=== PATIENT | male | born 1960 | race African-American/Black ===

== ENCOUNTER 2016-08-12 17:58 | Emergency (ER) | payer MEDICAID, OTHER ==
[~2016-08-12 17:58] MED LIST: ALBU8I INH; AMLO5 PO; ATOR40TA PO; BENZ1TAB PO; CARV12.52 PO; CHEL50TA PO; CHLO10 PO; CITA20TA4 PO; CYCL1PAK PO; DARU800T PO; FLUT50SP; FOLI1 PO; HYDR-2768 PO; HYDR50CA PO; LASI20TA PO; LISI-363 PO; LYRI50CA2 PO; MOBI15TA PO; NORV100C PO; NORV100T PO; POTA-243 PO; PRAZ1 PO; RISP1TAB51 OR; TAB-TAB PO; THIA100T18 PO; TRUVTAB2 PO; ZIPR1CAP27 PO; ZOVI200C24 PO
[2016-08-12 18:12] VITALS: BP 136/100; PULSE 92; RESP 20; TEMP 98.7; O2SAT 96
[2016-09-26] MEDS ORDERED: VITA250T3 PO (03:51)
== END 2016-08-12 21:05 | disposition left against medical advice (07) ==
LOC: NEDAMB 17:58
DX: R68.89 Other general symptoms and signs (principal)
CPT/HCPCS: 99281

== ENCOUNTER 2016-08-26 00:08 | Emergency (ER) | payer MEDICAID ==
[2016-08-26 00:13] VITALS: BP 128/75; PULSE 90; RESP 18; TEMP 98.3; O2SAT 96
[2016-08-26] MEDS ORDERED: EMTR1TAB4 PO (00:27)
[2016-08-26] MEDS ORDERED: POTA10TA2 PO (00:27)
[2016-08-26] MEDS ORDERED: LISI-515 PO (00:27)
[2016-08-26] MEDS ORDERED: HYDR25TA5 PO (00:27)
[2016-08-26] MEDS ORDERED: DARU1TAB2 PO (00:27)
[2016-08-26] MEDS ORDERED: PRAV40TA2 PO (00:27)
[2016-08-26] MEDS ORDERED: ALBUAER3 INH (00:27)
[2016-08-26] MEDS ORDERED: CARV12.52 PO (00:27)
[2016-08-26] MEDS ORDERED: ATOR20TA15 PO (00:27)
[2016-08-26] MEDS ORDERED: MELO7.5T4 PO (00:27)
[2016-08-26] MEDS ORDERED: SODIUM CHLOR 0.9% 1000 ML INJ 1,000 ML IV ONE (00:30)
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
[2016-08-26 01:04] LABS: AUTOMATED NEUTROPHIL # 4.3 TH/MM3 (1.8-7.7); BASOPHIL # 0.2 TH/MM3 (0-0.2); EOSINOPHIL # 0.2 TH/MM3 (0-0.4); HEMATOCRIT 39.9 % (39.0-51.0); HEMO FLAGS DIFF FINAL; LYMPH % 33.6 % (9.0-44.0); LYMPHOCYTE # 2.8 TH/MM3 (1.0-4.8); MEAN CELL VOLUME 100.9 FL (80.0-100.0); MEAN CORPUSCULAR HEMOGLOBIN 35.6 PG (27.0-34.0); MEAN CORPUSCULAR HGB CONC 35.3 % (32.0-36.0); MONO % 11.1 % (0.0-8.0); NEUT % 51.3 % (16.0-70.0); PLATELET COUNT 229 TH/MM3 (150-450); RED BLOOD COUNT 3.95 MIL/MM3 (4.50-5.90); RED CELL DISTRIBUTION WIDTH 14.4 % (11.6-17.2); WHITE BLOOD COUNT 8.4 TH/MM3 (4.0-11.0)
[2016-08-26 01:06] LABS: ANION GAP 12 MEQ/L (5-15); AST (GOT) 230 U/L (15-37); BICARBONATE 24.2 MEQ/L (21.0-32.0); BLOOD UREA NITROGEN 7 MG/DL (7-18); CHLORIDE 99 MEQ/L (98-107); GLOMERULAR FILTRATION RATE 111 ML/MIN (>89); POTASSIUM 3.3 MEQ/L (3.5-5.1); SODIUM (NA) 135 MEQ/L (136-145)
[2016-08-26 01:17] LABS: ALKALINE PHOSPHATASE 134 U/L (45-117); ALT (GPT) 119 U/L (12-78); TOTAL BILIRUBIN ADULT 0.7 MG/DL (0.2-1.0)
[2016-09-26] MEDS ORDERED: VITA250T3 PO (03:51)
== END 2016-08-26 01:50 | disposition left against medical advice (07) ==
LOC: NEPC 00:08
DX: F32.9 Major depressive disorder, single episode, unspecified (principal); Z53.21 Procedure and treatment not carried out due to patient leaving prior to being seen by health care provider; J45.909 Unspecified asthma, uncomplicated; I10 Essential (primary) hypertension
CPT/HCPCS: 80053; 80307; 84443; 85025; 96360; 99284; J7030

== ENCOUNTER 2016-09-24 00:59 | Observation (INO) | payer MEDICAID ==
[2016-09-24] VITALS (10 sets, daily range): BP systolic 98–161; BP diastolic 55–99; PULSE 71–101; RESP 12–22; TEMP 97.6–98.6; O2SAT 93–98
[~2016-09-24] VITALS: Ht 185.4 cm; Wt 90.0 kg
[~2016-09-24 00:59] MED LIST changes: +ALBUAER3 INH; +ATOR20TA15 PO; +DARU1TAB2 PO; +EMTR1TAB4 PO; +HYDR25TA5 PO; +LISI-515 PO; +MELO7.5T4 PO; +POTA10TA2 PO; +PRAV40TA2 PO
--- NOTE | 2016-09-24 02:42 | PD ---
HPI Chief Complaint: General Weakness Time Seen by Provider: 01:48 Travel History International Travel<30 days: No Contact w/Intl Traveler<30days: No Traveled to known affect area: No History of Present Illness HPI The patient is a 55 year old male who presents to the [facility] emergency department with a history of generalized weakness that began at 2 pm. It began when he was working outdoors in the heat. He has associated left sided chest pain with the weakness that comes and goes. The chest pain is sharp in character. He reports having associated dyspnea on exertion. He denies any prior history of DVT, PE, congestive heart failure, or heart attack. The patient has a known history of HIV, however he reports that he has been taking his retroviral medications. He cannot recall what his last CD4 count or viral load was. He reports that he last had blood work done a few months ago. The patient denies any recent fever, cough, congestion, neck pain, abdominal pain, diarrhea, urinary symptoms, or neurologic symptoms. He incidentally also reports having low back pain. In addition on review of systems he also reports having nausea and vomiting every morning for a year. He smokes 1/2 ppd. He reports drinking 2 beers per day. He denies ever having a stress test done previously [facility] Past Medical History Narrative Medical The patient's past medical history is significant for HIV since 1985- on retroviral medications, hypertension, asthma, bipolar disorder. PCP: Dr. Sulaiman Dai. Arthritis: Yes Asthma: Yes Blood Disorders: Yes (HIV) Bipolar Disorder: Yes Anxiety: Yes Depression: Yes Heart Rhythm Problems: No Cardiac Catheterization: No Cardiovascular Problems: Yes (HTN) High Cholesterol: Yes Congestive Heart Failure: No Diabetes: No Diminished Hearing: No Hypertension: Yes Immune Disorder: Yes (HIV+) Psychiatric: Yes Immunizations Current: Yes Schizophrenia: Yes Tetanus Vaccination: Unknown Past Surgical History Narrative Surgical Patient's past surgical history is significant for appendectomy Abdominal Surgery: Yes (APPENDECTOMY) Appendectomy: Yes Coronary Artery Bypass Graft: No Family History Family Myocardial Infarction: Yes (FATHER) Social History Alcohol Use: Yes (2 beers per day) Tobacco Use: Yes (one half pack per day) Substance Use: No (UTO) Allergies-Medications (Allergen,Severity, Reaction): Coded Allergies: Penicillin (Verified Allergy, Severe, HIVES, 09/24/16) Sulfa (Verified Allergy, Severe, HIVES, 09/24/16) Reported Meds & Prescriptions Reported Meds & Active Scripts Active Reported Fluticasone Nasal [place] 50 Mcg/Act Naspr 50 Mcg EACH NARE BID 50 mcg/spray Hydrochlorothiazide 25 Mg Tab 25 Mg PO DAILY Prezcobix (Darunavir-Cobicistat) 800-150 Mg Tab 1 Tab PO DAILY Lisinopril 20 Mg Tab 20 Mg PO DAILY Pravastatin 40 Mg Tab 40 Mg PO DAILY Descovy (Emtricitabine-Tenofovir Alafenamide) 200-25 mg Tab 1 Tab PO DAILY Proair Hfa 8.5 GM Inh (Albuterol Sulfate) 90 Mcg/Act Aer 2 Puff INH Q4-6H PRN 108 mcg/actuation Meloxicam 7.5 Mg Tab 7.5 Mg PO DAILY Carvedilol 12.5 Mg Tab 12.5 Mg PO BID Review of Systems Except as stated in HPI: all other systems reviewed are Neg General / Constitutional: No: Fever Eyes: No: Visual changes HENT: No: Headaches Cardiovascular: Positive: Chest Pain or Discomfort, Dyspnea on exertion, No: Palpitations Respiratory: Positive: Shortness of Breath Gastrointestinal: Positive: Nausea, Vomiting, No: Diarrhea, Abdominal Pain, Changes in Bowel Habits, Indigestion, Loss of Appetite Genitourinary: No: Dysuria Musculoskeletal: No: Pain Skin: No Rash Neurologic: No: Weakness Psychiatric: No: Depression Endocrine: No: Polydipsia Hematologic/Lymphatic: No: Easy Bruising Physical Exam Narrative General: The patient is a well-developed well-nourished male in no acute distress. Drowsy on my arrival to the room. Head and Neck exam: Head is normocephalic atraumatic. Eyes: EOMI, pupils are equal round and reactive to light. Nose: Midline septum with pink mucous membranes Mouth: Dentition unremarkable. Moist mucus membranes. Posterior oropharynx is not erythematous. No tonsillar hypertrophy. Uvula midline. Airway patent. Neck: No palpable lymphadenopathy. No nuchal rigidity. No thyromegaly. Cardiovascular: Sinus tachycardia in the low 100 without murmurs, gallops, or rubs. No pulse deficit to the extremities and simultaneous auscultation and palpation of his radial artery. Lungs: Clear to auscultation bilaterally. No wheezes, rhonchi, or rales. Abdomen: Soft, without tenderness to palpation in all 4 quadrants of the abdomen. No guarding, rebound, or rigidity. Normal bowel sounds are audible. No tenderness on palpation of McBurney's point. Negative Sumner's sign. Extremities: No clubbing, cyanosis, or edema. 2+ pulses in all 4 extremities. No calf tenderness on palpation. Back: No spinous process tenderness to palpation. No costovertebral angle tenderness to palpation. Neurologic Exam: Grossly nonfocal. Skin Exam: No rash noted. Intact skin that is warm and dry. Data Data Last Documented VS Vital Signs Date Time Temp Pulse Resp B/P Pulse Ox O2 Delivery O2 Flow Rate FiO2 09/24/16 04:23 82 16 123/77 98 Nasal Cannula 2 09/24/16 01:01 98.1 Orders Complete Blood Count With Diff (09/24/16 02:35) Comprehensive Metabolic Panel (09/24/16 02:35) Creatine Kinase (Cpk) (09/24/16 02:35) Ckmb (Isoenzyme) Profile (09/24/16 02:35) Troponin I (09/24/16 02:35) B-Type Natriuretic Peptide (09/24/16 02:35) Prothrombin Time / Inr (Pt) (09/24/16 02:35) Act Partial Throm Time (Ptt) (09/24/16 02:35) Lipase (09/24/16 02:35) Urinalysis - C+S If Indicated (09/24/16 02:35) Magnesium (Mg) (09/24/16 02:35) Thyroid Stimulating Hormone (09/24/16 02:35) Chest, Single Ap (09/24/16 02:35) Ct Brain W/O Iv Contrast(Rout) (09/24/16 02:35) Iv Access Insert/Monitor (09/24/16 02:35) Ecg Monitoring (09/24/16 02:35) Oximetry (09/24/16 02:35) Drug Screen, Random Urine (09/24/16 02:35) Alcohol (Ethanol) (09/24/16 02:35) Sodium Chlor 0.9% 1000 Ml Inj (Ns 1000 M (09/24/16 03:30) Sodium Chlor 0.9% 1000 Ml Inj (Ns 1000 M (09/24/16 03:30) CKMB (09/24/16 02:30) CKMB% (09/24/16 02:30) Admit Order (Ed Use Only) (09/24/16 04:20) Aspirin Chew (Aspirin Chew) (09/24/16 04:30) Nitroglycerin 2% Oint (Nitroglycerin 2% (09/24/16 04:30) Labs Laboratory Tests Test 09/24/16 09/24/16 02:30 04:10 White Blood Count 8.1 TH/MM3 Red Blood Count 3.99 MIL/MM3 Hemoglobin 14.5 GM/DL Hematocrit 41.4 % Mean Corpuscular Volume 103.9 FL Mean Corpuscular Hemoglobin 36.4 PG Mean Corpuscular Hemoglobin 35.0 % Concent Red Cell Distribution Width 14.7 % Platelet Count 240 TH/MM3 Mean Platelet Volume 7.8 FL Neutrophils (%) (Auto) 59.0 % Lymphocytes (%) (Auto) 28.3 % Monocytes (%) (Auto) 9.1 % Eosinophils (%) (Auto) 2.6 % Basophils (%) (Auto) 1.0 % Neutrophils # (Auto) 4.8 TH/MM3 Lymphocytes # (Auto) 2.3 TH/MM3 Monocytes # (Auto) 0.7 TH/MM3 Eosinophils # (Auto) 0.2 TH/MM3 Basophils # (Auto) 0.1 TH/MM3 CBC Comment DIFF FINAL Differential Comment Prothrombin Time 9.8 SEC Prothromb Time International 0.9 RATIO Ratio Activated Partial 31.0 SEC Thromboplast Time Sodium Level 141 MEQ/L Potassium Level 3.1 MEQ/L Chloride Level 103 MEQ/L Carbon Dioxide Level 24.8 MEQ/L Anion Gap 13 MEQ/L Blood Urea Nitrogen 6 MG/DL Creatinine 0.75 MG/DL Estimat Glomerular Filtration 132 ML/MIN Rate Random Glucose 116 MG/DL Calcium Level 8.5 MG/DL Magnesium Level 1.9 MG/DL Total Bilirubin 0.5 MG/DL Aspartate Amino Transf 123 U/L (AST/SGOT) Alanine Aminotransferase 86 U/L (ALT/SGPT) Alkaline Phosphatase 109 U/L Total Creatine Kinase 140 U/L Creatine Kinase MB 1.5 NG/ML Troponin I 0.06 NG/ML B-Type Natriuretic Peptide 37 PG/ML Total Protein 8.6 GM/DL Albumin 2.9 GM/DL Lipase 317 U/L Thyroid Stimulating Hormone 1.800 uIU/ML 3rd Gen Ethyl Alcohol Level 182 MG/DL Urine Color YELLOW Urine Turbidity CLEAR Urine pH 6.0 Urine Specific [place] 1.011 Urine Protein 30 mg/dL Urine Glucose (UA) NEG mg/dL Urine Ketones NEG mg/dL Urine Occult Blood NEG Urine Nitrite NEG Urine Bilirubin NEG Urine Urobilinogen 2.0 MG/DL Urine Leukocyte Esterase NEG Urine RBC 1 /hpf Urine WBC 1 /hpf Urine Squamous Epithelial <1 /hpf Cells Urine Bacteria RARE /hpf Urine Hyaline Casts 61 /lpf Urine Mucus FEW /lpf Microscopic Urinalysis Comment CULT NOT INDICATED Urine Opiates Screen NEG Urine Barbiturates Screen NEG Urine Amphetamines Screen NEG Urine Benzodiazepines Screen POS Urine Cocaine Screen NEG Urine Cannabinoids Screen NEG MDM Medical Decision Making Medical Screen Exam Complete: Yes Emergency Medical Condition: Yes Medical Record Reviewed: Yes Interpretation(s) Last Impressions Head CT 09/24/16234 Signed Impressions: Service Date/Time: Saturday, September 24, 2016 02:44 - CONCLUSION: Negative noncontrast CT brain. rAsh Savage MD Chest X-Ray 09/24/16234 Signed Impressions: Service Date/Time: Saturday, September 24, 2016 02:55 - CONCLUSION: The lungs are clear. Arsh Savage MD Differential Diagnosis Intracranial abnormality, versus acute coronary syndrome, versus rhabdomyolysis , versus polymyositis, versus viral syndrome, versus other infectious process due to his immunocompromise state, versus metabolic encephalopathy, versus electrolyte abnormality. Narrative Course During the course of the patients emergency department visit, the patients history, examination, and differential diagnosis were reviewed with the patient. The patient had IV access obtained and blood work sent for analysis. 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 An EKG was done on arrival. The patient has an EKG that shows a sinus tachycardia rate of 102, no acute ST segment elevation or depression is noted, QRS duration is 83 ms, QTC 418 ms, tremulous baseline which could effect interpretation. The patient was initially provided normal saline 1 L IV fluid bolus which was repeated 1. The patient was given aspirin 162 mg by mouth 1, nitroglycerin 1/ 2 inch the chest wall. The patients laboratory studies were reviewed and remarkable for a white count of 8.1, hemoglobin 14.5, platelets 240 with 9.1 monocytes. CMP is remarkable for potassium of 3.1 which was supplemented orally, BUN 6, glucose 116, AST 123 , ALT 86, CPK 140, troponin I 0.06, BNP is 37, albumin 2.9, lipase 317, TSH 1.8 , PT 9.8, PTT 31, urinalysis shows 30 protein, rare bacteria, urine drug screen is positive for benzodiazepines, alcohol 182. Radiology studies were reviewed and remarkable for a chest x-ray that shows no acute infiltrate, CT scan of the brain shows no acute abnormality. The patients results were discussed with the patient, including the plan of care. I explained that further testing and/ or monitoring is indicated based on the patients history, examination, and/ or laboratory findings. Therefore, I recommended admission for additional evaluation. The patient expressed understanding and was agreeable with this plan. The patient was admitted to the hospital in stable condition and sent to a bed under the care of the [facility] Hospitalist service. Physician Communication Physician Communication The patient's case was discussed with Dr. Sharma. She did agree to admit the patient for further evaluation and treatment at this time. Diagnosis Primary Impression: Generalized weakness Additional Impressions: Elevated troponin Chest pain Qualified Code: R07.9 - Chest pain, unspecified type Admitting Information Admitting Physician Requests: Admit Hermila Zhao MD Sep 24, 2016 02:42
--- NOTE | 2016-09-24 03:11 | RADRPT ---
EXAM DATE/TIME: 09/24/2016 02:55 [facility] COMPARISON: CHEST SINGLE AP, July 13, 2015, 21:51. INDICATIONS : Short of breath. MEDICAL HISTORY : HIV. Hypertension. SURGICAL HISTORY : Appendectomy. ENCOUNTER: Initial ACUITY: 1 day PAIN SCORE: 0/10 LOCATION: Bilateral chest FINDINGS: A single view of the chest demonstrates the lungs to be symmetrically aerated without evidence of mas s, infiltrate or effusion. The cardiomediastinal contours are unremarkable. Osseous structures are intact. CONCLUSION: The lungs are clear. Arsh Savage MD on September 24, 2016 at 3:08 Board Certified Radiologist. This report was verified electronically.
--- NOTE | 2016-09-24 03:20 | RADRPT ---
EXAM DATE/TIME: 09/24/2016 02:44 [facility] COMPARISON: MRI BRAIN W/O CONTRAST, July 14, 2015, 12:09. CT BRAIN W/O CONTRAST, July 13, 2015, 22:09. INDICATIONS : General weakness. RADIATION DOSE: 41.15 CTDIvol (mGy) MEDICAL HISTORY : HIV. Hypertension. SURGICAL HISTORY : Appendectomy. ENCOUNTER: Initial ACUITY: 1 day PAIN SCALE: 0/10 LOCATION: cranial TECHNIQUE: Multiple contiguous axial images were obtained of the head. Using automated exposure control and adj ustment of the mA and/or kV according to patient size, radiation dose was kept as low as reasonably a chievable to obtain optimal diagnostic quality images. DICOM format image data is available electro nically for review and comparison. FINDINGS: CEREBRUM: The ventricles are normal for age. No evidence of midline shift, mass lesion, hemorrhage or acute in farction. No extra-axial fluid collections are seen. POSTERIOR FOSSA: The cerebellum and brainstem are intact. The 4th ventricle is midline. The cerebellopontine angle i s unremarkable. EXTRACRANIAL: The visualized portion of the orbits is intact. SKULL: The calvaria is intact. No evidence of skull fracture. CONCLUSION: Negative noncontrast CT brain. Arsh Savage MD on September 24, 2016 at 3:17 Board Certified Radiologist. This report was verified electronically.
[2016-09-24 03:21] LABS: AUTOMATED NEUTROPHIL # 4.8 TH/MM3 (1.8-7.7); BASOPHIL # 0.1 TH/MM3 (0-0.2); EOSINOPHIL # 0.2 TH/MM3 (0-0.4); EOSINOPHIL % 2.6 % (0.0-4.0); HEMATOCRIT 41.4 % (39.0-51.0); HEMO FLAGS DIFF FINAL; LYMPH % 28.3 % (9.0-44.0); LYMPHOCYTE # 2.3 TH/MM3 (1.0-4.8); MEAN CELL VOLUME 103.9 FL (80.0-100.0); MEAN CORPUSCULAR HEMOGLOBIN 36.4 PG (27.0-34.0); MONO % 9.1 % (0.0-8.0); PLATELET COUNT 240 TH/MM3 (150-450); RED BLOOD COUNT 3.99 MIL/MM3 (4.50-5.90); RED CELL DISTRIBUTION WIDTH 14.7 % (11.6-17.2); WHITE BLOOD COUNT 8.1 TH/MM3 (4.0-11.0)
[2016-09-24] MEDS ORDERED: HYDR25TA5 PO (03:29)
[2016-09-24] MEDS ORDERED: FLUT50SP EACH NARE (03:29)
[2016-09-24] MEDS ORDERED: SODIUM CHLOR 0.9% 1000 ML INJ 1,000 ML IV ONE ×2 (03:30)
[2016-09-24 03:34] LABS: INTERNATIONAL NORMALIZED RATIO 0.9 RATIO; PROTHROMBIN TIME - PATIENT 9.8 SEC (9.8-11.6)
[2016-09-24 03:49] LABS: ALKALINE PHOSPHATASE 109 U/L (45-117); CREATINE KINASE 140 U/L (39-308); TOTAL BILIRUBIN ADULT 0.5 MG/DL (0.2-1.0)
[2016-09-24 03:53] LABS: ALT (GPT) 86 U/L (12-78); AST (GOT) 123 U/L (15-37); BLOOD UREA NITROGEN 6 MG/DL (7-18); CHLORIDE 103 MEQ/L (98-107); GLOMERULAR FILTRATION RATE 132 ML/MIN (>89)
[2016-09-24 03:59] LABS: ANION GAP 13 MEQ/L (5-15); BICARBONATE 24.8 MEQ/L (21.0-32.0); MAGNESIUM 1.9 MG/DL (1.5-2.5); POTASSIUM 3.1 MEQ/L (3.5-5.1); SODIUM (NA) 141 MEQ/L (136-145)
[2016-09-24 04:02] LABS: CKMB 1.5 NG/ML (0.5-3.6)
[2016-09-24] MEDS ORDERED: ASPIRIN 81 MG CHEW TAB CHEW ONE (04:30)
[2016-09-24] MEDS ORDERED: NITROGLYCERIN 2% OINT 1 GM PACKET TOPICAL ONE (04:30)
[2016-09-24 04:52] LABS: BACTERIA, URINE RARE /hpf; BLOOD, URINE NEG (NEG); COMMENT (UR) CULT NOT INDICATED; CULTURE IF INDICATED CULT NOT INDICATED; GLUCOSE,URINE NEG (NEG); HYALINE CAST, URINE 61 /lpf (RARE); KETONE, URINE NEG (NEG); MUCUS URINE FEW /lpf (OCC); NITRITE,URINE NEG (NEG); SQUAMOUS EPITHELIAL CELL URINE <1 /hpf (0-5); URINE COLOR YELLOW (YELLW/STRAW)
[2016-09-24 04:53] LABS: AMPHETAMINE, URINE NEG (NEG); BARBITURATES, URINE NEG (NEG); COCAINE, URINE NEG (NEG)
[2016-09-24] MEDS ORDERED: SODIUM CHLORIDE 0.9% FLUSH 10 ML FLUSH IV FLUSH PRN (05:00)
[2016-09-24] MEDS ORDERED: NALOXONE HCL 0.4 MG/ML AMP IV PRN (05:00)
[2016-09-24] MEDS ORDERED: POTASSIUM CHLORIDE 20 MEQ CONTROLLED RELEASE TAB PO ONE (06:00)
[2016-09-24] MEDS ORDERED: POTASSIUM CHLORIDE 25 MEQ EFFERVESCENT TAB PO ONE (06:00)
[2016-09-24] MEDS ORDERED: SODIUM CHLOR 0.9% 1000 ML INJ 1,000 ML IV SCH (08:15)
[2016-09-24] MEDS ORDERED: ALBUTEROL SULFATE 90 MCG/ACT HFA 18 GM INHALER INH PRN (08:15)
[2016-09-24] MEDS ORDERED: PRAVASTATIN SOD 40 MG TAB PO SCH (09:00)
[2016-09-24] MEDS ORDERED: NON-FORMULARY DRUG (Darunavir-Cobicistat (Prezcobix) 1 TAB) PO SCH (09:00)
[2016-09-24] MEDS ORDERED: NON-FORMULARY DRUG (Emtricitabine-Tenofovir Alafenamide (Descovy) 1 TAB) PO SCH (09:00)
[2016-09-24] MEDS ORDERED: CARVEDILOL 12.5 MG TAB PO SCH (09:00)
[2016-09-24] MEDS ORDERED: SODIUM CHLORIDE 0.9% FLUSH 10 ML FLUSH IV FLUSH SCH (09:00)
[2016-09-24] MEDS ORDERED: FLUTICASONE PROPIONATE 50 MCG/ACT 16 GM NASAL SPRAY EACH NARE SCH (09:00)
--- NOTE | 2016-09-24 09:46 | HHI.HP ---
[facility] Jeff Hilario, Admission Diagnosis Generalized Weakness, Chest pain, intermediate troponin Diagnoses: Travel History International Travel<30 Days: No Contact w/Intl Traveler <30 Da: No Traveled to Known Affected Are: No History of Present Illness Mr. Pierce is a 55-year-old male. He came to the hospital yesterday due to profound weakness and chest pain. 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 She was out in the sun and felt hot and dehydrated and weak. After returning to a cooler environment his symptoms did not improve and he started to have chest pain. He has no prior history of myocardial infarction but his father did have a myocardial infarction. His baseline medical conditions are asthma, HIV, schizophrenia, bipolar disorder, anxiety, depression, hypertension, and hyperlipidemia. Chest pain was central in his chest that was worsened with movements and without any tenderness. Overnight with IV hydration he has been feeling better. His chest pain is nearly resolved. He still feels a bit weak but no weakness compared to yesterday. No other complaints. She does smoke and drink alcohol at baseline. Review of Systems Constitutional: COMPLAINS OF: Fatigue, DENIES: Fever, Weight gain, Weight loss , Chills Eyes: DENIES: Blurred vision, Diplopia Ears, nose, mouth, throat: DENIES: Tinnitus, Hearing loss, Vertigo Respiratory: DENIES: Cough, Wheezing, Shortness of breath Cardiovascular: COMPLAINS OF: Chest pain, DENIES: Palpitations, Syncope Gastrointestinal: DENIES: Abdominal pain, Black stools, Bloody stools Musculoskeletal: DENIES: Joint pain, Muscle aches, Stiffness Integumentary: DENIES: Abnormal pigmentation Hematologic/lymphatic: DENIES: Bruising Immunologic/allergic: DENIES: Eczema Neurologic: DENIES: Abnormal gait, Headache Psychiatric: DENIES: Anxiety, Confusion Past Family Social History Past Medical History Asthma, HIV, schizophrenia, bipolar disorder, anxiety, depression, hypertension , hyperlipidemia Past Surgical History Appendectomy Reported Medications Reported Meds & Active Scripts Active Reported Fluticasone Nasal [place] 50 Mcg/Act Naspr 50 Mcg EACH NARE BID 50 mcg/spray Hydrochlorothiazide 25 Mg Tab 25 Mg PO DAILY Prezcobix (Darunavir-Cobicistat) 800-150 Mg Tab 1 Tab PO DAILY Lisinopril 20 Mg Tab 20 Mg PO DAILY Pravastatin 40 Mg Tab 40 Mg PO DAILY Descovy (Emtricitabine-Tenofovir Alafenamide) 200-25 mg Tab 1 Tab PO DAILY Proair Hfa 8.5 GM Inh (Albuterol Sulfate) 90 Mcg/Act Aer 2 Puff INH Q4-6H PRN 108 mcg/actuation Meloxicam 7.5 Mg Tab 7.5 Mg PO DAILY Carvedilol 12.5 Mg Tab 12.5 Mg PO BID Allergies: Coded Allergies: Penicillin (Verified Allergy, Severe, HIVES, 09/24/16) Sulfa (Verified Allergy, Severe, HIVES, 09/24/16) Family History Myocardial infarction in father Social History Nicotine use Alcohol use Known drug abuse Physical Exam Vital Signs Vital Signs Date Time Temp Pulse Resp B/P Pulse Ox O2 Delivery O2 Flow Rate FiO2 09/24/16 08:22 140/91 09/24/16 08:00 71 09/24/16 07:43 97.6 82 12 161/87 97 09/24/16 06:48 98.2 77 18 132/97 97 09/24/16 04:23 82 16 123/77 98 Nasal Cannula 2 09/24/16 03:50 92 22 102/57 96 Nasal Cannula 2 09/24/16 03:39 98 Nasal Cannula 2 09/24/16 03:00 95 18 98/55 97 Nasal Cannula 2 09/24/16 01:05 101 18 100 Room Air 09/24/16 01:01 98.1 101 18 125/76 93 Physical Exam GENERAL: NAD, A&Ox3 HEAD: Normocephalic. NECK: Supple, trachea midline. No lymphadenopathy. EYES: No scleral icterus. No injection or drainage. CARDIOVASCULAR: Regular rate and rhythm without murmurs, gallops, or rubs. RESPIRATORY: Breath sounds equal bilaterally. No accessory muscle use. GASTROINTESTINAL: Abdomen soft, non-tender, nondistended. MUSCULOSKELETAL: No cyanosis, or edema. SKIN: Warm and dry. NEURO: No focal neurological deficitis. Laboratory Laboratory Tests Test 09/24/16 09/24/16 02:30 04:10 White Blood Count 8.1 Red Blood Count 3.99 Hemoglobin 14.5 Hematocrit 41.4 Mean Corpuscular Volume 103.9 Mean Corpuscular Hemoglobin 36.4 Mean Corpuscular Hemoglobin 35.0 Concent Red Cell Distribution Width 14.7 Platelet Count 240 Mean Platelet Volume 7.8 Neutrophils (%) (Auto) 59.0 Lymphocytes (%) (Auto) 28.3 Monocytes (%) (Auto) 9.1 Eosinophils (%) (Auto) 2.6 Basophils (%) (Auto) 1.0 Neutrophils # (Auto) 4.8 Lymphocytes # (Auto) 2.3 Monocytes # (Auto) 0.7 Eosinophils # (Auto) 0.2 Basophils # (Auto) 0.1 CBC Comment DIFF FINAL Differential Comment Prothrombin Time 9.8 Prothromb Time International 0.9 Ratio Activated Partial 31.0 Thromboplast Time Sodium Level 141 Potassium Level 3.1 Chloride Level 103 Carbon Dioxide Level 24.8 Anion Gap 13 Blood Urea Nitrogen 6 Creatinine 0.75 Estimat Glomerular Filtration 132 Rate Random Glucose 116 Calcium Level 8.5 Magnesium Level 1.9 Total Bilirubin 0.5 Aspartate Amino Transf 123 (AST/SGOT) Alanine Aminotransferase 86 (ALT/SGPT) Alkaline Phosphatase 109 Total Creatine Kinase 140 Creatine Kinase MB 1.5 Troponin I 0.06 B-Type Natriuretic Peptide 37 Total Protein 8.6 Albumin 2.9 Lipase 317 Thyroid Stimulating Hormone 1.800 3rd Gen Ethyl Alcohol Level 182 Urine Color YELLOW Urine Turbidity CLEAR Urine pH 6.0 Urine Specific [place] 1.011 Urine Protein 30 Urine Glucose (UA) NEG Urine Ketones NEG Urine Occult Blood NEG Urine Nitrite NEG Urine Bilirubin NEG Urine Urobilinogen 2.0 Urine Leukocyte Esterase NEG Urine RBC 1 Urine WBC 1 Urine Squamous Epithelial <1 Cells Urine Bacteria RARE Urine Hyaline Casts 61 Urine Mucus FEW Microscopic Urinalysis Comment CULT NOT INDICATED Urine Opiates Screen NEG Urine Barbiturates Screen NEG Urine Amphetamines Screen NEG Urine Benzodiazepines Screen POS Urine Cocaine Screen NEG Urine Cannabinoids Screen NEG Result Diagram: 09/24/1622909/24/16229 Assessment and Plan Problem List: (1) Chest pain ICD Code: R07.9 Status: Acute (2) Elevated troponin ICD Code: R74.8 Status: Acute (3) Generalized weakness ICD Code: R53.1 Status: Acute (4) Heat exhaustion ICD Code: T67.5XXA Status: Acute Assessment and Plan Assessment and plan 55-year-old male admitted with heat exhaustion, weakness and chest pain. Weakness Heat exhaustion Improving. Continue IV hydration Follow for further improvement Avoid excessive heat exposure Chest pain Troponin elevation Chest pain has resolved Follow troponin levels Elevated troponin may be secondary to dehydration No signs of myocardial infarction thus far Etiology suspected to be related to heat exhaustion and dehydration Musculoskeletal aggravation could also contribute Asthma No exacerbation Continue baseline treatments HIV Continue antivirals Follow as an outpatient schizophrenia bipolar disorder Depression Anxiety No exacerbations No change to baseline treatment hypertension Follow blood pressures Adjust if needed hyperlipidemia Continue statin Follow as an outpatient DVT prophylaxis SCDs Problem Qualifiers (1) Chest pain: Qualified Code: R07.9 - Chest pain, unspecified type Thanh Corey MD Sep 24, 2016 9:45 am
[2016-09-24] MEDS ORDERED: MELOXICAM 7.5 MG TAB PO SCH (11:00)
--- NOTE | 2016-09-24 17:11 | EKG ---
Date Performed: 09/24/2016 Time Performed: 01:06:41 PTAGE: 55 years EKG: SINUS TACHYCARDIA POSSIBLE LEFT ATRIAL ENLARGEMENT BORDERLINE LEFT AXIS DEVIATION ABNORMAL RHYTHM ECG PREVIOUS TRACING : 07/13/2015 23.17 Compared to prior tracing no significant change DOCTOR: Yash Moody Interpretating Date/Time 09/24/2016 17:09:57
--- NOTE | 2016-09-24 17:11 | EKG ---
Date Performed: 09/24/2016 Time Performed: 08:13:10 PTAGE: 55 years EKG: Sinus rhythm WITH SHORT UT INTERVAL WITH OCCASIONAL VENTRICULAR PREMATURE COMPLEXES BORDERLINE LEFT AXIS DEVIATIO N BORDERLINE ECG PREVIOUS TRACING : 09/24/2016 01.06 Compared to prior tracing no significant change DOCTOR: Yash Moody Interpretating Date/Time 09/24/2016 17:10:10
[2016-09-26] MEDS ORDERED: VITA250T3 PO (03:51)
== END 2016-09-24 12:32 | disposition home or self-care (01) ==
LOC: NEPE 00:59 → INTOOBSV 04:23 → NEDA 04:23 → NEPGCP 06:03
PROVIDERS: ADMIT Hospitalist; ATTEND Hospitalist
DX: R07.9 Chest pain, unspecified (principal); R74.8 Abnormal levels of other serum enzymes; T67.5XXA Heat exhaustion, unspecified, initial encounter; R53.1 Weakness; R53.83 Other fatigue; R06.02 Shortness of breath; R06.00 Dyspnea, unspecified; M54.5 Low back pain; R11.2 Nausea with vomiting, unspecified; R00.0 Tachycardia, unspecified; R94.31 Abnormal electrocardiogram [ECG] [EKG]; I10 Essential (primary) hypertension; E78.5 Hyperlipidemia, unspecified; E78.00 Pure hypercholesterolemia, unspecified; J45.909 Unspecified asthma, uncomplicated; B20 Human immunodeficiency virus [HIV] disease; F20.9 Schizophrenia, unspecified; F31.9 Bipolar disorder, unspecified; F41.9 Anxiety disorder, unspecified; M19.90 Unspecified osteoarthritis, unspecified site; F17.200 Nicotine dependence, unspecified, uncomplicated; Z79.899 Other long term (current) drug therapy
CPT/HCPCS: 70450; 71010; 80053; 80307; 81001; 82550; 82552; 83690; 83735; 83880; 84443; 84484; 85025; 85610; 85730; 93005; 96360; 99285; G0378; J7030

== ENCOUNTER 2016-09-26 03:45 | Emergency (ER) | payer MEDICAID ==
[~2016-09-26] VITALS: Ht 185.4 cm; Wt 90.0 kg
[~2016-09-26 03:45] MED LIST changes: -ALBU8I INH; -AMLO5 PO; -ATOR20TA15 PO; -ATOR40TA PO; -BENZ1TAB PO; -CHEL50TA PO; -CHLO10 PO; -CITA20TA4 PO; -CYCL1PAK PO; -DARU800T PO; -FLUT50SP; +FLUT50SP EACH NARE; -FOLI1 PO; -HYDR-2768 PO; -HYDR50CA PO; -LASI20TA PO; -LISI-363 PO; -LYRI50CA2 PO; -MOBI15TA PO; -NORV100C PO; -NORV100T PO; -POTA-243 PO; -POTA10TA2 PO; -PRAZ1 PO; -RISP1TAB51 OR; -TAB-TAB PO; -THIA100T18 PO; -TRUVTAB2 PO; -ZIPR1CAP27 PO; -ZOVI200C24 PO
[2016-09-26] MEDS ORDERED: VITA250T3 PO ×2 (03:51)
[2016-09-26 03:52] VITALS: BP 120/83; PULSE 101; RESP 20; TEMP 98.5; O2SAT 92
[2016-09-26 03:59] VITALS: BP_SYST 113; BP_SYST 116; BP_DIAS 74; BP_DIAS 76; BP_DIAS 78
[2016-09-26] MEDS ORDERED: POTASSIUM CHLORIDE 20 MEQ CONTROLLED RELEASE TAB PO ONE (04:00)
--- NOTE | 2016-09-26 04:00 | PD ---
HPI Chief Complaint: TIRED Time Seen by Provider: 03:49 Travel History International Travel<30 days: No Contact w/Intl Traveler<30days: No History of Present Illness HPI PT CALLED [facility] NUMEROUS TIMES BECAUSE HE WAS TIRED AND NEEDED A RIDE TO THE HOSPITAL. ARRIVES AT 0400. PATIENT DENIES MORENO/CP/ABDPAIN/N/V/D BUT JUST FEELS TIRED AND WANTS TO REST. PATIENT WAS SEEN LAST NIGHT AND ADMITTED TO [facility], SEEN BY DR CARVAJAL ([employer]) AND CLEARED TO GO HOME AFTER CARDIAC EVALUATION FOR ESSENTIALLY THE SAME COMPLAINT. PFSH Past Medical History Arthritis: Yes Asthma: Yes Blood Disorders: Yes (HIV) Bipolar Disorder: Yes Anxiety: Yes Depression: Yes Heart Rhythm Problems: No Cardiac Catheterization: No Cardiovascular Problems: Yes (HTN) High Cholesterol: Yes Congestive Heart Failure: No Diabetes: No Diminished Hearing: No Hypertension: Yes Immune Disorder: Yes (HIV+) Psychiatric: Yes Immunizations Current: Yes Schizophrenia: Yes Past Surgical History Abdominal Surgery: Yes (APPENDECTOMY) Appendectomy: Yes Coronary Artery Bypass Graft: No Social History Alcohol Use: Yes (2 beers per day) Tobacco Use: Yes (one half pack per day) Substance Use: Yes (crack cocaine, last used 1 1/2 years ago ) Allergies-Medications (Allergen,Severity, Reaction): Coded Allergies: Penicillin (Verified Allergy, Severe, HIVES, 09/29/16) Sulfa (Verified Allergy, Severe, HIVES, 09/29/16) Reported Meds & Prescriptions Reported Meds & Active Scripts Active Levaquin (Levofloxacin) 500 Mg Tablet 500 Mg PO DAILY 7 Days Reported Vitamin C (Ascorbic Acid) 250 Mg Tab 500 Mg PO Fluticasone Nasal [place] 50 Mcg/Act Naspr 50 Mcg EACH NARE BID 50 mcg/spray Hydrochlorothiazide 25 Mg Tab 25 Mg PO DAILY Prezcobix (Darunavir-Cobicistat) 800-150 Mg Tab 1 Tab PO DAILY Lisinopril 20 Mg Tab 20 Mg PO DAILY Pravastatin 40 Mg Tab 40 Mg PO DAILY Descovy (Emtricitabine-Tenofovir Alafenamide) 200-25 mg Tab 1 Tab PO DAILY Proair Hfa 8.5 GM Inh (Albuterol Sulfate) 90 Mcg/Act Aer 2 Puff INH Q4-6H PRN 108 mcg/actuation Meloxicam 7.5 Mg Tab 7.5 Mg PO DAILY Carvedilol 12.5 Mg Tab 12.5 Mg PO BID Review of Systems Except as stated in HPI: all other systems reviewed are Neg (EXCEPT FOR FEELING TIRED) Physical Exam Narrative GENERAL: SKIN: Warm and dry. HEAD: Atraumatic. Normocephalic. EYES: Pupils equal and round. No scleral icterus. No injection or drainage. ENT: No nasal bleeding or discharge. Mucous membranes pink and moist. NECK: Trachea midline. No JVD. CARDIOVASCULAR: Regular rate and rhythm. RESPIRATORY: No accessory muscle use. Clear to auscultation. Breath sounds equal bilaterally. GASTROINTESTINAL: Abdomen soft, non-tender, nondistended. Hepatic and splenic margins not palpable. MUSCULOSKELETAL: Extremities without clubbing, cyanosis, or edema. No obvious deformities. NEUROLOGICAL: Awake and alert. No obvious cranial nerve deficits. Motor grossly within normal limits. Five out of 5 muscle strength in the arms and legs. Normal speech. PSYCHIATRIC: Appropriate mood and affect; insight and judgment normal. Data Data Last Documented VS Orders Orthostatic Vital Signs (09/26/16 03:52) Blood Glucose (09/26/16 03:52) Potassium Chloride (Kcl) (09/26/16 04:00) MDM Medical Decision Making Medical Screen Exam Complete: Yes Emergency Medical Condition: No Medical Record Reviewed: Yes Differential Diagnosis HYPOGLYCEMIA V ORTHOSTASIS Narrative Course SEE H&P FOR THOUGHT PROCESS AFTER THOROUGH REVIEW OF PATIENTS CHART ON RECENT ADMISSION. PATIENT ALSO DID NOT HAVE ANY SERIOUS HYPOKALEMIA ON LABS ONLY HAD MINOR LOW LEVELS OF 3.1 SO WILL GIVE ORAL REPLACEMENT HERE TIMES 1 Diagnosis Primary Impression: MEDICAL CLEARANCE Additional Impression: MILD HYPOKALEMIA Disposition: DISCHARGE HOME Condition: Stable Curly Cameron MD Sep 26, 2016 04:00 Diagnosis Primary Impression: MEDICAL CLEARANCE Additional Impression: MILD HYPOKALEMIA Disposition: 01 DISCHARGE HOME Condition: Stable Curly Cameron MD Sep 26, 2016 04:00
== END 2016-09-26 05:53 | disposition home or self-care (01) ==
LOC: NEPE 03:45
DX: E87.6 Hypokalemia (principal); J45.909 Unspecified asthma, uncomplicated; Z21 Asymptomatic human immunodeficiency virus [HIV] infection status; F31.9 Bipolar disorder, unspecified; F41.9 Anxiety disorder, unspecified; I10 Essential (primary) hypertension; E78.00 Pure hypercholesterolemia, unspecified; F20.9 Schizophrenia, unspecified; F17.200 Nicotine dependence, unspecified, uncomplicated
CPT/HCPCS: 99283

== ENCOUNTER 2016-09-29 00:47 | Emergency (ER) | payer MEDICAID ==
[~2016-09-29 00:47] MED LIST changes: +VITA250T3 PO
[2016-09-29 00:49] VITALS: BP 139/94; PULSE 111; RESP 18; TEMP 98.8; O2SAT 96
[2016-09-29] MEDS ORDERED: LEVA500T20 PO (08:29)
== END 2016-09-29 01:00 | disposition left against medical advice (07) ==
LOC: NED 00:47
DX: F10.10 Alcohol abuse, uncomplicated (principal)
CPT/HCPCS: 99281

== ENCOUNTER 2016-09-29 06:00 | Emergency (ER) | payer MEDICAID ==
[~2016-09-29] VITALS: Ht 185.4 cm; Wt 88.0 kg
[2016-09-29 06:01] VITALS: BP 164/110; PULSE 91; RESP 18; TEMP 98.4; O2SAT 96
--- NOTE | 2016-09-29 06:58 | PD ---
HPI Chief Complaint: Chest Pain Time Seen by Provider: 06:45 Travel History International Travel<30 days: No Contact w/Intl Traveler<30days: No Traveled to known affect area: No History of Present Illness HPI 85-year-old male with a history of HIV disease, coronary artery disease, cardiomyopathy, who presents today with points of chest pain. Patient states that he's had a cough with productive yellow-green phlegm. He states when he coughs he gets a sharp pain in his left chest. When asked if he had the pain before the cough, the patient does state that he has had pain previously. Patient denies any fevers, chills. He states he thinks he needs an antibiotic. The patient denies any other complaints time my examination. PFSH Past Medical History Arthritis: Yes Asthma: Yes Blood Disorders: Yes (HIV) Bipolar Disorder: Yes Anxiety: Yes Depression: Yes Heart Rhythm Problems: No Cardiac Catheterization: No Cardiovascular Problems: Yes (htn) High Cholesterol: Yes Congestive Heart Failure: No Diabetes: No Diminished Hearing: No Hypertension: Yes Immune Disorder: Yes (HIV+) Psychiatric: Yes Immunizations Current: Yes Schizophrenia: Yes Past Surgical History Abdominal Surgery: Yes (APPENDECTOMY) Appendectomy: Yes Coronary Artery Bypass Graft: No Family History Family Myocardial Infarction: Yes (FATHER) Social History Alcohol Use: Yes (2-3 beers per day) Tobacco Use: Yes (one half pack per day) Substance Use: Yes (crack cocaine, last used 1 1/2 years ago ) Allergies-Medications (Allergen,Severity, Reaction): Coded Allergies: Penicillin (Verified Allergy, Severe, HIVES, 09/29/16) Sulfa (Verified Allergy, Severe, HIVES, 09/29/16) Reported Meds & Prescriptions Reported Meds & Active Scripts Active Reported Vitamin C (Ascorbic Acid) 250 Mg Tab 500 Mg PO Fluticasone Nasal [place] 50 Mcg/Act Naspr 50 Mcg EACH NARE BID 50 mcg/spray Hydrochlorothiazide 25 Mg Tab 25 Mg PO DAILY Prezcobix (Darunavir-Cobicistat) 800-150 Mg Tab 1 Tab PO DAILY Lisinopril 20 Mg Tab 20 Mg PO DAILY Pravastatin 40 Mg Tab 40 Mg PO DAILY Descovy (Emtricitabine-Tenofovir Alafenamide) 200-25 mg Tab 1 Tab PO DAILY Proair Hfa 8.5 GM Inh (Albuterol Sulfate) 90 Mcg/Act Aer 2 Puff INH Q4-6H PRN 108 mcg/actuation Meloxicam 7.5 Mg Tab 7.5 Mg PO DAILY Carvedilol 12.5 Mg Tab 12.5 Mg PO BID Review of Systems Except as stated in HPI: all other systems reviewed are Neg General / Constitutional: No: Fever, Chills HENT: No: Headaches, Lightheadedness Cardiovascular: Positive: Chest Pain or Discomfort, No: Palpitations, Irregular Rhythm Respiratory: Positive: Cough, No: Shortness of Breath (productive yellow- green phlegm) Gastrointestinal: No: Nausea, Vomiting, Abdominal Pain Genitourinary: No: Frequency, Dysuria Musculoskeletal: No: Weakness, Pain Neurologic: No: Weakness, Dizziness Physical Exam Narrative GENERAL: Well-nourished, well-developed patient. SKIN: Focused skin assessment warm/dry. HEAD: Normocephalic/atraumatic. EYES: No scleral icterus. No injection or drainage. NECK: Supple, trachea midline. No JVD or lymphadenopathy. CARDIOVASCULAR: Regular rate and rhythm without murmurs, gallops, or rubs. RESPIRATORY: Coarse rhonchi heard at the bilateral bases. No Rales appreciated. No decreased breath sounds. GASTROINTESTINAL: Abdomen soft, non-tender, nondistended. MUSCULOSKELETAL: No cyanosis, or edema. NEUROLOGICAL: Awake and alert. Cranial nerves II through XII intact. Motor grossly within normal limits. Five out of 5 muscle strength in all muscle groups. Normal speech. Data Data Last Documented VS Vital Signs Date Time Temp Pulse Resp B/P Pulse Ox O2 Delivery O2 Flow Rate FiO2 09/29/16 07:12 95 09/29/16 07:12 Room Air 09/29/16 06:01 98.4 91 18 164/110 Orders Electrocardiogram (09/29/16 06:46) Basic Metabolic Panel (Bmp) (09/29/16 06:46) Ckmb (Isoenzyme) Profile (09/29/16 06:46) Complete Blood Count With Diff (09/29/16 06:46) Troponin I (09/29/16 06:46) Ecg Monitoring (09/29/16 06:46) Bilateral Bp Monitoring (09/29/16 06:46) Iv Access Insert/Monitor (09/29/16 06:46) Oximetry (09/29/16 06:46) Oxygen Administration (09/29/16 06:46) Sodium Chloride 0.9% Flush (Ns Flush) (09/29/16 07:00) Chest, Pa & Lat (09/29/16 06:46) Labs Laboratory Tests Test 09/29/16 07:10 White Blood Count 8.1 TH/MM3 Red Blood Count 3.78 MIL/MM3 Hemoglobin 13.8 GM/DL Hematocrit 39.1 % Mean Corpuscular Volume 103.5 FL Mean Corpuscular Hemoglobin 36.4 PG Mean Corpuscular Hemoglobin 35.2 % Concent Red Cell Distribution Width 14.4 % Platelet Count 213 TH/MM3 Mean Platelet Volume 7.6 FL Neutrophils (%) (Auto) 59.7 % Lymphocytes (%) (Auto) 28.4 % Monocytes (%) (Auto) 10.8 % Eosinophils (%) (Auto) 0.4 % Basophils (%) (Auto) 0.7 % Neutrophils # (Auto) 4.8 TH/MM3 Lymphocytes # (Auto) 2.3 TH/MM3 Monocytes # (Auto) 0.9 TH/MM3 Eosinophils # (Auto) 0.0 TH/MM3 Basophils # (Auto) 0.1 TH/MM3 CBC Comment DIFF FINAL Differential Comment MDM Medical Decision Making Medical Screen Exam Complete: Yes Emergency Medical Condition: Yes Differential Diagnosis ACS versus pneumonia versus bronchitis Narrative Course 85-year-old male with history of HIV disease, cardiomyopathy, hypertension, who presents here with complaints of cough with productive yellow-green phlegm. Patient also reported left sided chest pain. Labs and x-ray are pending at this time. He'll be signed out to Dr. Malone, physician replacing this physician. Disposition will be per her. At this time I believe the chest pain is very atypical. He likely has bronchitis or possible early pneumonia. Diagnosis Primary Impression: Productive cough Additional Impressions: Atypical chest pain HIV disease Rafa Leung MD Sep 29, 2016 06:58
[2016-09-29] MEDS ORDERED: SODIUM CHLORIDE 0.9% FLUSH 10 ML FLUSH IVF PRN (07:00)
[2016-09-29 07:12] VITALS: O2SAT 95
[2016-09-29 07:29] LABS: AUTOMATED NEUTROPHIL # 4.8 TH/MM3 (1.8-7.7); BASOPHIL # 0.1 TH/MM3 (0-0.2); BASOPHIL % 0.7 % (0.0-2.0); EOSINOPHIL % 0.4 % (0.0-4.0); HEMATOCRIT 39.1 % (39.0-51.0); HEMO FLAGS DIFF FINAL; LYMPH % 28.4 % (9.0-44.0); LYMPHOCYTE # 2.3 TH/MM3 (1.0-4.8); MEAN CELL VOLUME 103.5 FL (80.0-100.0); MEAN CORPUSCULAR HEMOGLOBIN 36.4 PG (27.0-34.0); MEAN CORPUSCULAR HGB CONC 35.2 % (32.0-36.0); MONO % 10.8 % (0.0-8.0); NEUT % 59.7 % (16.0-70.0); PLATELET COUNT 213 TH/MM3 (150-450); RED BLOOD COUNT 3.78 MIL/MM3 (4.50-5.90); RED CELL DISTRIBUTION WIDTH 14.4 % (11.6-17.2); WHITE BLOOD COUNT 8.1 TH/MM3 (4.0-11.0)
[2016-09-29 07:44] LABS: CREATINE KINASE 173 U/L (39-308)
[2016-09-29 07:46] LABS: ANION GAP 9 MEQ/L (5-15); BICARBONATE 25.8 MEQ/L (21.0-32.0); BLOOD UREA NITROGEN 9 MG/DL (7-18); CHLORIDE 108 MEQ/L (98-107); GLOMERULAR FILTRATION RATE 130 ML/MIN (>89); POTASSIUM 3.3 MEQ/L (3.5-5.1); SODIUM (NA) 143 MEQ/L (136-145)
[2016-09-29 07:56] LABS: CKMB 1.5 NG/ML (0.5-3.6)
--- NOTE | 2016-09-29 08:16 | RADRPT ---
EXAM DATE/TIME: 09/29/2016 07:38 [facility] COMPARISON: CHEST SINGLE AP, September 24, 2016, 2:55. INDICATIONS : Cough MEDICAL HISTORY : HIV. Hypertension SURGICAL HISTORY : Appendectomy. ENCOUNTER: Initial ACUITY: 1 day PAIN SCORE: 0/10 LOCATION: Bilateral chest FINDINGS: PA and lateral views of the chest demonstrate the lungs to be symmetrically aerated without evidence of mass, infiltrate or effusion. The cardiomediastinal contours are unremarkable. Osseous structure s are intact. CONCLUSION: No acute disease. Ross Bahena MD on September 29, 2016 at 8:13 Board Certified Radiologist. This report was verified electronically.
[2016-09-29] MEDS ORDERED: LEVA500T20 PO (08:29)
--- NOTE | 2016-09-29 08:30 | PD ---
Data Data Last Documented VS Vital Signs Date Time Temp Pulse Resp B/P Pulse Ox O2 Delivery O2 Flow Rate FiO2 09/29/16 07:12 95 09/29/16 07:12 Room Air 09/29/16 06:01 98.4 91 18 164/110 Orders Electrocardiogram (09/29/16 06:46) Basic Metabolic Panel (Bmp) (09/29/16 06:46) Ckmb (Isoenzyme) Profile (09/29/16 06:46) Complete Blood Count With Diff (09/29/16 06:46) Troponin I (09/29/16 06:46) Ecg Monitoring (09/29/16 06:46) Bilateral Bp Monitoring (09/29/16 06:46) Iv Access Insert/Monitor (09/29/16 06:46) Oximetry (09/29/16 06:46) Oxygen Administration (09/29/16 06:46) Sodium Chloride 0.9% Flush (Ns Flush) (09/29/16 07:00) Chest, Pa & Lat (09/29/16 06:46) CKMB (09/29/16 07:10) CKMB% (09/29/16 07:10) Labs Laboratory Tests Test 09/29/16 07:10 White Blood Count 8.1 TH/MM3 Red Blood Count 3.78 MIL/MM3 Hemoglobin 13.8 GM/DL Hematocrit 39.1 % Mean Corpuscular Volume 103.5 FL Mean Corpuscular Hemoglobin 36.4 PG Mean Corpuscular Hemoglobin 35.2 % Concent Red Cell Distribution Width 14.4 % Platelet Count 213 TH/MM3 Mean Platelet Volume 7.6 FL Neutrophils (%) (Auto) 59.7 % Lymphocytes (%) (Auto) 28.4 % Monocytes (%) (Auto) 10.8 % Eosinophils (%) (Auto) 0.4 % Basophils (%) (Auto) 0.7 % Neutrophils # (Auto) 4.8 TH/MM3 Lymphocytes # (Auto) 2.3 TH/MM3 Monocytes # (Auto) 0.9 TH/MM3 Eosinophils # (Auto) 0.0 TH/MM3 Basophils # (Auto) 0.1 TH/MM3 CBC Comment DIFF FINAL Differential Comment Sodium Level 143 MEQ/L Potassium Level 3.3 MEQ/L Chloride Level 108 MEQ/L Carbon Dioxide Level 25.8 MEQ/L Anion Gap 9 MEQ/L Blood Urea Nitrogen 9 MG/DL Creatinine 0.76 MG/DL Estimat Glomerular Filtration 130 ML/MIN Rate Random Glucose 84 MG/DL Calcium Level 8.5 MG/DL Total Creatine Kinase 173 U/L Creatine Kinase MB 1.5 NG/ML Troponin I LESS THAN 0.02 NG/ML MDM Supervised Visit with JC: No Narrative Course This is a 55-year-old male who has a history of HIV presenting with a productive cough with yellow and green sputum. I suspect he has bronchitis. Labs are obtained as he was reporting some chest pain associated with his cough which were reassuring. The description of his symptoms don't sound cardiac. I Think it's reasonable to send the patient home on antibiotics. Diagnosis Primary Impression: Productive cough Additional Impressions: Atypical chest pain HIV disease Patient Instructions: General Instructions Additional Instruction: If you develop severe chest pain, shortness of breath, sweating, lightheadedness , dizziness or difficulty breathing return to the emergency department immediately. Followup with your primary care physician in 2-3 days if your symptoms are not resolved. Med/Other Pt SpecificInfo: Prescription(s) given Scripts Levofloxacin (Levaquin)500 Mg [id number] Mg PO DAILY 7 Days Prov:Emily Malone MD 09/29/16 Disposition: 01 DISCHARGE HOME Condition: Stable Emily Malone MD Sep 29, 2016 08:29
[2016-09-29] MEDS ORDERED: ONDANSETRON HCL 4 MG/2 ML VIAL IV ONE (09:00)
[2016-09-29 09:36] VITALS: BP 145/78
--- NOTE | 2016-09-29 13:25 | EKG ---
Date Performed: 09/29/2016 Time Performed: 06:27:55 PTAGE: 55 years EKG: Sinus rhythm WITH MARKED SINUS ARRHYTHMIA POSSIBLE LEFT ATRIAL ENLARGEMENT BORDERLINE ECG PREVIOUS TRACING : 09/24/2016 08.13 Compared to prior tracing no significant change DOCTOR: Lucrecia Ferrell Interpretating Date/Time 09/29/2016 13:19:41
== END 2016-09-29 09:37 | disposition home or self-care (01) ==
LOC: NEPE 06:00
DX: B20 Human immunodeficiency virus [HIV] disease (principal); R05 Cough; R07.89 Other chest pain; I10 Essential (primary) hypertension; F17.200 Nicotine dependence, unspecified, uncomplicated; Z79.899 Other long term (current) drug therapy
CPT/HCPCS: 71020; 80048; 82550; 82552; 84484; 85025; 93005; 96374; 99285; J2405

== ENCOUNTER 2016-09-30 21:05 | Emergency (ER) | payer MEDICAID ==
[~2016-09-30] VITALS: Ht 180.3 cm; Wt 88.0 kg
[~2016-09-30 21:05] MED LIST changes: +LEVA500T20 PO
[2016-09-30 21:09] VITALS: BP 96/59; PULSE 91; RESP 18; TEMP 99; O2SAT 96
[2016-09-30 21:26] VITALS: BP 96/64; PULSE 89; RESP 16; O2SAT 95
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
--- NOTE | 2016-09-30 22:10 | RADRPT ---
EXAM DATE/TIME: 09/30/2016 21:30 [facility] COMPARISON: No previous studies available for comparison. INDICATIONS : Right elbow pain after fall. MEDICAL HISTORY : None. SURGICAL HISTORY : None. ENCOUNTER: Initial ACUITY: 2 days PAIN SCORE: 10/10 LOCATION: Right elbow. FINDINGS: Multiple view examination of the right elbow demonstrates no joint effusion, or fracture. The osseou s structures are in normal alignment. Bony mineralization is normal. No radiopaque foreign bodies. There is induration of the subcutaneous fat about the medial aspect of the distal arm and elbow. CONCLUSION: No fracture seen. Medial soft tissue swelling. Arsh Savage MD on September 30, 2016 at 22:06 Board Certified Radiologist. This report was verified electronically.
[2016-09-30 22:41] VITALS: BP 132/81; PULSE 90; RESP 16; O2SAT 97
== END 2016-09-30 22:47 | disposition home or self-care (01) ==
LOC: NEPD 21:05
DX: S50.01XA Contusion of right elbow, initial encounter (principal); I10 Essential (primary) hypertension; E78.00 Pure hypercholesterolemia, unspecified; F20.9 Schizophrenia, unspecified; F31.9 Bipolar disorder, unspecified; B20 Human immunodeficiency virus [HIV] disease; Y04.0XXA Assault by unarmed brawl or fight, initial encounter; Y93.9 Activity, unspecified; Y92.9 Unspecified place or not applicable; Y99.9 Unspecified external cause status
CPT/HCPCS: 73080; 99283

== ENCOUNTER 2016-10-07 18:38 | Inpatient (IN) | payer MEDICAID ==
[~2016-10-07] VITALS: Ht 185.4 cm; Wt 91.4 kg
[2016-10-07 18:53] VITALS: BP 107/64; PULSE 112; RESP 16; TEMP 98.5; O2SAT 95
--- NOTE | 2016-10-07 19:06 | PD ---
HPI Chief Complaint: Pain: Acute or Chronic Time Seen by Provider: 19:06 Travel History International Travel<30 days: No Contact w/Intl Traveler<30days: No Traveled to known affect area: No History of Present Illness HPI 55-year-old male came to the emergency room with history of right upper extremity swelling and pain after a fall. Patient says he fell 2 weeks ago. But he is also a chronic alcoholic and in fact currently he is intoxicated. His right upper extremity is massively swollen and he is having hard time lifting it. There is significant ecchymosis. It is difficult to understand what patient is saying because of his intoxicated state. Patient says that he had come to the emergency room after the initial fall and an x-ray was done and he was told nothing was broken. He is tachycardic with heart rate in 1 teens. REPLACED BY [facility] Past Medical History Narrative Medical List of his past medical, surgical, social and family history is reviewed from the nursing note. Arthritis: Yes Asthma: Yes Blood Disorders: Yes (HIV) Bipolar Disorder: Yes Anxiety: Yes Depression: Yes Heart Rhythm Problems: No Cardiac Catheterization: No Cardiovascular Problems: Yes (htn) High Cholesterol: Yes Congestive Heart Failure: No Diabetes: No Diminished Hearing: No Hypertension: Yes Immune Disorder: Yes (HIV+) Psychiatric: Yes Immunizations Current: Yes Schizophrenia: Yes Past Surgical History Abdominal Surgery: Yes (APPENDECTOMY) Appendectomy: Yes Coronary Artery Bypass Graft: No Social History Alcohol Use: Yes (2-3 beers per day) Tobacco Use: Yes (one half pack per day) Substance Use: Yes (crack cocaine, last used 1 1/2 years ago ) Allergies-Medications (Allergen,Severity, Reaction): Coded Allergies: Penicillin (Verified Allergy, Severe, HIVES, 09/30/16) Sulfa (Verified Allergy, Severe, HIVES, 09/30/16) Comments List of his allergies reviewed from the nursing note. Reported Meds & Prescriptions Reported Meds & Active Scripts Active Reported Vitamin C (Ascorbic Acid) 250 Mg Tab 500 Mg PO Fluticasone Nasal [place] 50 Mcg/Act Naspr 50 Mcg EACH NARE BID 50 mcg/spray Hydrochlorothiazide 25 Mg Tab 25 Mg PO DAILY Prezcobix (Darunavir-Cobicistat) 800-150 Mg Tab 1 Tab PO DAILY Lisinopril 20 Mg Tab 20 Mg PO DAILY Pravastatin 40 Mg Tab 40 Mg PO DAILY Descovy (Emtricitabine-Tenofovir Alafenamide) 200-25 mg Tab 1 Tab PO DAILY Proair Hfa 8.5 GM Inh (Albuterol Sulfate) 90 Mcg/Act Aer 2 Puff INH Q4-6H PRN 108 mcg/actuation Meloxicam 7.5 Mg Tab 7.5 Mg PO DAILY Carvedilol 12.5 Mg Tab 12.5 Mg PO BID Narrative Medication List of his home medications reviewed from the nursing note. Review of Systems Except as stated in HPI: all other systems reviewed are Neg Physical Exam Narrative GENERAL: Intoxicated, moderate distress SKIN: Focused skin assessment warm/dry. Significant ecchymosis of the right upper extremity starting from the axilla all the way down to the elbow and fingers. Right upper extremity is significantly swollen HEAD: Atraumatic. Normocephalic. EYES: Pupils equal and round. No scleral icterus. No injection or drainage. ENT: No nasal bleeding or discharge. Mucous membranes pink and moist. NECK: Trachea midline. No JVD. CARDIOVASCULAR: Regular rate and rhythm. No murmur appreciated. RESPIRATORY: No accessory muscle use. Clear to auscultation. Breath sounds equal bilaterally. GASTROINTESTINAL: Abdomen soft, non-tender, nondistended. Hepatic and splenic margins not palpable. MUSCULOSKELETAL: Right shoulder is swollen with decreased range of motion. Possible shoulder dislocation although difficult to tell given the swelling. No clubbing. No cyanosis. No edema. Sensations and pulses intact distally on his right hand and fingers. NEUROLOGICAL: Intoxicated. No obvious cranial nerve deficits. Motor grossly within normal limits. Slurred speech. PSYCHIATRIC: Appropriate mood and affect; insight and judgment normal. Data Data Last Documented VS Vital Signs Date Time Temp Pulse Resp B/P Pulse Ox O2 Delivery O2 Flow Rate FiO2 10/07/16 21:00 100 4.00 10/07/16 21:00 Nasal Cannula 10/07/16 18:53 98.5 112 16 107/64 Orders Elbow, Complete (4 Vws) (10/07/16 ) Complete Blood Count With Diff (10/07/16 19:13) Basic Metabolic Panel (Bmp) (10/07/16 19:13) Prothrombin Time / Inr (Pt) (10/07/16 19:13) Creatine Kinase (Cpk) (10/07/16 19:13) ^ Saline Lock (10/07/16 19:13) Alcohol (Ethanol) (10/07/16 19:13) Shoulder, Limited(2vws) (10/07/16 ) Propofol 500 Mg/50 Ml Inj (Diprivan 500 (10/07/16 20:20) Propofol 200 Mg/20 Ml Inj (Diprivan 200 (10/07/16 22:00) Ct Shoulder W/O Contrast (10/07/16 ) Us Arm Venous Doppler (10/07/16 ) Consult Orthopedic (10/07/16 ) Admit Order (Ed Use Only) (10/07/16 22:10) Labs Laboratory Tests Test 10/07/16 19:35 White Blood Count 10.2 TH/MM3 Red Blood Count 3.50 MIL/MM3 Hemoglobin 12.5 GM/DL Hematocrit 35.7 % Mean Corpuscular Volume 102.0 FL Mean Corpuscular Hemoglobin 35.6 PG Mean Corpuscular Hemoglobin 34.9 % Concent Red Cell Distribution Width 13.9 % Platelet Count 329 TH/MM3 Mean Platelet Volume 6.8 FL Neutrophils (%) (Auto) 62.8 % Lymphocytes (%) (Auto) 25.5 % Monocytes (%) (Auto) 11.1 % Eosinophils (%) (Auto) 0.2 % Basophils (%) (Auto) 0.4 % Neutrophils # (Auto) 6.4 TH/MM3 Lymphocytes # (Auto) 2.6 TH/MM3 Monocytes # (Auto) 1.1 TH/MM3 Eosinophils # (Auto) 0.0 TH/MM3 Basophils # (Auto) 0.0 TH/MM3 CBC Comment DIFF FINAL Differential Comment Prothrombin Time 9.7 SEC Prothromb Time International 0.9 RATIO Ratio Sodium Level 134 MEQ/L Potassium Level 3.2 MEQ/L Chloride Level 98 MEQ/L Carbon Dioxide Level 25.4 MEQ/L Anion Gap 11 MEQ/L Blood Urea Nitrogen 13 MG/DL Creatinine 0.88 MG/DL Estimat Glomerular Filtration 110 ML/MIN Rate Random Glucose 96 MG/DL Calcium Level 8.2 MG/DL Total Creatine Kinase 117 U/L Ethyl Alcohol Level 208 MG/DL [facility] Medical Decision Making Medical Screen Exam Complete: Yes Emergency Medical Condition: Yes Medical Record Reviewed: Yes Differential Diagnosis Shoulder dislocation, shoulder fracture, hematoma, rhabdomyolysis Narrative Course 8:12 PM awaiting for his x-rays to be done and resulted. Awaiting for the blood test results. 8:20 PM x-ray shows right shoulder dislocation with fracture. I will attempt to reduce it. There is a high chance of failure given the fact that the arm is massively swollen along with the fracture and the fact that he says it has been like this for 2 weeks. I looked at his past visit on September 30. He was seen for a fall and right elbow pain. At that time the diagnosis and exam only said about the elbow injury and pain and an x-ray of elbow only was done. It was negative for fracture at that time. Patient is intoxicated at the present time and he is a chronic alcoholic. The time frame that he is giving is unreliable at this point. 9:29 PM I was unsuccessful in reducing the shoulder. I put a call out for orthopedics at this point. Blood test results of back and within acceptable range. Alcohol level was high. 10:12 PM I discussed the case with the orthopedic surgeon Dr. Cazares who recommended CT scan of the shoulder and also an ultrasound of the upper extremity to rule out DVT. He wants the patient nothing by mouth after midnight and be admitted to the medical service. Dr. Nelson will take the patient to the OR tomorrow morning. I spoke with the hospitalist was accepted the patient at this point. Patient remains hemodynamically stable. He is awake at this point. Procedures Procedure Narrative After the risks and benefits were discussed the following procedure was performed: MODERATE SEDATION: The patient was placed on a desulfurizer machine and pulse oximetry. An ambu bag and suction was immediately available at bedside. The patient was monitored by the nurse. Oxygen saturation , heart rate and blood pressure were monitored. Procedural sedation was acheived using 160 mg of propofol IV. The patient was observed until awake and alert. Procedural Sedation time in attendance was 30 minutes. Shoulder dislocation reduction: The shoulder was attempted to be reduced by traction countertraction method. After multiple attempts I was unsuccessful. This was done under procedural sedation. Overall patient tolerated the procedure well. EKG Prior to Arrival: No Diagnosis Primary Impression: Shoulder dislocation Qualified Code: S43.004A - Shoulder dislocation, right, initial encounter Additional Impressions: Humeral head fracture Qualified Code: S42.291A - Humeral head fracture, right, closed, initial encounter Acute alcohol intoxication Qualified Code: F10.929 - Acute alcohol intoxication, with unspecified complication Chronic alcoholism Arm swelling Admitting Information Admitting Physician Requests: Admit Scripts Calcium Carbonate-Vitamin D (Calcium 600+D 200)600-200 Mg-Unit Tab1 Tab PO BID #90 TAB Ref 0 Prov:Zachary Gonzalez Jr. 10/08/16 Ergocalciferol 50,000 Unit Cap50,000 Units PO Q7D #7 CAP Prov:Zachary Gonzalez Jr. 10/08/16 Hydrocodone-Acetaminophen 10-325 mg Tab1 Tab PO Q4H PRN (PAIN) #60 TAB Ref 0 Prov:Zachary Gonzalez Jr. 10/08/16 Darci Pardo MD Oct 07, 2016 19:06
[2016-10-07 20:15] LABS: AUTOMATED NEUTROPHIL # 6.4 TH/MM3 (1.8-7.7); BASOPHIL % 0.4 % (0.0-2.0); EOSINOPHIL % 0.2 % (0.0-4.0); HEMATOCRIT 35.7 % (39.0-51.0); HEMO FLAGS DIFF FINAL; LYMPH % 25.5 % (9.0-44.0); LYMPHOCYTE # 2.6 TH/MM3 (1.0-4.8); MEAN CORPUSCULAR HEMOGLOBIN 35.6 PG (27.0-34.0); MEAN CORPUSCULAR HGB CONC 34.9 % (32.0-36.0); MONO % 11.1 % (0.0-8.0); NEUT % 62.8 % (16.0-70.0); PLATELET COUNT 329 TH/MM3 (150-450); RED CELL DISTRIBUTION WIDTH 13.9 % (11.6-17.2); WHITE BLOOD COUNT 10.2 TH/MM3 (4.0-11.0)
--- NOTE | 2016-10-07 20:17 | RADRPT ---
EXAM DATE/TIME: 10/07/2016 19:50 [facility] COMPARISON: ELBOW RIGHT COMPLETE (4 VWS), September 30, 2016, 21:30. INDICATIONS : Patient states right elbow pain and swelling after fall one week ago. MEDICAL HISTORY : None. SURGICAL HISTORY : None. ENCOUNTER: [facility] ACUITY: 1 week PAIN SCORE: 10/10 LOCATION: Right elbow FINDINGS: Limited exam of the elbow reveals marked soft tissue swelling without definite fracture or joint effu henry. CONCLUSION: Marked soft tissue swelling without definite fracture. The lateral cannot be obtained. Feng Jasso MD FACR on October 07, 2016 at 20:14 Board Certified Radiologist. This report was verified electronically.
--- NOTE | 2016-10-07 20:18 | RADRPT ---
EXAM DATE/TIME: 10/07/2016 19:47 [facility] COMPARISON: No previous studies available for comparison. INDICATIONS : Patient states right shoulder pain and swelling after fall one week ago. MEDICAL HISTORY : None. SURGICAL HISTORY : None. ENCOUNTER: Initial ACUITY: 1 week PAIN SCORE: 10/10 LOCATION: Right shoulder FINDINGS: There is an anterior-inferior dislocation of the humeral head with the largest fracture fragment of t he humeral head. The humeral head is trapped beneath the glenoid. CONCLUSION: Fracture dislocation as described above. Feng Jasso MD FACR on October 07, 2016 at 20:15 Board Certified Radiologist. This report was verified electronically.
[2016-10-07] MEDS ORDERED: PROPOFOL 500 MG/50 ML INJ 50 ML ONE (20:20)
[2016-10-07 20:24] LABS: INTERNATIONAL NORMALIZED RATIO 0.9 RATIO; PROTHROMBIN TIME - PATIENT 9.7 SEC (9.8-11.6)
[2016-10-07 20:34] LABS: BICARBONATE 25.4 MEQ/L (21.0-32.0)
[2016-10-07 20:37] LABS: POTASSIUM 3.2 MEQ/L (3.5-5.1)
[2016-10-07 21:00] VITALS: O2SAT 100
[2016-10-07] MEDS ORDERED: PROPOFOL 200 MG/20 ML AMP IV ONE (22:00)
[2016-10-07] MEDS ORDERED: NALOXONE HCL 0.4 MG/ML AMP IV PRN (22:15)
[2016-10-07] MEDS ORDERED: SODIUM CHLORIDE 0.9% FLUSH 10 ML FLUSH IV FLUSH PRN (22:15)
[2016-10-07] MEDS ORDERED: THIAMINE HCL 100 MG TAB PO ONE (22:15)
[2016-10-07] MEDS ORDERED: LORazepam 2 MG/ML VIAL IV PUSH PRN (22:15)
--- NOTE | 2016-10-07 22:47 | RADRPT ---
EXAM DATE/TIME: 10/07/2016 22:31 [facility] COMPARISON: No previous studies available for comparison. INDICATIONS : Right upper extremity swelling and ecchymosis. Evaluate fracture. RADIATION DOSE: 11.91 CTDIvol (mGy) MEDICAL HISTORY : HIV. Hypertension. ETOh abuse, smoker, cva SURGICAL HISTORY : None. ENCOUNTER: Initial ACUITY: 4 - 6 days PAIN SCALE: 5/10 LOCATION: Right shoulder TECHNIQUE: Volumetric scanning of the shoulder was performed. Using automated exposure control and adjustment o f the mA and/or kV according to patient size, radiation dose was kept as low as reasonably achievable to obtain optimal diagnostic quality images. DICOM format image data is available electronically f or review and comparison. FINDINGS: There is the severely comminuted fracture of the humeral head with multiple fragments evident. The l argest portion of the humeral head is trapped beneath the glenoid. Greater tuberosity is a free fra gment. There is an fracture of the inferior glenoid labrum as well. The acromion is intact. CONCLUSION: Fracture dislocation as described above. Feng Jasso MD FACR on October 07, 2016 at 22:44 Board Certified Radiologist. This report was verified electronically.
[2016-10-08] VITALS (9 sets, daily range): BP systolic 105–156; BP diastolic 74–94; PULSE 84–115; RESP 17–24; TEMP 96.5–99; O2SAT 92–98
--- NOTE | 2016-10-08 00:04 | RADRPT ---
EXAM DATE/TIME: 10/07/2016 23:14 [facility] COMPARISON: CT SHOULDER RIGHT W/O CONTRAST, October 07, 2016, 22:31. INDICATIONS : Right arm swelling. MEDICAL HISTORY : Hypercholesterolemia. Hypertension. Cerebrovascular accident. HIV. Asthma. Arthritis. Schizophre john. Depression. Alcohol abuse. SURGICAL HISTORY : Appendectomy. ENCOUNTER: Initial ACUITY: 1 day PAIN SCORE: 8/10 LOCATION: Right arm. FINDINGS: There is thrombus in the right axillary vein. Other venous tributaries of the right upper extremity a re patent. Subcutaneous edema is present, especially proximally. No organized or drainable fluid. CONCLUSION: Thrombosed right axillary vein. Murray Torre MD on October 07, 2016 at 23:59 Board Certified Radiologist. This report was verified electronically.
[2016-10-08] MEDS ORDERED: CHLORHEXIDINE GLUCONATE 2 % 1 PACK (2 CLOTHS) TOPICAL PRN (01:30)
[2016-10-08] MEDS ORDERED: INSULIN HUMAN REGULAR 1,000 UNITS/10 ML VIAL SQ PRN (01:30)
[2016-10-08] MEDS ORDERED: SODIUM CHLORID 0.9% 500 ML IV PRN (01:30)
[2016-10-08] MEDS ORDERED: METOPROLOL TARTRATE 25 MG TAB PO PRN (01:30)
[2016-10-08] MEDS ORDERED: LACTATED RINGER'S 1000 ML IV PRN (01:30)
[2016-10-08] MEDS ORDERED: POVIDONE IODINE 5% (ANTISEPSIS KIT) 4 APPLICATIONS EACH NARE PRN (01:30)
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
[2016-10-08] MEDS ORDERED: THIAMINE INJ 100 MG in SODIUM CHLORIDE 0.9% INJ 100 ML IV ONE (02:15)
[2016-10-08] MEDS ORDERED: HEPARIN-D5W INJ 250 ML IV SCH (02:15)
[2016-10-08] MEDS ORDERED: LORazepam 2 MG/ML VIAL IV PUSH PRN (02:15)
[2016-10-08] MEDS: HYDROmorphone HCL PF 1 MG/ML VIAL IV PUSH PRN ×2 (02:29→10:04)
[2016-10-08 03:11] LABS: AUTOMATED NEUTROPHIL # 8.3 TH/MM3 (1.8-7.7); BASOPHIL # 0.1 TH/MM3 (0-0.2); BASOPHIL % 0.6 % (0.0-2.0); EOSINOPHIL % 0.1 % (0.0-4.0); HEMATOCRIT 36.5 % (39.0-51.0); HEMO FLAGS DIFF FINAL; LYMPH % 14.8 % (9.0-44.0); LYMPHOCYTE # 1.7 TH/MM3 (1.0-4.8); MEAN CELL VOLUME 101.8 FL (80.0-100.0); MEAN CORPUSCULAR HEMOGLOBIN 35.8 PG (27.0-34.0); MEAN CORPUSCULAR HGB CONC 35.1 % (32.0-36.0); MONO % 13.4 % (0.0-8.0); NEUT % 71.1 % (16.0-70.0); PLATELET COUNT 303 TH/MM3 (150-450); RED BLOOD COUNT 3.58 MIL/MM3 (4.50-5.90); RED CELL DISTRIBUTION WIDTH 13.8 % (11.6-17.2); WHITE BLOOD COUNT 11.7 TH/MM3 (4.0-11.0)
[2016-10-08 03:24] LABS: APTT (PATIENT) 30.3 SEC (24.3-30.1); POTASSIUM 3.2 MEQ/L (3.5-5.1)
--- NOTE | 2016-10-08 06:32 | RADRPT ---
EXAM DATE/TIME: 10/08/2016 05:52 [facility] COMPARISON: CHEST PA & LAT, September 29, 2016, 7:38. INDICATIONS : Shortness of breath. MEDICAL HISTORY : Hypercholesterolemia. Hypertension. Cerebrovascular accident. HIV. Asthma. SURGICAL HISTORY : Appendectomy. ENCOUNTER: Initial ACUITY: 1 day PAIN SCORE: 0/10 LOCATION: Bilateral chest FINDINGS: PA and lateral views of the chest demonstrate the lungs to be symmetrically aerated without evidence of mass, infiltrate or effusion. The cardiomediastinal contours are unremarkable. Osseous structure s are intact. CONCLUSION: No change. No acute cardiopulmonary disease demonstrated. Murray Torre MD on October 08, 2016 at 6:30 Board Certified Radiologist. This report was verified electronically.
--- NOTE | 2016-10-08 06:34 | RADRPT ---
EXAM DATE/TIME: 10/08/2016 05:59 [facility] COMPARISON: CT BRAIN W/O CONTRAST, September 24, 2016, 2:44. INDICATIONS : Dizziness, frequent falls. RADIATION DOSE: 54.45 CTDIvol (mGy) MEDICAL HISTORY : Hypertension. HIV. cva, substance abuse SURGICAL HISTORY : None. ENCOUNTER: Initial ACUITY: 1 week PAIN SCALE: 4/10 LOCATION: cranial TECHNIQUE: Multiple contiguous axial images were obtained of the head. Using automated exposure control and adj ustment of the mA and/or kV according to patient size, radiation dose was kept as low as reasonably a chievable to obtain optimal diagnostic quality images. DICOM format image data is available electro nically for review and comparison. FINDINGS: CEREBRUM: The ventricles are normal for age. No evidence of midline shift, mass lesion, hemorrhage or acute in farction. No extra-axial fluid collections are seen. POSTERIOR FOSSA: The cerebellum and brainstem are intact. The 4th ventricle is midline. The cerebellopontine angle i s unremarkable. EXTRACRANIAL: Mucoperiosteal thickening seen of the visualized ethmoid and maxillary air cells. SKULL: The calvaria is intact. No evidence of skull fracture. CONCLUSION: No acute intracranial abnormality demonstrated. Apparent developing sinusitis. Murray Torre MD on October 08, 2016 at 6:32 Board Certified Radiologist. This report was verified electronically.
--- NOTE | 2016-10-08 07:13 | PD.ORT.PN ---
Subjective Subjective Remarks s/p fall approximately 1 week ago. did not come to ER til yesterday reports right shoulder pain and right arm swelling. Objective Vitals Vital Signs Date Time Temp Pulse Resp B/P Pulse Ox O2 Delivery O2 Flow Rate FiO2 10/08/16 04:00 98.4 110 17 151/94 96 10/08/16 03:02 18 10/08/16 02:45 115 10/08/16 00:37 98.7 93 18 138/90 97 10/08/16 00:04 89 24 116/74 98 Room Air 10/07/16 21:00 100 4.00 10/07/16 18:53 98.5 112 16 107/64 95 I/O 10/07/16 10/07/16 10/07/16 10/08/16 10/08/16 10/08/16 07:00 15:00 23:00 07:00 15:00 23:00 Intake Total 240 ml Output Total 500 ml Balance -260 ml Intake Oral 240 ml Output Urine Total 500 ml # Bowel Movements 1 Result Diagram: 10/08/16 0255 10/08/16 0255 Other Results Laboratory Tests Test 10/07/16 19:35 Prothrombin Time 9.7 SEC (9.8-11.6) Prothromb Time International 0.9 RATIO Ratio Imaging Last [address] 10/08/16 0000 Signed Impressions: Service Date/Time: Saturday, October 08, 2016 05:59 - CONCLUSION: No acute intracranial abnormality demonstrated. Apparent developing sinusitis. Murray Torre MD Chest X-Ray 10/08/16 0000 Signed Impressions: Service Date/Time: Saturday, October 08, 2016 05:52 - CONCLUSION: No change. No acute cardiopulmonary disease demonstrated. Murray Torre MD Objective Remarks RUE: 3+ swelling of arm. noticeable ecchymosis of shoulder. full sensation to median/ulnar nerve distribution. full radial nerve function. Assessment & Plan Assessment and Plan 1) Right Proximal Humerus Fx/dislocation -NPO -consents -surgery today 2) Possible DVT of right arm -managed by medical team Saul Escobar Oct 08, 2016 07:13
[2016-10-08] MEDS ORDERED: POTASSIUM CHLORIDE 25 MEQ EFFERVESCENT TAB PO ONE (08:00)
[2016-10-08] MEDS ORDERED: HEPARIN SODIUM - IV 10,000 UNITS/10 ML VIAL IV PRN ×2 (08:15)
--- NOTE | 2016-10-08 08:54 | MB ---
cc: PERRY DIXON DATE OF CONSULTATION 10/07/2016 REASON FOR CONSULTATION Right shoulder fracture-dislocation. CONSULTING PHYSICIAN Dr. Diane Sahu Louis is a 55-year-old male who had a fall approximately a week ago. He presented to the emergency room where he was found to have severe swelling of his right arm. X-rays of his shoulder revealed a fracture-dislocation of the right shoulder. He is currently awake and alert on the orthopedic floor. He complains of severe pain in the right shoulder. Pain is worse with movement. He has a history of alcohol abuse. He denies any other pain in his right shoulder. PAST MEDICAL HISTORY ILLNESSES 1. Hypertension 2. Liver failure 3. HIV 4. Depression SURGERIES 1. Appendectomy 2. Left wrist surgery ALLERGIES PENICILLIN AND SULFA FAMILY HISTORY Positive for myocardial infarction and stroke in a father and CVA and diabetes in a brother and hypertension in the mother. SOCIAL HISTORY The patient drinks beer every day. He smokes a half-pack a day. REVIEW OF SYSTEMS The patient denies headache, visual changes, neck pain, chest pain, shortness of breath, abdominal pain, nausea, vomiting or recent weight loss. He complains of right arm pain. Pain is worse with movement. PHYSICAL EXAMINATION The patient is a well-developed, well-nourished 55-year male who is awake and alert. He appears well-developed, well-nourished. VITAL SIGNS: Temperature 98.4, pulse 110, respirations 17, blood pressure 151/94, O2 sat 96 on room air. HEAD: The patient is normocephalic. EYES: Pupils are equal. NECK: Soft and nontender. Trachea is midline. ABDOMEN: Soft, nontender, and nondistended. EXTREMITIES: Examination of the right arm reveals severe swelling and bruising around his arm and forearm. Radial pulses are palpable. He has good cap refill in is fingers. Sensation is intact in all fingers. He has pain with any shoulder motion. Examination of the left arm reveals no pain with shoulder or wrist motion. Skin is intact. Radial pulses palpable. Sensation is intact. Examination of lower extremities shows no pain with hip, knee or ankle motion. Skin is intact. Dorsalis pedis pulses palpable. X-RAYS X-rays of the right shoulder were reviewed. X-rays revealed a fracture-dislocation of the right shoulder. There is a displaced fracture of the greater tuberosity. IMPRESSION 1. Displaced right proximal humerus fracture-dislocation. 2. Smoking dependence 3. Alcohol abuse PLAN Treatment options were discussed with the patient. At this point, I would recommend open reduction, internal fixation of right proximal humerus fracture-dislocation. The risks of surgery include bleeding, infection, injury to arteries, nerves and blood vessels, recurrent dislocation, arthritis, loss of motion, as well as medical complications including blood clot, stroke, heart attack and . All questions were answered. I will plan on surgery today. A mid-level provider in my office (nurse practitioner or physician speech language pathology assistant) may see this patient on follow-up visits and continue to implement the objectives of this plan including: Starting or adjusting medications, injections , cast application, orthotics, brace application, physical therapy, radiological studies (including x-ray, MRI, CT, ultrasound, bone scan), vascular studies, neurologic studies, specialist consultation, and proceeding with surgical management, as appropriate. MD LISSA Chance/KISHORE /8:31 AM /8:50 AM BENIGNO
[2016-10-08] MEDS: DARUNAVIR COBICISTAT PO SCH (09:00)
[2016-10-08] MEDS: EMTRICITABINE TENOFOVIR ALAFENAMIDE PO SCH (09:00)
[2016-10-08] MEDS: SODIUM CHLORIDE 0.9% FLUSH 10 ML FLUSH IV FLUSH SCH ×2 (09:00→22:40)
[2016-10-08] MEDS: PRAVASTATIN SOD 40 MG TAB PO SCH (10:06)
[2016-10-08] MEDS: CARVEDILOL 12.5 MG TAB PO SCH ×2 (10:06→22:39)
[2016-10-08] MEDS: THIAMINE HCL 100 MG TAB PO SCH (10:07)
[2016-10-08] MEDS: HYDROCHLOROTHIAZIDE 25 MG TAB PO SCH (10:07)
[2016-10-08] MEDS: LISINOPRIL 20 MG TAB PO SCH (10:07)
--- NOTE | 2016-10-08 10:12 | HHI.PR ---
Subjective Remarks Follow-up for right humeral fracture/DVT Patient complaining about cough that started week ago. He stated that he has green sputum in the cough. Denies any shortness of breathing. Patient scheduled for the OR this afternoon. His nurse is at the bedside and has no other issues. Objective Vitals Vital Signs Date Time Temp Pulse Resp B/P Pulse Ox O2 Delivery O2 Flow Rate FiO2 10/08/16 08:00 99.0 102 18 156/87 96 10/08/16 04:00 98.4 110 17 151/94 96 10/08/16 03:02 18 10/08/16 02:45 115 10/08/16 00:37 98.7 93 18 138/90 97 10/08/16 00:04 89 24 116/74 98 Room Air 10/07/16 21:00 100 4.00 10/07/16 21:00 100 Nasal Cannula 4.00 10/07/16 18:53 98.5 112 16 107/64 95 I/O 10/07/16 10/07/16 10/07/16 10/08/16 10/08/16 10/08/16 07:00 15:00 23:00 07:00 15:00 23:00 Intake Total 240 ml Output Total 500 ml Balance -260 ml Intake Oral 240 ml Output Urine Total 500 ml # Bowel Movements 1 Result Diagram: 10/08/16 0255 10/08/16 0255 Imaging Last Impressions Head CT 10/08/16 0000 Signed Impressions: Service Date/Time: Saturday, October 08, 2016 05:59 - CONCLUSION: No acute intracranial abnormality demonstrated. Apparent developing sinusitis. Murray Torre MD Chest X-Ray 10/08/16 0000 Signed Impressions: Service Date/Time: Saturday, October 08, 2016 05:52 - CONCLUSION: No change. No acute cardiopulmonary disease demonstrated. Murray Torre MD Upper Extremity Ultrasound 10/07/16 0000 Signed Impressions: Service Date/Time: Friday, October 07, 2016 23:14 - CONCLUSION: Thrombosed right axillary vein. Murray Torre MD Upper Extremity CT 10/07/16 0000 Signed Impressions: Service Date/Time: Friday, October 07, 2016 22:31 - CONCLUSION: Fracture dislocation as described above. Feng Jasso MD FACR Shoulder X-Ray 10/07/16 0000 Signed Impressions: Service Date/Time: Friday, October 07, 2016 19:47 - CONCLUSION: Fracture dislocation as described above. Feng Jasso MD FACR Elbow X-Ray 10/07/16 0000 Signed Impressions: Service Date/Time: Friday, October 07, 2016 19:50 - CONCLUSION: Marked soft tissue swelling without definite fracture. The lateral cannot be obtained. Feng Jasso MD FACR Objective Remarks GENERAL: in NAD CARDIOVASCULAR: Regular rate and rhythm without murmurs, gallops, or rubs. RESPIRATORY: Breath sounds equal bilaterally. No accessory muscle use. GASTROINTESTINAL: Abdomen soft, non-tender, nondistended. MUSCULOSKELETAL: Right arm limited range of motion due to fracture. Positive for swelling. No erythema. BACK: Nontender without obvious deformity. No CVA tenderness. Medications and IVs Current Medications Propofol (Diprivan 500 Mg/ 50 ml Inj) 50 ml @ As Directed STK-MED ONCE .ROUTE ; Start 10/07/16 at 20:20; Stop 10/07/16 at 20:21; Status DC Propofol (Diprivan 200 Mg/20 ml Inj) 160 mg ONCE ONCE IV ; Start 10/07/16 at 22:00; Stop 10/07/16 at 22:02; Status DC Sodium Chloride (NS Flush) 2 ml UNSCH PRN IV FLUSH FLUSH AFTER USING IV ACCESS ; Start 10/07/16 at 22:15 Sodium Chloride (NS Flush) 2 ml BID IV FLUSH ; Start 10/08/16 at 09:00 Naloxone HCl (Narcan Inj) 0.4 mg UNSCH PRN IV SEE LABEL COMMENTS; Start at 22:15 Lorazepam (Ativan Inj) 1 mg Q2H PRN IV PUSH withdrawal symptoms; Start at 22:15; Stop 10/08/16 at 02:17; Status DC Thiamine HCl (Vitamin B1) 100 mg ONCE ONCE PO Last administered on 10/07/16t 22:46; Start 10/07/16 at 22:15; Stop 10/07/16 at 22:17; Status DC Thiamine HCl (Vitamin B1) 100 mg DAILY PO ; Start 10/08/16 at 09:00 Hydromorphone HCl 0.2 mg 0.2 mg Q4H PRN IV PUSH pain >5 Last administered on 02:29; Start 10/08/16 at 01:00 Lactated Ringer's 1,000 ml @ 30 mls/hr Q24H PRN IV SEE LABEL COMMENTS; Start at 01:30; Stop 10/11/16 at 01:29 Sodium Chloride (NS 500 ml Inj) 500 ml @ 30 mls/hr [id number] PRN IV SEE LABEL COMMENTS; Start 10/08/16 at 01:30; Stop 10/11/16 at 01:29 Metoprolol Tartrate (Lopressor) 25 mg OXYGEN EQUIPMENT PREPARER PRN PO SEE LABEL COMMENTS; Start 10/08/16 at 01:30; Stop 10/11/16 at 01:29 Povidone Iodine (Betadine 5% Antisepsis Kit) 1 applic OXYGEN EQUIPMENT PREPARER PRN EACH NARE SEE LABEL COMMENTS; Start 10/08/16 at 01:30; Stop 10/11/16 at 01:29 Chlorhexidine Gluconate (Chlorhexidine 2% Cloth) 3 pack OXYGEN EQUIPMENT PREPARER PRN TOPICAL SEE LABEL COMMENTS; Start 10/08/16 at 01:30; Stop 10/11/16 at 01:29 Insulin Human Regular (NovoLIN R INJ) See Protocol Table ... OXYGEN EQUIPMENT PREPARER PRN SQ SEE PROTOCOL TABLE; Start 10/08/16 at 01:30; Stop 10/11/16 at 01:29 Heparin Sodium (Porcine) (Heparin Inj) 5,000 units UNSCH PRN IV APTT LESS THAN 25; Start 10/08/16 at 08:15; Stop 10/08/16 at 08:15; Status DC Heparin Sodium (Porcine) 2500 units 2,500 units UNSCH PRN IV APTT 25 TO 39; Start 10/08/16 at 08:15; Stop 10/08/16 at 08:15; Status DC Heparin Sodium/ Dextrose (Heparin-D5W Inj) 250 ml @ 0 mls/hr TITRATE IV Last administered on 10/08/16 04:27; Start 10/08/16 at 02:15 Carvedilol (Coreg) 12.5 mg BID PO ; Start 10/08/16 at 09:00 Hydrochlorothiazide (Hydrodiuril) 25 mg DAILY PO ; Start 10/08/16 at 09:00 Lisinopril (Prinivil) 20 mg DAILY PO ; Start 10/08/16 at 09:00 Pravastatin Sodium (Pravachol) 40 mg DAILY PO ; Start 10/08/16 at 09:00 Patient Own Medication PT OWN MED: Darunavir-Cobicistat (Prezcobix) 1 TAB DAILY PO ; Start 10/08/16 at 09:00 Patient Own Medication PT OWN MED: Emtricitabine-Tenofov... DAILY PO Mgmt Viral Infection; Start 10/08/16 at 09:00 Thiamine HCl 100 mg/Sodium Chloride 101 ml @ 101 mls/hr ONCE ONCE IV Last administered on 10/08/16t 02:47; Start 10/08/16 at 02:15; Stop 10/08/16 at 03:14 ; Status DC Thiamine HCl/ Sodium Chloride (Thiamine Inj/NS Inj) 101 ml @ 101 mls/hr DAILY IV ; Start 10/09/16 at 09:00 Lorazepam (Ativan Inj) 1 mg Q2H PRN IV PUSH withdrawal symptoms; Start at 02:15 Potassium Bicarb/ Potassium Chloride (K-Lyte Cl Eff) 50 meq ONCE ONCE PO ; Start 10/08/16 at 08:00; Stop 10/08/16 at 08:01; Status DC A/P Assessment and Plan 85-year-old male who presented with right shoulder pain 1 week ago s/p fall -Most likely secondary to alcoholism. Right humerus fx/dislocation -Patient scheduled for the OR today at 2 PM. -Continue nothing by mouth except for meds. RUE DVT -On heparin drip. -Tomorrow if he continues to well with transition to oral medication. Etoh abuse -on CIWA - -Education given. htn/liver problem /hiv- on haart meds /depression -Home medication resumed. Cough -May be secondary to acute bronchitis. -Patient feels symptoms has worsened. Clinically he does look well. -Chest x-ray negative for any pneumonia. Will treat with azithromycin. DVT prophylaxis- on heparin drip. Discharge Planning Patient scheduled for the OR today. Diane Anderson MD Oct 08, 2016 10:12
[2016-10-08] MEDS ORDERED: POTASSIUM CHLORIDE 10 MEQ CONTROLLED RELEASE TAB PO ONE (11:00)
[2016-10-08] MEDS ORDERED: AZITHROMYCIN 250 MG TAB PO ONE (11:00)
[2016-10-08 11:10] LABS: APTT (PATIENT) 51.5 SEC (24.3-30.1)
[2016-10-08] MEDS ORDERED: ONDANSETRON HCL 4 MG/2 ML VIAL IV PUSH ONE (12:00)
[2016-10-08] MEDS ORDERED: NORMOSOL R INJ 1,000 ML IV ONE (12:00)
[2016-10-08] MEDS ORDERED: NEOSTIGMINE 3 MG/3 ML SYR IV ONE (12:00)
[2016-10-08] MEDS ORDERED: NEOSTIGMINE METHYLSULFATE 10 MG/10 ML VIAL IV PUSH ONE (12:00)
[2016-10-08] MEDS ORDERED: PHENYLEPH/NS 1000 MCG/10 ML SYR IV ONE (12:00)
[2016-10-08] MEDS ORDERED: PROPOFOL 200 MG/20 ML AMP IV ONE (12:00)
[2016-10-08] MEDS ORDERED: CLINDAMYCIN PHOS 600 MG/4 ML VIAL ONE (16:05)
[2016-10-08] MEDS ORDERED: GENTAMICIN SULFATE 80 MG/2 ML VIAL ONE (16:05)
[2016-10-08] MEDS ORDERED: VANCOMYCIN HCL 1000 MG VIAL ONE (16:05)
[2016-10-08] MEDS ORDERED: HYDROmorphone HCL PF 2 MG/ML VIAL ONE (16:40)
--- NOTE | 2016-10-08 17:53 | PD.OP ---
cc: Paul Nelson MD Operative Report Date of Surgery: Oct 08, 2016 Preoperative Diagnosis: Right proximal humerus fracture dislocation Postoperative Diagnosis: Procedure: Open treatment of right shoulder dislocation, open reduction total fixation greater tuberosity fracture Anesthesia: Gen. Surgeon: Paul Nelson [employer] Laborer(s): Lonnie Gonzalez PA-C The surgical procedure was assisted by my physician hotel assistant general manager. My P.A. presence was necessary throughout this case for the manipulation and positioning of the surgical extremity. My P.A. was assisting me throughout the duration of this procedure. The skill set of a physician hotel assistant general manager was medically necessary to complete this procedure. During the surgical case the histotechnologist supervisor was working at the back table and the physician hotel assistant general manager was directly assisting me. Operation and Findings: Patient was seen and evaluated preoperatively. Patient was found to have a displaced proximal humerus fracture with dislocation. His injury was approximately 2 weeks ago. The risks and benefits of surgical and nonsurgical options were discussed in detail and informed consent was obtained for surgery. Patient was brought to the operating room and placed on or table. IV sedation and GETA were administered by anesthesiologist. Antibiotics were given prior to incision. Operative arm and shoulder were prepped with alcohol followed by Hibiclens and draped usual sterile fashion. Timeout procedure was performed. Procedure began with a 5 inch incision over the anterior shoulder. Cephalic vein was identified. A deltopectoral approach was utilized. The greater tuberosity fracture was now visualized. Soft tissue was retracted. A #5 FiberWire suture was placed into the rotator rotator cuff and greater tuberosity. Attention was now turned to reduction of the dislocation.. Gentle traction was applied. An elevator was placed between the humerus and the glenoid. The humeral head was manipulated. A fracture tenaculum was placed onto the proximal humerus to aid in manipulation. The glenohumeral joint was manually reduced. Next, the Fracture was manipulated to achieve excellent reduction. Multiplanar fluoroscopy confirmed well aligned fracture. Multiple K wires were used to hold provisional fixation. A Synthes plate was selected. Plate was provisionally held in place K wires. 3.5 cortical screws were used to compress plate to bone. Fluoroscopy confirmed appropriate plate placement and fracture reduction. Multiple locking screws were now placed in the humeral head. Screws were predrilled and premeasured for appropriate length. Care was taken not to penetrate the articular surface. Additional screws were placed in the humeral shaft. The FiberWire suture was passed through the holes of the plate and sutured to the plate for additional stability. Final fluoroscopy revealed well aligned fracture with well-placed hardware. Wound was thoroughly irrigated. Fascia was closed with #1 Vicryl, subcutaneous tissues closed with 3 -0 Vicryl, and skin was closed with linda. Sterile dressings were applied. Patient was placed into a sling. Patient was awakened and transferred to recovery in stable condition. Needle and sponge counts were correct. Paul Nelson MD Oct 08, 2016 17:53
[2016-10-08] MEDS ORDERED: MORPHINE SULFATE 4 MG/ML INJ IV PUSH PRN (18:00)
[2016-10-08] MEDS ORDERED: SODIUM CHLORIDE 0.9% FLUSH 5 ML FLUSH IVF PRN (18:00)
[2016-10-08] MEDS: CALCIUM/VITAMIN D 250 MG/125 U TAB PO SCH (18:00)
[2016-10-08] MEDS ORDERED: DO NOT ADM ANY ANTICOAGULANT DRUGS PRN (18:21)
[2016-10-08] MEDS ORDERED: CALCTAB19 PO (18:27)
[2016-10-08] MEDS ORDERED: ERGO1CAP30 PO (18:27)
[2016-10-08] MEDS ORDERED: HYDR-3583 PO (18:27)
[2016-10-08] MEDS ORDERED: fentaNYL CITRATE 250 MCG/5 ML AMP ONE (18:34)
[2016-10-08] MEDS ORDERED: MIDAZOLAM HCL 2 MG/2 ML VIAL ONE (18:35)
--- NOTE | 2016-10-08 18:57 | RADRPT ---
EXAM DATE/TIME: 10/08/2016 17:43 [facility] COMPARISON: No previous studies available for comparison. INDICATIONS : ORIF of the right proximal humerus. MEDICAL HISTORY : HIV. Hypertension. ETOh abuse, Smoker, CVA SURGICAL HISTORY : None. ENCOUNTER: Subsequent ACUITY: 1 week PAIN SCORE: Non-responsive. LOCATION: Right upper extremity FINDINGS: 3 magnified C-arm spot views are centered over the right shoulder and reveal an orthopedic plate with anchoring screws involving the humeral head and neck. Good alignment noted. The anchoring screws are contained within the cortical confines of the humeral neck and metaphysis. CONCLUSION: Limited images as detailed above. Arsh Ceja Jr., MD on October 08, 2016 at 18:55 Board Certified Radiologist. This report was verified electronically.
[2016-10-08] MEDS: SODIUM CHLORIDE 0.9% FLUSH 5 ML FLUSH IVF SCH (21:00)
[2016-10-08] MEDS ORDERED: ONDANSETRON HCL 4 MG/2 ML VIAL IV PUSH PRN (21:15)
--- NOTE | 2016-10-08 22:32 | HHI.PR ---
Addendum to Inpatient Note Addendum Reason: Additional Documentation Additional Information I received a call from patient's nurse regarding heparin drip. Patient has acute right upper extremity DVT. He had right humeral fracture repair today. The nurse had also called orthopedic service. The PA of orthopedic service has advised her not to start the heparin drip until 23 hours after his last anesthesia. This would be tomorrow October 09, 2016 at 1720. I have therefore informed the nurse to follow up orthopedics instructions since he is immediately postop. Please restart heparin drip by tomorrow stated time as above. Dennis Sharma MD Oct 08, 2016 22:32
[2016-10-08] MEDS: DOCUSATE SODIUM 50 MG/SENNA 8.6 MG TAB PO SCH (22:39)
[2016-10-08] MEDS: ACETAMINOPHEN/HYDROcodone 325 MG/10 MG TAB PO PRN (22:39)
[2016-10-08] MEDS: CLINDAMYCIN INJ 600 MG in SODIUM CHLORIDE 0.9% INJ 100 ML IV SCH (23:50)
[2016-10-09] VITALS (8 sets, daily range): BP systolic 101–131; BP diastolic 65–83; PULSE 82–104; RESP 19–21; TEMP 96.1–99.9; O2SAT 96–100
[2016-10-09] MEDS: AZITHROMYCIN 250 MG TAB PO SCH (08:36)
[2016-10-09] MEDS: CALCIUM/VITAMIN D 250 MG/125 U TAB PO SCH ×3 (08:37→18:01)
[2016-10-09] MEDS: THIAMINE HCL 100 MG TAB PO SCH (08:37)
[2016-10-09] MEDS: LISINOPRIL 20 MG TAB PO SCH (08:37)
[2016-10-09] MEDS: DOCUSATE SODIUM 50 MG/SENNA 8.6 MG TAB PO SCH ×2 (08:37→20:48)
[2016-10-09] MEDS: CARVEDILOL 12.5 MG TAB PO SCH ×2 (08:37→20:48)
[2016-10-09] MEDS: PRAVASTATIN SOD 40 MG TAB PO SCH (08:37)
[2016-10-09] MEDS: HYDROCHLOROTHIAZIDE 25 MG TAB PO SCH (08:37)
[2016-10-09] MEDS: CLINDAMYCIN INJ 600 MG in SODIUM CHLORIDE 0.9% INJ 100 ML IV SCH ×2 (08:39→16:42)
[2016-10-09] MEDS: ACETAMINOPHEN/HYDROcodone 325 MG/10 MG TAB PO PRN ×3 (08:44→18:02)
[2016-10-09 09:00] LABS: MEAN CELL VOLUME 103.5 FL (80.0-100.0); MEAN CORPUSCULAR HEMOGLOBIN 35.7 PG (27.0-34.0); MEAN CORPUSCULAR HGB CONC 34.5 % (32.0-36.0); PLATELET COUNT 289 TH/MM3 (150-450); RED BLOOD COUNT 3.67 MIL/MM3 (4.50-5.90); RED CELL DISTRIBUTION WIDTH 13.8 % (11.6-17.2); REVIEW FLAG FINAL; WHITE BLOOD COUNT 10.6 TH/MM3 (4.0-11.0)
[2016-10-09] MEDS: EMTRICITABINE TENOFOVIR ALAFENAMIDE PO SCH ×2 (09:00→16:43)
[2016-10-09] MEDS: SODIUM CHLORIDE 0.9% FLUSH 5 ML FLUSH IVF SCH ×2 (09:00→20:48)
[2016-10-09] MEDS: DARUNAVIR COBICISTAT PO SCH ×2 (09:00→16:42)
[2016-10-09 09:06] LABS: BICARBONATE 26.7 MEQ/L (21.0-32.0); POTASSIUM 3.2 MEQ/L (3.5-5.1)
[2016-10-09] MEDS: THIAMINE INJ 100 MG in SODIUM CHLORIDE 0.9% INJ 100 ML IV SCH (09:08)
--- NOTE | 2016-10-09 10:09 | PD.ORT.PN ---
Subjective Subjective Remarks Pain controlled. No new complaints Objective Vitals Vital Signs Date Time Temp Pulse Resp B/P Pulse Ox O2 Delivery O2 Flow Rate FiO2 10/09/16 09:43 99 21 10/09/16 07:58 98.8 88 19 131/83 99 10/09/16 04:00 96.4 82 21 102/69 96 10/09/16 03:00 Room Air 10/09/16 00:00 96.1 87 19 113/73 100 10/08/16 23:33 18 10/08/16 21:32 96 21 10/08/16 20:00 96.5 84 21 105/89 96 10/08/16 18:45 98.0 90 14 123/87 96 Room Air 10/08/16 18:30 93 14 116/75 95 Room Air 10/08/16 18:23 98.0 99 14 140/82 96 Room Air 10/08/16 16:00 97.9 84 18 119/82 98 10/08/16 12:43 98.3 100 18 114/85 95 I/O 10/08/16 10/08/16 10/08/16 10/09/16 10/09/16 10/09/16 07:00 15:00 23:00 07:00 15:00 23:00 Intake Total 240 ml 2780 ml 500 ml Output Total 500 ml 450 ml 450 ml Balance -260 ml 2330 ml 50 ml Intake Oral 240 ml 780 ml 500 ml Other 2000 ml Output Urine Total 500 ml 300 ml 450 ml Estimated Blood Loss 150 ml # Voids 3 1 # Bowel Movements 1 0 0 Result Diagram: 10/09/16 0814 10/09/16 0814 Imaging Last [address] 10/08/16 0000 Signed Impressions: Service Date/Time: Saturday, October 08, 2016 05:59 - CONCLUSION: No acute intracranial abnormality demonstrated. Apparent developing sinusitis. Murray Torre MD Chest X-Ray 10/08/16 0000 Signed Impressions: Service Date/Time: Saturday, October 08, 2016 05:52 - CONCLUSION: No change. No acute cardiopulmonary disease demonstrated. Murray Torre MD Objective Remarks RUE: Clean dry dressings intact. Sling is loose and not completely in position. Intact sensation distally. Continued swelling throughout the arm +3. Is able to extend fingers and make this Assessment & Plan Assessment and Plan 1) Right Proximal Humerus Fx/dislocation ORIF POD 1 -Nonweightbearing -Sling and swath at all times -No range of motion at this time Daily dressing changes beginning POD 2 2) Possible DVT of right arm -managed by medical team Discharge planning Follow-up with Dr. Nelson or PA in 2 weeks Zachary Gonzalez Jr. Oct 09, 2016 10:09
[2016-10-09 12:44] LABS: APTT (PATIENT) 29.6 SEC (24.3-30.1)
[2016-10-09] MEDS: HEPARIN-D5W INJ 250 ML IV SCH (13:23)
--- NOTE | 2016-10-09 15:52 | HHI.PR ---
Subjective Remarks Follow-up for right shoulder surgery and DVT. Patient had no complaints. He stated that pain was controlled. Heparin drip was stopped by orthopedic yesterday and recommended to restart it this afternoon. Patient's nurse is at the bedside. No acute events. Objective Vitals Vital Signs Date Time Temp Pulse Resp B/P Pulse Ox O2 Delivery O2 Flow Rate FiO2 10/09/16 12:00 98.9 86 19 101/65 96 10/09/16 09:43 99 21 10/09/16 07:58 98.8 88 19 131/83 99 10/09/16 04:00 96.4 82 21 102/69 96 10/09/16 03:00 Room Air 10/09/16 00:00 96.1 87 19 113/73 100 10/08/16 23:33 18 10/08/16 21:32 96 21 10/08/16 20:00 96.5 84 21 105/89 96 10/08/16 18:45 98.0 90 14 123/87 96 Room Air 10/08/16 18:30 93 14 116/75 95 Room Air 10/08/16 18:23 98.0 99 14 140/82 96 Room Air 10/08/16 16:00 97.9 84 18 119/82 98 I/O 10/08/16 10/08/16 10/08/16 10/09/16 10/09/16 10/09/16 07:00 15:00 23:00 07:00 15:00 23:00 Intake Total 240 ml 2780 ml 500 ml 600 ml Output Total 500 ml 450 ml 450 ml 400 ml Balance -260 ml 2330 ml 50 ml 200 ml Intake Oral 240 ml 780 ml 500 ml 600 ml Other 2000 ml Output Urine Total 500 ml 300 ml 450 ml 400 ml Estimated Blood Loss 150 ml # Voids 3 1 1 # Bowel Movements 1 0 0 Result Diagram: 10/09/1614 10/09/1614 Imaging Last Impressions Humerus X-Ray 10/08/16 0000 Signed Impressions: Service Date/Time: Saturday, October 08, 2016 17:43 - CONCLUSION: Limited images as detailed above. Arsh Ceja Jr., MD Head CT 10/08/16 0000 Signed Impressions: Service Date/Time: Saturday, October 08, 2016 05:59 - CONCLUSION: No acute intracranial abnormality demonstrated. Apparent developing sinusitis. Murray Torre MD Chest X-Ray 10/08/16 Signed Impressions: Service Date/Time: Saturday, October 08, 2016 05:52 - CONCLUSION: No change. No acute cardiopulmonary disease demonstrated. Murray Torre MD Upper Extremity Ultrasound 10/07/16 Signed Impressions: Service Date/Time: Friday, October 07, 2016 23:14 - CONCLUSION: Thrombosed right axillary vein. Murray Torre MD Upper Extremity CT 10/07/16 Signed Impressions: Service Date/Time: Friday, October 07, 2016 22:31 - CONCLUSION: Fracture dislocation as described above. Feng Jasso MD FACR Shoulder X-Ray 10/07/16 Signed Impressions: Service Date/Time: Friday, October 07, 2016 19:47 - CONCLUSION: Fracture dislocation as described above. Feng Jasso MD FACR Elbow X-Ray 10/07/16 Signed Impressions: Service Date/Time: Friday, October 07, 2016 19:50 - CONCLUSION: Marked soft tissue swelling without definite fracture. The lateral cannot be obtained. Feng Jasso MD FACR Objective Remarks GENERAL: in NAD CARDIOVASCULAR: Regular rate and rhythm without murmurs, gallops, or rubs. RESPIRATORY: Breath sounds equal bilaterally. No accessory muscle use. GASTROINTESTINAL: Abdomen soft, non-tender, nondistended. MUSCULOSKELETAL: Right arm in sling. Positive for swelling. No erythema. BACK: Nontender without obvious deformity. No CVA tenderness. Medications and IVs Current Medications Propofol (Diprivan 500 Mg/ 50 ml Inj) 50 ml @ As Directed STK-MED ONCE .ROUTE ; Start 10/07/16 at 20:20; Stop 10/07/16 at 20:21; Status DC Propofol (Diprivan 200 Mg/20 ml Inj) 160 mg ONCE ONCE IV ; Start 10/07/16 at 22:00; Stop 10/07/16 at 22:02; Status DC Sodium Chloride (NS Flush) 2 ml UNSCH PRN IV FLUSH FLUSH AFTER USING IV ACCESS ; Start 10/07/16 at 22:15; Stop 10/09/16 at 00:43; Status DC Sodium Chloride (NS Flush) 2 ml BID IV FLUSH Last administered on 10/08/16t 22: 40; Start 10/08/16 at 09:00; Stop 10/09/16 at 00:43; Status DC Naloxone HCl (Narcan Inj) 0.4 mg UNSCH PRN IV SEE LABEL COMMENTS; Start at 22:15 Lorazepam (Ativan Inj) 1 mg Q2H PRN IV PUSH withdrawal symptoms; Start at 22:15; Stop 10/08/16 at 02:17; Status DC Thiamine HCl (Vitamin B1) 100 mg ONCE ONCE PO Last administered on 10/07/16 22:46; Start 10/07/16 at 22:15; Stop 10/07/16 at 22:17; Status DC Thiamine HCl (Vitamin B1) 100 mg DAILY PO Last administered on 10/09/16 08:37 ; Start 10/08/16 at 09:00 Hydromorphone HCl 0.2 mg 0.2 mg Q4H PRN IV PUSH pain >5 Last administered on 10:04; Start 10/08/16 at 01:00; Stop 10/08/16 at 18:36; Status DC Lactated Ringer's 1,000 ml @ 30 mls/hr Q24H PRN IV SEE LABEL COMMENTS; Start at 01:30; Stop 10/11/16 at 01:29 Sodium Chloride (NS 500 ml Inj) 500 ml @ 30 mls/hr [id number] PRN IV SEE LABEL COMMENTS; Start 10/08/16 at 01:30; Stop 10/11/16 at 01:29 Metoprolol Tartrate (Lopressor) 25 mg MASTER TAX ADVISOR PRN PO SEE LABEL COMMENTS; Start 10/08/16 at 01:30; Stop 10/11/16 at 01:29 Povidone Iodine (Betadine 5% Antisepsis Kit) 1 applic MASTER TAX ADVISOR PRN EACH NARE SEE LABEL COMMENTS; Start 10/08/16 at 01:30; Stop 10/11/16 at 01:29 Chlorhexidine Gluconate (Chlorhexidine 2% Cloth) 3 pack MASTER TAX ADVISOR PRN TOPICAL SEE LABEL COMMENTS; Start 10/08/16 at 01:30; Stop 10/11/16 at 01:29 Insulin Human Regular (NovoLIN R INJ) See Protocol Table ... MASTER TAX ADVISOR PRN SQ SEE PROTOCOL TABLE; Start 10/08/16 at 01:30; Stop 10/11/16 at 01:29 Heparin Sodium (Porcine) (Heparin Inj) 5,000 units UNSCH PRN IV APTT LESS THAN 25; Start 10/08/16 at 08:15; Stop 10/08/16 at 08:15; Status DC Heparin Sodium (Porcine) 2500 units 2,500 units UNSCH PRN IV APTT 25 TO 39; Start 10/08/16 at 08:15; Stop 10/08/16 at 08:15; Status DC Heparin Sodium/ Dextrose (Heparin-D5W Inj) 250 ml @ 0 mls/hr TITRATE IV Last administered on 10/08/16 04:27; Start 10/08/16 at 02:15; Stop 10/09/16 at 00:42 ; Status DC Carvedilol (Coreg) 12.5 mg BID PO Last administered on 10/09/16 08:37; Start 10/08/16 at 09:00 Hydrochlorothiazide (Hydrodiuril) 25 mg DAILY PO Last administered on 08:37; Start 10/08/16 at 09:00 Lisinopril (Prinivil) 20 mg DAILY PO Last administered on 10/09/16 08:37; Start 10/08/16 at 09:00 Pravastatin Sodium (Pravachol) 40 mg DAILY PO Last administered on 10/09/16 08 :37; Start 10/08/16 at 09:00 Patient Own Medication PT OWN MED: Darunavir-Cobicistat (Prezcobix) 1 TAB DAILY PO ; Start 10/08/16 at 09:00; Stop 10/09/16 at 14:40; Status DC Patient Own Medication PT OWN MED: Emtricitabine-Tenofov... DAILY PO Mgmt Viral Infection; Start 10/08/16 at 09:00; Stop 10/09/16 at 14:41; Status DC Thiamine HCl 100 mg/Sodium Chloride 101 ml @ 101 mls/hr ONCE ONCE IV Last administered on 10/08/16 02:47; Start 10/08/16 at 02:15; Stop 10/08/16 at 03:14 ; Status DC Thiamine HCl/ Sodium Chloride (Thiamine Inj/NS Inj) 101 ml @ 101 mls/hr DAILY IV Last administered on 10/09/16 09:08; Start 10/09/16 at 09:00 Lorazepam (Ativan Inj) 1 mg Q2H PRN IV PUSH withdrawal symptoms; Start at 02:15 Potassium Bicarb/ Potassium Chloride (K-Lyte Cl Eff) 50 meq ONCE ONCE PO ; Start 10/08/16 at 08:00; Stop 10/08/16 at 08:01; Status DC Azithromycin (Zithromax) 500 mg ONCE ONCE PO Last administered on 10/08/16 12 :33; Start 10/08/16 at 11:00; Stop 10/08/16 at 11:01; Status DC Azithromycin (Zithromax) 250 mg DAILY PO Last administered on 10/09/16 08:36; Start 10/09/16 at 09:00 Potassium Chloride (KCl) 30 meq ONCE ONCE PO Last administered on 10/08/16 12 :33; Start 10/08/16 at 11:00; Stop 10/08/16 at 11:01; Status DC Vancomycin HCl (Vancomycin Inj) 1,000 mg STK-MED ONCE .ROUTE Last administered on 10/08/16 16:20; Start 10/08/16 at 16:05; Stop 10/08/16 at 16:08; Status DC Clindamycin Phosphate (Cleocin Inj) 600 mg STK-MED ONCE .ROUTE Last administered on 10/08/16 16:24; Start 10/08/16 at 16:05; Stop 10/08/16 at 16:08 ; Status DC Gentamicin Sulfate (Gentamicin Inj) 240 mg STK-MED ONCE .ROUTE Last administered on 10/08/16 16:57; Start 10/08/16 at 16:05; Stop 10/08/16 at 16:08 ; Status DC Hydromorphone HCl (Dilaudid Pf Inj) 2 mg STK-MED ONCE .ROUTE ; Start 10/08/16 at 16:40; Stop 10/08/16 at 16:41; Status DC IV Flush (NS Flush) 2 ml UNSCH PRN IVF FLUSH AFTER USING IV ACCESS; Start 10/08 at 18:00 IV Flush (NS Flush) 2 ml BID IVF Last administered on 10/09/16 09:00; Start at 21:00 Senna/Docusate Sodium (Peyton-Colace) 1 tab BID PO Last administered on 08:37; Start 10/08/16 at 21:00 Acetaminophen/ Hydrocodone Bitart ([place] 10-325 Mg) 1 tab Q3H PRN PO pain 2<10 Last administered on 10/09/16 13:26; Start 10/08/16 at 18:00 Calcium/Vitamin D (Oscal-D 250-125) 250 mg TID PO Last administered on 13:11; Start 10/08/16 at 18:00 Morphine Sulfate 4 mg 4 mg Q3H PRN IV PUSH break thru pain; Start 10/08/16 at 18:00 Clindamycin Phosphate/Sodium Chloride (Cleocin Inj/NS Inj) 104 ml @ 208 mls/hr Q8H IV Last administered on 10/09/16 08:39; Start 10/09/16 at 00:00; Stop 03/16 at 16:29 Fentanyl Citrate (fentaNYL INJ) 250 mcg STK-MED ONCE .ROUTE ; Start 10/08/16 at 18:34; Stop 10/08/16 at 18:35; Status DC Midazolam HCl (Versed Inj) 2 mg STK-MED ONCE .ROUTE ; Start 10/08/16 at 18:35; Stop 10/08/16 at 18:36; Status DC Miscellaneous Information ALL NURSING DEPARTME... UNSCH PRN .XX SEE LABEL COMMENTS; Start 10/08/16 at 18:21; Stop 10/09/16 at 18:20 Ondansetron HCl 4 mg 4 mg Q6HR PRN IV PUSH NAUSEA OR VOMITING Last administered on 10/08/16 22:39; Start 10/08/16 at 21:15 Heparin Sodium/ Dextrose 250 ml @ 0 mls/hr TITRATE IV ; Start 10/09/16 at 17:18 ; Stop 10/09/16 at 17:18; Status DC Heparin Sodium/ Dextrose (Heparin-D5W Inj) 250 ml @ 0 mls/hr TITRATE IV Last administered on 10/09/16 13:23; Start 10/09/16 at 10:00 Patient Own Medication PT OWN MED: Darunavir-Cobicistat 800-150... DAILY PO ; Start 10/09/16 at 16:00 Patient Own Medication PT OWN MED: Emtricitabine-Tenofov... DAILY PO Mgmt Viral Infection; Start 10/09/16 at 16:00 A/P Assessment and Plan 85-year-old male who presented with right shoulder pain 1 week ago s/p fall -Most likely secondary to alcoholism. Right humerus fx/dislocation -s/p open treatment of right shoulder dislocation, open reduction total fixation of greater tuberosity fracture on 10/08. -Being managed by orthopedic. Per orthopedic ,nonweightbearing sling and swath at all times, no range of motion at this time, daily dressing changes beginning POD 2. RUE DVT -Heparin drip scheduled to restart as 1700. -Patient can be switched to oral anticoagulation on discharge. Etoh abuse -on CIWA -No signs of withdrawals. -Education given. htn/liver problem /hiv- on haart meds /depression -Home medication resumed. Cough -resolved. -May be secondary to acute bronchitis. -Patient feels symptoms has worsened. Clinically he does look well. -Chest x-ray negative for any pneumonia. -On Z-Chad. DVT prophylaxis -Anticoagulation held per request of orthopedic. Heparin drip will restart afternoon. Discharge Planning Once cleared by orthopedic patient can be discharge. Diane Anderson MD Oct 09, 2016 15:52
[2016-10-09] MEDS ORDERED: HEPARIN-D5W INJ 250 ML IV SCH (17:18)
[2016-10-09 21:29] LABS: APTT (PATIENT) 95.2 SEC (24.3-30.1)
[2016-10-10] VITALS: BP 127/82; PULSE 95; RESP 21; TEMP 97; O2SAT 97
[2016-10-10 00:53] LABS: APTT (PATIENT) 40.2 SEC (24.3-30.1)
[2016-10-10 04:00] VITALS: BP 120/77; PULSE 96; RESP 22; TEMP 98.8; O2SAT 97
[2016-10-10] MEDS: ACETAMINOPHEN/HYDROcodone 325 MG/10 MG TAB PO PRN ×3 (05:33→13:40)
[2016-10-10] MEDS: HEPARIN-D5W INJ 250 ML IV SCH (06:20)
--- NOTE | 2016-10-10 06:42 | PD.ORT.PN ---
Subjective Subjective Remarks POD 2 s/p ORIF right proximal humerus doing well. pain controlled. no complaints. Objective Vitals Vital Signs Date Time Temp Pulse Resp B/P Pulse Ox O2 Delivery O2 Flow Rate FiO2 10/09/16 21:00 85 10/09/16 15:53 99.9 104 19 121/78 98 10/09/16 12:00 98.9 86 19 101/65 96 10/09/16 09:43 99 21 10/09/16 07:58 98.8 88 19 131/83 99 I/O 10/09/16 10/09/16 10/09/16 10/10/16 10/10/16 10/10/16 07:00 15:00 23:00 07:00 15:00 23:00 Intake Total 500 ml 600 ml Output Total 450 ml 400 ml Balance 50 ml 200 ml Intake Oral 500 ml 600 ml Output Urine Total 450 ml 400 ml # Voids 1 # Bowel Movements 0 Result Diagram: 10/09/16 0814 10/09/16 0814 Imaging Last [address] 10/08/16 0000 Signed Impressions: Service Date/Time: Saturday, October 08, 2016 05:59 - CONCLUSION: No acute intracranial abnormality demonstrated. Apparent developing sinusitis. Murray Torre MD Chest X-Ray 10/08/16 0000 Signed Impressions: Service Date/Time: Saturday, October 08, 2016 05:52 - CONCLUSION: No change. No acute cardiopulmonary disease demonstrated. Murray Torre MD Objective Remarks RUE: Clean dry dressings intact. Intact sensation distally. Continued swelling throughout the arm +3. Is able to extend fingers and make a fist Assessment & Plan Assessment and Plan 1) Right Proximal Humerus Fx/dislocation ORIF POD 2 -Nonweightbearing -Sling and swath at all times -No range of motion at this time Daily dressing changes beginning POD 2 2) Possible DVT of right arm -managed by medical team Discharge planning Follow-up with Dr. Nelson or PA in 2 weeks Saul Escobar Oct 10, 2016 06:42
[2016-10-10 07:52] VITALS: BP 125/83; PULSE 98; RESP 19; TEMP 97.2; O2SAT 98
[2016-10-10] MEDS: THIAMINE HCL 100 MG TAB PO SCH (07:57)
[2016-10-10] MEDS: CARVEDILOL 12.5 MG TAB PO SCH (07:57)
[2016-10-10] MEDS: HYDROCHLOROTHIAZIDE 25 MG TAB PO SCH (07:57)
[2016-10-10] MEDS: LISINOPRIL 20 MG TAB PO SCH (07:57)
[2016-10-10] MEDS: AZITHROMYCIN 250 MG TAB PO SCH (07:57)
[2016-10-10] MEDS: CALCIUM/VITAMIN D 250 MG/125 U TAB PO SCH ×2 (07:57→12:14)
[2016-10-10] MEDS: PRAVASTATIN SOD 40 MG TAB PO SCH (07:57)
[2016-10-10] MEDS: DOCUSATE SODIUM 50 MG/SENNA 8.6 MG TAB PO SCH (07:58)
[2016-10-10] MEDS: SODIUM CHLORIDE 0.9% FLUSH 5 ML FLUSH IVF SCH (07:58)
[2016-10-10] MEDS: DARUNAVIR COBICISTAT PO SCH (07:59)
[2016-10-10] MEDS: EMTRICITABINE TENOFOVIR ALAFENAMIDE PO SCH (08:00)
[2016-10-10] MEDS: THIAMINE INJ 100 MG in SODIUM CHLORIDE 0.9% INJ 100 ML IV SCH (08:12)
[2016-10-10 08:54] LABS: HEMATOCRIT 34.1 % (39.0-51.0); MEAN CELL VOLUME 103.1 FL (80.0-100.0); MEAN CORPUSCULAR HEMOGLOBIN 34.8 PG (27.0-34.0); MEAN CORPUSCULAR HGB CONC 33.7 % (32.0-36.0); PLATELET COUNT 290 TH/MM3 (150-450); RED BLOOD COUNT 3.31 MIL/MM3 (4.50-5.90); RED CELL DISTRIBUTION WIDTH 13.8 % (11.6-17.2); REVIEW FLAG FINAL; WHITE BLOOD COUNT 12.4 TH/MM3 (4.0-11.0)
--- NOTE | 2016-10-10 08:59 | HHI.PR ---
Subjective Remarks Follow-up for right shoulder surgery and DVT. Patient seen and examined today, lying in bed. RN at bedside. Patient states pain is controlled but still present in right arm and shoulder. Tolerating PO intake, denies any abdominal pain, n/v or diarrhea. Positive BM. VSS. On hepatin gtt, will change to oral anticoagulation for discharge. Objective Vitals Vital Signs Date Time Temp Pulse Resp B/P Pulse Ox O2 Delivery O2 Flow Rate FiO2 10/10/16 07:52 97.2 98 19 125/83 98 10/10/16 04:00 98.8 96 22 120/77 97 10/10/16 00:00 97.0 95 21 127/82 97 10/09/16 21:00 85 10/09/16 20:00 97.1 95 21 119/81 98 10/09/16 15:53 99.9 104 19 121/78 98 10/09/16 12:00 98.9 86 19 101/65 96 10/09/16 09:43 99 21 I/O 10/09/16 10/09/16 10/09/16 10/10/16 10/10/16 10/10/16 07:00 15:00 23:00 07:00 15:00 23:00 Intake Total 500 ml 600 ml 780 ml 780 ml Output Total 450 ml 400 ml Balance 50 ml 200 ml 780 ml 780 ml Intake Oral 500 ml 600 ml 780 ml 780 ml Output Urine Total 450 ml 400 ml # Voids 1 2 2 # Bowel Movements 0 0 3 Result Diagram: 10/10/16 0838 10/09/16 0814 Imaging Last Impressions Humerus X-Ray 10/08/16 0000 Signed Impressions: Service Date/Time: Saturday, October 08, 2016 17:43 - CONCLUSION: Limited images as detailed above. Arsh Ceja Jr., MD Head CT 10/08/16 0000 Signed Impressions: Service Date/Time: Saturday, October 08, 2016 05:59 - CONCLUSION: No acute intracranial abnormality demonstrated. Apparent developing sinusitis. Murray Torre MD Chest X-Ray 10/08/16 0000 Signed Impressions: Service Date/Time: Saturday, October 08, 2016 05:52 - CONCLUSION: No change. No acute cardiopulmonary disease demonstrated. Murray Torre MD Upper Extremity Ultrasound 10/07/16 0000 Signed Impressions: Service Date/Time: Friday, October 07, 2016 23:14 - CONCLUSION: Thrombosed right axillary vein. Murray Torre MD Upper Extremity CT 10/07/16 0000 Signed Impressions: Service Date/Time: Friday, October 07, 2016 22:31 - CONCLUSION: Fracture dislocation as described above. Feng Jasso MD FACR Shoulder X-Ray 10/07/16 Signed Impressions: Service Date/Time: Friday, October 07, 2016 19:47 - CONCLUSION: Fracture dislocation as described above. Feng Jasso MD FACR Elbow X-Ray 10/07/16 Signed Impressions: Service Date/Time: Friday, October 07, 2016 19:50 - CONCLUSION: Marked soft tissue swelling without definite fracture. The lateral cannot be obtained. Feng Jasso MD FACR Objective Remarks GENERAL: Well-nourished, well-developed patient in NAD. SKIN: Warm and dry. Right upper extremity sling in place, dressing c/d/i. Ecchymosis noted. Right upper extremity swelling noted. HEENT: Normocephalic. Atraumatic. Pupils equal and round. No scleral icterus. No injection or drainage. No nasal bleeding or discharge. Mucous membranes pink and moist. NECK: Supple. Trachea midline. CARDIOVASCULAR: Regular rate and rhythm. S1, S2 noted. No murmur appreciated. RESPIRATORY: No accessory muscle use. Clear to auscultation. Breath sounds equal bilaterally. GASTROINTESTINAL: Abdomen soft, non-tender, nondistended. Normoactive bowel sounds x4. MUSCULOSKELETAL: No obvious deformities. Extremities without clubbing, cyanosis , or edema. NEUROLOGICAL: Awake and alert. No obvious cranial nerve deficits. Motor grossly within normal limits. 5/5 muscle strength in bilateral upper and lower extremities. Normal speech. PSYCHIATRIC: Appropriate mood and affect; insight and judgment normal. A/P Assessment and Plan 85-year-old male with a known history of hypertension, HIV on HAART medications , depression and alcoholism who presented with right shoulder pain 1 week ago with increasing swelling and pain. Supposedly patient had fallen down about 2 weeks ago complaining of dizziness before the fall. Status post fall suspect secondary to alcoholism. Right humerus fx/dislocation -s/p open treatment of right shoulder dislocation, open reduction total fixation of greater tuberosity fracture on 10/08. -Being managed by orthopedic. Per orthopedic, nonweightbearing sling and swath at all times, no range of motion at this time, daily dressing changes beginning POD 2. RUE DVT -Was previously on Heparin gtt now dc'd and will start patient on DVT treatment with Xarelto. Etoh abuse -On CIWA as inpatient. -No signs of withdrawals. -Education given. Cessation encouraged. Other chronic medical problems include hypertension, liver problems HIV on HAART medications and depression, and home medications have been resumed as indicated. Cough -May be secondary to acute bronchitis. -Today patient states his cough has improved slightly.Patient feels symptoms has worsened. Clinically he does look well. -Chest x-ray reviewed and negative for any pneumonia. -On Z-Chad will continue upon discharge. DVT prophylaxis: Heparin gtt. Will start on Xarelto. Discharge Planning Discharge home today 10/10/16. Kori Fuentes Oct 10, 2016 08:59
[2016-10-10 09:08] LABS: APTT (PATIENT) 73.4 SEC (24.3-30.1)
[2016-10-10 09:22] LABS: BICARBONATE 27.2 MEQ/L (21.0-32.0); POTASSIUM 3.1 MEQ/L (3.5-5.1)
[2016-10-10] MEDS ORDERED: CALC250 PO (09:23)
[2016-10-10] MEDS ORDERED: AZIT250T3 PO (09:23)
[2016-10-10] MEDS ORDERED: GNP100TA3 PO (09:23)
[2016-10-10] MEDS ORDERED: SENN1TAB PO (09:23)
[2016-10-10] MEDS ORDERED: XARE15TA PO (09:27)
[2016-10-10] MEDS ORDERED: HYDR-3583 PO (09:29)
[2016-10-10] MEDS ORDERED: XARE20TA PO (09:33)
--- NOTE | 2016-10-10 09:58 | HHI.DCPOC ---
Discharge Care Plan Diagnosis: (1) Humeral head fracture (2) Productive cough (3) Alcohol intoxication Goals to Promote Your Health * To prevent worsening of your condition and complications * To maintain your health at the optimal level Directions to Meet Your Goals Take your medications as prescribed Follow your dietary instruction Follow activity as directed Keep your appointments as scheduled Take your immunizations and boosters as scheduled If your symptoms worsen call your PCP, if no PCP go to Urgent Care Center or Emergency Room Smoking is Dangerous to Your Health. Avoid second hand smoke Call the 24-hour hour crisis hotline for domestic abuse at Kori Fuentes Oct 10, 2016 09:58
[2016-10-10] MEDS ORDERED: RIVAROXABAN 15 MG TAB PO SCH (10:00)
[2016-10-10] MEDS ORDERED: POTASSIUM CHLORIDE 25 MEQ EFFERVESCENT TAB PO ONE (10:00)
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
[2016-10-10 11:47] VITALS: BP 99/67; PULSE 94; RESP 19; TEMP 95.6; O2SAT 97
[2016-11-01] MEDS ORDERED: RIVAROXABAN 20 MG TAB PO SCH (09:00)
== END 2016-10-10 13:49 | disposition home or self-care (01) | DRG 493 ==
LOC: NEPE 18:38 → NEDA 22:12 → N06A 10-08 00:37
PROVIDERS: ADMIT Hospitalist; ATTEND Hospitalist
PROC: 0RSJXZZ Reposition Right Shoulder Joint, External Approach (ICD-10-PCS; principal; 2016-10-07)
PROC: 0PSC04Z Reposition Right Humeral Head with Internal Fixation Device, Open Approach (ICD-10-PCS; 2016-10-08)
DX: S42.251A Displaced fracture of greater tuberosity of right humerus, initial encounter for closed fracture (principal); I82.621 Acute embolism and thrombosis of deep veins of right upper extremity; I10 Essential (primary) hypertension; F20.9 Schizophrenia, unspecified; F10.229 Alcohol dependence with intoxication, unspecified; S43.004A Unspecified dislocation of right shoulder joint, initial encounter; W19.XXXA Unspecified fall, initial encounter; R00.0 Tachycardia, unspecified; J45.909 Unspecified asthma, uncomplicated; F31.9 Bipolar disorder, unspecified; F41.9 Anxiety disorder, unspecified; M19.90 Unspecified osteoarthritis, unspecified site; E78.00 Pure hypercholesterolemia, unspecified; F17.210 Nicotine dependence, cigarettes, uncomplicated; Z87.820 Personal history of traumatic brain injury; Z21 Asymptomatic human immunodeficiency virus [HIV] infection status
CPT/HCPCS: 70450; 71020; 73030; 73060; 73080; 73200; 76000; 80048; 80307; 82550; 85025; 85027; 85610; 85730; 93971; C1713; J1170; J1580; J1644; J2250; J2370; J2405; J2710; J3010; J3370; J3411

== ENCOUNTER 2016-10-14 00:30 | Emergency (ER) | payer MEDICAID ==
[~2016-10-14 00:30] MED LIST changes: +AZIT250T3 PO; +CALC250 PO; +CALCTAB19 PO; +ERGO1CAP30 PO; +GNP100TA3 PO; +HYDR-3583 PO; -LEVA500T20 PO; -MELO7.5T4 PO; +SENN1TAB PO; +XARE15TA PO; +XARE20TA PO
[2016-10-14 00:34] VITALS: BP 96/70; PULSE 107; RESP 16; TEMP 98.4; O2SAT 94
[2016-10-14] MEDS ORDERED: FURO20TA PO (01:00)
[2016-10-14] MEDS ORDERED: ASPI325T PO (01:00)
[2016-10-14 01:12] LABS: AUTOMATED NEUTROPHIL # 6.1 TH/MM3 (1.8-7.7); BASOPHIL # 0.1 TH/MM3 (0-0.2); BASOPHIL % 1.3 % (0.0-2.0); EOSINOPHIL # 0.1 TH/MM3 (0-0.4); EOSINOPHIL % 0.5 % (0.0-4.0); HEMATOCRIT 31.9 % (39.0-51.0); HEMO FLAGS DIFF FINAL; LYMPH % 30.4 % (9.0-44.0); LYMPHOCYTE # 3.1 TH/MM3 (1.0-4.8); MEAN CELL VOLUME 102.7 FL (80.0-100.0); MEAN CORPUSCULAR HEMOGLOBIN 36.6 PG (27.0-34.0); MEAN CORPUSCULAR HGB CONC 35.7 % (32.0-36.0); MONO % 8.7 % (0.0-8.0); NEUT % 59.1 % (16.0-70.0); PLATELET COUNT 463 TH/MM3 (150-450); RED CELL DISTRIBUTION WIDTH 13.7 % (11.6-17.2); WHITE BLOOD COUNT 10.3 TH/MM3 (4.0-11.0)
--- NOTE | 2016-10-14 01:15 | PD ---
HPI Chief Complaint: Edema Time Seen by Provider: 00:44 Travel History International Travel<30 days: No Contact w/Intl Traveler<30days: No Traveled to known affect area: No History of Present Illness HPI This is a 55-year-old male who recently had ORIF to the proximal humerus who presents to the emergency department reporting pain in his right shoulder. He has some difficulty articulating why else he's here. 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 He appears to be intoxicated. History Social History Alcohol Use: Yes (BEER DAILY) Tobacco Use: Yes (2 CIGARETTES A DAY) Allergies-Medications (Allergen,Severity, Reaction): Coded Allergies: Penicillin (Verified Allergy, Severe, HIVES, 10/14/16) Sulfa (Verified Allergy, Severe, HIVES, 10/14/16) Reported Meds & Prescriptions Reported Meds & Active Scripts Active Xarelto (Rivaroxaban) 15 Mg Tab 15 Mg PO Q12HR Azithromycin 250 Mg Tab 250 Mg PO DAILY Ergocalciferol 50,000 Unit Cap 50,000 Units PO Q7D Reported Aspirin 325 Mg Tab 325 Mg PO DAILY Furosemide 20 Mg Tab 20 Mg PO BID Vitamin C (Ascorbic Acid) 250 Mg Tab 500 Mg PO Fluticasone Nasal [place] 50 Mcg/Act Naspr 50 Mcg EACH NARE BID 50 mcg/spray Hydrochlorothiazide 25 Mg Tab 25 Mg PO DAILY Prezcobix (Darunavir-Cobicistat) 800-150 Mg Tab 1 Tab PO DAILY Lisinopril 20 Mg Tab 20 Mg PO DAILY Pravastatin 40 Mg Tab 40 Mg PO DAILY Descovy (Emtricitabine-Tenofovir Alafenamide) 200-25 mg Tab 1 Tab PO DAILY Proair Hfa 8.5 GM Inh (Albuterol Sulfate) 90 Mcg/Act Aer 2 Puff INH Q4-6H PRN 108 mcg/actuation Carvedilol 12.5 Mg Tab 12.5 Mg PO BID Review of Systems ROS Limitations: Intoxication Physical Exam Narrative GENERAL:Well appearing, no acute distress SKIN: Dressing over the right anterior shoulder with no drainage or redness HEAD: Atraumatic. Normocephalic. EYES: Pupils equal and round. No injection or drainage. ENT: Moist mucous membranes NECK: Trachea midline. CARDIOVASCULAR: Regular rate and rhythm. No murmur appreciated. 2+ right radial pulse with normal capillary refill. RESPIRATORY: Clear to auscultation. Breath sounds equal bilaterally. GASTROINTESTINAL: Abdomen soft, non-tender, nondistended. MUSCULOSKELETAL: No obvious deformities. Significant swelling of the right upper extremity. NEUROLOGICAL: Awake and alert. No obvious cranial nerve deficits. Moving all extremities. PSYCHIATRIC: Clinically intoxicated. Data Data Last Documented VS Vital Signs Date Time Temp Pulse Resp B/P Pulse Ox O2 Delivery O2 Flow Rate FiO2 10/14/16 00:34 98.4 107 16 96/70 94 Orders Us Arm Venous Doppler (10/14/16 ) Shoulder, Limited(2vws) (10/14/16 ) Complete Blood Count With Diff (10/14/16 00:44) Basic Metabolic Panel (Bmp) (10/14/16 00:44) Alcohol (Ethanol) (10/14/16 00:44) Labs Laboratory Tests Test 10/14/16 01:02 White Blood Count 10.3 TH/MM3 Red Blood Count 3.10 MIL/MM3 Hemoglobin 11.4 GM/DL Hematocrit 31.9 % Mean Corpuscular Volume 102.7 FL Mean Corpuscular Hemoglobin 36.6 PG Mean Corpuscular Hemoglobin 35.7 % Concent Red Cell Distribution Width 13.7 % Platelet Count 463 TH/MM3 Mean Platelet Volume 6.7 FL Neutrophils (%) (Auto) 59.1 % Lymphocytes (%) (Auto) 30.4 % Monocytes (%) (Auto) 8.7 % Eosinophils (%) (Auto) 0.5 % Basophils (%) (Auto) 1.3 % Neutrophils # (Auto) 6.1 TH/MM3 Lymphocytes # (Auto) 3.1 TH/MM3 Monocytes # (Auto) 0.9 TH/MM3 Eosinophils # (Auto) 0.1 TH/MM3 Basophils # (Auto) 0.1 TH/MM3 CBC Comment DIFF FINAL Differential Comment Sodium Level 139 MEQ/L Potassium Level 3.5 MEQ/L Chloride Level 99 MEQ/L Carbon Dioxide Level 28.2 MEQ/L Anion Gap 12 MEQ/L Blood Urea Nitrogen 8 MG/DL Creatinine 0.68 MG/DL Estimat Glomerular Filtration 148 ML/MIN Rate Random Glucose 98 MG/DL Calcium Level 9.0 MG/DL Ethyl Alcohol Level 260 MG/DL MDM Medical Decision Making Medical Screen Exam Complete: Yes Emergency Medical Condition: Yes Medical Record Reviewed: Yes (patient was recently admitted and discharged on October 10 in the setting of a proximal humerus fracture which was surgically repaired) Interpretation(s) Macrocytic anemia Electrolytes are reassuring Alcohol is 260 Last 24 hours Impressions Upper Extremity Ultrasound 10/14/16 0000 Signed Impressions: Service Date/Time: Friday, October 14, 2016 01:10 - CONCLUSION: No definite DVT is demonstrated. Michael Paul MD Shoulder X-Ray 10/14/16 0000 Signed Impressions: Service Date/Time: Friday, October 14, 2016 00:55 - CONCLUSION: Good position and alignment of the fracture fragments. Michael Paul MD Differential Diagnosis DVT, compartment syndrome, postoperative swelling, wound infection Narrative Course This is a 55-year-old male who presents to the emergency department with some shoulder discomfort. He had repair of a humerus fracture about one week ago. He has significant swelling of the arm which was documented on his prior visit. All compartments are soft. At that time he had an ultrasound demonstrating an axillary vein thrombosis and he was discharged on Xarelto. Ultrasound was obtained today and the axillary vein was visualized and there was no DVT. X- rays reassuring. Labs were obtained which were unrevealing. Patient really wants to leave. He was observed until clinical sobriety. A don't think we can hold him against his will and he has decision-making capacity. Patient will be discharged home. I think his presentation today was chiefly related to alcohol intoxication. Patient Instructions: General Instructions Additional Instructions: Follow up with Justyn Roberts in regards to psychiatric or substance related issues at: [address] [place], [place] [id number] Med/Other Pt SpecificInfo: No Change to Meds Disposition: 01 DISCHARGE HOME Condition: Stable Emily Malone MD Oct 14, 2016 01:15
--- NOTE | 2016-10-14 01:39 | RADRPT ---
EXAM DATE/TIME: 10/14/2016 01:10 [facility] COMPARISON: US ARM RIGHT VENOUS DOPPLER, October 07, 2016, 23:14. INDICATIONS : Right arm swelling. History of right arm deep vein thrombosis. MEDICAL HISTORY : Hypercholesterolemia. Hypertension. Cerebrovascular accident. HIV. Asthma. Arthritis. Schizophrenia. Depression. Alcohol abuse. SURGICAL HISTORY : Appendectomy. ORIF right proximal humerus 10/08/16. ENCOUNTER: Subsequent ACUITY: 4 - 6 days PAIN SCORE: 8/10 LOCATION: Right arm. FINDINGS: The exam is somewhat limited due to bandages overlie the subclavian and proximal cephalic veins. Vásquez noemi, the vessels imaged appear to be patent. On the prior exam the right axillary vein appeared to be thrombosed. However, on today's examination flow is demonstrated in the axillary vein with and witho ut augmentation. The rest of the vessels imaged appear to be open. CONCLUSION: No definite DVT is demonstrated. Michael Paul MD on October 14, 2016 at 1:35 Board Certified Radiologist. This report was verified electronically.
--- NOTE | 2016-10-14 01:51 | RADRPT ---
EXAM DATE/TIME: 10/14/2016 00:55 [facility] COMPARISON: SHOULDER RIGHT LTD (2VWS), October 07, 2016, 19:47. INDICATIONS : Surgery 10/07/16, now has pain and swelling. MEDICAL HISTORY : HIV Hypertension Hypercholesterolemia. SURGICAL HISTORY : Appendectomy. Right shoulder ENCOUNTER: Initial ACUITY: 1 week PAIN SCORE: 8/10 LOCATION: Right Shoulder FINDINGS: Patient is status post internal fixation of the proximal humerus. There is good position and alignmen t of the fracture fragments. Hardware is grossly intact. CONCLUSION: Good position and alignment of the fracture fragments. Michael Paul MD on October 14, 2016 at 1:48 Board Certified Radiologist. This report was verified electronically.
[2016-10-14 01:56] LABS: BICARBONATE 28.2 MEQ/L (21.0-32.0); POTASSIUM 3.5 MEQ/L (3.5-5.1)
[2016-10-14] MEDS ORDERED: LORazepam 2 MG/ML VIAL IV PUSH ONE (02:30)
[2016-10-14 07:17] VITALS: BP 132/90; PULSE 98; RESP 18; O2SAT 99
== END 2016-10-14 07:20 | disposition home or self-care (01) ==
LOC: NEPC 00:30 → NEPD 07:20
DX: M25.511 Pain in right shoulder (principal); R60.0 Localized edema; F10.929 Alcohol use, unspecified with intoxication, unspecified; D64.9 Anemia, unspecified; Z72.0 Tobacco use; Z79.899 Other long term (current) drug therapy; Z98.890 Other specified postprocedural states
CPT/HCPCS: 73030; 80048; 80307; 85025; 93971; 96374; 99285; J2060

== ENCOUNTER 2016-10-28 03:55 | Emergency (ER) | payer MEDICAID ==
[~2016-10-28] VITALS: Ht 185.4 cm; Wt 90.0 kg
[~2016-10-28 03:55] MED LIST changes: +ASPI325T PO; -CALC250 PO; -CALCTAB19 PO; +FURO20TA PO; -GNP100TA3 PO; -HYDR-3583 PO; -SENN1TAB PO; -XARE20TA PO
[2016-10-28 04:00] VITALS: BP 118/83; PULSE 80; RESP 19; TEMP 98.9; O2SAT 95
[2016-10-28] MEDS ORDERED: KETOROLAC TROMETHAMINE 60 MG/2 ML (IM) VIAL IM ONE (04:15)
--- NOTE | 2016-10-28 04:23 | PD ---
HPI Chief Complaint: Injury Time Seen by Provider: 04:22 Travel History International Travel<30 days: No Contact w/Intl Traveler<30days: No Traveled to known affect area: No History of Present Illness HPI 55-year-old male presents to emergency for evaluation of right shoulder pain. Patient recently had internal fixation of a right shoulder fracture. He is not currently wearing his sling, stating that they "gave him the wrong one." Patient has been taking pain control and drinking alcohol this evening. He is here by [facility] for further evaluation of his right shoulder pain. Denies any new injury. He also states that he would like to stay here the night , away from his , who calls him names and speaks negatively towards him. PFSH Past Medical History Arthritis: Yes Asthma: Yes Blood Disorders: Yes (HIV) Bipolar Disorder: Yes Anxiety: Yes Depression: Yes Heart Rhythm Problems: No Cardiac Catheterization: No Cardiovascular Problems: Yes (htn) High Cholesterol: Yes Congestive Heart Failure: No Diabetes: No Diminished Hearing: No Hypertension: Yes Immune Disorder: Yes (HIV+) Psychiatric: Yes Immunizations Current: Yes Schizophrenia: Yes Past Surgical History Abdominal Surgery: Yes (APPENDECTOMY) Appendectomy: Yes Coronary Artery Bypass Graft: No Social History Alcohol Use: Yes (BEER DAILY) Tobacco Use: Yes (2 CIGARETTES A DAY) Substance Use: Yes (crack cocaine, last used 1 1/2 years ago ) Allergies-Medications (Allergen,Severity, Reaction): Coded Allergies: Penicillin (Verified Allergy, Severe, HIVES, 10/14/16) Sulfa (Verified Allergy, Severe, HIVES, 10/14/16) Reported Meds & Prescriptions Reported Meds & Active Scripts Active Xarelto (Rivaroxaban) 15 Mg Tab 15 Mg PO Q12HR Azithromycin 250 Mg Tab 250 Mg PO DAILY Ergocalciferol 50,000 Unit Cap 50,000 Units PO Q7D Reported Aspirin 325 Mg Tab 325 Mg PO DAILY Furosemide 20 Mg Tab 20 Mg PO BID Vitamin C (Ascorbic Acid) 250 Mg Tab 500 Mg PO Fluticasone Nasal [place] 50 Mcg/Act Naspr 50 Mcg EACH NARE BID 50 mcg/spray Hydrochlorothiazide 25 Mg Tab 25 Mg PO DAILY Prezcobix (Darunavir-Cobicistat) 800-150 Mg Tab 1 Tab PO DAILY Lisinopril 20 Mg Tab 20 Mg PO DAILY Pravastatin 40 Mg Tab 40 Mg PO DAILY Descovy (Emtricitabine-Tenofovir Alafenamide) 200-25 mg Tab 1 Tab PO DAILY Proair Hfa 8.5 GM Inh (Albuterol Sulfate) 90 Mcg/Act Aer 2 Puff INH Q4-6H PRN 108 mcg/actuation Carvedilol 12.5 Mg Tab 12.5 Mg PO BID Review of Systems ROS Limitations: Intoxication Except as stated in HPI: all other systems reviewed are Neg Physical Exam Exam Limitations: Intoxication Narrative GENERAL: Well-nourished, well-developed male patient, clinically intoxicated but in no acute distress SKIN: Focused skin assessment warm/dry. 15 cm well approximated incision site on the anterior aspect of the right shoulder. Erythema or edema. HEAD: Normocephalic. Atraumatic EYES: No scleral icterus. No injection or drainage. NECK: Supple, trachea midline. No JVD or lymphadenopathy. CARDIOVASCULAR: Regular rate and rhythm without murmurs, gallops, or rubs. RESPIRATORY: Breath sounds equal bilaterally. No accessory muscle use. GASTROINTESTINAL: Abdomen soft, non-tender, nondistended. MUSCULOSKELETAL: No cyanosis, or edema. BACK: Nontender without obvious deformity. No CVA tenderness. Data Data Last Documented VS Vital Signs Date Time Temp Pulse Resp B/P Pulse Ox O2 Delivery O2 Flow Rate FiO2 10/28/16 04:00 98.9 80 19 118/83 95 Orders Shoulder, Complete (>2vws) (10/28/16 ) Ketorolac Inj (Toradol Inj) (10/28/16 04:15) MDM Medical Decision Making Medical Screen Exam Complete: Yes Emergency Medical Condition: Yes Medical Record Reviewed: Yes Differential Diagnosis Post op pain versus fracture pain versus acute shoulder injury versus narcotic seeking versus malingering versus intoxication Narrative Course 55-year-old male presents to the emergency department for evaluation right shoulder pain. Patient is clinically intoxicated. He has no new injury to report to the right shoulder. Surgical site looks well-healed. X-ray imaging is complete. Patient is given nonnarcotic pain control. Last Impressions Shoulder X-Ray 10/28/16 0000 Signed Impressions: Service Date/Time: Friday, October 28, 2016 04:33 - CONCLUSION: Status post open rigid internal fixation. The alignment of the fracture fragments does not appear significantly changed. Zachary Mcghee MD I have reviewed the findings. Patient does not have a right home this time. I encouraged him to wear his sling and consuming alcohol moderation. I also advised him to not take alcohol and pain control together. He will be monitored until morning at which time he will have a safe mode of transportation home. Diagnosis Primary Impression: Post-op pain Additional Impressions: Humeral head fracture Qualified Code: S42.291D - Humeral head fracture, right, with routine healing , subsequent encounter Acute alcohol intoxication Qualified Code: F10.929 - Acute alcohol intoxication, with unspecified complication Referrals: Orthopaedic Surgeon Primary Care Physician Patient Instructions: Abuse of Alcohol (ED), General Instructions Additional Instructions: Consumed alcohol in moderation Do not mix alcohol and pain medication Follow-up with the supervisory investigative specialist. Continue to follow all postop instructions Return immediately with any acute worsening of symptoms Med/Other Pt SpecificInfo: No Change to Meds Disposition: 01 DISCHARGE HOME Condition: Stable America Del Valle Oct 28, 2016 04:23
--- NOTE | 2016-10-28 05:13 | RADRPT ---
EXAM DATE/TIME: 10/28/2016 04:33 [facility] COMPARISON: SHOULDER RIGHT LTD (2VWS), October 14, 2016, 0:55. HUMERUS RIGHT (MIN 2VWS), October 08, 2016, 17:43. INDICATIONS : Right Shoulder pain post surgery x 3 weeks. MEDICAL HISTORY : HIV Hypertension Hypercholesterolemia. SURGICAL HISTORY : Appendectomy. Right shoulder ENCOUNTER: Initial ACUITY: 3 weeks PAIN SCORE: 8/10 LOCATION: Right Shoulder FINDINGS: Multiple views left shoulder were obtained and demonstrate postoperative changes with screw-plate fix ation device again noted along the lateral humeral head and neck. The alignment of fracture fragments does not appear significantly changed. The clavicle and glenoid are unremarkable. Soft tissues appea r within normal limits. CONCLUSION: Status post open rigid internal fixation. The alignment of the fracture fragments delgado s not appear significantly changed. Zachary Mcghee MD on October 28, 2016 at 5:10 Board Certified Radiologist. This report was verified electronically.
[2016-10-28 08:00] VITALS: BP 124/78; PULSE 78; RESP 16; O2SAT 99
[2016-10-28 09:07] VITALS: BP 115/68
== END 2016-10-28 09:09 | disposition home or self-care (01) ==
LOC: NEPD 03:55
DX: G89.18 Other acute postprocedural pain (principal); S42.291D Other displaced fracture of upper end of right humerus, subsequent encounter for fracture with routine healing; F10.929 Alcohol use, unspecified with intoxication, unspecified; I10 Essential (primary) hypertension; X58.XXXD Exposure to other specified factors, subsequent encounter; Z21 Asymptomatic human immunodeficiency virus [HIV] infection status; Z72.0 Tobacco use
CPT/HCPCS: 73030; 96372; 99284; J1885

== ENCOUNTER 2016-11-02 12:23 | Observation (INO) | payer MEDICAID ==
[2016-11-02 12:25] VITALS: BP 134/91; PULSE 92; RESP 14; TEMP 98.2; O2SAT 98
--- NOTE | 2016-11-02 12:34 | PD ---
Physical Exam Date Seen by Provider: Nov 02, 2016 Time Seen by Provider: 12:29 Data Data Last Documented VS Vital Signs Date Time Temp Pulse Resp B/P Pulse Ox O2 Delivery O2 Flow Rate FiO2 11/02/16 12:25 98.2 92 14 134/91 98 MDM Supervised Visit with JC: No Narrative Course 55 YO M with complaint of "I've been throwing up blood since five o'clock this morning." States "I'm still spitting up blood." Patient endorses drinking "a beer or two" today. Oriented to self and situation. Vitals reviewed. Patient seen in triage. Awaiting bed placement. Rowan Campoverde Nov 02, 2016 12:34
[2016-11-02] MEDS ORDERED: SODIUM CHLOR 0.9% 1000 ML INJ 1,000 ML IV SCH (13:09)
[2016-11-02] MEDS ORDERED: PANTOPRAZOLE SODIUM 40 MG VIAL IVP ONE (13:15)
[2016-11-02] MEDS ORDERED: SODIUM CHLORIDE 0.9% FLUSH 10 ML FLUSH IVF PRN (13:15)
[2016-11-02 13:28] VITALS: BP 129/63; PULSE 75; RESP 19; O2SAT 96
[2016-11-02 13:35] LABS: AUTOMATED NEUTROPHIL # 3.2 TH/MM3 (1.8-7.7); BASOPHIL % 0.7 % (0.0-2.0); EOSINOPHIL # 0.2 TH/MM3 (0-0.4); EOSINOPHIL % 2.9 % (0.0-4.0); HEMATOCRIT 36.3 % (39.0-51.0); HEMO FLAGS DIFF FINAL; LYMPH % 37.2 % (9.0-44.0); LYMPHOCYTE # 2.4 TH/MM3 (1.0-4.8); MEAN CELL VOLUME 108.1 FL (80.0-100.0); MEAN CORPUSCULAR HEMOGLOBIN 36.7 PG (27.0-34.0); MEAN CORPUSCULAR HGB CONC 33.9 % (32.0-36.0); MONO % 8.7 % (0.0-8.0); NEUT % 50.5 % (16.0-70.0); PLATELET COUNT 222 TH/MM3 (150-450); RED BLOOD COUNT 3.36 MIL/MM3 (4.50-5.90); WHITE BLOOD COUNT 6.3 TH/MM3 (4.0-11.0)
[2016-11-02 13:44] LABS: APTT (PATIENT) 51.9 SEC (24.3-30.1); INTERNATIONAL NORMALIZED RATIO 1.5 RATIO; PROTHROMBIN TIME - PATIENT 16.8 SEC (9.8-11.6)
--- NOTE | 2016-11-02 13:47 | PD ---
HPI Chief Complaint: Psychiatric Symptoms Time Seen by Provider: 12:38 Travel History International Travel<30 days: No Contact w/Intl Traveler<30days: No Traveled to known affect area: No History of Present Illness HPI The patient is a 55-year-old [place] male who presents to the emergency department for hematemesis. The patient states that he developed hematemesis yesterday, describes his vomiting as dark colored blood without any visible clots. The patient then noticed that he had some dark colored stools. The patient denies any epigastric abdominal pain or history of previous GI bleeds. The patient does have a history of alcohol use and schizophrenia. The patient is a somewhat limited historian with pressured speech. He denies any acute chest pain, shortness of breath, or epigastric abdominal pain. The patient has a route so on his medication reconciliation, I asked the patient if he is taking Xarelto, he states he took his around to at 5 AM. However, he does not know why he takes Xarelto. PFSH Past Medical History Arthritis: Yes Asthma: Yes Blood Disorders: Yes (HIV) Bipolar Disorder: Yes Anxiety: Yes Depression: Yes Heart Rhythm Problems: No Cardiac Catheterization: No Cardiovascular Problems: Yes (htn) High Cholesterol: Yes Congestive Heart Failure: No Diabetes: No Diminished Hearing: No Hypertension: Yes Immune Disorder: Yes (HIV+) Psychiatric: Yes Immunizations Current: Yes Schizophrenia: Yes Past Surgical History Abdominal Surgery: Yes (APPENDECTOMY) Appendectomy: Yes Coronary Artery Bypass Graft: No Family History Family Myocardial Infarction: Yes (FATHER) Social History Alcohol Use: Yes (BEER DAILY) Tobacco Use: Yes (2 CIGARETTES A DAY) Substance Use: Yes (crack cocaine, last used 1 1/2 years ago ) Allergies-Medications (Allergen,Severity, Reaction): Coded Allergies: Penicillin (Verified Allergy, Severe, HIVES, 10/14/16) Sulfa (Verified Allergy, Severe, HIVES, 10/14/16) Reported Meds & Prescriptions Reported Meds & Active Scripts Active Xarelto (Rivaroxaban) 15 Mg Tab 15 Mg PO Q12HR Azithromycin 250 Mg Tab 250 Mg PO DAILY Ergocalciferol 50,000 Unit Cap 50,000 Units PO Q7D Reported Aspirin 325 Mg Tab 325 Mg PO DAILY Furosemide 20 Mg Tab 20 Mg PO BID Vitamin C (Ascorbic Acid) 250 Mg Tab 500 Mg PO Fluticasone Nasal [place] 50 Mcg/Act Naspr 50 Mcg EACH NARE BID 50 mcg/spray Hydrochlorothiazide 25 Mg Tab 25 Mg PO DAILY Prezcobix (Darunavir-Cobicistat) 800-150 Mg Tab 1 Tab PO DAILY Lisinopril 20 Mg Tab 20 Mg PO DAILY Pravastatin 40 Mg Tab 40 Mg PO DAILY Descovy (Emtricitabine-Tenofovir Alafenamide) 200-25 mg Tab 1 Tab PO DAILY Proair Hfa 8.5 GM Inh (Albuterol Sulfate) 90 Mcg/Act Aer 2 Puff INH Q4-6H PRN 108 mcg/actuation Carvedilol 12.5 Mg Tab 12.5 Mg PO BID Review of Systems Except as stated in HPI: all other systems reviewed are Neg Cardiovascular: No: Chest Pain or Discomfort Respiratory: No: Shortness of Breath Gastrointestinal: Positive: Hematemesis, Changes in Bowel Habits, No: Nausea, Abdominal Pain Neurologic: No: Dizziness Psychiatric: Positive: Disorder of Thought Physical Exam Narrative GENERAL: Awake, alert, pleasant 55-year-old male who appears his stated age and is in no acute respiratory distress. SKIN: Focused skin assessment warm/dry. HEAD: Atraumatic. Normocephalic. EYES: Pupils equal and round. No scleral icterus. No injection or drainage. ENT: No nasal bleeding or discharge. Oropharynx reveals dark-colored stains of the tongue. NECK: Trachea midline. No JVD. CARDIOVASCULAR: Regular rate and rhythm. No murmur appreciated. RESPIRATORY: No accessory muscle use. Clear to auscultation. Breath sounds equal bilaterally. GASTROINTESTINAL: Abdomen soft, non-tender, nondistended. No epigastric tenderness. Rectal: External examination reveals anal warts. Digital examination reveals no gross blood, however, grossly guaiac positive. MUSCULOSKELETAL: No obvious deformities. No clubbing. No cyanosis. No edema. NEUROLOGICAL: Awake and alert. No obvious cranial nerve deficits. Motor grossly within normal limits. Pressured speech. PSYCHIATRIC: Pressured speech. On affect. Data Data Last Documented VS Vital Signs Date Time Temp Pulse Resp B/P Pulse Ox O2 Delivery O2 Flow Rate FiO2 11/02/16 13:28 75 19 129/63 96 Room Air 11/02/16 12:25 98.2 Orders Complete Blood Count With Diff (11/02/16 13:09) Comprehensive Metabolic Panel (11/02/16 13:09) Lipase (11/02/16 13:09) Prothrombin Time / Inr (Pt) (11/02/16 13:09) Act Partial Throm Time (Ptt) (11/02/16 13:09) Alcohol (Ethanol) (11/02/16 13:09) Type And Screen (11/02/16 13:09) Ecg Monitoring (11/02/16 13:09) Iv Access Insert/Monitor (11/02/16 13:09) Oximetry (11/02/16 13:09) Pantoprazole Inj (Protonix Inj) (11/02/16 13:15) Sodium Chlor 0.9% 1000 Ml Inj (Ns 1000 M (11/02/16 13:09) Sodium Chloride 0.9% Flush (Ns Flush) (11/02/16 13:15) AGID (11/02/16 13:20) Pantoprazole Inj (Protonix Inj) (11/02/16 15:00) Admit Order (Ed Use Only) (11/02/16 14:39) Labs Laboratory Tests Test 11/02/16 13:20 White Blood Count 6.3 TH/MM3 Red Blood Count 3.36 MIL/MM3 Hemoglobin 12.3 GM/DL Hematocrit 36.3 % Mean Corpuscular Volume 108.1 FL Mean Corpuscular Hemoglobin 36.7 PG Mean Corpuscular Hemoglobin 33.9 % Concent Red Cell Distribution Width 15.0 % Platelet Count 222 TH/MM3 Mean Platelet Volume 6.5 FL Neutrophils (%) (Auto) 50.5 % Lymphocytes (%) (Auto) 37.2 % Monocytes (%) (Auto) 8.7 % Eosinophils (%) (Auto) 2.9 % Basophils (%) (Auto) 0.7 % Neutrophils # (Auto) 3.2 TH/MM3 Lymphocytes # (Auto) 2.4 TH/MM3 Monocytes # (Auto) 0.6 TH/MM3 Eosinophils # (Auto) 0.2 TH/MM3 Basophils # (Auto) 0.0 TH/MM3 CBC Comment DIFF FINAL Differential Comment Prothrombin Time 16.8 SEC Prothromb Time International 1.5 RATIO Ratio Activated Partial 51.9 SEC Thromboplast Time Sodium Level 136 MEQ/L Potassium Level 3.8 MEQ/L Chloride Level 102 MEQ/L Carbon Dioxide Level 24.2 MEQ/L Anion Gap 10 MEQ/L Blood Urea Nitrogen 5 MG/DL Creatinine 0.77 MG/DL Estimat Glomerular Filtration 128 ML/MIN Rate Random Glucose 91 MG/DL Calcium Level 8.1 MG/DL Total Bilirubin 0.5 MG/DL Aspartate Amino Transf 66 U/L (AST/SGOT) Alanine Aminotransferase 39 U/L (ALT/SGPT) Alkaline Phosphatase 101 U/L Total Protein 8.1 GM/DL Albumin 3.1 GM/DL Lipase 202 U/L Ethyl Alcohol Level 148 MG/DL Blood Type A POSITIVE Antibody Screen NEGATIVE Antigen Identification A1 LECTIN - POSITIVE MDM Medical Decision Making Medical Screen Exam Complete: Yes Emergency Medical Condition: Yes Medical Record Reviewed: Yes Interpretation(s) Laboratory Tests Test 11/02/16 13:20 White Blood Count 6.3 TH/MM3 Red Blood Count 3.36 MIL/MM3 Hemoglobin 12.3 GM/DL Hematocrit 36.3 % Mean Corpuscular Volume 108.1 FL Mean Corpuscular Hemoglobin 36.7 PG Mean Corpuscular Hemoglobin 33.9 % Concent Red Cell Distribution Width 15.0 % Platelet Count 222 TH/MM3 Mean Platelet Volume 6.5 FL Neutrophils (%) (Auto) 50.5 % Lymphocytes (%) (Auto) 37.2 % Monocytes (%) (Auto) 8.7 % Eosinophils (%) (Auto) 2.9 % Basophils (%) (Auto) 0.7 % Neutrophils # (Auto) 3.2 TH/MM3 Lymphocytes # (Auto) 2.4 TH/MM3 Monocytes # (Auto) 0.6 TH/MM3 Eosinophils # (Auto) 0.2 TH/MM3 Basophils # (Auto) 0.0 TH/MM3 CBC Comment DIFF FINAL Differential Comment Prothrombin Time 16.8 SEC Prothromb Time International 1.5 RATIO Ratio Activated Partial 51.9 SEC Thromboplast Time Sodium Level 136 MEQ/L Potassium Level 3.8 MEQ/L Chloride Level 102 MEQ/L Carbon Dioxide Level 24.2 MEQ/L Anion Gap 10 MEQ/L Blood Urea Nitrogen 5 MG/DL Creatinine 0.77 MG/DL Estimat Glomerular Filtration 128 ML/MIN Rate Random Glucose 91 MG/DL Calcium Level 8.1 MG/DL Total Bilirubin 0.5 MG/DL Aspartate Amino Transf 66 U/L (AST/SGOT) Alanine Aminotransferase 39 U/L (ALT/SGPT) Alkaline Phosphatase 101 U/L Total Protein 8.1 GM/DL Albumin 3.1 GM/DL Lipase 202 U/L Ethyl Alcohol Level 148 MG/DL Blood Type A POSITIVE Differential Diagnosis Differential diagnosis includes coagulopathy, upper GI bleed, gastritis, peptic ulcer disease, esophageal varices, thrombocytopenia. Narrative Course IV was established, labs were drawn and sent, and the patient was placed on cardiac telemetry monitoring and continuous pulse oximetry monitoring. The patient was administered Protonix intravenously. CBC was sent to lab. I reviewed the patient's EMR, he was admitted in September for a fracture the upper extremity and underwent open reduction and internal fixation by Dr. Espinoza. Patient then developed right upper extremity swelling and edema and had an ultrasound which revealed a right axillary vein DVT. The patient was placed on Xarelto. The patient now has upper GI bleed with history of alcohol abuse, may be gastritis that is exacerbated by coagulopathy secondary to taking Xarelto. The patient is guaiac positive, will be admitted for serial CBC and was placed on a Protonix drip. If he continues to trend downward he may need evaluation by gastroenterology for possible endoscopy. HemaPrompt Point of Care Internal Pos. & Neg. Controls: Passed Fecal Specimen Occult Blood: Positive Physician Communication Physician Communication The on-call medical service was paged for 23 hour observation. I discussed the patient Dr. Morley who agrees with 23 hour observation. Diagnosis Primary Impression: Upper GI bleed Additional Impression: Hematemesis Qualified Code: K92.0 - Hematemesis, presence of nausea not specified Admitting Information Admitting Physician Requests: Observation Condition: Stable James Rosa MD Nov 02, 2016 13:47
[2016-11-02 13:49] LABS: ANION GAP 10 MEQ/L (5-15); AST (GOT) 66 U/L (15-37); BICARBONATE 24.2 MEQ/L (21.0-32.0); BLOOD UREA NITROGEN 5 MG/DL (7-18); CHLORIDE 102 MEQ/L (98-107); GLOMERULAR FILTRATION RATE 128 ML/MIN (>89); POTASSIUM 3.8 MEQ/L (3.5-5.1); SODIUM (NA) 136 MEQ/L (136-145)
[2016-11-02 13:50] LABS: ALT (GPT) 39 U/L (12-78)
[2016-11-02 13:53] LABS: ALKALINE PHOSPHATASE 101 U/L (45-117); TOTAL BILIRUBIN ADULT 0.5 MG/DL (0.2-1.0)
[2016-11-02 13:56] LABS: ALCOHOL 148 MG/DL (0-5)
[2016-11-02] MEDS: PANTOPRAZOLE INJ 80 MG in SODIUM CHLORIDE 0.9% INJ 100 ML IV SCH (15:52)
[2016-11-02] MEDS ORDERED: ONDANSETRON HCL 4 MG/2 ML VIAL IVP PRN (16:15)
[2016-11-02] MEDS ORDERED: ACETAMINOPHEN 325 MG TAB PO PRN (16:15)
[2016-11-02] MEDS: SODIUM CHLOR 0.9% 1000 ML INJ 1,000 ML IV SCH (16:52)
--- NOTE | 2016-11-02 16:54 | RADRPT ---
EXAM DATE/TIME: 11/02/2016 16:30 [facility] COMPARISON: US ARM RIGHT VENOUS DOPPLER, October 14, 2016, 1:10. INDICATIONS : Right arm swelling. MEDICAL HISTORY : Hypercholesterolemia. Hypertension. Cerebrovascular accident. HIV. Asthma. Arthritis. Schizophrenia. Depression. Alcohol abuse. SURGICAL HISTORY : Appendectomy. ORIF right proximal humerus ENCOUNTER: [facility] ACUITY: 1 month PAIN SCORE: 8/10 LOCATION: Right arm. FINDINGS: There is spontaneous flow documented in the brachial, basilic, cephalic, axillary, and subclavian vei ns. The vessels are compressible and augmentation response is documented. No filling defects are se en. The flow is phasic with respiration. Direction of flow in the jugular vein is caudal. CONCLUSION: No DVT of the right upper extremity. Murray Torre MD on November 02, 2016 at 16:52 Board Certified Radiologist. This report was verified electronically.
[2016-11-02] MEDS ORDERED: FLUCONAZOLE 200 MG TAB PO ONE (17:45)
[2016-11-02] MEDS ORDERED: LORazepam 2 MG/ML VIAL IV PUSH PRN ×4 (17:45)
[2016-11-02] MEDS ORDERED: ONDANSETRON HCL 4 MG/2 ML VIAL IV PUSH ONE (17:45)
[2016-11-02] MEDS ORDERED: LORazepam 1 MG TAB PO PRN (17:45)
[2016-11-02] MEDS ORDERED: LORazepam 2 MG TAB PO PRN (17:45)
[2016-11-02] MEDS ORDERED: FLUMAZENIL 0.5 MG/5 ML VIAL IV PUSH PRN (17:45)
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
[2016-11-02 18:35] VITALS: BP 145/97; PULSE 66; RESP 18; TEMP 98.4; O2SAT 97
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
[2016-11-02 20:13] VITALS: BP 137/78; PULSE 68; RESP 18; TEMP 98.4; O2SAT 97
[2016-11-02 20:30] VITALS: PULSE 67
[2016-11-02 21:05] LABS: AUTOMATED NEUTROPHIL # 3.9 TH/MM3 (1.8-7.7); BASOPHIL # 0.1 TH/MM3 (0-0.2); BASOPHIL % 0.8 % (0.0-2.0); EOSINOPHIL # 0.2 TH/MM3 (0-0.4); EOSINOPHIL % 2.7 % (0.0-4.0); HEMATOCRIT 35.4 % (39.0-51.0); HEMO FLAGS DIFF FINAL; LYMPH % 30.9 % (9.0-44.0); LYMPHOCYTE # 2.1 TH/MM3 (1.0-4.8); MEAN CELL VOLUME 108.6 FL (80.0-100.0); MEAN CORPUSCULAR HEMOGLOBIN 36.5 PG (27.0-34.0); MEAN CORPUSCULAR HGB CONC 33.6 % (32.0-36.0); MONO % 9.2 % (0.0-8.0); NEUT % 56.4 % (16.0-70.0); PLATELET COUNT 202 TH/MM3 (150-450); RED BLOOD COUNT 3.26 MIL/MM3 (4.50-5.90); RED CELL DISTRIBUTION WIDTH 15.1 % (11.6-17.2); WHITE BLOOD COUNT 6.9 TH/MM3 (4.0-11.0)
[2016-11-02 23:21] VITALS: BP 135/87; PULSE 68; RESP 18; TEMP 97.9; O2SAT 97
[2016-11-02] MEDS: ONDANSETRON HCL 4 MG/2 ML VIAL IV PUSH PRN (23:49)
[2016-11-03] VITALS (11 sets, daily range): BP systolic 136–178; BP diastolic 82–104; PULSE 58–94; RESP 18; TEMP 98–98.8; O2SAT 62–100
[2016-11-03] MEDS: PANTOPRAZOLE INJ 80 MG in SODIUM CHLORIDE 0.9% INJ 100 ML IV SCH ×3 (00:16→20:24)
[2016-11-03] MEDS: SODIUM CHLOR 0.9% 1000 ML INJ 1,000 ML IV SCH ×3 (02:35→20:24)
[2016-11-03] MEDS: ONDANSETRON HCL 4 MG/2 ML VIAL IV PUSH PRN (05:29)
--- NOTE | 2016-11-03 08:44 | PD.CONS ---
HPI History of Present Illness This is a 55 year old male who presented to the ED with c/o his tongue bleeding from his oral thrush. Patient reports he has had thrush for 3 weeks, with no treatment. GI was consulted for dark stools, hematemesis, with Hemoccult positive stools. Patient reports he has noted black tarry stools for past 4 days. Reports upper abdominal "soreness," intermittent. States he has nausea with hematemesis x 4, over past 2 days. Reports dizziness. Has had a EGD 2 years ago at [facility], which patient reports was normal. EGD was completed due to hematemesis. He states he has never had a colonoscopy. Patient states he drinks 2 beers a night, but quit yesterday. PMH is significant for HIV , depression, hypertension, alcohol abuse, and DVT (diagnosed 10/07/16 thrombosed right axillary vein on US, on Xarelto). (Jadyn Alonzo) PFSH Past Medical History HIV Depression EtOH abuse Hypertension DVT, diagnosed October 07, 2016 thrombosed right axillary vein seen on ultrasound on Xarelto. Past Surgical History Right shoulder dislocation with open reduction, internal fixation, greater tuberosity fracture (Dr. Nelson 10/08/2016) Right shoulder surgically repaired with hardware placement Left wrist surgery Appendectomy (Jadyn Alonzo) Coded Allergies: Penicillin (Verified Allergy, Severe, HIVES, 10/14/16) Sulfa (Verified Allergy, Severe, HIVES, 10/14/16) Medications Current Medications Medications (Trade) Dose Ordered Sig/Debi Route PRN Reason Start Time Stop Time Status Last Admin Dose Admin Sodium Chloride 2 ml 2 ml UNSCH PRN IVF FLUSH AFTER USING IV ACCESS 11/02/16 13:15 11/02/16 13:27 Pantoprazole Sodium 80 mg/ Sodium Chloride 100 ml @ 10 mls/hr Q10H IV 11/02/16 15:00 11/03/16 00:16 Sodium Chloride (NS 1000 ml Inj) 1,000 ml @ 100 mls/hr Q10H IV 11/02/16 16:01 11/03/16 02:35 Acetaminophen (Tylenol) 650 mg Q4H PRN PO TEMP > 100.4 11/02/16 16:15 Fluconazole (Diflucan) 100 mg Q24H PO 11/03/16 18:00 Ondansetron HCl (Zofran Inj) 4 mg Q6HR PRN IV PUSH NAUSEA OR VOMITING 11/03/16 00:00 11/03/16 05:29 Flumazenil (Romazicon Inj) 0.2 mg Q1M PRN IV PUSH SEE LABEL COMMENTS 11/02/16 17:45 Lorazepam (Ativan) 1 mg Q4H PRN PO CIWA 8 - 10 11/02/16 17:45 Lorazepam (Ativan Inj) 1 mg Q4H PRN IV PUSH CIWA 8 - 10 11/02/16 17:45 Lorazepam (Ativan) 2 mg Q2H PRN PO CIWA 11-14 11/02/16 17:45 Lorazepam (Ativan Inj) 2 mg Q2H PRN IV PUSH CIWA 11-14 11/02/16 17:45 Lorazepam (Ativan Inj) 2 mg Q1H PRN IV PUSH CIWA 15-20 11/02/16 17:45 Lorazepam (Ativan Inj) 2 mg Q15M PRN IV PUSH CIWA > 20 11/02/16 17:45 Family History [place], CVA, Hypertension, DM Social History ETOH, reports 2 beers daily, states he quit drinking yesterday. Tobacco, 1/2 PPD Illicit Drugs, Crack cocaine, last used 1.5 years ago (Jadyn Alonzo) Review of Systems Constitutional: COMPLAINS OF: Dizziness, DENIES: Diaphoretic episodes, Fatigue , Fever, Weight gain, Weight loss, Chills, Change in appetite, Night Sweats Endocrine: DENIES: Polydipsia, Polyuria Eyes: DENIES: Blurred vision, Photosensitivity, Double Vision Ears, nose, mouth, throat: COMPLAINS OF: Oral lesions, DENIES: Hearing loss, Vertigo, Throat pain, Hoarseness Respiratory: DENIES: Cough, Wheezing, Hemoptysis, Sputum production, Shortness of breath Cardiovascular: DENIES: Chest pain, Palpitations, Syncope, Lower Extremity Edema, Orthopnea, Claudication Gastrointestinal: COMPLAINS OF: Abdominal pain, Black stools, Nausea, Hematemesis, DENIES: Bloody stools, Constipation, Diarrhea, Vomiting, Difficulty Swallowing, Anorexia, Odynophagia, Swelling of Abdomen, Heartburn Genitourinary: DENIES: Urinary frequency, Urinary incontinence, Urgency, Hematuria, Dysuria, Nocturia Musculoskeletal: COMPLAINS OF: Back pain, DENIES: Joint pain, Muscle aches, Stiffness, Joint Swelling, Neck pain Integumentary: COMPLAINS OF: Rash, DENIES: Abnormal pigmentation, Nail changes , Pruritus, Jaundice Hematologic/lymphatic: DENIES: Bruising, Lymphadenopathy Immunologic/allergic: DENIES: Eczema, Urticaria Neurologic: DENIES: Abnormal gait, Headache, Localized weakness, Paresthesias Psychiatric: DENIES: Anxiety, Confusion, Mood changes, Depression, Agitation, Suicidal Ideation (Jadyn Alonzo) GI Exam Vitals I&O Vital Signs Date Time Temp Pulse Resp B/P Pulse Ox O2 Delivery O2 Flow Rate FiO2 11/03/16 07:34 98.2 61 18 156/98 62 11/03/16 04:25 98.7 70 18 136/90 97 11/03/16 04:05 81 11/03/16 00:15 94 11/02/16 23:21 97.9 68 18 135/87 97 11/02/16 20:30 67 11/02/16 20:13 98.4 68 18 137/78 97 11/02/16 18:35 98.4 66 18 145/97 97 11/02/16 13:28 75 19 129/63 96 Room Air 11/02/16 12:25 98.2 92 14 134/91 98 I/O 11/02/16 11/02/16 11/02/16 11/03/16 11/03/16 11/03/16 06:59 14:59 22:59 06:59 14:59 22:59 Output Total 400 ml Balance -400 ml Output Urine Total 400 ml # Voids 1 Imaging Last Impressions Upper Extremity Ultrasound 11/02/16 0000 Signed Impressions: Service Date/Time: Wednesday, November 02, 2016 16:30 - CONCLUSION: No DVT of the right upper extremity. Murray Torre MD Head CT 11/02/16 0000 Signed Impressions: Service Date/Time: Wednesday, November 02, 2016 19:47 - CONCLUSION: 1. No acute intracranial abnormality. Ethmoid and maxillary sinus disease. Esequiel Carmen MD Laboratory Test 11/02/16 11/02/16 13:20 20:41 White Blood Count 6.3 TH/MM3 6.9 TH/MM3 Red Blood Count 3.36 MIL/MM3 3.26 MIL/MM3 Hemoglobin 12.3 GM/DL 11.9 GM/DL Hematocrit 36.3 % 35.4 % Mean Corpuscular Volume 108.1 FL 108.6 FL Mean Corpuscular Hemoglobin 36.7 PG 36.5 PG Mean Corpuscular Hemoglobin 33.9 % 33.6 % Concent Red Cell Distribution Width 15.0 % 15.1 % Platelet Count 222 TH/MM3 202 TH/MM3 Mean Platelet Volume 6.5 FL 6.5 FL Neutrophils (%) (Auto) 50.5 % 56.4 % Lymphocytes (%) (Auto) 37.2 % 30.9 % Monocytes (%) (Auto) 8.7 % 9.2 % Eosinophils (%) (Auto) 2.9 % 2.7 % Basophils (%) (Auto) 0.7 % 0.8 % Neutrophils # (Auto) 3.2 TH/MM3 3.9 TH/MM3 Lymphocytes # (Auto) 2.4 TH/MM3 2.1 TH/MM3 Monocytes # (Auto) 0.6 TH/MM3 0.6 TH/MM3 Eosinophils # (Auto) 0.2 TH/MM3 0.2 TH/MM3 Basophils # (Auto) 0.0 TH/MM3 0.1 TH/MM3 CBC Comment DIFF FINAL DIFF FINAL Differential Comment Prothrombin Time 16.8 SEC Prothromb Time International 1.5 RATIO Ratio Activated Partial 51.9 SEC Thromboplast Time Sodium Level 136 MEQ/L Potassium Level 3.8 MEQ/L Chloride Level 102 MEQ/L Carbon Dioxide Level 24.2 MEQ/L Anion Gap 10 MEQ/L Blood Urea Nitrogen 5 MG/DL Creatinine 0.77 MG/DL Estimat Glomerular Filtration 128 ML/MIN Rate Random Glucose 91 MG/DL Calcium Level 8.1 MG/DL Total Bilirubin 0.5 MG/DL Aspartate Amino Transf 66 U/L (AST/SGOT) Alanine Aminotransferase 39 U/L (ALT/SGPT) Alkaline Phosphatase 101 U/L Total Protein 8.1 GM/DL Albumin 3.1 GM/DL Lipase 202 U/L Ethyl Alcohol Level 148 MG/DL Blood Type A POSITIVE Antibody Screen NEGATIVE Antigen Identification A1 LECTIN - POSITIVE Physical Examination HEENT: PERRLA; normocephalic; atraumatic; no jaundice. White patches noted on oral mucosa. CHEST: CTA CARDIAC: RRR, with no murmur gallop or rubs. ABDOMEN: Soft, nondistended, mild diffuse tenderness on palpation; no hepatosplenomegaly; bowel sounds x 4 quadrants EXTREMITIES: No clubbing, cyanosis, or edema. SKIN: No jaundice. DIESEL ENGINE I PIPE FITTER: No focal deficits; alert and oriented x 3. (Jadyn Alonzo) Assessment and Plan Plan ASSESSMENT -Upper GI bleed, hematemesis, black tarry stools, with Hemoccult positive stools. HH on 11/02 11.9/35.4. Last EGD 2 years ago at [facility] for hematemesis, normal per patient. Patient with history of alcohol abuse. -Oral thrush, started on Diflucan -ETOH abuse, [facility] protocol. Toxicology + alcohol, 148 -HIV, on HARRT therapy, per attending -DVT on US 10/07/16, has been on Xarelto (on hold). Upper Extremity Ultrasound 11/02/16--No DVT of the right upper extremity. PLAN -EGD on Friday -Obtain consents -NPO after MN tonight -PPI -Hold Xarelto -Monitor HH, transfuse as needed. -Notify GI of active bleeding -Alcohol cessation advised to patient -Further recommendations to follow based on results of above Patient seen and examined by Dr. Mcdonough and myself and this note is written on her behalf. (Jadyn Alonzo) Physician Comments seen, examined agree with above also he reports diarrhea for the last 2 days and some lower abdominal pain we will add colonoscopy as he needs to be on anticoagulation stool studies (Lena Mcdonough MD) Jadyn Alonzo Nov 03, 2016 08:44 Lena Mcdonough MD Nov 03, 2016 14:24
--- NOTE | 2016-11-03 12:27 | HHI.PR ---
Subjective Remarks Follow up for GI bleed. The patient reports multiple episodes of diarrhea overnight and today, witnessed by RN, described as dark brown stool mixed with occasional bright red streaks of blood. He reports nausea but no vomiting today. Denies any abdominal pain. Denies fevers/chills. Denies any other medical complaints at this time. He states he follows with Dr. Grimm for his HIV, compliant with meds. Objective Vitals Vital Signs Date Time Temp Pulse Resp B/P Pulse Ox O2 Delivery O2 Flow Rate FiO2 11/03/16 11:27 98.1 74 18 138/89 98 11/03/16 10:00 58 11/03/16 07:34 98.2 61 18 156/98 62 11/03/16 04:25 98.7 70 18 136/90 97 11/03/16 04:05 81 11/03/16 00:15 94 11/02/16 23:21 97.9 68 18 135/87 97 11/02/16 20:30 67 11/02/16 20:13 98.4 68 18 137/78 97 11/02/16 18:35 98.4 66 18 145/97 97 11/02/16 13:28 75 19 129/63 96 Room Air 11/02/16 12:25 98.2 92 14 134/91 98 I/O 11/02/16 11/02/16 11/02/16 11/03/16 11/03/16 11/03/16 06:59 14:59 22:59 06:59 14:59 22:59 Output Total 400 ml Balance -400 ml Output Urine Total 400 ml # Voids 1 Result Diagram: 11/02/161 11/02/16 1320 Imaging Last Impressions Upper Extremity Ultrasound 11/02/16 0000 Signed Impressions: Service Date/Time: Wednesday, November 02, 2016 16:30 - CONCLUSION: No DVT of the right upper extremity. Murray Torre MD Head CT 11/02/16 0000 Signed Impressions: Service Date/Time: Wednesday, November 02, 2016 19:47 - CONCLUSION: 1. No acute intracranial abnormality. Ethmoid and maxillary sinus disease. Esequiel Carmen MD Objective Remarks GENERAL: Well-nourished, well-developed middle aged AA male patient in NAD. SKIN: Warm and dry. No rash. HEENT: Normocephalic. Atraumatic.Pupils equal and round. Oral/buccal mucosa with white patchy exudate consistent with thrush. NECK: Supple. Trachea midline. CARDIOVASCULAR: Regular rate and rhythm. S1, S2 noted. No murmur appreciated. RESPIRATORY: No accessory muscle use. Clear to auscultation. Breath sounds equal bilaterally. GASTROINTESTINAL: Abdomen soft, non-tender, nondistended. Normoactive bowel sounds x4. MUSCULOSKELETAL: No obvious deformities. Extremities without clubbing, cyanosis , or edema. NEUROLOGICAL: Awake and alert. No obvious cranial nerve deficits. Motor grossly within normal limits. Normal speech. Medications and IVs Current Medications Medications (Trade) Dose Ordered Sig/Debi Route Start Time Stop Time Status Last Admin Sodium Chloride 2 ml 2 ml UNSCH PRN IVF 11/02/16 13:15 11/02/16 13:27 Pantoprazole Sodium 80 mg/ Sodium Chloride 100 ml @ 10 mls/hr Q10H IV 11/02/16 15:00 11/03/16 10:31 (NS 1000 ml Inj) 1,000 ml @ 100 mls/hr Q10H IV 11/02/16 16:01 11/03/16 10:35 (Tylenol) 650 mg Q4H PRN PO 11/02/16 16:15 (Diflucan) 100 mg Q24H PO 11/03/16 18:00 (Zofran Inj) 4 mg Q6HR PRN IV PUSH 11/03/16 00:00 11/03/16 05:29 (Romazicon Inj) 0.2 mg Q1M PRN IV PUSH 11/02/16 17:45 (Ativan) 1 mg Q4H PRN PO 11/02/16 17:45 (Ativan Inj) 1 mg Q4H PRN IV PUSH 11/02/16 17:45 (Ativan) 2 mg Q2H PRN PO 11/02/16 17:45 (Ativan Inj) 2 mg Q2H PRN IV PUSH 11/02/16 17:45 (Ativan Inj) 2 mg Q1H PRN IV PUSH 11/02/16 17:45 (Ativan Inj) 2 mg Q15M PRN IV PUSH 11/02/16 17:45 (Roxicodone) 5 mg Q6H PRN PO 11/03/16 08:45 11/03/16 10:31 (Roxicodone) 10 mg Q6H PRN PO 11/03/16 08:45 (Coreg) 12.5 mg BID PO 11/03/16 21:00 (Pravachol) 40 mg DAILY PO 11/04/16 09:00 Patient Own Medication PT OWN MED: PREZCO... DAILY PO 11/03/16 13:00 Hold Patient Own Medication PT OWN MED: DESCOV... DAILY PO 11/03/16 13:00 Hold A/P Problem List: (1) GI (gastrointestinal bleed) ICD Code: K92.2 Status: Acute (2) HIV disease ICD Code: B20 Status: Acute Assessment and Plan 54-year-old male history of HIV on HAART therapy, depression, alcohol abuse, hypertension and recent DVT diagnosed 10/07/16 currently on Xarelto; presents with hematemesis 2 days, black tarry stools 2-3 days, oral thrush, genital warts. GI bleeding: presented with hematemesis/melena. Hemoccult positive in the ED. Current hemoglobin 12.3 hematocrit 36.3. -Hold patient's Xarelto -Continue to monitor H&H, currently stable -Continue IV Protonix drip -Supportive treatment with IVF, antiemetics, and pain control prn -Consult GI, plans for EGD tomorrow 11/04 -Advanced diet for now, NPO after midnight Alcohol abuse: patient states he's done drinking now. He has difficulty quantifying amount of alcohol use, says a couple "big" beers and some liquor. -Monitor for withdrawal -Continue CIWA protocol -Start on thiamine/folate/MV Subacute DVT: initially seen on Doppler U/S RUE showing thrombosed right axillary vein. Repeat U/S 10/14 negative for DVT. -Repeat U/S 11/02 again negative for DVT -with multiple repeat doppler U/S negative for DVT and with GI bleeding as above, will plan to discontinue Xarelto at discharge HIV: Follows with outpatient infectious disease Dr. Grimm -continue HAART therapy -outpatient f/up with ID Oropharyngeal Candidiasis: exam consistent with oral thrush -started on Diflucan 100mg po daily Hypertension: chronic, BP fairly well controlled -continue patient's home meds including lisinopril 20 mg daily, carvedilol 12.5 mg bid -monitor BP, adjust antihypertensives as needed Dizziness: with recent head trauma -head CT images reviewed, no acute findings -patient's dizziness improve today -continue to monitor Condylomata Acuminata: patient's exam consistent with genital warts. He consistently complains of itching around the anus. -outpatient f/up with dermatology +/- general surgery to consider surgical resection DVT prophylaxis with SCDs were chemical DVT prophylaxis in light of GI bleed Discharge Planning Discharge pending results of EGD tomorrow and continued clinical improvement. Mary Giron PA-C Nov 03, 2016 12:27 pm
[2016-11-03 12:45] LABS: BASOPHIL % 0.4 % (0.0-2.0); EOSINOPHIL # 0.2 TH/MM3 (0-0.4); EOSINOPHIL % 2.4 % (0.0-4.0); HEMATOCRIT 35.6 % (39.0-51.0); HEMO FLAGS DIFF FINAL; LYMPHOCYTE # 2.2 TH/MM3 (1.0-4.8); MEAN CELL VOLUME 107.5 FL (80.0-100.0); MEAN CORPUSCULAR HEMOGLOBIN 37.6 PG (27.0-34.0); MEAN CORPUSCULAR HGB CONC 34.9 % (32.0-36.0); MONO % 8.7 % (0.0-8.0); NEUT % 61.5 % (16.0-70.0); PLATELET COUNT 168 TH/MM3 (150-450); RED BLOOD COUNT 3.31 MIL/MM3 (4.50-5.90); WHITE BLOOD COUNT 8.2 TH/MM3 (4.0-11.0)
[2016-11-03] MEDS ORDERED: COBICISTAT PO SCH (13:00)
[2016-11-03] MEDS ORDERED: DARUNAVIR PO SCH (13:00)
[2016-11-03] MEDS ORDERED: DESCOVY PO SCH (13:00)
[2016-11-03 13:09] LABS: ALT (GPT) 31 U/L (12-78); ANION GAP 8 MEQ/L (5-15); AST (GOT) 45 U/L (15-37); BLOOD UREA NITROGEN 6 MG/DL (7-18); CHLORIDE 105 MEQ/L (98-107); GLOMERULAR FILTRATION RATE 119 ML/MIN (>89); POTASSIUM 3.5 MEQ/L (3.5-5.1); SODIUM (NA) 139 MEQ/L (136-145)
[2016-11-03 13:11] LABS: ALKALINE PHOSPHATASE 94 U/L (45-117); TOTAL BILIRUBIN ADULT 0.8 MG/DL (0.2-1.0)
[2016-11-03] MEDS ORDERED: PEG (High)/E-LYTE SOLN 4000 ML BTL PO ONE (14:30)
[2016-11-03] MEDS: FLUCONAZOLE 100 MG TAB PO SCH (18:16)
[2016-11-03] MEDS: CARVEDILOL 12.5 MG TAB PO SCH (20:23)
[2016-11-03 21:39] LABS: C. DIFF EPI 027 PRESUMPTIVE NEGATIVE (NEGATIVE)
[2016-11-04] VITALS (9 sets, daily range): BP systolic 129–188; BP diastolic 84–116; PULSE 63–95; RESP 18–20; TEMP 98.4–99.2; O2SAT 98–100
[2016-11-04 08:07] LABS: AUTOMATED NEUTROPHIL # 3.3 TH/MM3 (1.8-7.7); BASOPHIL % 0.6 % (0.0-2.0); EOSINOPHIL # 0.1 TH/MM3 (0-0.4); EOSINOPHIL % 2.3 % (0.0-4.0); HEMATOCRIT 36.8 % (39.0-51.0); HEMO FLAGS DIFF FINAL; LYMPH % 29.4 % (9.0-44.0); LYMPHOCYTE # 1.6 TH/MM3 (1.0-4.8); MEAN CELL VOLUME 107.9 FL (80.0-100.0); MEAN CORPUSCULAR HEMOGLOBIN 37.2 PG (27.0-34.0); MEAN CORPUSCULAR HGB CONC 34.5 % (32.0-36.0); MONO % 8.5 % (0.0-8.0); NEUT % 59.2 % (16.0-70.0); PLATELET COUNT 175 TH/MM3 (150-450); RED BLOOD COUNT 3.41 MIL/MM3 (4.50-5.90); WHITE BLOOD COUNT 5.6 TH/MM3 (4.0-11.0)
[2016-11-04 08:17] LABS: PROTHROMBIN TIME - PATIENT 10.8 SEC (9.8-11.6)
[2016-11-04 08:28] LABS: BICARBONATE 27.6 MEQ/L (21.0-32.0); POTASSIUM 3.4 MEQ/L (3.5-5.1)
[2016-11-04] MEDS ORDERED: PROPOFOL 200 MG/20 ML AMP IV ONE (09:29)
[2016-11-04] MEDS ORDERED: SIMETHICONE SUSP DROPS 40 MG/0.6 ML 30 ML BTL PO ONE (09:30)
--- NOTE | 2016-11-04 10:01 | HHI.GIFU ---
Subjective Remarks EGD with biopsy and colonoscopy with snare polypectomy and biopsy performed. See procedure report. Tolerated well Objective Vitals I&O Vital Signs Date Time Temp Pulse Resp B/P Pulse Ox O2 Delivery O2 Flow Rate FiO2 11/04/16 07:38 99.2 69 18 179/112 99 11/04/16 04:00 63 11/04/16 03:47 98.5 65 18 129/87 98 11/04/16 00:00 95 11/03/16 23:19 98.8 65 18 178/100 100 11/03/16 20:34 98.5 58 18 140/82 99 11/03/16 20:00 61 11/03/16 16:00 61 11/03/16 15:33 98.0 63 18 145/104 99 11/03/16 11:27 98.1 74 18 138/89 98 11/03/16 10:00 58 I/O 11/03/16 11/03/16 11/03/16 11/04/16 11/04/16 11/04/16 07:00 15:00 23:00 07:00 15:00 23:00 Intake Total 1075 ml Output Total 400 ml Balance -400 ml 1075 ml Intake Oral 475 ml IV Total 600 ml Output Urine Total 400 ml # Voids 1 2 # Bowel Movements 4 Laboratory Laboratory Tests Test 11/03/16 11/03/16 11/04/16 12:16 14:30 06:37 White Blood Count 8.2 5.6 Red Blood Count 3.31 3.41 Hemoglobin 12.4 12.7 Hematocrit 35.6 36.8 Mean Corpuscular Volume 107.5 107.9 Mean Corpuscular Hemoglobin 37.6 37.2 Mean Corpuscular Hemoglobin 34.9 34.5 Concent Red Cell Distribution Width 15.0 15.0 Platelet Count 168 175 Mean Platelet Volume 7.1 7.4 Neutrophils (%) (Auto) 61.5 59.2 Lymphocytes (%) (Auto) 27.0 29.4 Monocytes (%) (Auto) 8.7 8.5 Eosinophils (%) (Auto) 2.4 2.3 Basophils (%) (Auto) 0.4 0.6 Neutrophils # (Auto) 5.0 3.3 Lymphocytes # (Auto) 2.2 1.6 Monocytes # (Auto) 0.7 0.5 Eosinophils # (Auto) 0.2 0.1 Basophils # (Auto) 0.0 0.0 CBC Comment DIFF FINAL DIFF FINAL Differential Comment Sodium Level 139 143 Potassium Level 3.5 3.4 Chloride Level 105 107 Carbon Dioxide Level 26.0 27.6 Anion Gap 8 8 Blood Urea Nitrogen 6 3 Creatinine 0.82 0.76 Estimat Glomerular Filtration 119 130 Rate Random Glucose 88 80 Calcium Level 8.7 8.7 Total Bilirubin 0.8 Aspartate Amino Transf 45 (AST/SGOT) Alanine Aminotransferase 31 (ALT/SGPT) Alkaline Phosphatase 94 Total Protein 7.4 Albumin 2.8 Stool C. difficile Toxin (PCR) NEGATIVE Stl C. difficile Toxin PRESUMPTIVE Epiderm 027 NEGATIVE Prothrombin Time 10.8 Prothromb Time International 1.0 Ratio Date/Time Procedure Status Source Growth 11/03/16 14:30 Received Stool Stool Pending Physical Exam HEENT: Pupils round and reactive to light; normocephalic; atraumatic; no jaundice. Throat is clear. NECK: Neck is supple, no JVD, no lymphadenopathy. CHEST: Chest is clear to auscultation and percussion. CARDIAC: Regular rate and rhythm with no murmur gallop or rubs. ABDOMEN: Soft, nondistended, nontender; no hepatosplenomegaly; bowel sounds are present in all four quadrants. EXTREMITIES: No clubbing, cyanosis, or edema. SKIN: Normal; no rash; no jaundice. WIRELINE OPERATOR: No focal deficits; alert and oriented times three. Assessment and Plan Plan ASSESSMENT -Upper GI bleed, hematemesis, black tarry stools, with Hemoccult positive stools. HH on 11/02 11.9/35.4. Last EGD [address] [facility] for hematemesis, normal per patient. Patient with history of alcohol abuse. -Oral thrush, started on Diflucan -ETOH abuse, [facility] protocol. Toxicology + alcohol, 148 -HIV, on HARRT therapy, per attending -DVT on US 10/07/16, has been on Xarelto (on hold). Upper Extremity Ultrasound 11/02/16--No DVT of the right upper extremity. EGD and Colonoscopy performed with colon polypectomy. No ulcers or other cause for UGI bleed. HH present and mild gastritis. snare polypectomy. Mild cautery. PLAN - Advance diet as tolerated. Hold Xarelto for 3-4 days to allow cautery site to heal. OK for discharge if stable tomorrow. -NPO after MN tonight -PPI -Hold Xarelto -Monitor HH, transfuse as needed. -Notify GI of active bleeding -Alcohol cessation advised to patient -Further recommendations to follow based on results of above Patient seen and examined by Dr. Mcdonough and myself and this note is written on her behalf. Edwin Sevilla MD Nov 04, 2016 10:01
[2016-11-04] MEDS ORDERED: POTASSIUM CHLORIDE 20 MEQ CONTROLLED RELEASE TAB PO ONE (11:00)
[2016-11-04] MEDS: CARVEDILOL 12.5 MG TAB PO SCH ×2 (11:38→20:33)
[2016-11-04] MEDS: LISINOPRIL 20 MG TAB PO SCH (11:39)
[2016-11-04] MEDS: PRAVASTATIN SOD 40 MG TAB PO SCH (11:39)
--- NOTE | 2016-11-04 11:40 | HHI.PR ---
Subjective Remarks Follow-up for GI bleeding. The patient is seen after EGD and colonoscopy today. He continues to complain of soreness in his mouth and throat from oral thrush. No further vomiting or diarrhea. He wants to try to eat some. Objective Vitals Vital Signs Date Time Temp Pulse Resp B/P Pulse Ox O2 Delivery O2 Flow Rate FiO2 11/04/16 10:21 97.7 65 18 136/94 98 11/04/16 10:04 58 18 153/96 98 11/04/16 07:38 99.2 69 18 179/112 99 11/04/16 04:00 63 11/04/16 03:47 98.5 65 18 129/87 98 11/04/16 00:00 95 11/03/16 23:19 98.8 65 18 178/100 100 11/03/16 20:34 98.5 58 18 140/82 99 11/03/16 20:00 61 11/03/16 16:00 61 11/03/16 15:33 98.0 63 18 145/104 99 I/O 11/03/16 11/03/16 11/03/16 11/04/16 11/04/16 11/04/16 07:00 15:00 23:00 07:00 15:00 23:00 Intake Total 1075 ml Output Total 400 ml 1 ml Balance -400 ml 1075 ml -1 ml Intake Oral 475 ml IV Total 600 ml Output Urine Total 400 ml Stool Total 1 ml # Voids 1 2 1 # Bowel Movements 4 Result Diagram: 11/04/16 0637 11/04/16 0637 Imaging Last Impressions Upper Extremity Ultrasound 11/02/16 0000 Signed Impressions: Service Date/Time: Wednesday, November 02, 2016 16:30 - CONCLUSION: No DVT of the right upper extremity. Murray Torre MD Head CT 11/02/16 0000 Signed Impressions: Service Date/Time: Wednesday, November 02, 2016 19:47 - CONCLUSION: 1. No acute intracranial abnormality. Ethmoid and maxillary sinus disease. Esequiel Carmen MD Objective Remarks GENERAL: Well-developed well-nourished. In no acute distress. SKIN: Warm and dry. No lesions noted. HEENT: Normocephalic. Pupils equal and round. Oral mucosa with patchy white exudates. CARDIOVASCULAR: Regular rate and rhythm. No murmur appreciated. RESPIRATORY: No accessory muscle use. Clear to auscultation. Breath sounds equal bilaterally. GASTROINTESTINAL: Abdomen soft, non-tender, nondistended. Bowel sounds x4. MUSCULOSKELETAL: No obvious deformities. No clubbing or cyanosis. No edema. NEUROLOGICAL: Awake and alert. No focal neurological deficits. Moves upper and lower extremities spontaneously. Normal speech. PSYCHIATRIC: Appropriate mood and affect; insight and judgment normal. A/P Problem List: (1) GI (gastrointestinal bleed) ICD Code: K92.2 Status: Acute (2) HIV disease ICD Code: B20 Status: Chronic Assessment and Plan 54-year-old male history of HIV on HAART therapy, depression, alcohol abuse, hypertension and recent DVT diagnosed 10/07/16 currently on Xarelto; presents with hematemesis 2 days, black tarry stools 2-3 days, oral thrush, genital warts. GI bleeding: presented with hematemesis/melena. Hemoccult positive in the ED. Current hemoglobin 12.3 hematocrit 36.3. -Hold patient's Xarelto -Continue to monitor H&H, currently stable -Change IV Protonix drip to oral -Consulted GI, performed EGD and colonoscopy 11/04, which showed gastritis as well as a colon polyp which was removed with snare and cautery -GI recommended monitoring overnight due to cautery and if stable and okay to DC in the a.m. -Diet as tolerated Alcohol abuse: patient states he's done drinking now. He has difficulty quantifying amount of alcohol use, says a couple "big" beers and some liquor. -Monitor for withdrawal -Continue [facility] protocol -thiamine/folate/MV Subacute DVT: initially seen on Doppler U/S RUE showing thrombosed right axillary vein. Repeat U/S 10/14 negative for DVT. -Repeat U/S 11/02 again negative for DVT -with multiple repeat doppler U/S negative for DVT and with GI bleeding as above, discussed with Dr. Simeon, no need to continue Xarelto at discharge HIV: Follows with outpatient infectious disease Dr. Grimm -continue HAART therapy -outpatient f/up with ID Oropharyngeal Candidiasis: exam consistent with oral thrush -started on Diflucan 100mg po daily Hypertension: chronic, BP fairly well controlled, but labile -continue patient's home meds including lisinopril 20 mg daily, carvedilol 12.5 mg bid -monitor BP, adjust antihypertensives as needed Dizziness: with recent head trauma -head CT with no acute findings -patient's dizziness improved -continue to monitor Condylomata Acuminata: Patient was found on general warts on exam after complaints of anal itching. -outpatient f/up with dermatology +/- general surgery to consider surgical resection DVT prophylaxis with SCDs. Hold chemical DVT prophylaxis in light of GI bleed Discharge Planning Anticipate discharge tomorrow a.m. if patient remains stable. Tristen Church Nov 04, 2016 11:40
[2016-11-04] MEDS ORDERED: cloNIDine HCL 0.1 MG TAB PO PRN (13:30)
[2016-11-04] MEDS: FLUCONAZOLE 100 MG TAB PO SCH (17:09)
[2016-11-04] MEDS: DARUNAVIR PO SCH (17:10)
[2016-11-04] MEDS: DESCOVY PO SCH (17:10)
[2016-11-04] MEDS: COBICISTAT PO SCH (17:10)
[2016-11-04] MEDS: PANTOPRAZOLE SOD 40 MG DELAYED RELEASE TAB PO SCH (20:33)
[2016-11-05 00:39] VITALS: BP 158/97; PULSE 67; RESP 18; TEMP 99.1; O2SAT 100
[2016-11-05 03:33] VITALS: BP 137/100; PULSE 75; RESP 20; TEMP 98.6; O2SAT 99
[2016-11-05 07:50] LABS: HEMATOCRIT 37.5 % (39.0-51.0); REVIEW FLAG FINAL
[2016-11-05 08:28] VITALS: BP 161/105; PULSE 67; RESP 20; TEMP 98; O2SAT 99
[2016-11-05] MEDS: CARVEDILOL 12.5 MG TAB PO SCH (08:30)
[2016-11-05] MEDS: PANTOPRAZOLE SOD 40 MG DELAYED RELEASE TAB PO SCH (08:30)
[2016-11-05] MEDS: LISINOPRIL 20 MG TAB PO SCH (08:30)
[2016-11-05] MEDS: PRAVASTATIN SOD 40 MG TAB PO SCH (08:30)
[2016-11-05] MEDS: DARUNAVIR PO SCH (08:31)
[2016-11-05] MEDS: DESCOVY PO SCH (08:31)
[2016-11-05] MEDS: COBICISTAT PO SCH (08:31)
--- NOTE | 2016-11-05 08:50 | HHI.GIFU ---
Subjective Remarks Resting in bed. C/O back pain. No vomiting, abdominal pain, or GI bleeding. Tolerating diet. Objective Vitals I&O Vital Signs Date Time Temp Pulse Resp B/P Pulse Ox O2 Delivery O2 Flow Rate FiO2 11/05/16 08:28 98.0 67 20 161/105 99 11/05/16 03:33 98.6 75 20 137/100 99 11/05/16 00:39 99.1 67 18 158/97 100 11/04/16 21:04 98.4 80 20 133/84 100 11/04/16 16:15 98.5 64 20 131/88 100 11/04/16 12:45 69 11/04/16 12:18 98.7 67 19 188/116 100 11/04/16 10:21 97.7 65 18 136/94 98 11/04/16 10:04 58 18 153/96 98 11/04/16 09:33 65 I/O 11/04/16 11/04/16 11/04/16 11/05/16 11/05/16 11/05/16 07:00 15:00 23:00 07:00 15:00 23:00 Output Total 1 ml Balance -1 ml Stool Total 1 ml # Voids 1 Laboratory Laboratory Tests Test 11/05/16 06:25 Hemoglobin 13.0 Hematocrit 37.5 Date/Time Procedure Status Source Growth 11/03/16 14:30 - Final Complete Stool Stool NO ENTERIC PATHOGENS DETECTED BY PCR... Imaging Last Impressions Upper Extremity Ultrasound 11/02/16 0000 Signed Impressions: Service Date/Time: Wednesday, November 02, 2016 16:30 - CONCLUSION: No DVT of the right upper extremity. Murray Torre MD Head CT 11/02/16 0000 Signed Impressions: Service Date/Time: Wednesday, November 02, 2016 19:47 - CONCLUSION: 1. No acute intracranial abnormality. Ethmoid and maxillary sinus disease. Esequiel Carmen MD Physical Exam HEENT: Normocephalic; atraumatic; no jaundice. CHEST: CTA CARDIAC: RRR ABDOMEN: Soft, nondistended, nontender; no hepatosplenomegaly; bowel sounds are present in all four quadrants. EXTREMITIES: No clubbing, cyanosis, or edema. SKIN: Normal; no rash; no jaundice. LICENSED PSYCHOLOGIST: No focal deficits; alert and oriented times three. Assessment and Plan Plan ASSESSMENT: - Upper GI bleed, hematemesis, black tarry stools, with Hemoccult positive stools. Patient with history of alcohol abuse. S/P EGD/Colonoscopy (11/04/16)----> Gastritis and hiatal hernia, no ulcers or other cause for UGI bleed. Colon polyp, s/p snare polypectomy, mild cautery. Pathology pending. No further signs of GI bleeding. Tolerating diet. HH stable 13.0/37.5.- - Gastritis, hiatal hernia. Pathology pending. PPI - Colon polyp, s/p snare polypectomy, mild cautery. Pathology pending. Hold Xarelto 2-3 days to allow cautery site to heal - Oral thrush. Diflucan - HIV, on HARRT therapy, per attending - Recent DVT, has been on Xarelto (on hold). Upper Extremity Ultrasound 11/02/16-- No DVT of the right upper extremity. Hold Xarelto 2-3 days to allow cautery site to heal. PLAN - JESÚS - Await pathology - PPI - Diflucan - Hold Xarelto for 2-3 days to allow cautery site to heal. - Okay to d/c home from GI standpoint. - FU ROXANNA 2 weeks - GI will sign off, please reconsult as needed - Patient seen and examined by Dr. Sevilla and myself and this note is written on his behalf. Estrellita Hussein Nov 05, 2016 08:50
--- NOTE | 2016-11-05 08:57 | HHI.PR ---
Subjective Remarks Follow up for GIB. The patient complains of feeling dizzy when walking yesterday and felt like he was going to fall. He has been tolerating oral intake with no vomiting. He had 1 hard BM overnight, not dark or bloody. He does feel like his abdomen is a bit bloated. Objective Vitals Vital Signs Date Time Temp Pulse Resp B/P Pulse Ox O2 Delivery O2 Flow Rate FiO2 11/05/16 08:28 98.0 67 20 161/105 99 11/05/16 03:33 98.6 75 20 137/100 99 11/05/16 00:39 99.1 67 18 158/97 100 11/04/16 21:04 98.4 80 20 133/84 100 11/04/16 16:15 98.5 64 20 131/88 100 11/04/16 12:45 69 11/04/16 12:18 98.7 67 19 188/116 100 11/04/16 10:21 97.7 65 18 136/94 98 11/04/16 10:04 58 18 153/96 98 11/04/16 09:33 65 I/O 11/04/16 11/04/16 11/04/16 11/05/16 11/05/16 11/05/16 07:00 15:00 23:00 07:00 15:00 23:00 Output Total 1 ml Balance -1 ml Stool Total 1 ml # Voids 1 Result Diagram: 11/05/16 0625 11/04/16 0637 Imaging Last Impressions Upper Extremity Ultrasound 11/02/16 0000 Signed Impressions: Service Date/Time: Wednesday, November 02, 2016 16:30 - CONCLUSION: No DVT of the right upper extremity. Murray Torre MD Head CT 11/02/16 0000 Signed Impressions: Service Date/Time: Wednesday, November 02, 2016 19:47 - CONCLUSION: 1. No acute intracranial abnormality. Ethmoid and maxillary sinus disease. Esequiel Carmen MD Objective Remarks GENERAL: Well-developed well-nourished. In no acute distress. SKIN: Warm and dry. No lesions noted. HEENT: Normocephalic. Pupils equal and round. Oral mucosa with patchy white exudates. CARDIOVASCULAR: Regular rate and rhythm. No murmur appreciated. RESPIRATORY: No accessory muscle use. Clear to auscultation. Breath sounds equal bilaterally. GASTROINTESTINAL: Abdomen soft, non-tender, nondistended. Bowel sounds x4. MUSCULOSKELETAL: No obvious deformities. No clubbing or cyanosis. No edema. NEUROLOGICAL: Awake and alert. No focal neurological deficits. Moves upper and lower extremities spontaneously. Normal speech. PSYCHIATRIC: Appropriate mood and affect; insight and judgment normal. A/P Problem List: (1) GI (gastrointestinal bleed) ICD Code: K92.2 Status: Acute (2) HIV disease ICD Code: B20 Status: Chronic Assessment and Plan 54-year-old male history of HIV on HAART therapy, depression, alcohol abuse, hypertension and recent DVT diagnosed 10/07/16 currently on Xarelto; presents with hematemesis 2 days, black tarry stools 2-3 days, oral thrush, genital warts. GI bleeding: presented with hematemesis/melena. Hemoccult positive in the ED. -Hold patient's Xarelto -Continue to monitor H&H, currently stable -Change IV Protonix drip to oral -Consulted GI, performed EGD and colonoscopy 11/04, which showed gastritis as well as a colon polyp which was removed with snare and cautery -GI recommended monitoring overnight due to cautery, cleared now from GI standpoint for discharge -Diet as tolerated Alcohol abuse: patient states he's done drinking now. He has difficulty quantifying amount of alcohol use, says a couple "big" beers and some liquor. -Monitor for withdrawal -Continue CIMS protocol -thiamine/folate Subacute DVT: initially seen on Doppler U/S RUE showing thrombosed right axillary vein. Repeat U/S 10/14 negative for DVT. -Repeat U/S 11/02 again negative for DVT -with multiple repeat doppler U/S negative for DVT and with GI bleeding as above, discussed with Dr. Simeon, no need to continue Xarelto at discharge HIV: Follows with outpatient infectious disease Dr. Grimm -continue HAART therapy -outpatient f/up with ID Oropharyngeal Candidiasis: exam consistent with oral thrush -started on Diflucan 100mg po daily Hypertension: chronic, BP fairly well controlled, but labile -continue patient's home meds including lisinopril 20 mg daily, carvedilol 12.5 mg bid -monitor BP, adjust antihypertensives as needed Dizziness: with recent head trauma -Head CT with no acute findings -Check orthostatics. -Out of bed with PT Condylomata Acuminata: Patient was found on general warts on exam after complaints of anal itching. -outpatient f/up with dermatology +/- general surgery to consider surgical resection DVT prophylaxis with SCDs. Hold chemical DVT prophylaxis in light of GI bleed Discharge Planning Clear from GI perspective for discharge. Patient with concerns about ability to ambulate safely. If patient is able to ambulate safely with PT, discharge planning today. Tristen Church Nov 05, 2016 08:57 Tristen Church Nov 05, 2016 08:57
[2016-11-05] MEDS ORDERED: THIAMINE HCL 100 MG TAB PO SCH (09:15)
[2016-11-05] MEDS ORDERED: FOLIC ACID 1 MG TAB PO SCH (09:15)
[2016-11-05] MEDS ORDERED: FOLI1TAB6 PO (11:03)
[2016-11-05] MEDS ORDERED: PANT40TA3 PO (11:03)
[2016-11-05] MEDS ORDERED: GNP100TA3 PO (11:03)
[2016-11-05] MEDS ORDERED: DIFL100T PO (11:03)
[2016-11-05] MEDS ORDERED: WALKER WHEELS/F1 MIS (11:05)
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
[2016-11-05 12:45] VITALS: PULSE 64
== END 2016-11-05 13:00 | disposition home or self-care (01) ==
LOC: NEPC 12:23 → NEDA 14:41 → NEPGCP 18:07
PROVIDERS: ADMIT Hospitalist; ATTEND Hospitalist
DX: K92.0 Hematemesis (principal); F20.9 Schizophrenia, unspecified; M19.90 Unspecified osteoarthritis, unspecified site; J45.909 Unspecified asthma, uncomplicated; B20 Human immunodeficiency virus [HIV] disease; Z79.899 Other long term (current) drug therapy; F31.9 Bipolar disorder, unspecified; E78.00 Pure hypercholesterolemia, unspecified; I10 Essential (primary) hypertension; F17.210 Nicotine dependence, cigarettes, uncomplicated; F14.10 Cocaine abuse, uncomplicated; Z79.01 Long term (current) use of anticoagulants; Y90.6 Blood alcohol level of 120-199 mg/100 ml; K92.1 Melena; Z86.718 Personal history of other venous thrombosis and embolism; F10.10 Alcohol abuse, uncomplicated; R21 Rash and other nonspecific skin eruption; B37.0 Candidal stomatitis; R42 Dizziness and giddiness; S09.90XA Unspecified injury of head, initial encounter; R10.30 Lower abdominal pain, unspecified; K29.70 Gastritis, unspecified, without bleeding; K44.9 Diaphragmatic hernia without obstruction or gangrene; D12.0 Benign neoplasm of cecum; D12.3 Benign neoplasm of transverse colon; M79.89 Other specified soft tissue disorders
CPT/HCPCS: 00740; 00810; 43239; 45385; 70450; 80048; 80053; 80307; 82607; 82746; 83690; 85014; 85018; 85025; 85610; 85730; 86850; 86900; 86901; 86902; 87493; 87506; 88305; 88312; 93971; 96361; 96365; 96366; 96375; 96376; 97161; 99285; C9113; G0378; G8987; G8988; J2405; J7030

== ENCOUNTER 2016-11-09 15:26 | Emergency (ER) | payer MEDICAID ==
[~2016-11-09 15:26] MED LIST changes: -ASPI325T PO; -AZIT250T3 PO; +DIFL100T PO; +FOLI1TAB6 PO; +GNP100TA3 PO; +PANT40TA3 PO; +WALKER WHEELS/F1 MIS; -XARE15TA PO
[2016-11-09 15:28] VITALS: BP 124/84; PULSE 94; RESP 20; TEMP 97.5; O2SAT 98
--- NOTE | 2016-11-09 16:42 | PD ---
HPI Chief Complaint: Dizziness Time Seen by Provider: 16:42 Travel History International Travel<30 days: No Contact w/Intl Traveler<30days: No Traveled to known affect area: No History of Present Illness HPI 55-year-old male presents emergency Department with complaint of waking up at 4: 30 AM this morning and feeling dizzy. He then went back to sleep. He denies feeling dizzy at this time. He reports history of dizziness. He denies syncope or falling. He was discharged on Friday after having a colonoscopy and an upper GI bleed. He denies hematochezia. Reports diarrhea. Denies vomiting, fever. Since he is currently taking clindamycin and prednisone that was given to him by his primary care provider, and Hilario. Denies dysuria. Denies chest pain, shortness of breath, abdominal pain. Allergies to penicillin and sulfa. History of hypertension and HIV. He was previously on Xarelto which he stopped taking a week ago. Admits to drinking 2 beers today. He says he wants to be admitted because he gets yelled at home and is told that he stills alcohol from the fridge. He has no other medical complaints. No other modifying factors or associated signs and symptoms. PFSH Past Medical History Arthritis: Yes Asthma: Yes Blood Disorders: Yes (HIV) Bipolar Disorder: Yes Anxiety: Yes Depression: Yes Heart Rhythm Problems: No Cardiac Catheterization: No Cardiovascular Problems: Yes (htn) High Cholesterol: Yes Congestive Heart Failure: No Diabetes: No Diminished Hearing: No Heparin Induced Thrombocytopen: No Hypertension: Yes Immune Disorder: Yes (HIV+) Neurologic: Yes Psychiatric: Yes Respiratory: Yes Immunizations Current: Yes Schizophrenia: Yes Tetanus Vaccination: Unknown Past Surgical History Abdominal Surgery: Yes (APPENDECTOMY) Appendectomy: Yes Coronary Artery Bypass Graft: No Pacemaker: No Other Surgery: Yes (APPENDECTOMY) Family History Family Myocardial Infarction: Yes (FATHER) Social History Alcohol Use: Yes (BEER DAILY) Tobacco Use: Yes (1 PPD) Substance Use: No Allergies-Medications (Allergen,Severity, Reaction): Coded Allergies: Penicillin (Verified Allergy, Severe, HIVES, 10/14/16) Sulfa (Verified Allergy, Severe, HIVES, 10/14/16) Reported Meds & Prescriptions Reported Meds & Active Scripts Active Walker with Front Wheels (Device) 1 Mis Mis 1 Ea .ROUTE DIRECTED Diflucan (Fluconazole) 100 Mg Tab 100 Mg PO Q24H Pantoprazole (Pantoprazole Sodium) 40 Mg Tab 40 Mg PO DAILY Gnp Vitamin B-1 (Thiamine HCl) 100 Mg Tab 100 Mg PO DAILY Folic Acid 1 Mg Tablet 1 Mg PO DAILY Ergocalciferol 50,000 Unit Cap 50,000 Units PO Q7D Reported Furosemide 20 Mg Tab 20 Mg PO BID Vitamin C (Ascorbic Acid) 250 Mg Tab 500 Mg PO Fluticasone Nasal [place] 50 Mcg/Act Naspr 50 Mcg EACH NARE BID 50 mcg/spray Hydrochlorothiazide 25 Mg Tab 25 Mg PO DAILY Prezcobix (Darunavir-Cobicistat) 800-150 Mg Tab 1 Tab PO DAILY Lisinopril 20 Mg Tab 20 Mg PO DAILY Pravastatin 40 Mg Tab 40 Mg PO DAILY Descovy (Emtricitabine-Tenofovir Alafenamide) 200-25 mg Tab 1 Tab PO DAILY Proair Hfa 8.5 GM Inh (Albuterol Sulfate) 90 Mcg/Act Aer 2 Puff INH Q4-6H PRN 108 mcg/actuation Carvedilol 12.5 Mg Tab 12.5 Mg PO BID Review of Systems Except as stated in HPI: all other systems reviewed are Neg Physical Exam Narrative GENERAL: Well-nourished, well-developed -[place] male patient, in no acute distress SKIN: Warm and dry. HEAD: Atraumatic. Normocephalic. EYES: Pupils equal and round. No scleral icterus. No injection or drainage. ENT: Mucosa pink and moist. Airway patent. NECK: Trachea midline. CARDIOVASCULAR: Regular rate and rhythm. No murmur appreciated. RESPIRATORY: No accessory muscle use. Clear to auscultation. Breath sounds equal bilaterally. GASTROINTESTINAL: Abdomen soft, non-tender, nondistended. Hepatic and splenic margins not palpable. Bowel sounds are active 4 quadrants. MUSCULOSKELETAL: No obvious deformities. No clubbing. No cyanosis. No edema. NEUROLOGICAL: Awake and alert. Oriented 3. No obvious cranial nerve deficits. Motor grossly within normal limits. Normal speech. PSYCHIATRIC: Appropriate mood and affect; insight and judgment normal. Data Data Last Documented VS Vital Signs Date Time Temp Pulse Resp B/P Pulse Ox O2 Delivery O2 Flow Rate FiO2 11/09/16 15:28 97.5 94 20 124/84 98 Room Air Orders Basic Metabolic Panel (Bmp) (11/09/16 16:42) Complete Blood Count With Diff (11/09/16 16:42) Alcohol (Ethanol) (11/09/16 16:46) Potassium Chloride (Kcl) (11/09/16 19:00) Labs Laboratory Tests Test 11/09/16 16:55 White Blood Count 6.5 TH/MM3 Red Blood Count 3.17 MIL/MM3 Hemoglobin 12.0 GM/DL Hematocrit 33.9 % Mean Corpuscular Volume 107.0 FL Mean Corpuscular Hemoglobin 37.8 PG Mean Corpuscular Hemoglobin 35.3 % Concent Red Cell Distribution Width 14.2 % Platelet Count 268 TH/MM3 Mean Platelet Volume 6.9 FL Neutrophils (%) (Auto) 50.6 % Lymphocytes (%) (Auto) 37.7 % Monocytes (%) (Auto) 11.2 % Eosinophils (%) (Auto) 0.1 % Basophils (%) (Auto) 0.4 % Neutrophils # (Auto) 3.3 TH/MM3 Lymphocytes # (Auto) 2.5 TH/MM3 Monocytes # (Auto) 0.7 TH/MM3 Eosinophils # (Auto) 0.0 TH/MM3 Basophils # (Auto) 0.0 TH/MM3 CBC Comment DIFF FINAL Differential Comment Sodium Level 138 MEQ/L Potassium Level 3.2 MEQ/L Chloride Level 100 MEQ/L Carbon Dioxide Level 26.6 MEQ/L Anion Gap 11 MEQ/L Blood Urea Nitrogen 13 MG/DL Creatinine 1.18 MG/DL Estimat Glomerular Filtration 78 ML/MIN Rate Random Glucose 99 MG/DL Calcium Level 8.4 MG/DL Ethyl Alcohol Level 131 MG/DL MDM Medical Decision Making Medical Screen Exam Complete: Yes Emergency Medical Condition: Yes Medical Record Reviewed: Yes Differential Diagnosis Dizziness, anemia, electrolyte imbalance, medical clearance, malingering, alcohol intoxication Narrative Course 55-year-old male with dizziness. He was recently discharged after being treated and evaluated for upper GI bleed. I spoke with my attending physician, Dr. Jovel, and she recommended to check CBC and BMP and plans to discharge the patient home. 1855: CBC was signs of anemia. Hemoglobin 12.0. Potassium 3.2. EtOH 131. Patient is clinically sober. Potassium chloride 40 MeQ administered in the ER. Instructed patient to follow up with primary care provider. Patient verbalizes understanding and agreement with treatment plan. Patient is medically cleared and stable for discharge. Discussed reasons to return to the emergency department. Patient agrees with treatment plan. The patients vital signs are stable and the patient is stable for outpatient follow-up and treatment. Patient discharged home, stable and in no acute distress. Diagnosis Primary Impression: Dizziness Additional Impression: Hypokalemia Referrals: Primary Care Physician Patient Instructions: Dizziness (ED), General Instructions Additional Instructions: Follow-up with primary care provider Return to the emergency department immediately with worsening of symptoms Med/Other Pt SpecificInfo: No Meds Exist/No RX given Disposition: 01 DISCHARGE HOME Condition: Stable Livia Root [facility] Nov 09, 2016 16:42
[2016-11-09 17:14] LABS: AUTOMATED NEUTROPHIL # 3.3 TH/MM3 (1.8-7.7); BASOPHIL % 0.4 % (0.0-2.0); EOSINOPHIL % 0.1 % (0.0-4.0); HEMATOCRIT 33.9 % (39.0-51.0); HEMO FLAGS DIFF FINAL; LYMPH % 37.7 % (9.0-44.0); LYMPHOCYTE # 2.5 TH/MM3 (1.0-4.8); MEAN CORPUSCULAR HEMOGLOBIN 37.8 PG (27.0-34.0); MEAN CORPUSCULAR HGB CONC 35.3 % (32.0-36.0); MONO % 11.2 % (0.0-8.0); NEUT % 50.6 % (16.0-70.0); PLATELET COUNT 268 TH/MM3 (150-450); RED BLOOD COUNT 3.17 MIL/MM3 (4.50-5.90); RED CELL DISTRIBUTION WIDTH 14.2 % (11.6-17.2); WHITE BLOOD COUNT 6.5 TH/MM3 (4.0-11.0)
[2016-11-09 17:26] LABS: BICARBONATE 26.6 MEQ/L (21.0-32.0); POTASSIUM 3.2 MEQ/L (3.5-5.1)
[2016-11-09] MEDS ORDERED: POTASSIUM CHLORIDE 20 MEQ CONTROLLED RELEASE TAB PO ONE (19:00)
== END 2016-11-09 19:10 | disposition home or self-care (01) ==
LOC: NEPD 15:26
DX: R42 Dizziness and giddiness (principal); E87.6 Hypokalemia; R19.7 Diarrhea, unspecified; I10 Essential (primary) hypertension; F31.9 Bipolar disorder, unspecified; F20.9 Schizophrenia, unspecified; F17.200 Nicotine dependence, unspecified, uncomplicated; Z21 Asymptomatic human immunodeficiency virus [HIV] infection status; Z79.899 Other long term (current) drug therapy
CPT/HCPCS: 80048; 80307; 85025; 99283

== ENCOUNTER 2016-11-16 22:28 | Emergency (ER) | payer MEDICAID ==
[~2016-11-16] VITALS: Ht 185.4 cm; Wt 82.0 kg
[2016-11-16 22:51] VITALS: BP 106/77; PULSE 123; RESP 16; TEMP 98.6; O2SAT 96
[2016-11-16] MEDS ORDERED: SODIUM CHLOR 0.9% 1000 ML INJ 1,000 ML IV ONE (23:15)
--- NOTE | 2016-11-16 23:20 | PD ---
HPI Chief Complaint: Pain: Acute or Chronic Time Seen by Provider: 22:39 Travel History International Travel<30 days: No Contact w/Intl Traveler<30days: No Traveled to known affect area: No History of Present Illness HPI This patient is worried about being dehydrated. He's been walking out of the heat all day. He is a local HIV-positive man who also is a heavy alcohol consumer. He admits to drinking today. he thinks that he needs IV hydration. Symptoms severity is moderate. No alleviating factors. Duration one day PFSH Past Medical History Arthritis: Yes Asthma: Yes Blood Disorders: Yes (HIV) Bipolar Disorder: Yes Anxiety: Yes Depression: Yes Heart Rhythm Problems: No Cardiac Catheterization: No Cardiovascular Problems: Yes (htn) High Cholesterol: Yes Congestive Heart Failure: No Diabetes: No Diminished Hearing: No Heparin Induced Thrombocytopen: No Hypertension: Yes Immune Disorder: Yes (HIV+) Neurologic: Yes Psychiatric: Yes Respiratory: Yes Immunizations Current: Yes Schizophrenia: Yes Past Surgical History Abdominal Surgery: Yes (APPENDECTOMY) Appendectomy: Yes Coronary Artery Bypass Graft: No Pacemaker: No Other Surgery: Yes (APPENDECTOMY) Family History Family Myocardial Infarction: Yes (FATHER) Social History Alcohol Use: Yes (BEER DAILY) Tobacco Use: Yes (1 PPD) Substance Use: No Allergies-Medications (Allergen,Severity, Reaction): Coded Allergies: Sulfa (Sulfonamide Antibiotics) (Unverified Allergy, Severe, HIVES, ) penicillin G (Unverified Allergy, Severe, HIVES, 11/16/16) Reported Meds & Prescriptions Reported Meds & Active Scripts Active Walker with Front Wheels (Device) 1 Mis Mis 1 Ea .ROUTE DIRECTED Diflucan (Fluconazole) 100 Mg Tab 100 Mg PO Q24H Pantoprazole (Pantoprazole Sodium) 40 Mg Tab 40 Mg PO DAILY Gnp Vitamin B-1 (Thiamine HCl) 100 Mg Tab 100 Mg PO DAILY Folic Acid 1 Mg Tablet 1 Mg PO DAILY Ergocalciferol 50,000 Unit Cap 50,000 Units PO Q7D Reported Furosemide 20 Mg Tab 20 Mg PO BID Vitamin C (Ascorbic Acid) 250 Mg Tab 500 Mg PO Fluticasone Nasal [place] 50 Mcg/Act Naspr 50 Mcg EACH NARE BID 50 mcg/spray Hydrochlorothiazide 25 Mg Tab 25 Mg PO DAILY Prezcobix (Darunavir-Cobicistat) 800-150 Mg Tab 1 Tab PO DAILY Lisinopril 20 Mg Tab 20 Mg PO DAILY Pravastatin 40 Mg Tab 40 Mg PO DAILY Descovy (Emtricitabine-Tenofovir Alafenamide) 200-25 mg Tab 1 Tab PO DAILY Proair Hfa 8.5 GM Inh (Albuterol Sulfate) 90 Mcg/Act Aer 2 Puff INH Q4-6H PRN 108 mcg/actuation Carvedilol 12.5 Mg Tab 12.5 Mg PO BID Review of Systems General / Constitutional: No: Fever Eyes: No: Visual changes HENT: No: Headaches Cardiovascular: No: Chest Pain or Discomfort Respiratory: No: Shortness of Breath Gastrointestinal: No: Abdominal Pain Genitourinary: No: Dysuria Musculoskeletal: Positive: Weakness, No: Pain Skin: No Rash Neurologic: Positive: Weakness Psychiatric: No: Depression Endocrine: No: Polydipsia Hematologic/Lymphatic: No: Easy Bruising Physical Exam Narrative GENERAL: Well-nourished, well-developed patient in no apparent distress. SKIN: Focused skin assessment reveals no rash and nodules. Skin is Warm and dry. HEAD: Atraumatic. Normocephalic. EYES: Pupils equal and round. No scleral icterus. No injection or drainage. ENT: No nasal bleeding or discharge. Mucous membranes pink and moist. NECK: Trachea midline. No JVD. CARDIOVASCULAR: Regular rate and rhythm. No murmur appreciated. RESPIRATORY: No accessory muscle use. Clear to auscultation. Breath sounds equal bilaterally. GASTROINTESTINAL: Abdomen soft, non-tender, nondistended. Hepatic and splenic margins not palpable. MUSCULOSKELETAL: No obvious deformities. No clubbing. No cyanosis. No edema. NEUROLOGICAL: Awake and alert. No obvious cranial nerve deficits. Motor grossly within normal limits. He has mumbling speech. PSYCHIATRIC: Appropriate mood and affect; insight and judgment normal. Data Data Last Documented VS Vital Signs Date Time Temp Pulse Resp B/P Pulse Ox O2 Delivery O2 Flow Rate FiO2 11/16/16 22:51 98.6 123 16 106/77 96 Room Air Orders Sodium Chlor 0.9% 1000 Ml Inj (Ns 1000 M (11/16/16 23:15) Complete Blood Count With Diff (11/16/16 23:01) Basic Metabolic Panel (Bmp) (11/16/16 23:01) Balance Wheel Arm Burnisher / Telemetry ANASTASIIA.Q8H (11/16/16 23:01) Alcohol (Ethanol) (11/16/16 23:20) Labs Laboratory Tests Test 11/16/16 23:05 White Blood Count 9.8 TH/MM3 Red Blood Count 3.42 MIL/MM3 Hemoglobin 12.9 GM/DL Hematocrit 36.6 % Mean Corpuscular Volume 107.0 FL Mean Corpuscular Hemoglobin 37.6 PG Mean Corpuscular Hemoglobin 35.2 % Concent Red Cell Distribution Width 14.2 % Platelet Count 339 TH/MM3 Mean Platelet Volume 6.6 FL Neutrophils (%) (Auto) 48.3 % Lymphocytes (%) (Auto) 43.3 % Monocytes (%) (Auto) 7.3 % Eosinophils (%) (Auto) 0.3 % Basophils (%) (Auto) 0.8 % Neutrophils # (Auto) 4.7 TH/MM3 Lymphocytes # (Auto) 4.3 TH/MM3 Monocytes # (Auto) 0.7 TH/MM3 Eosinophils # (Auto) 0.0 TH/MM3 Basophils # (Auto) 0.1 TH/MM3 CBC Comment DIFF FINAL Differential Comment MDM Medical Decision Making Medical Screen Exam Complete: Yes Emergency Medical Condition: Yes Medical Record Reviewed: Yes Differential Diagnosis Dehydration, heat exhaustion, electrolyte abnormality Narrative Course I have reviewed the patient's electronic medical record. He is a frequent visitor to the ER. I reviewed his last visit here which was a week ago IV placed I gave him 1 L normal saline IV bolus CBC doesn't show any major abnormality Metabolic profile and alcohol level were just recollected so will be another hour However the patient got frustrated with the wait and refused to stay any longer. He ripped his own IV out and demanded to be discharged. He is aware his workup is not complete and things may come back abnormal which we cannot help with since he is insistent on leaving Diagnosis Primary Impression: Generalized weakness Additional Instructions: The patient was advised to follow up with their physician and return if they worsen. Med/Other Pt SpecificInfo: Other Disposition: 01 DISCHARGE HOME Condition: Stable Brett Coleman MD Nov 16, 2016 23:20
[2016-11-16 23:25] LABS: AUTOMATED NEUTROPHIL # 4.7 TH/MM3 (1.8-7.7); BASOPHIL # 0.1 TH/MM3 (0-0.2); BASOPHIL % 0.8 % (0.0-2.0); EOSINOPHIL % 0.3 % (0.0-4.0); HEMATOCRIT 36.6 % (39.0-51.0); HEMO FLAGS DIFF FINAL; LYMPH % 43.3 % (9.0-44.0); LYMPHOCYTE # 4.3 TH/MM3 (1.0-4.8); MEAN CORPUSCULAR HEMOGLOBIN 37.6 PG (27.0-34.0); MEAN CORPUSCULAR HGB CONC 35.2 % (32.0-36.0); MONO % 7.3 % (0.0-8.0); NEUT % 48.3 % (16.0-70.0); PLATELET COUNT 339 TH/MM3 (150-450); RED BLOOD COUNT 3.42 MIL/MM3 (4.50-5.90); RED CELL DISTRIBUTION WIDTH 14.2 % (11.6-17.2); WHITE BLOOD COUNT 9.8 TH/MM3 (4.0-11.0)
[2016-11-17 00:38] LABS: BICARBONATE 23.1 MEQ/L (21.0-32.0); POTASSIUM 3.3 MEQ/L (3.5-5.1)
[2016-11-18] MEDS ORDERED: HYDR-3533 PO (23:43)
== END 2016-11-17 00:33 | disposition home or self-care (01) ==
LOC: NEPD 22:28
DX: R53.1 Weakness (principal); I10 Essential (primary) hypertension; F17.210 Nicotine dependence, cigarettes, uncomplicated; Z21 Asymptomatic human immunodeficiency virus [HIV] infection status
CPT/HCPCS: 80048; 80307; 85025; 99284; J7030

== ENCOUNTER 2016-11-18 03:15 | Emergency (ER) | payer MEDICAID ==
[~2016-11-18] VITALS: Ht 193 cm; Wt 85.0 kg
[2016-11-18 03:21] VITALS: BP 115/73; PULSE 104; RESP 18; TEMP 98.4; O2SAT 97
[2016-11-18] MEDS ORDERED: KETOROLAC TROMETHAMINE 60 MG/2 ML (IM) VIAL IM ONE (03:30)
--- NOTE | 2016-11-18 03:31 | PD ---
HPI Chief Complaint: Injury Time Seen by Provider: 03:29 Travel History International Travel<30 days: No Contact w/Intl Traveler<30days: No Traveled to known affect area: No History of Present Illness HPI This is a 55-year-old male alcoholic with HIV, frequent visitor to this emergency department, who presents complaining of right shoulder pain. The patient underwent open reduction total fixation of greater tuberosity fracture on October [address] Nelson. He has had pain in his right shoulder since then. He reports that 2 days ago he mowed the lawn, lifted a lawnmower, and his right shoulder pain is now worse. He had difficulty sleeping tonight because of the pain which prompted evaluation. Currently not using anything to help with the pain. He did have 2 beers tonight. He reports that he is attempting to get on disability and he seems to want to fixate the conversation on this. He has no other complaints. PFSH Past Medical History Arthritis: Yes Asthma: Yes Blood Disorders: Yes (HIV) Bipolar Disorder: Yes Anxiety: Yes Depression: Yes Heart Rhythm Problems: No Cardiac Catheterization: No Cardiovascular Problems: Yes (htn) High Cholesterol: Yes Congestive Heart Failure: No Diabetes: No Diminished Hearing: No Heparin Induced Thrombocytopen: No Hypertension: Yes Immune Disorder: Yes (HIV+) Neurologic: Yes Psychiatric: Yes Respiratory: Yes Immunizations Current: Yes Schizophrenia: Yes Tetanus Vaccination: < 5 Years Past Surgical History Abdominal Surgery: Yes (APPENDECTOMY) Appendectomy: Yes Coronary Artery Bypass Graft: No Pacemaker: No Other Surgery: Yes (APPENDECTOMY) Family History Family Myocardial Infarction: Yes (FATHER) Social History Alcohol Use: Yes (BEER DAILY) Tobacco Use: Yes (1 PPD) Substance Use: No Allergies-Medications (Allergen,Severity, Reaction): Coded Allergies: Sulfa (Sulfonamide Antibiotics) (Unverified Allergy, Severe, HIVES, ) penicillin G (Unverified Allergy, Severe, HIVES, 11/16/16) Reported Meds & Prescriptions Reported Meds & Active Scripts Active Walker with Front Wheels (Device) 1 Mis Mis 1 Ea .ROUTE DIRECTED Diflucan (Fluconazole) 100 Mg Tab 100 Mg PO Q24H Pantoprazole (Pantoprazole Sodium) 40 Mg Tab 40 Mg PO DAILY Gnp Vitamin B-1 (Thiamine HCl) 100 Mg Tab 100 Mg PO DAILY Folic Acid 1 Mg Tablet 1 Mg PO DAILY Ergocalciferol 50,000 Unit Cap 50,000 Units PO Q7D Reported Furosemide 20 Mg Tab 20 Mg PO BID Vitamin C (Ascorbic Acid) 250 Mg Tab 500 Mg PO Fluticasone Nasal [place] 50 Mcg/Act Naspr 50 Mcg EACH NARE BID 50 mcg/spray Hydrochlorothiazide 25 Mg Tab 25 Mg PO DAILY Prezcobix (Darunavir-Cobicistat) 800-150 Mg Tab 1 Tab PO DAILY Lisinopril 20 Mg Tab 20 Mg PO DAILY Pravastatin 40 Mg Tab 40 Mg PO DAILY Descovy (Emtricitabine-Tenofovir Alafenamide) 200-25 mg Tab 1 Tab PO DAILY Proair Hfa 8.5 GM Inh (Albuterol Sulfate) 90 Mcg/Act Aer 2 Puff INH Q4-6H PRN 108 mcg/actuation Carvedilol 12.5 Mg Tab 12.5 Mg PO BID Review of Systems Except as stated in HPI: all other systems reviewed are Neg Physical Exam Narrative GENERAL: Well-nourished male in no acute distress SKIN: Warm and dry. Surgical scar anterior right shoulder HEAD: Atraumatic. Normocephalic. EYES: Pupils equal and round. No scleral icterus. No injection or drainage. ENT: No nasal bleeding or discharge. Mucous membranes pink and moist. NECK: Trachea midline. No JVD. CARDIOVASCULAR: Regular rate and rhythm. No murmur appreciated. RESPIRATORY: No accessory muscle use. Clear to auscultation. Breath sounds equal bilaterally. GASTROINTESTINAL: Abdomen soft, non-tender, nondistended. Hepatic and splenic margins not palpable. MUSCULOSKELETAL: There is no upper extremity edema. 2+ radial pulse bilaterally. Capillary refill less than 2 seconds in all digits bilaterally. There is some tenderness to palpation in the right shoulder joint with no obvious deformities. There is pain with range of motion. There is no erythema. NEUROLOGICAL: Awake and alert. No obvious cranial nerve deficits. Motor grossly within normal limits. Normal speech. Data Data Last Documented VS Vital Signs Date Time Temp Pulse Resp B/P (MAP) Pulse Ox O2 Delivery O2 Flow Rate FiO2 11/18/16 03:25 Room Air 11/18/16 03:21 98.4 104 18 115/73 (87) 97 Orders Orders Shoulder, Limited(2vws) (11/18/16 ) Ketorolac Inj (Toradol Inj) (11/18/16 03:30) [facility] Medical Decision Making Medical Screen Exam Complete: Yes Emergency Medical Condition: Yes Medical Record Reviewed: Yes Differential Diagnosis Right shoulder strain, chronic shoulder pain, acromioclavicular separation, septic arthritis Narrative Course 55-year-old male who has had right shoulder pain ever since right shoulder surgery in September presents with worsening pain today after having lifted a lawnmower 2 days ago. Examination is unremarkable. He has no evidence of a septic joint, wound dehiscence. The patient will be given a dose of Toradol. X -ray imaging obtained. X-ray imaging reveals a stable x-ray compared to previous, no acute abnormalities. Stable for discharge. Diagnosis Primary Impression: Post-op pain Additional Instructions: Follow-up with primary care physician. Return for any emergent medical conditions. Med/Other Pt SpecificInfo: No Change to Meds Disposition: 01 DISCHARGE HOME Condition: Stable Isauro Carvajal Nov 18, 2016 03:31
--- NOTE | 2016-11-18 03:56 | RADRPT ---
EXAM DATE/TIME: 11/18/2016 03:20 [facility] COMPARISON: SHOULDER RIGHT LTD (2VWS), October 14, 2016, 0:55. INDICATIONS : Surgery to Right shoulder six weeks ago- pain after using recruiting manager 3 days ago. MEDICAL HISTORY : HIV Hypertension Hypercholesterolemia. SURGICAL HISTORY : Appendectomy. Right shoulder ENCOUNTER: Initial ACUITY: 3 days PAIN SCORE: 7/10 LOCATION: Right Shoulder FINDINGS: Two view examination of the right shoulder demonstrates plate and screw fixation proximal right humer us. Bone fragments noted around greater tuberosity. Findings similar to October 14. Previous skin staple s have been removed. No new findings. CONCLUSION: 1. Previous plate and screw fixation right proximal humerus similar in appearance to October 14. Esequiel Carmen MD on November 18, 2016 at 3:54 Board Certified Radiologist. This report was verified electronically.
[2016-11-18 04:39] VITALS: BP 109/88
[2016-11-18] MEDS ORDERED: HYDR-3533 PO (23:43)
== END 2016-11-18 05:10 | disposition home or self-care (01) ==
LOC: NEPD 03:15
DX: G89.18 Other acute postprocedural pain (principal); F17.210 Nicotine dependence, cigarettes, uncomplicated; Z21 Asymptomatic human immunodeficiency virus [HIV] infection status
CPT/HCPCS: 73030; 96372; 99284; J1885

== ENCOUNTER 2016-11-18 22:50 | Emergency (ER) | payer MEDICAID ==
[~2016-11-18] VITALS: Ht 185.4 cm; Wt 90.0 kg
[2016-11-18 22:59] VITALS: BP 105/68; PULSE 103; RESP 16; TEMP 98.8; O2SAT 95
[2016-11-18] MEDS ORDERED: HYDR-3533 PO (23:43)
--- NOTE | 2016-11-18 23:43 | PD ---
HPI Chief Complaint: Injury Time Seen by Provider: 23:35 Travel History International Travel<30 days: No Contact w/Intl Traveler<30days: No Traveled to known affect area: No History of Present Illness HPI 55-year-old male returns to the ER complaining of pain and swelling in the right shoulder. Pt, 6 weeks prior, underwent ORIF 2/2 greater tuberosity fracture. He denies interval trauma however complains that the swelling in the region of the right shoulder and the region of the right forearm has returned. PFSH Past Medical History Arthritis: Yes Asthma: Yes Blood Disorders: Yes (HIV) Bipolar Disorder: Yes Anxiety: Yes Depression: Yes Heart Rhythm Problems: No Cardiac Catheterization: No Cardiovascular Problems: Yes (htn) High Cholesterol: Yes Congestive Heart Failure: No Diabetes: No Diminished Hearing: No Heparin Induced Thrombocytopen: No Hypertension: Yes Immune Disorder: Yes (HIV+) Medical other: Yes (HIV) Neurologic: Yes Psychiatric: Yes Respiratory: Yes Immunizations Current: Yes Schizophrenia: Yes Tetanus Vaccination: Never Vaccinated Past Surgical History Abdominal Surgery: Yes (APPENDECTOMY) Appendectomy: Yes Coronary Artery Bypass Graft: No Pacemaker: No Other Surgery: Yes (R+Shoulder) Social History Alcohol Use: Yes Tobacco Use: Yes Substance Use: No Allergies-Medications (Allergen,Severity, Reaction): Coded Allergies: Sulfa (Sulfonamide Antibiotics) (Unverified Allergy, Severe, HIVES, ) penicillin G (Unverified Allergy, Severe, HIVES, 11/18/16) Reported Meds & Prescriptions Reported Meds & Active Scripts Active Lortab (Hydrocodone-Acetaminophen) 5-325 Mg Tab 1-2 Tab PO Q6H PRN Walker with Front Wheels (Device) 1 Mis Mis 1 Ea .ROUTE DIRECTED Diflucan (Fluconazole) 100 Mg Tab 100 Mg PO Q24H Pantoprazole (Pantoprazole Sodium) 40 Mg Tab 40 Mg PO DAILY Gnp Vitamin B-1 (Thiamine HCl) 100 Mg Tab 100 Mg PO DAILY Folic Acid 1 Mg Tablet 1 Mg PO DAILY Ergocalciferol 50,000 Unit Cap 50,000 Units PO Q7D Reported Furosemide 20 Mg Tab 20 Mg PO BID Vitamin C (Ascorbic Acid) 250 Mg Tab 500 Mg PO Fluticasone Nasal [place] 50 Mcg/Act Naspr 50 Mcg EACH NARE BID 50 mcg/spray Hydrochlorothiazide 25 Mg Tab 25 Mg PO DAILY Prezcobix (Darunavir-Cobicistat) 800-150 Mg Tab 1 Tab PO DAILY Lisinopril 20 Mg Tab 20 Mg PO DAILY Pravastatin 40 Mg Tab 40 Mg PO DAILY Descovy (Emtricitabine-Tenofovir Alafenamide) 200-25 mg Tab 1 Tab PO DAILY Proair Hfa 8.5 GM Inh (Albuterol Sulfate) 90 Mcg/Act Aer 2 Puff INH Q4-6H PRN 108 mcg/actuation Carvedilol 12.5 Mg Tab 12.5 Mg PO BID Review of Systems General / Constitutional: No: Fever Physical Exam Narrative GENERAL: Well-nourished well-developed 55-year-old male no acute distress SKIN: Warm and dry. HEAD: Atraumatic. Normocephalic. EYES: Pupils equal and round. No scleral icterus. No injection or drainage. ENT: No nasal bleeding or discharge. Mucous membranes pink and moist. NECK: Trachea midline. No JVD. CARDIOVASCULAR: Regular rate and rhythm. RESPIRATORY: No accessory muscle use. Clear to auscultation. Breath sounds equal bilaterally. GASTROINTESTINAL: Abdomen soft, non-tender, nondistended. Hepatic and splenic margins not palpable. MUSCULOSKELETAL: Extremities without clubbing, cyanosis, or edema. No obvious deformities. Healing surgical incision along the right shoulder. Nonspecific swelling in the right forearm without induration tenderness erythema or warmth NEUROLOGICAL: Awake and alert. No obvious cranial nerve deficits. Motor grossly within normal limits. Five out of 5 muscle strength in the arms and legs. Normal speech. PSYCHIATRIC: Appropriate mood and affect; insight and judgment normal. Data Data Last Documented VS Vital Signs Date Time Temp Pulse Resp B/P (MAP) Pulse Ox O2 Delivery O2 Flow Rate FiO2 11/18/16 22:59 98.8 103 16 105/68 (80) 95 Vital signs reviewed Orders Orders Acetamin-Hydrocod 325-5 Mg ([place] 5-325 (11/18/16 23:45) MDM Medical Decision Making Medical Screen Exam Complete: Yes Emergency Medical Condition: Yes Medical Record Reviewed: Yes Differential Diagnosis Chronic pain, DVT, cellulitis, opiate dependence Narrative Course Been controlled. The patient's ready for discharge. Follow-up with Dr. Nelson. Diagnosis Primary Impression: Arm swelling Referrals: Paul Nelson MD call for appointment Additional Instructions: You have a choice when it comes to health care, and we are glad that you chose [facility]. Hopefully, we have met your expectations on today's visit. You are welcome to return to [facility] at any time, as we are committed to meeting the health care needs of our community. Med/Other Pt SpecificInfo: Prescription(s) given Scripts Hydrocodone-Acetaminophen (Lortab) 5-325 Mg Tab 1-2 TAB PO Q6H Y for PAIN SCALE 6 TO 10, #10 TAB 0 Refills Prov: Thanh Patrick MD 11/18/16 Disposition: 01 DISCHARGE HOME Condition: Stable Thanh Patrick MD Nov 18, 2016 23:43
[2016-11-18] MEDS ORDERED: ACETAMINOPHEN/HYDROcodone 325 MG/5 MG TAB PO ONE (23:45)
== END 2016-11-19 00:09 | disposition home or self-care (01) ==
LOC: NEPD 22:50
DX: M79.89 Other specified soft tissue disorders (principal); Z21 Asymptomatic human immunodeficiency virus [HIV] infection status; Z88.0 Allergy status to penicillin; Z88.2 Allergy status to sulfonamides
CPT/HCPCS: 99283

== ENCOUNTER 2016-11-21 10:06 | Emergency (ER) | payer MEDICAID ==
[~2016-11-21 10:06] MED LIST changes: +HYDR-3533 PO
[2016-11-21 10:09] VITALS: BP 149/97; PULSE 93; RESP 16; TEMP 98.4; O2SAT 98
[2016-11-21] MEDS ORDERED: IBUPROFEN 800 MG TAB PO ONE (12:30)
--- NOTE | 2016-11-21 12:48 | RADRPT ---
EXAM DATE/TIME: 11/21/2016 12:32 [facility] COMPARISON: SHOULDER RIGHT COMPLETE (>2VWS), October 28, 2016, 4:33. SHOULDER RIGHT LTD (2VWS), November 18, 2016, 3: 20. INDICATIONS : Impact to right shoulder with frying price x2. MEDICAL HISTORY : HIV Hypertension Hypercholesterolemia. SURGICAL HISTORY : Appendectomy. Right shoulder ORIF. ENCOUNTER: Subsequent ACUITY: 1 day PAIN SCORE: 8/10 LOCATION: Right proximal humerus FINDINGS: The examination demonstrates ORIF of a comminuted fracture of the right shoulder. Of note, there is f racture of the greater trochanter from the humeral head. There is a sizable fracture fragment and sev eral other smaller fragments which appear to be the remnants of the greater tuberosity. These are pul led somewhat medially in towards the joint. The location of these is somewhat more medial than seen o n previous exam of 10/28/16. The glenoid appears intact. The limited portion of lung apex visualized is clear. CONCLUSION: 1. Patient is post ORIF of a proximal right humeral fracture. There are multiple fracture fragments w hich appear to be the remnants of the greater tuberosity. At least one of these is pulled medially up towards the the joint when compared to the prior dated 10/28/16 Thanh Jasso MD on November 21, 2016 at 12:43 Board Certified Radiologist. This report was verified electronically.
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
[2016-11-21] MEDS ORDERED: TRAM50TA PO (13:25)
== END 2016-11-21 13:44 | disposition home or self-care (01) ==
LOC: NEPA 10:06
DX: S42.251A Displaced fracture of greater tuberosity of right humerus, initial encounter for closed fracture (principal); S40.011A Contusion of right shoulder, initial encounter; F31.9 Bipolar disorder, unspecified; I10 Essential (primary) hypertension; F20.9 Schizophrenia, unspecified; F41.9 Anxiety disorder, unspecified; J45.909 Unspecified asthma, uncomplicated; Y00.XXXA Assault by blunt object, initial encounter; Z21 Asymptomatic human immunodeficiency virus [HIV] infection status
CPT/HCPCS: 29240; 73030

== ENCOUNTER 2016-11-22 10:12 | Emergency (ER) | payer MEDICAID ==
[~2016-11-22 10:12] MED LIST changes: +TRAM50TA PO
[2016-11-22 10:20] VITALS: BP 174/85; PULSE 79; RESP 17; TEMP 98.4; O2SAT 99
--- NOTE | 2016-11-22 10:59 | PD ---
HPI . right shoulder pain Chief Complaint: Injury Time Seen by Provider: 10:59 Travel History International Travel<30 days: No Contact w/Intl Traveler<30days: No Traveled to known affect area: No History of Present Illness HPI 55 yr old male who was seen yesterday for right shoulder pain here initially with c/o right shoulder pain. He says that he already followed up with Dr. Espinoza and was given tramadol for his pain. He says it helps, but he may want something stronger. He then goes on to tell me that he really needs a place to rest for a little as he just walked a long way here. He says he really doesn't want pain meds and has f/u with Dr. Espinoza and his PCP. He asked me if he could sleep in the exam room for a few hours. PFSH Past Medical History Arthritis: Yes Asthma: Yes Blood Disorders: Yes (HIV) Bipolar Disorder: Yes Anxiety: Yes Depression: Yes Heart Rhythm Problems: No Cardiac Catheterization: No Cardiovascular Problems: Yes (htn) High Cholesterol: Yes Congestive Heart Failure: No Diabetes: No Diminished Hearing: No Heparin Induced Thrombocytopen: No Hypertension: Yes Immune Disorder: Yes (HIV+) Neurologic: Yes Psychiatric: Yes Respiratory: Yes Immunizations Current: Yes Schizophrenia: Yes Past Surgical History Abdominal Surgery: Yes (APPENDECTOMY) Appendectomy: Yes Coronary Artery Bypass Graft: No Pacemaker: No Other Surgery: Yes (R+Shoulder) Social History Alcohol Use: Yes Tobacco Use: Yes Substance Use: No Allergies-Medications (Allergen,Severity, Reaction): Coded Allergies: Sulfa (Sulfonamide Antibiotics) (Unverified Allergy, Severe, HIVES, ) penicillin G (Unverified Allergy, Severe, HIVES, 11/18/16) Reported Meds & Prescriptions Reported Meds & Active Scripts Active Tramadol (Tramadol HCl) 50 Mg Tab 50 Mg PO Q6H PRN Lortab (Hydrocodone-Acetaminophen) 5-325 Mg Tab 1-2 Tab PO Q6H PRN Walker with Front Wheels (Device) 1 Mis Mis 1 Ea .ROUTE DIRECTED Diflucan (Fluconazole) 100 Mg Tab 100 Mg PO Q24H Pantoprazole (Pantoprazole Sodium) 40 Mg Tab 40 Mg PO DAILY Gnp Vitamin B-1 (Thiamine HCl) 100 Mg Tab 100 Mg PO DAILY Folic Acid 1 Mg Tablet 1 Mg PO DAILY Ergocalciferol 50,000 Unit Cap 50,000 Units PO Q7D Reported Furosemide 20 Mg Tab 20 Mg PO BID Vitamin C (Ascorbic Acid) 250 Mg Tab 500 Mg PO Fluticasone Nasal [place] 50 Mcg/Act Naspr 50 Mcg EACH NARE BID 50 mcg/spray Hydrochlorothiazide 25 Mg Tab 25 Mg PO DAILY Prezcobix (Darunavir-Cobicistat) 800-150 Mg Tab 1 Tab PO DAILY Lisinopril 20 Mg Tab 20 Mg PO DAILY Pravastatin 40 Mg Tab 40 Mg PO DAILY Descovy (Emtricitabine-Tenofovir Alafenamide) 200-25 mg Tab 1 Tab PO DAILY Proair Hfa 8.5 GM Inh (Albuterol Sulfate) 90 Mcg/Act Aer 2 Puff INH Q4-6H PRN 108 mcg/actuation Carvedilol 12.5 Mg Tab 12.5 Mg PO BID Review of Systems General / Constitutional: No: Fever Eyes: No: Visual changes HENT: No: Headaches Cardiovascular: No: Chest Pain or Discomfort Respiratory: No: Shortness of Breath Gastrointestinal: No: Abdominal Pain Genitourinary: No: Dysuria Musculoskeletal: Positive: Pain (right shoulder pain) Skin: No Rash Neurologic: No: Weakness Psychiatric: No: Depression Endocrine: No: Polydipsia Hematologic/Lymphatic: No: Easy Bruising Physical Exam Narrative GENERAL: AAO x 3, no acute distress, Well-nourished, well-developed patient. SKIN: Warm and dry. No visible rashes or bruising. HEAD: Normocephalic and atraumatic. EYES: No scleral icterus. No injection or drainage. ENT: No nasal drainage noted. Mucous membranes pink. Airway patent. NECK: Supple, trachea midline. No JVD. CARDIOVASCULAR: Regular rate and rhythm without murmurs, gallops, or rubs. RESPIRATORY: Breath sounds equal bilaterally. No accessory muscle use. No rhonchi or rales. GASTROINTESTINAL: Visual inspection normal EXTREMITIES: No cyanosis or edema. Right upper extremity in sling. No discoloration or overt abnormality on inspection. Fully ambulatory BACK: No obvious deformity NEURO: Grossly intact PSYCH: AAO x 3, normal affect. Data Data Last Documented VS Vital Signs Date Time Temp Pulse Resp B/P (MAP) Pulse Ox O2 Delivery O2 Flow Rate FiO2 11/22/16 10:20 98.4 79 17 174/85 (114) 99 [facility] Medical Decision Making Medical Screen Exam Complete: Yes Emergency Medical Condition: No Medical Record Reviewed: Yes Differential Diagnosis Shoulder pain, malingering, less likely acute alcohol intoxication Narrative Course A medical screening exam was performed: At the time of evaluation the presenting medical condition was determined not to be of an emergent nature. The patient was given the option of receiving additional care, but declined. Patient was given options for additional community resources from which to obtain care. The Patient Has Been advised to seek medical attention for their presenting complaint. The patient has been advised to return to the ER at any time if an emergent condition develops. Patient is a known alcoholic. He is not acutely intoxicated at this time. He is fully ambulatory and conversant. Answers all questions appropriately. I explained that unfortunately I cannot provide him with a bed to sleep for the next several hours. He tells me that he has a bus pass and will leave the ED as he is not trying to disrupt our services. Diagnosis Primary Impression: Encounter for medical screening examination Condition: Stable Marina Badillo Nov 22, 2016 10:59
== END 2016-11-22 11:21 | disposition left against medical advice (07) ==
LOC: NEPK 10:12
DX: M25.511 Pain in right shoulder (principal); M13.80 Other specified arthritis, unspecified site; J45.909 Unspecified asthma, uncomplicated; F31.9 Bipolar disorder, unspecified; F41.9 Anxiety disorder, unspecified; I10 Essential (primary) hypertension; E78.00 Pure hypercholesterolemia, unspecified; F20.9 Schizophrenia, unspecified; Z21 Asymptomatic human immunodeficiency virus [HIV] infection status
CPT/HCPCS: 99281

== ENCOUNTER 2016-11-24 20:57 | Emergency (ER) | payer MEDICAID ==
[2016-11-24 21:07] VITALS: BP 136/88; PULSE 101; RESP 16; TEMP 98.9; O2SAT 96
== END 2016-11-24 22:14 | disposition left against medical advice (07) ==
LOC: NED 20:57
DX: F10.129 Alcohol abuse with intoxication, unspecified (principal); Z53.21 Procedure and treatment not carried out due to patient leaving prior to being seen by health care provider
CPT/HCPCS: 99281

== ENCOUNTER 2016-11-26 18:15 | Emergency (ER) | payer MEDICAID ==
[2016-11-26] MEDS ORDERED: ASPIRIN 81 MG CHEW TAB CHEW ONE (19:30)
[2016-11-26] MEDS ORDERED: SODIUM CHLORIDE 0.9% FLUSH 10 ML FLUSH IVF PRN (19:30)
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
== END 2016-11-26 19:34 | disposition left against medical advice (07) ==
LOC: NEDAMB 18:15
DX: R07.9 Chest pain, unspecified (principal); M25.511 Pain in right shoulder; R06.02 Shortness of breath; R11.10 Vomiting, unspecified; F20.9 Schizophrenia, unspecified; F31.9 Bipolar disorder, unspecified; I10 Essential (primary) hypertension; E78.5 Hyperlipidemia, unspecified; Z21 Asymptomatic human immunodeficiency virus [HIV] infection status
CPT/HCPCS: 99281

== ENCOUNTER 2016-11-27 16:43 | Emergency (ER) | payer MEDICAID ==
[~2016-11-27] VITALS: Ht 182.9 cm; Wt 85.0 kg
[2016-11-27 17:13] VITALS: BP 156/87; PULSE 103; RESP 12; TEMP 98.6; O2SAT 98
== END 2016-11-27 17:45 | disposition left against medical advice (07) ==
LOC: NEDAMB 16:43
DX: M25.519 Pain in unspecified shoulder (principal); Z53.21 Procedure and treatment not carried out due to patient leaving prior to being seen by health care provider
CPT/HCPCS: 99281

== ENCOUNTER 2016-11-29 00:09 | Emergency (ER) | payer MEDICAID ==
[2016-11-29 00:11] VITALS: BP 123/77; PULSE 92; RESP 16; TEMP 98.8; O2SAT 96
== END 2016-11-29 00:18 | disposition left against medical advice (07) ==
LOC: NED 00:09
DX: M79.601 Pain in right arm (principal); Z53.21 Procedure and treatment not carried out due to patient leaving prior to being seen by health care provider
CPT/HCPCS: 99281

== ENCOUNTER 2016-12-01 21:36 | Observation (INO) | payer MEDICAID ==
[~2016-12-01] VITALS: Ht 185.4 cm; Wt 90.9 kg
[2016-12-01 21:45] VITALS: BP 140/80; PULSE 92; RESP 16; TEMP 97.1; O2SAT 97
[2016-12-02 01:21] VITALS: BP 139/92; PULSE 87; RESP 16; O2SAT 97
--- NOTE | 2016-12-02 01:43 | PD ---
HPI Chief Complaint: Pain: Acute or Chronic Time Seen by Provider: 01:16 Travel History International Travel<30 days: No Contact w/Intl Traveler<30days: No Traveled to known affect area: No History of Present Illness HPI The patient is a 55 year old male who presents to the [facility] emergency department with a history of falling when trying to get up off of an air mattress. He landed on his right shoulder. He is concerned that he fractured it again. He reports that he fractured it in September. The patient incidentally also reports that he has been experiencing intermittent chest pain. He is unsure of the details of exactly how long the chest pain has been going on. He reports that he has been experiencing shortness of breath with exertion and dizziness. He reports that he has been taking his HIV medication. The patient is unsure whether he is ever had a stress test done previously. The patient is on Xarelto currently related to a DVT in the right upper extremity. The patient has a past medical history of hypertension. He denies ever having a history of cardiac disease. He is unsure if he has any history of hyperlipidemia. He does report that he smokes a few cigarettes per day. Otherwise on review of systems, the patient denies any recent fevers, cough, congestion, neck pain, abdominal pain, vomiting, diarrhea, urinary symptoms, or other neurologic symptoms. The patient also has a bruise noted on the right anterior joseph that he reports is painful. He denies any difficulty weightbearing. [facility] Past Medical History Narrative Medical The patient's past medical history significant for HIV. He reports that he is taking his retroviral medications. He is unsure when his last CD4 count or viral load was. The patient has a history of depression, alcohol abuse, hypertension, DVT of the right upper extremity, history of GI bleed. Arthritis: Yes Asthma: Yes Blood Disorders: Yes (HIV) Bipolar Disorder: Yes Anxiety: Yes Depression: Yes Heart Rhythm Problems: No Cardiac Catheterization: No Cardiovascular Problems: Yes (htn) High Cholesterol: Yes Congestive Heart Failure: No Diabetes: No Diminished Hearing: No Heparin Induced Thrombocytopen: No Hypertension: Yes Immune Disorder: Yes (HIV+) Neurologic: Yes Psychiatric: Yes Respiratory: Yes Immunizations Current: Yes Schizophrenia: Yes Past Surgical History Narrative Surgical The patient's past surgical history is significant for right shoulder dislocation with open reduction internal fixation of great tuberosity fracture, left wrist surgery, appendectomy. Abdominal Surgery: Yes (APPENDECTOMY) Appendectomy: Yes Coronary Artery Bypass Graft: No Pacemaker: No Other Surgery: Yes (R+Shoulder) Family History Family Myocardial Infarction: Yes (FATHER) Social History Alcohol Use: Yes (2 beers per day) Tobacco Use: Yes (half a pack a day) Substance Use: No Allergies-Medications (Allergen,Severity, Reaction): Coded Allergies: Sulfa (Sulfonamide Antibiotics) (Unverified Allergy, Severe, HIVES, 12/02/16 ) penicillin G (Unverified Allergy, Severe, HIVES, 12/02/16) Reported Meds & Prescriptions Reported Meds & Active Scripts Active Walker with Front Wheels (Device) 1 Mis Mis 1 Ea .ROUTE DIRECTED Diflucan (Fluconazole) 100 Mg Tab 100 Mg PO Q24H Pantoprazole (Pantoprazole Sodium) 40 Mg Tab 40 Mg PO DAILY Gnp Vitamin B-1 (Thiamine HCl) 100 Mg Tab 100 Mg PO DAILY Folic Acid 1 Mg Tablet 1 Mg PO DAILY Ergocalciferol 50,000 Unit Cap 50,000 Units PO Q7D Reported Vitamin C (Ascorbic Acid) 250 Mg Tab 500 Mg PO Fluticasone Nasal Fonda 50 Mcg/Act Naspr 50 Mcg EACH NARE BID 50 mcg/spray Hydrochlorothiazide 25 Mg Tab 25 Mg PO DAILY Prezcobix (Darunavir-Cobicistat) 800-150 Mg Tab 1 Tab PO DAILY Lisinopril 20 Mg Tab 20 Mg PO DAILY Pravastatin 40 Mg Tab 40 Mg PO DAILY Descovy (Emtricitabine-Tenofovir Alafenamide) 200-25 mg Tab 1 Tab PO DAILY Proair Hfa 8.5 GM Inh (Albuterol Sulfate) 90 Mcg/Act Aer 2 Puff INH Q4-6H PRN 108 mcg/actuation Carvedilol 12.5 Mg Tab 12.5 Mg PO BID Review of Systems Except as stated in HPI: all other systems reviewed are Neg General / Constitutional: No: Fever Eyes: No: Visual changes HENT: No: Headaches, Lightheadedness, Congestion, Neck Pain Cardiovascular: Positive: Chest Pain or Discomfort, Dyspnea on exertion Respiratory: Positive: Shortness of Breath Gastrointestinal: No: Nausea, Vomiting, Diarrhea, Abdominal Pain, Indigestion, Loss of Appetite Genitourinary: No: Dysuria Musculoskeletal: Positive: Myalgias, Arthralgias, Pain Skin: No Rash Neurologic: No: Weakness, Focal Abnormalities, Change in Mentation, Slurred Speech, Sensory Disturbance Psychiatric: No: Depression Endocrine: No: Polydipsia Hematologic/Lymphatic: No: Easy Bruising Physical Exam Narrative General: The patient is a well-developed well-nourished male in no acute distress, sleeping soundly on my arrival in the room. Head and Neck exam: Head is normocephalic atraumatic. Eyes: EOMI, pupils are equal round and reactive to light. Nose: Midline septum with pink mucous membranes Mouth: Dentition unremarkable. Moist mucus membranes. Posterior oropharynx is not erythematous. No tonsillar hypertrophy. Uvula midline. Airway patent. Neck: No palpable lymphadenopathy. No nuchal rigidity. No thyromegaly. Cardiovascular: Regular rate and rhythm without murmurs, gallops, or rubs. Lungs: Clear to auscultation bilaterally. No wheezes, rhonchi, or rales. Abdomen: Soft, without tenderness to palpation in all 4 quadrants of the abdomen. No guarding, rebound, or rigidity. Normal bowel sounds are audible. No tenderness on palpation of McBurney's point. Extremities: No clubbing, cyanosis, or edema. 2+ pulses in all 4 extremities. The area of interest is the right shoulder. The patient reports tenderness on palpation along the lateral aspect. The patient has full range of motion with internal and external rotation of his shoulder and abduction and abduction. The patient has intact sensation over all fingertips. The patient has no other tenderness on palpation of his extremities. Back: No costovertebral angle tenderness to palpation. Neurologic Exam: Grossly nonfocal Skin Exam: The patient was noted to have a contusion to the anterior right joseph. Data Data Last Documented VS Vital Signs Date Time Temp Pulse Resp B/P (MAP) Pulse Ox O2 Delivery O2 Flow Rate FiO2 12/02/16 01:54 100 Room Air 12/02/16 01:21 87 16 12/01/16 21:45 97.1 Orders Orders Shoulder, Complete (>2vws) (12/02/16 01:19) Electrocardiogram (12/02/16 01:48) Complete Blood Count With Diff (12/02/16 01:48) Comprehensive Metabolic Panel (12/02/16 01:48) Creatine Kinase (Cpk) (12/02/16 01:48) Ckmb (Isoenzyme) Profile (12/02/16 01:48) Troponin I (12/02/16 01:48) B-Type Natriuretic Peptide (12/02/16 01:48) Prothrombin Time / Inr (Pt) (12/02/16 01:48) Act Partial Throm Time (Ptt) (12/02/16 01:48) Urinalysis - C+S If Indicated (12/02/16 01:48) Magnesium (Mg) (12/02/16 01:48) Chest, Single Ap (12/02/16 01:48) Ct Brain W/O Iv Contrast(Rout) (12/02/16 01:48) Iv Access Insert/Monitor (12/02/16 01:48) Ecg Monitoring (12/02/16 01:48) Oximetry (12/02/16 01:48) Ct Cerv Spine W/O Contrast (12/02/16 01:48) Aspirin Chew (Aspirin Chew) (12/02/16 02:00) Nitroglycerin 2% Oint (Nitroglycerin 2% (12/02/16 02:00) Potassium Chloride (Kcl) (12/02/16 03:45) Admit Order (Ed Use Only) (12/02/16 03:36) Labs Laboratory Tests Test 12/02/16 02:18 White Blood Count 6.1 TH/MM3 Red Blood Count 3.28 MIL/MM3 Hemoglobin 12.2 GM/DL Hematocrit 35.7 % Mean Corpuscular Volume 108.8 FL Mean Corpuscular Hemoglobin 37.2 PG Mean Corpuscular Hemoglobin Concent 34.2 % Red Cell Distribution Width 14.0 % Platelet Count 204 TH/MM3 Mean Platelet Volume 6.8 FL Neutrophils (%) (Auto) 58.2 % Lymphocytes (%) (Auto) 31.9 % Monocytes (%) (Auto) 8.9 % Eosinophils (%) (Auto) 0.4 % Basophils (%) (Auto) 0.6 % Neutrophils # (Auto) 3.6 TH/MM3 Lymphocytes # (Auto) 2.0 TH/MM3 Monocytes # (Auto) 0.5 TH/MM3 Eosinophils # (Auto) 0.0 TH/MM3 Basophils # (Auto) 0.0 TH/MM3 CBC Comment DIFF FINAL Differential Comment Prothrombin Time 12.2 SEC Prothromb Time International Ratio 1.1 RATIO Activated Partial Thromboplast Time 36.3 SEC Blood Urea Nitrogen 6 MG/DL Creatinine 0.73 MG/DL Random Glucose 74 MG/DL Total Protein 7.7 GM/DL Albumin 3.1 GM/DL Calcium Level 8.1 MG/DL Magnesium Level 2.2 MG/DL Alkaline Phosphatase 69 U/L Aspartate Amino Transf (AST/SGOT) 42 U/L Alanine Aminotransferase (ALT/SGPT) 35 U/L Total Bilirubin 0.4 MG/DL Sodium Level 144 MEQ/L Potassium Level 3.1 MEQ/L Chloride Level 110 MEQ/L Carbon Dioxide Level 26.5 MEQ/L Anion Gap 8 MEQ/L Estimat Glomerular Filtration Rate 136 ML/MIN Total Creatine Kinase 97 U/L Troponin I LESS THAN 0.02 NG/ML B-Type Natriuretic Peptide 89 PG/ML MDM Medical Decision Making Medical Screen Exam Complete: Yes Emergency Medical Condition: Yes Medical Record Reviewed: Yes Interpretation(s) Last Impressions Head CT 12/02/16147 Signed Impressions: Service Date/Time: Friday, December 02, 2016 01:53 - CONCLUSION: 1. No acute intracranial abnormality. 2. Improved price sinusitis, currently mild. Murray Torre MD Chest X-Ray 12/02/16147 Signed Impressions: Service Date/Time: Friday, December 02, 2016 02:07 - CONCLUSION: No evidence of acute cardiopulmonary disease. Murray Torre MD Cervical Spine CT 12/02/168 Signed Impressions: Service Date/Time: Friday, December 02, 2016 01:53 - CONCLUSION: Mild degenerative changes are again noted. No fracture, subluxation or other acute abnormality of the cervical spine. Murray Torre MD Shoulder X-Ray 12/02/16 0119 Signed Impressions: Service Date/Time: Friday, December 02, 2016 01:31 - CONCLUSION: Nonacute greater tuberosity fracture status post screw and plate fixation continues to heal in unchanged, near anatomic alignment. No new/acute fracture. No subluxation. Murray Torre MD Differential Diagnosis Acute coronary syndrome, versus anxiety disorder, versus acid reflux, versus pneumothorax, versus new-onset congestive heart failure Narrative Course During the course of the patients emergency department visit, the patients history, examination, and differential diagnosis were reviewed with the patient. The patient had IV access obtained and blood work sent for analysis. The patient was placed on a monitor worker with oximetry and blood pressure monitoring. An ECG was done on arrival. The patient's EKG shows a normal sinus rhythm without any acute ST segment elevation. A chest x-ray was ordered. A right shoulder x-ray was ordered. CT scan of the head and neck was ordered due to this reported fall. The patient was initially provided aspirin 81 mg by mouth 1 is the patient is on Xarelto. The patient was given nitroglycerin 1 inch the chest wall. The patients laboratory studies were reviewed and remarkable for a white count of 6.1, hemoglobin 12.2, platelets 204 with 8.9 monocytes. CMP is remarkable for potassium 3.1 which was supplemented orally, chloride 110, BUNs 6, calcium 8.1, AST 42, CPK 97, troponin I less than 0.02, BNP 89, albumin 3.1, PT 12.4, PTT 36.3, urinalysis is unremarkable Radiology studies were reviewed and remarkable for a chest x-ray shows no evidence of acute cardiopulmonary disease Due to repeated ER visits with reports of chest pain, the patient will be admitted to the chest pain center for rule out serial cardiac enzyme protocol. CT scan of the head shows pansinusitis, no other acute intracranial abnormality , no evidence of intracranial hemorrhage, CT scan of the C-spine shows mild degenerative changes, no fracture, subluxation, or acute abnormality. Shoulder x-ray reveals a nonacute greater tuberosity fracture status post screw and plate fixation continues to heal and unchanged near anatomic alignment. No new acute fracture. No subluxation. The patients results were discussed with the patient, including the plan of care. I explained that further testing and/ or monitoring is indicated based on the patients history, examination, and/ or laboratory findings. Therefore, I recommended admission for additional evaluation. The patient expressed understanding and was agreeable with this plan. The patient was admitted to the hospital in stable condition and sent to a bed under the care of the chest pain center. Diagnosis Primary Impression: Chest pain, rule out acute myocardial infarction Additional Impressions: Right shoulder pain Qualified Codes: M25.511 - Pain in right shoulder; G89.29 - Other chronic pain Contusion of right lower leg Qualified Codes: S80.11XA - Contusion of right lower leg, initial encounter Fall Qualified Codes: W19.XXXA - Unspecified fall, initial encounter Admitting Information Admitting Physician Requests: Observation Hermila Zhao MD Dec 02, 2016 01:43
--- NOTE | 2016-12-02 01:49 | RADRPT ---
EXAM DATE/TIME: 12/02/2016 01:31 [facility] COMPARISON: SHOULDER RIGHT COMPLETE (>2VWS), November 21, 2016, 12:32. CT SHOULDER RIGHT W/O CONTRAST, October 07 17, 22:31. SHOULDER RIGHT LTD (2VWS), October 07, 2016, 19:47. INDICATIONS : Right shoulder pain, fall. MEDICAL HISTORY : None. SURGICAL HISTORY : ORIF right humerus ENCOUNTER: Initial ACUITY: 2 days PAIN SCORE: 7/10 LOCATION: Right proximal shoulder FINDINGS: Subacute greater tuberosity fracture status post screw and plate fixation again noted in unchanged, n ear anatomic alignment. The fracture is partially healed. I don't see a new or acute fracture. No sub luxations. Hardware intact. CONCLUSION: Nonacute greater tuberosity fracture status post screw and plate fixation continues to heal in unchan ged, near anatomic alignment. No new/acute fracture. No subluxation. Murray Torre MD on December 02, 2016 at 1:46 Board Certified Radiologist. This report was verified electronically.
[2016-12-02 01:54] VITALS: O2SAT 100
[2016-12-02] MEDS ORDERED: ASPIRIN 81 MG CHEW TAB CHEW ONE (02:00)
[2016-12-02] MEDS ORDERED: NITROGLYCERIN 2% OINT 1 GM PACKET TOPICAL ONE (02:00)
--- NOTE | 2016-12-02 02:07 | RADRPT ---
EXAM DATE/TIME: 12/02/2016 01:53 [facility] COMPARISON: No previous studies available for comparison. INDICATIONS : Trauma, fall. RADIATION DOSE: 56.35 CTDIvol (mGy) MEDICAL HISTORY : Cardiovascular disease. HIV. Hypertension. SURGICAL HISTORY : Appendectomy. ENCOUNTER: Initial ACUITY: 1 day PAIN SCALE: 6/10 LOCATION: cranial TECHNIQUE: Multiple contiguous axial images were obtained of the head. Using automated exposure control and adj ustment of the mA and/or kV according to patient size, radiation dose was kept as low as reasonably a chievable to obtain optimal diagnostic quality images. DICOM format image data is available electro nically for review and comparison. FINDINGS: CEREBRUM: The ventricles are normal for age. No evidence of midline shift, mass lesion, hemorrhage or acute in farction. No extra-axial fluid collections are seen. POSTERIOR FOSSA: The cerebellum and brainstem are intact. The 4th ventricle is midline. The cerebellopontine angle i s unremarkable. EXTRACRANIAL: Mucoperiosteal thickening in the paranasal sinuses has improved considerably in the interim, now mild . SKULL: The calvaria is intact. No evidence of skull fracture. CONCLUSION: 1. No acute intracranial abnormality. 2. Improved price sinusitis, currently mild. Murray Torre MD on December 02, 2016 at 2:05 Board Certified Radiologist. This report was verified electronically.
--- NOTE | 2016-12-02 02:18 | RADRPT ---
EXAM DATE/TIME: 12/02/2016 01:53 [facility] COMPARISON: CT CERVICAL SPINE W/O CONTRAST, July 13, 2015, 22:09. INDICATIONS : Trauma, fall. RADIATION DOSE: 39.14 CTDIvol (mGy) MEDICAL HISTORY : HIV. Hypertension. Cardiovascular disease SURGICAL HISTORY : Appendectomy. ENCOUNTER: Initial ACUITY: 1 day PAIN SCALE: 7/10 LOCATION: neck TECHNIQUE: Volumetric scanning of the cervical spine was performed. Multiplanar reconstructions in the sagittal, coronal and oblique axial planes were performed. Using automated exposure control and adjustment o f the mA and/or kV according to patient size, radiation dose was kept as low as reasonably achievable to obtain optimal diagnostic quality images. DICOM format image data is available electronically f or review and comparison. FINDINGS: There is no fracture or subluxation of the cervical spine. Vertebral bodies have normal height. Mild disc space narrowing with small, broad disc osteophyte complex and mild uncovertebral degenerati ve changes are seen at C3/C4, C4/C5 and C6/C7. Osteoarthritis of the left C7/T1 facet joint also agai n noted. Paravertebral soft tissues are within normal limits. CONCLUSION: Mild degenerative changes are again noted. No fracture, subluxation or other acute abnormality of the cervical spine. Murray Torre MD on December 02, 2016 at 2:13 Board Certified Radiologist. This report was verified electronically.
--- NOTE | 2016-12-02 02:23 | RADRPT ---
EXAM DATE/TIME: 12/02/2016 02:07 [facility] COMPARISON: CHEST PA & LAT, October 08, 2016, 5:52. INDICATIONS : Chest pain. MEDICAL HISTORY : Cardiovascular disease. HIV. Hypertension. SURGICAL HISTORY : Appendectomy. ENCOUNTER: Initial ACUITY: 3 days PAIN SCORE: 5/10 LOCATION: Left upper chest FINDINGS: A single view of the chest demonstrates the lungs to be symmetrically aerated without evidence of mas s, infiltrate or effusion. The cardiomediastinal contours are unremarkable. Osseous structures are intact. CONCLUSION: No evidence of acute cardiopulmonary disease. Murray Torre MD on December 02, 2016 at 2:21 Board Certified Radiologist. This report was verified electronically.
[2016-12-02 02:42] LABS: AUTOMATED NEUTROPHIL # 3.6 TH/MM3 (1.8-7.7); BASOPHIL % 0.6 % (0.0-2.0); EOSINOPHIL % 0.4 % (0.0-4.0); HEMATOCRIT 35.7 % (39.0-51.0); HEMO FLAGS DIFF FINAL; LYMPH % 31.9 % (9.0-44.0); MEAN CELL VOLUME 108.8 FL (80.0-100.0); MEAN CORPUSCULAR HEMOGLOBIN 37.2 PG (27.0-34.0); MEAN CORPUSCULAR HGB CONC 34.2 % (32.0-36.0); MONO % 8.9 % (0.0-8.0); NEUT % 58.2 % (16.0-70.0); PLATELET COUNT 204 TH/MM3 (150-450); RED BLOOD COUNT 3.28 MIL/MM3 (4.50-5.90); WHITE BLOOD COUNT 6.1 TH/MM3 (4.0-11.0)
[2016-12-02 02:53] LABS: APTT (PATIENT) 36.3 SEC (24.3-30.1); INTERNATIONAL NORMALIZED RATIO 1.1 RATIO; PROTHROMBIN TIME - PATIENT 12.2 SEC (9.8-11.6)
[2016-12-02 03:13] LABS: ALT (GPT) 35 U/L (12-78); ANION GAP 8 MEQ/L (5-15); AST (GOT) 42 U/L (15-37); BICARBONATE 26.5 MEQ/L (21.0-32.0); BLOOD UREA NITROGEN 6 MG/DL (7-18); CHLORIDE 110 MEQ/L (98-107); GLOMERULAR FILTRATION RATE 136 ML/MIN (>89); MAGNESIUM 2.2 MG/DL (1.5-2.5); POTASSIUM 3.1 MEQ/L (3.5-5.1); SODIUM (NA) 144 MEQ/L (136-145)
[2016-12-02 03:18] LABS: ALKALINE PHOSPHATASE 69 U/L (45-117); TOTAL BILIRUBIN ADULT 0.4 MG/DL (0.2-1.0)
[2016-12-02 03:20] LABS: CREATINE KINASE 97 U/L (39-308)
[2016-12-02] MEDS ORDERED: POTASSIUM CHLORIDE 20 MEQ CONTROLLED RELEASE TAB PO ONE (03:45)
[2016-12-02] MEDS ORDERED: SODIUM CHLORIDE 0.9% FLUSH 10 ML FLUSH IV FLUSH PRN (04:30)
[2016-12-02 04:55] VITALS: BP 139/86; PULSE 76; RESP 16; O2SAT 96
[2016-12-02 05:43] LABS: BACTERIA, URINE RARE /hpf; BLOOD, URINE NEG (NEG); COMMENT (UR) CULT NOT INDICATED; CULTURE IF INDICATED CULT NOT INDICATED; GLUCOSE,URINE NEG (NEG); HYALINE CAST, URINE 1 /lpf (RARE); KETONE, URINE NEG (NEG); MUCUS URINE FEW /lpf (OCC); NITRITE,URINE NEG (NEG); PH, URINE 5.5 (5.0-8.5); SQUAMOUS EPITHELIAL CELL URINE <1 /hpf (0-5); URINE COLOR YELLOW (YELLW/STRAW)
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
[2016-12-02] MEDS ORDERED: ACETAMINOPHEN 500 MG CPLT PO PRN (07:30)
[2016-12-02] MEDS ORDERED: NITROGLYCERIN 0.4 MG SL 25 TABS/BTL SL PRN (07:30)
[2016-12-02] MEDS ORDERED: ONDANSETRON HCL 4 MG/2 ML VIAL IV PRN (07:30)
[2016-12-02 07:49] VITALS: BP 150/79; PULSE 68; RESP 20; TEMP 98.1; O2SAT 97
[2016-12-02] MEDS ORDERED: FLUCONAZOLE 100 MG TAB PO SCH (08:00)
[2016-12-02 08:07] VITALS: O2SAT 94
[2016-12-02] MEDS ORDERED: ACETAMINOPHEN/HYDROcodone 325 MG/10 MG TAB PO ONE (08:15)
[2016-12-02 08:21] VITALS: PULSE 82
[2016-12-02 08:45] LABS: CREATINE KINASE 76 U/L (39-308)
[2016-12-02] MEDS ORDERED: CARVEDILOL 12.5 MG TAB PO SCH (09:00)
[2016-12-02] MEDS ORDERED: ASPIRIN 325 MG TAB PO SCH (09:00)
[2016-12-02] MEDS ORDERED: PANTOPRAZOLE SOD 40 MG DELAYED RELEASE TAB PO SCH (09:00)
[2016-12-02] MEDS ORDERED: EMTRICITABINE TENOFOVIR PO SCH (09:00)
[2016-12-02] MEDS ORDERED: SODIUM CHLORIDE 0.9% FLUSH 10 ML FLUSH IV FLUSH SCH (09:00)
[2016-12-02] MEDS ORDERED: PRAVASTATIN SOD 40 MG TAB PO SCH (09:00)
[2016-12-02] MEDS ORDERED: LISINOPRIL 20 MG TAB PO SCH (09:00)
[2016-12-02] MEDS ORDERED: DARUNAVIR COBICISTAT PO SCH (09:00)
[2016-12-02] MEDS ORDERED: REGADENOSON INJ 0.4 MG/5 ML SYR ONE (10:24)
--- NOTE | 2016-12-02 11:39 | RADRPT ---
EXAM DATE/TIME: 12/02/2016 09:52 [facility] COMPARISON: No previous studies available for comparison. INDICATIONS : Substernal chest pain with dyspnea. Angina. DOSE: 25.4 mCi Tc99m Myoview at stress. 8.6 mCi Tc99m Myoview at rest. 0.4 mg Lexiscan STRESS SYMPTOMS: Nausea. EJECTION FRACTION: 59% MEDICAL HISTORY : HIV. Hypertension. SURGICAL HISTORY : Appendectomy. Right shoulder. ENCOUNTER: Initial ACUITY: 1 day PAIN SCALE: 4/10 LOCATION: Substernal chest TECHNIQUE: The patient underwent pharmacologic stress with infusion of prescribed dose. Continuous ECG tracing was monitored during stress. Gated SPECT imaging was performed after stress and conventional SPECT i maging was performed at rest. The examination was performed on a SPECT/CT scanner, both attenuation and non-corrected datasets were reviewed. FINDINGS: DISTRIBUTION: The maximum perfused segment at stress is in the anterior wall. PERFUSION STUDY: The pattern of perfusion at stress is within normal limits. GATED STUDY: There is intact wall motion and thickening without hypokinetic or dyskinetic segments. CONCLUSION: Normal examination. RISK CATEGORY: Low (<1% Annual Mortality Rate) Ross Bahena MD on December 02, 2016 at 11:36 Board Certified Radiologist. This report was verified electronically.
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
--- NOTE | 2016-12-03 17:04 | TR ---
Date Performed: 12/02/2016 Time Performed: 10:32:51 DOCTOR: Tanisha Wright DRUG LIST: CLINICAL HISTORY: CHEST PAIN REASON FOR TEST: CHEST PAIN REASON FOR ENDING: OBSERVATION: CONCLUSION: Lexiscan stress test was performed under standard four minute protocol. Radionuclid e was injected one minute prior to ending the test. No electrocardiographic abormalities were present to suggest ischemia. Nuclear imaging and interpretation are pending. COMMENTS:
--- NOTE | 2016-12-03 17:04 | EKG ---
Date Performed: 12/02/2016 Time Performed: 05:21:17 PTAGE: 55 years EKG: Sinus rhythm NORMAL ECG Since PREVIOUS TRACING , no significant change noted PREVIOUS TRACIN12/02/2016 02.16 DOCTOR: Tanisha Wright Interpretating Date/Time 12/03/2016 17:03:37
--- NOTE | 2016-12-03 17:05 | EKG ---
Date Performed: 12/02/2016 Time Performed: 02:16:30 PTAGE: 55 years EKG: Sinus rhythm NONSPECIFIC T-WAVE ABNORMALITY BORDERLINE ECG Since PREVIOUS TRACING , no significant change noted PREVIOUS TRACIN09/29/2016 06.27 DOCTOR: Tanisha Wright Interpretating Date/Time 12/03/2016 17:04:18
== END 2016-12-02 13:03 | disposition home or self-care (01) ==
LOC: NEPE 21:36 → NEDA 12-02 03:38 → NEPFCDU 12-02 05:30
PROVIDERS: ADMIT Internal Medicine Interventional Cardiology; ATTEND Internal Medicine Interventional Cardiology
DX: R07.9 Chest pain, unspecified (principal); S80.11XA Contusion of right lower leg, initial encounter; B20 Human immunodeficiency virus [HIV] disease; E87.6 Hypokalemia; E78.5 Hyperlipidemia, unspecified; I10 Essential (primary) hypertension; R94.31 Abnormal electrocardiogram [ECG] [EKG]; J45.909 Unspecified asthma, uncomplicated; I73.9 Peripheral vascular disease, unspecified; Z79.01 Long term (current) use of anticoagulants; Z91.81 History of falling; Z79.82 Long term (current) use of aspirin
CPT/HCPCS: 70450; 71010; 72125; 73030; 78452; 80053; 81001; 82550; 83735; 83880; 84484; 85025; 85610; 85730; 93005; 93017; 96374; 99285; A9502; G0378; J2405; J2785

== ENCOUNTER 2016-12-07 01:05 | Emergency (ER) | payer MEDICAID ==
[~2016-12-07] VITALS: Ht 185.4 cm; Wt 90.9 kg
[~2016-12-07 01:05] MED LIST changes: -FURO20TA PO; -HYDR-3533 PO; -TRAM50TA PO
[2016-12-07 01:08] VITALS: BP 121/70; PULSE 100; RESP 18; TEMP 98.2; O2SAT 98
[2016-12-07] MEDS ORDERED: SODIUM CHLORIDE 0.9% FLUSH 10 ML FLUSH IVF PRN (01:15)
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
[2016-12-07 01:38] LABS: AUTOMATED NEUTROPHIL # 3.4 TH/MM3 (1.8-7.7); BASOPHIL # 0.1 TH/MM3 (0-0.2); BASOPHIL % 0.9 % (0.0-2.0); EOSINOPHIL % 0.8 % (0.0-4.0); HEMO FLAGS DIFF FINAL; LYMPH % 36.1 % (9.0-44.0); LYMPHOCYTE # 2.3 TH/MM3 (1.0-4.8); MEAN CELL VOLUME 109.7 FL (80.0-100.0); MEAN CORPUSCULAR HEMOGLOBIN 37.4 PG (27.0-34.0); MEAN CORPUSCULAR HGB CONC 34.1 % (32.0-36.0); MONO % 8.7 % (0.0-8.0); NEUT % 53.5 % (16.0-70.0); PLATELET COUNT 256 TH/MM3 (150-450); RED CELL DISTRIBUTION WIDTH 13.8 % (11.6-17.2); WHITE BLOOD COUNT 6.4 TH/MM3 (4.0-11.0)
[2016-12-07 01:47] LABS: APTT (PATIENT) 33.9 SEC (24.3-30.1); INTERNATIONAL NORMALIZED RATIO 1.1 RATIO; PROTHROMBIN TIME - PATIENT 11.9 SEC (9.8-11.6)
[2016-12-07 01:58] LABS: ALKALINE PHOSPHATASE 70 U/L (45-117); CREATINE KINASE 118 U/L (39-308); TOTAL BILIRUBIN ADULT 0.3 MG/DL (0.2-1.0)
[2016-12-07 02:00] LABS: ALT (GPT) 30 U/L (12-78); ANION GAP 9 MEQ/L (5-15); AST (GOT) 38 U/L (15-37); BICARBONATE 26.7 MEQ/L (21.0-32.0); BLOOD UREA NITROGEN 8 MG/DL (7-18); CHLORIDE 107 MEQ/L (98-107); GLOMERULAR FILTRATION RATE 101 ML/MIN (>89); MAGNESIUM 2.1 MG/DL (1.5-2.5); POTASSIUM 3.7 MEQ/L (3.5-5.1); SODIUM (NA) 143 MEQ/L (136-145)
[2016-12-07 02:10] LABS: CKMB 0.8 NG/ML (0.5-3.6)
--- NOTE | 2016-12-07 02:24 | RADRPT ---
EXAM DATE/TIME: 12/07/2016 01:18 [facility] COMPARISON: SHOULDER RIGHT COMPLETE (>2VWS), December 02, 2016, 1:31. INDICATIONS : Recurring pain from previous surgery. No new injury. MEDICAL HISTORY : Cardiovascular disease. HIV. Hypertension. SURGICAL HISTORY : Appendectomy. ENCOUNTER: Initial ACUITY: 1 day PAIN SCORE: 5/10 LOCATION: Right Shoulder FINDINGS: Changes of screw and plate fixation of a humeral head/neck/greater tuberosity fracture of the right h umerus again noted. Unchanged, near anatomic alignment. The fracture is partially healed. There is a mildly displaced comminuted greater tuberosity fracture fragments again noted. I don't see a new or a cute fracture. No subluxations. Hardware intact. CONCLUSION: No change. Previous screw and plate fixation of proximal right humerus. No new fracture or subluxatio n. No acute complication demonstrated. Murray Torre MD on December 07, 2016 at 2:21 Board Certified Radiologist. This report was verified electronically.
--- NOTE | 2016-12-07 02:25 | RADRPT ---
EXAM DATE/TIME: 12/07/2016 01:20 [facility] COMPARISON: No previous studies available for comparison. INDICATIONS : Pt complaining of chest pain. MEDICAL HISTORY : Cardiovascular disease. HIV. Hypertension. SURGICAL HISTORY : Appendectomy. ENCOUNTER: Initial ACUITY: 1 day PAIN SCORE: 8/10 LOCATION: Bilateral chest FINDINGS: A single view of the chest demonstrates the lungs to be symmetrically aerated without evidence of mas s, infiltrate or effusion. The cardiomediastinal contours are unremarkable. Osseous structures are intact. CONCLUSION: No evidence of acute cardiopulmonary disease. Murray Torre MD on December 07, 2016 at 2:24 Board Certified Radiologist. This report was verified electronically.
--- NOTE | 2016-12-07 02:34 | RADRPT ---
EXAM DATE/TIME: 12/07/2016 02:02 [facility] COMPARISON: CT BRAIN W/O CONTRAST, December 02, 2016, 1:53. INDICATIONS : Dizziness, ETOH RADIATION DOSE: 38.93 CTDIvol (mGy) MEDICAL HISTORY : Cardiovascular disease. HIV. Hypertension. SURGICAL HISTORY : Appendectomy. ENCOUNTER: Initial ACUITY: 1 day PAIN SCALE: 0/10 LOCATION: cranial TECHNIQUE: Multiple contiguous axial images were obtained of the head. Using automated exposure control and adj ustment of the mA and/or kV according to patient size, radiation dose was kept as low as reasonably a chievable to obtain optimal diagnostic quality images. DICOM format image data is available electro nically for review and comparison. FINDINGS: CEREBRUM: The ventricles are normal for age. No evidence of midline shift, mass lesion, hemorrhage or acute in farction. No extra-axial fluid collections are seen. POSTERIOR FOSSA: The cerebellum and brainstem are intact. The 4th ventricle is midline. The cerebellopontine angle i s unremarkable. EXTRACRANIAL: Mild mucoperiosteal thickening again noted of the paranasal sinuses, mostly the left maxillary air ce ll. SKULL: The calvaria is intact. No evidence of skull fracture. CONCLUSION: No acute intracranial abnormality. Mild chronic sinusitis again noted. Murray Torre MD on December 07, 2016 at 2:32 Board Certified Radiologist. This report was verified electronically.
[2016-12-07 05:00] LABS: CREATINE KINASE 100 U/L (39-308)
[2016-12-07 05:19] VITALS: BP 125/80; PULSE 90; RESP 16; O2SAT 100
--- NOTE | 2016-12-07 13:41 | EKG ---
Date Performed: 12/07/2016 Time Performed: 01:30:55 PTAGE: 55 years EKG: Sinus rhythm NONSPECIFIC T-WAVE ABNORMALITY Compared to prior tracing no significant change BORDERLINE ECG PREVIOUS TRACING : 12/02/2016 05.21 DOCTOR: Vijay Botello Interpretating Date/Time 12/07/2016 13:40:51
== END 2016-12-07 07:26 | disposition home or self-care (01) ==
LOC: NEPE 01:05
DX: F10.20 Alcohol dependence, uncomplicated (principal); R07.89 Other chest pain; M25.511 Pain in right shoulder; F10.129 Alcohol abuse with intoxication, unspecified; R94.31 Abnormal electrocardiogram [ECG] [EKG]; J32.8 Other chronic sinusitis; I10 Essential (primary) hypertension; E78.00 Pure hypercholesterolemia, unspecified; B20 Human immunodeficiency virus [HIV] disease
CPT/HCPCS: 70450; 71010; 73030; 80053; 80307; 82550; 82552; 83735; 84484; 85025; 85610; 85730; 93005; 99285

== ENCOUNTER 2016-12-07 07:17 | Emergency (ER) | payer MEDICAID ==
[~2016-12-07] VITALS: Ht 185.4 cm; Wt 90.0 kg
[2016-12-07 07:19] VITALS: BP 148/98; PULSE 78; RESP 20; TEMP 97.8; O2SAT 97
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
[2016-12-07] MEDS ORDERED: IBUPROFEN 600 MG TAB PO ONE (07:45)
== END 2016-12-07 08:59 | disposition home or self-care (01) ==
LOC: NEPE 07:17
DX: R07.9 Chest pain, unspecified (principal); R52 Pain, unspecified; R06.02 Shortness of breath; M19.90 Unspecified osteoarthritis, unspecified site; J45.909 Unspecified asthma, uncomplicated; F31.9 Bipolar disorder, unspecified; I10 Essential (primary) hypertension; F41.9 Anxiety disorder, unspecified; Z21 Asymptomatic human immunodeficiency virus [HIV] infection status
CPT/HCPCS: 84484; 99283

== ENCOUNTER 2016-12-11 05:02 | Emergency (ER) | payer MEDICAID, OTHER ==
[~2016-12-11] VITALS: Ht 185.4 cm; Wt 90.0 kg
[2016-12-11 05:26] VITALS: BP 134/94; PULSE 87; RESP 18; TEMP 97.8; O2SAT 95
[2016-12-11 06:13] VITALS: BP 134/93; PULSE 90; RESP 18; O2SAT 92
--- NOTE | 2016-12-11 07:02 | PD ---
HPI . here under johnson act Chief Complaint: Psychiatric Symptoms Time Seen by Provider: 07:01 Travel History International Travel<30 days: No Contact w/Intl Traveler<30days: No Traveled to known affect area: No History of Present Illness HPI 55-year-old male here under Johnson act. Patient was brought in because he made threats about suicide. He stated, " I want to take my life and go with Robby." I can't examine the patient, he is comfortably resting in bed. He is obviously intoxicated and a very poor historian. PFSH Past Medical History Hx Anticoagulant Therapy: Yes Arthritis: Yes Asthma: Yes Blood Disorders: Yes (HIV) Bipolar Disorder: Yes Anxiety: Yes Depression: Yes Heart Rhythm Problems: No Cancer: No Cardiac Catheterization: No Cardiovascular Problems: Yes High Cholesterol: Yes Chest Pain: Yes Congestive Heart Failure: No Diabetes: No Diminished Hearing: No Gastrointestinal Disorders: No Genitourinary: Yes (incontinence) Heparin Induced Thrombocytopen: No Hypertension: Yes Immune Disorder: Yes (HIV+) Implanted Vascular Access Dvce: Yes Musculoskeletal: Yes (shoulder pain. ) Neurologic: No Psychiatric: Yes Reproductive: No Respiratory: Yes Immunizations Current: Yes Schizophrenia: Yes Past Surgical History Abdominal Surgery: Yes (APPENDECTOMY) Appendectomy: Yes Body Medical Devices: metal plate in r shoulder Coronary Artery Bypass Graft: No Pacemaker: No Other Surgery: Yes (R+Shoulder, appendix) Family History Family Myocardial Infarction: Yes (FATHER) Social History Alcohol Use: Yes (2 beers per day) Tobacco Use: Yes (half a pack a day) Substance Use: No Allergies-Medications (Allergen,Severity, Reaction): Coded Allergies: Sulfa (Sulfonamide Antibiotics) (Unverified Allergy, Severe, HIVES, ) penicillin G (Unverified Allergy, Severe, HIVES, 12/11/16) Reported Meds & Prescriptions Reported Meds & Active Scripts Active Walker with Front Wheels (Device) 1 Mis Mis 1 Ea .ROUTE DIRECTED Diflucan (Fluconazole) 100 Mg Tab 100 Mg PO Q24H Pantoprazole (Pantoprazole Sodium) 40 Mg Tab 40 Mg PO DAILY Gnp Vitamin B-1 (Thiamine HCl) 100 Mg Tab 100 Mg PO DAILY Folic Acid 1 Mg Tablet 1 Mg PO DAILY Ergocalciferol 50,000 Unit Cap 50,000 Units PO Q7D Reported Vitamin C (Ascorbic Acid) 250 Mg Tab 500 Mg PO Fluticasone Nasal [place] 50 Mcg/Act Naspr 50 Mcg EACH NARE BID 50 mcg/spray Hydrochlorothiazide 25 Mg Tab 25 Mg PO DAILY Prezcobix (Darunavir-Cobicistat) 800-150 Mg Tab 1 Tab PO DAILY Lisinopril 20 Mg Tab 20 Mg PO DAILY Pravastatin 40 Mg Tab 40 Mg PO DAILY Descovy (Emtricitabine-Tenofovir Alafenamide) 200-25 mg Tab 1 Tab PO DAILY Proair Hfa 8.5 GM Inh (Albuterol Sulfate) 90 Mcg/Act Aer 2 Puff INH Q4-6H PRN 108 mcg/actuation Carvedilol 12.5 Mg Tab 12.5 Mg PO BID Review of Systems General / Constitutional: No: Fever Eyes: No: Visual changes HENT: No: Headaches Cardiovascular: No: Chest Pain or Discomfort Respiratory: No: Shortness of Breath Gastrointestinal: No: Abdominal Pain Genitourinary: No: Dysuria Musculoskeletal: No: Pain Skin: No Rash Neurologic: No: Weakness Psychiatric: Positive: Suicidal Ideations, Substance Abuse, No: Depression Endocrine: No: Polydipsia Hematologic/Lymphatic: No: Easy Bruising Physical Exam Narrative GENERAL: Resting comfortably in bed SKIN: Warm and dry. No visible rashes or bruising. HEAD: Normocephalic and atraumatic. EYES: No scleral icterus. No injection or drainage. ENT: No nasal drainage noted. Airway patent. NECK: Supple, trachea midline. No JVD. CARDIOVASCULAR: Regular rate and rhythm without murmurs, gallops, or rubs. RESPIRATORY: Breath sounds equal bilaterally. No accessory muscle use. No rhonchi or rales. GASTROINTESTINAL: Abdomen soft, non-tender, nondistended. EXTREMITIES: No cyanosis or edema. BACK: No obvious deformity. NEURO: Difficult to assess as patient is intoxicated PSYCH: Difficult to assess patient is intoxicated Data Data Last Documented VS Vital Signs Date Time Temp Pulse Resp B/P (MAP) Pulse Ox O2 Delivery O2 Flow Rate FiO2 12/11/16 06:13 90 18 134/93 (107) 92 Room Air 12/11/16 05:26 97.8 Orders Orders Psych Screen (12/11/16 06:03) Drug Screen, Random Urine (12/11/16 06:03) Alcohol (Ethanol) (12/11/16 06:03) Labs Laboratory Tests Test 12/11/16 05:30 12/11/16 05:33 Ethyl Alcohol Level 241 MG/DL Urine Opiates Screen NEG Urine Barbiturates Screen NEG Urine Amphetamines Screen NEG Urine Benzodiazepines Screen POS Urine Cocaine Screen NEG Urine Cannabinoids Screen NEG MDM Medical Decision Making Medical Screen Exam Complete: Yes Emergency Medical Condition: Yes Medical Record Reviewed: Yes Differential Diagnosis Suicidal ideation, drug induced mood disorder, alcoholism, Narrative Course 55-year-old male here under Johnson act due to suicidal threats. On examination patient is visibly intoxicated. Labs have been ordered and his alcohol level is elevated. He also has some benzo usage on board. Patient has been medically cleared for psych screen. Laboratory Tests Test 12/11/16 05:30 12/11/16 05:33 Ethyl Alcohol Level 241 MG/DL Urine Opiates Screen NEG Urine Barbiturates Screen NEG Urine Amphetamines Screen NEG Urine Benzodiazepines Screen POS Urine Cocaine Screen NEG Urine Cannabinoids Screen NEG Diagnosis Primary Impression: Suicidal ideations Condition: Stable Marina Badillo Dec 11, 2016 07:02
[2016-12-11 08:13] VITALS: BP 130/88; PULSE 89; RESP 19; O2SAT 94
--- NOTE | 2016-12-11 09:51 | PD ---
Physical Exam Date Seen by Provider: Dec 11, 2016 Time Seen by Provider: 09:49 Narrative I discussed with Kennedi Mendoza psychiatric nurse practitioner. Patient has been cleared for discharge from psychiatric standpoint. Data Data Last Documented VS Vital Signs Date Time Temp Pulse Resp B/P (MAP) Pulse Ox O2 Delivery O2 Flow Rate FiO2 12/11/16 08:13 89 19 130/88 (102) 94 Room Air 12/11/16 05:26 97.8 Orders Orders Psych Screen (12/11/16 06:03) Drug Screen, Random Urine (12/11/16 06:03) Alcohol (Ethanol) (12/11/16 06:03) Labs Laboratory Tests Test 12/11/16 05:30 12/11/16 05:33 Ethyl Alcohol Level 241 MG/DL Urine Opiates Screen NEG Urine Barbiturates Screen NEG Urine Amphetamines Screen NEG Urine Benzodiazepines Screen POS Urine Cocaine Screen NEG Urine Cannabinoids Screen NEG MDM Medical Record Reviewed: Yes Supervised Visit with JC: No Differential Diagnosis drug induced mood disorder Narrative Course Patient cleared for discharge once sober. Diagnosis Primary Impression: Suicidal ideations Additional Impression: Acute alcohol intoxication Qualified Codes: F10.929 - Alcohol use, unspecified with intoxication, unspecified Patient Instructions: General Instructions Additional Instruction: Please return to emergency department if your symptoms return or worsen. Follow up with your primary care provider. Disposition: 01 DISCHARGE HOME Condition: Stable Marina Badillo Dec 11, 2016 09:51
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
== END 2016-12-11 10:30 | disposition home or self-care (01) ==
LOC: NEPD 05:02
DX: R45.851 Suicidal ideations (principal); F10.129 Alcohol abuse with intoxication, unspecified; I10 Essential (primary) hypertension; F20.9 Schizophrenia, unspecified; F31.9 Bipolar disorder, unspecified; J45.909 Unspecified asthma, uncomplicated; F17.200 Nicotine dependence, unspecified, uncomplicated; Y90.8 Blood alcohol level of 240 mg/100 ml or more; Z79.899 Other long term (current) drug therapy
CPT/HCPCS: 80307; 99284

== ENCOUNTER 2016-12-14 23:43 | Emergency (ER) | payer MEDICAID, OTHER ==
[~2016-12-14] VITALS: Ht 188 cm; Wt 75.0 kg
[2016-12-15 00:07] VITALS: BP 152/112; PULSE 98; RESP 15; TEMP 98.5; O2SAT 100
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
--- NOTE | 2016-12-15 01:24 | RADRPT ---
EXAM DATE/TIME: 12/15/2016 00:59 [facility] COMPARISON: No previous studies available for comparison. INDICATIONS : Left knee pain MEDICAL HISTORY : HIV Hypertension Cardiovascular disease SURGICAL HISTORY : Appendectomy. Right shoulder. ENCOUNTER: Initial ACUITY: 1 day PAIN SCORE: Non-responsive. LOCATION: Left knee FINDINGS: Two view examination of the left knee demonstrates no evidence of fracture or dislocation. Bony mine ralization is normal. There is some loss of the medial tibiofemoral joint space characteristic of ost eoarthritis. A very tiny suprapatellar effusion is present. CONCLUSION: 1. Early osteoarthritis with a tiny suprapatellar effusion. 2. No fracture. Harris Dodd MD on December 15, 2016 at 2:31 Board Certified Radiologist. This report was verified electronically.
--- NOTE | 2016-12-15 01:27 | RADRPT ---
EXAM DATE/TIME: 12/15/2016 01:05 [facility] COMPARISON: SHOULDER RIGHT LTD (2VWS), December 07, 2016, 1:18. INDICATIONS : Right shoulder pain. MEDICAL HISTORY : Cardiovascular disease. HIV. Hypertension SURGICAL HISTORY : Appendectomy. Right shoulder. ENCOUNTER: Subsequent ACUITY: 2 months PAIN SCORE: Non-responsive. LOCATION: Right FINDINGS: Two view examination of the right shoulder demonstrates a side plate and osseous screws securing a co mminuted fracture of the greater tuberosity. There is some regional callus formation however, there a re a few bony fragments of nonunion. Glenohumeral articulation is preserved. A.c. joint is intact wit h mild degenerative changes. Visualized portions of the adjacent lung are clear. CONCLUSION: 1. Previous open reduction and internal fixation of a comminuted fracture through the greater tuberos ity. There is some callus formation but small fragments of nonunion. 2. No new fracture. Harris Dodd MD on December 15, 2016 at 1:23 Board Certified Radiologist. This report was verified electronically.
--- NOTE | 2016-12-15 01:54 | RADRPT ---
EXAM DATE/TIME: 12/15/2016 00:56 [facility] COMPARISON: No previous studies available for comparison. INDICATIONS : Right knee pain. MEDICAL HISTORY : Cardiovascular disease. HIV. Hypertension. SURGICAL HISTORY : Appendectomy. Right shoulder. ENCOUNTER: Initial ACUITY: 1 day PAIN SCORE: Non-responsive. LOCATION: Right knee FINDINGS: Two view examination of the right knee demonstrates no evidence of fracture or dislocation. Bony min eralization is normal. Early osteoarthritic changes with some loss of the medial tibiofemoral joint space. The suprapatellar soft tissues have a normal configuration. CONCLUSION: 1. Osteoarthritic changes with loss of the medial tibiofemoral joint space. 2. No fracture or effusion. Harris Dodd MD on December 15, 2016 at 1:51 Board Certified Radiologist. This report was verified electronically.
[2016-12-15 08:00] VITALS: BP 138/78; PULSE 90; RESP 22; TEMP 98.8; O2SAT 99
== END 2016-12-15 08:16 | disposition home or self-care (01) ==
LOC: NEPD 23:43
DX: S40.011A Contusion of right shoulder, initial encounter (principal); S80.212A Abrasion, left knee, initial encounter; S80.211A Abrasion, right knee, initial encounter; M19.90 Unspecified osteoarthritis, unspecified site; J45.909 Unspecified asthma, uncomplicated; Z21 Asymptomatic human immunodeficiency virus [HIV] infection status; F31.9 Bipolar disorder, unspecified; I10 Essential (primary) hypertension; Y00.XXXA Assault by blunt object, initial encounter
CPT/HCPCS: 73030; 73560; 99284

== ENCOUNTER 2016-12-20 02:19 | Emergency (ER) | payer MEDICAID ==
[2016-12-20 02:30] VITALS: BP 126/88; PULSE 100; RESP 16; TEMP 98.1; O2SAT 94
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
== END 2016-12-20 06:36 | disposition home or self-care (01) ==
LOC: NEPD 02:19
DX: F10.129 Alcohol abuse with intoxication, unspecified (principal); J45.909 Unspecified asthma, uncomplicated; I10 Essential (primary) hypertension; F20.9 Schizophrenia, unspecified; E78.00 Pure hypercholesterolemia, unspecified
CPT/HCPCS: 99283

== ENCOUNTER 2016-12-23 22:40 | Emergency (ER) | payer MEDICAID ==
[~2016-12-23] VITALS: Ht 185.4 cm; Wt 100.0 kg
[2016-12-23 22:47] VITALS: BP 133/93; PULSE 110; RESP 16; TEMP 98.5; O2SAT 100
[2016-12-23] MEDS ORDERED: SODIUM CHLOR 0.9% 1000 ML INJ 1,000 ML IV ONE (23:45)
[2016-12-24] VITALS: BP 126/85; PULSE 94; RESP 18; O2SAT 95
[2016-12-24 00:11] LABS: HEMATOCRIT 40.4 % (39.0-51.0); MEAN CELL VOLUME 109.3 FL (80.0-100.0); MEAN CORPUSCULAR HEMOGLOBIN 38.3 PG (27.0-34.0); PLATELET COUNT 254 TH/MM3 (150-450); REVIEW FLAG FINAL; WHITE BLOOD COUNT 7.3 TH/MM3 (4.0-11.0)
[2016-12-24 00:23] LABS: ALKALINE PHOSPHATASE 75 U/L (45-117); ALT (GPT) 46 U/L (12-78); ANION GAP 7 MEQ/L (5-15); AST (GOT) 75 U/L (15-37); BICARBONATE 29.9 MEQ/L (21.0-32.0); BLOOD UREA NITROGEN 7 MG/DL (7-18); CHLORIDE 107 MEQ/L (98-107); GLOMERULAR FILTRATION RATE 116 ML/MIN (>89); SODIUM (NA) 144 MEQ/L (136-145); TOTAL BILIRUBIN ADULT 0.4 MG/DL (0.2-1.0)
[2016-12-24 00:24] LABS: ALCOHOL 214 MG/DL (0-5); CREATINE KINASE 89 U/L (39-308); POTASSIUM 3.7 MEQ/L (3.5-5.1)
--- NOTE | 2016-12-24 00:39 | PD ---
HPI Chief Complaint: Pain: Acute or Chronic Time Seen by Provider: 23:30 Travel History International Travel<30 days: No Contact w/Intl Traveler<30days: No Traveled to known affect area: No History of Present Illness HPI This is a 55-year-old male who has a history of chronic alcoholism who presents to the emergency department reporting that he's been lightheaded and dizzy for the past several days. He said he was so dizzy that he fell off his porch today and he hit his head. He says that whenever he stands up he feels lightheaded and he says he's been in the hot sun and he doesn't think he's been drinking as much as normal. He denies any chest pain or trouble breathing. He does acknowledge drinking alcohol today. His symptoms are constant and moderate severity. PFSH Past Medical History Hx Anticoagulant Therapy: Yes Arthritis: Yes Asthma: Yes Blood Disorders: Yes (HIV) Bipolar Disorder: Yes Anxiety: Yes Depression: Yes Heart Rhythm Problems: No Cancer: No Cardiac Catheterization: No Cardiovascular Problems: Yes High Cholesterol: Yes Chest Pain: Yes Congestive Heart Failure: No Diabetes: No Diminished Hearing: No Gastrointestinal Disorders: No Genitourinary: Yes (incontinence) Heparin Induced Thrombocytopen: No Hypertension: Yes Immune Disorder: Yes Implanted Vascular Access Dvce: Yes Musculoskeletal: Yes (shoulder pain ) Neurologic: No Psychiatric: Yes Reproductive: No Respiratory: Yes Immunizations Current: Yes Schizophrenia: Yes Past Surgical History Abdominal Surgery: Yes (APPENDECTOMY) Appendectomy: Yes Body Medical Devices: metal plate in r shoulder Coronary Artery Bypass Graft: No Pacemaker: No Other Surgery: Yes (R+Shoulder, appendix) Family History Family Myocardial Infarction: Yes (FATHER) Social History Alcohol Use: Yes (2 beers per day) Tobacco Use: Yes (half a pack a day) Substance Use: No Allergies-Medications (Allergen,Severity, Reaction): Coded Allergies: Sulfa (Sulfonamide Antibiotics) (Unverified Allergy, Severe, HIVES, ) penicillin G (Unverified Allergy, Severe, HIVES, 12/23/16) Reported Meds & Prescriptions Reported Meds & Active Scripts Active Walker with Front Wheels (Device) 1 Mis Mis 1 Ea .ROUTE DIRECTED Diflucan (Fluconazole) 100 Mg Tab 100 Mg PO Q24H Pantoprazole (Pantoprazole Sodium) 40 Mg Tab 40 Mg PO DAILY Gnp Vitamin B-1 (Thiamine HCl) 100 Mg Tab 100 Mg PO DAILY Folic Acid 1 Mg Tablet 1 Mg PO DAILY Ergocalciferol 50,000 Unit Cap 50,000 Units PO Q7D Reported Vitamin C (Ascorbic Acid) 250 Mg Tab 500 Mg PO Fluticasone Nasal [place] 50 Mcg/Act Naspr 50 Mcg EACH NARE BID 50 mcg/spray Hydrochlorothiazide 25 Mg Tab 25 Mg PO DAILY Prezcobix (Darunavir-Cobicistat) 800-150 Mg Tab 1 Tab PO DAILY Lisinopril 20 Mg Tab 20 Mg PO DAILY Pravastatin 40 Mg Tab 40 Mg PO DAILY Descovy (Emtricitabine-Tenofovir Alafenamide) 200-25 mg Tab 1 Tab PO DAILY Proair Hfa 8.5 GM Inh (Albuterol Sulfate) 90 Mcg/Act Aer 2 Puff INH Q4-6H PRN 108 mcg/actuation Carvedilol 12.5 Mg Tab 12.5 Mg PO BID Review of Systems Except as stated in HPI: all other systems reviewed are Neg Physical Exam Narrative GENERAL:Well appearing, no acute distress SKIN: Focused skin assessment warm and dry. HEAD: Atraumatic. Normocephalic. EYES: Pupils equal and round. No injection or drainage. ENT: Moist mucous membranes NECK: Trachea midline. CARDIOVASCULAR: Regular rate and rhythm. No murmur appreciated. RESPIRATORY: Clear to auscultation. Breath sounds equal bilaterally. GASTROINTESTINAL: Abdomen soft, non-tender, nondistended. MUSCULOSKELETAL: No obvious deformities. NEUROLOGICAL: Awake and alert. No obvious cranial nerve deficits. Moving all extremities. PSYCHIATRIC: Appropriate mood and affect; insight and judgment normal. Data Data Last Documented VS Vital Signs Date Time Temp Pulse Resp B/P (MAP) Pulse Ox O2 Delivery O2 Flow Rate FiO2 12/24/16 00:00 94 18 126/85 (99) 95 Room Air 12/23/16 22:47 98.5 Orders Orders Cbc No Diff, Includes Plts (12/23/16 23:39) Comprehensive Metabolic Panel (12/23/16 23:39) Troponin I (12/23/16 23:39) Creatine Kinase (Cpk) (12/23/16 23:39) ^ Insert Iv (12/23/16 23:39) Sodium Chlor 0.9% 1000 Ml Inj (Ns 1000 M (12/23/16 23:45) Electrocardiogram (12/23/16 ) Alcohol (Ethanol) (12/23/16 23:39) Drug Screen, Random Urine (12/23/16 23:39) Ct Brain W/O Iv Contrast(Rout) (12/23/16 ) Labs Laboratory Tests Test 12/23/16 23:50 White Blood Count 7.3 TH/MM3 Red Blood Count 3.70 MIL/MM3 Hemoglobin 14.2 GM/DL Hematocrit 40.4 % Mean Corpuscular Volume 109.3 FL Mean Corpuscular Hemoglobin 38.3 PG Mean Corpuscular Hemoglobin Concent 35.0 % Red Cell Distribution Width 14.0 % Platelet Count 254 TH/MM3 Mean Platelet Volume 6.9 FL Blood Urea Nitrogen 7 MG/DL Creatinine 0.84 MG/DL Random Glucose 92 MG/DL Total Protein 8.2 GM/DL Albumin 3.3 GM/DL Calcium Level 8.4 MG/DL Alkaline Phosphatase 75 U/L Aspartate Amino Transf (AST/SGOT) 75 U/L Alanine Aminotransferase (ALT/SGPT) 46 U/L Total Bilirubin 0.4 MG/DL Sodium Level 144 MEQ/L Potassium Level 3.7 MEQ/L Chloride Level 107 MEQ/L Carbon Dioxide Level 29.9 MEQ/L Anion Gap 7 MEQ/L Estimat Glomerular Filtration Rate 116 ML/MIN Total Creatine Kinase 89 U/L Troponin I LESS THAN 0.02 NG/ML Ethyl Alcohol Level 214 MG/DL MDM Medical Decision Making Medical Screen Exam Complete: Yes Emergency Medical Condition: Yes Interpretation(s) Afebrile, tachycardic, normotensive No leukocytosis Macrocytosis Electrolytes are reassuring Troponin is normal Alcohols to 14 Differential Diagnosis Intracranial hemorrhage, electrolyte abnormality, rhabdomyolysis, dehydration, alcohol intoxication Narrative Course This is a 55-year-old male who presents to the emergency department reporting lightheadedness and dizziness. He appears clinically intoxicated. EKG was obtained and was reassuring. Labs are obtained which are unremarkable. Patient was given a liter of IV hydration. CT is pending. He should be reassessed when clinically sober and he can likely be discharged home. Emily Malone MD Dec 24, 2016 00:39
[2016-12-24 01:12] VITALS: O2SAT 88
[2016-12-24 01:13] VITALS: O2SAT 96
--- NOTE | 2016-12-24 01:27 | RADRPT ---
EXAM DATE/TIME: 12/24/2016 00:53 [facility] COMPARISON: No previous studies available for comparison. INDICATIONS : Fall today, dizziness for several days. RADIATION DOSE: 56.35 CTDIvol (mGy) MEDICAL HISTORY : Stroke. Cardiovascular disease HIV.Hypertension. SURGICAL HISTORY : None. ENCOUNTER: Initial ACUITY: 1 day PAIN SCALE: 4/10 LOCATION: occipital TECHNIQUE: Multiple contiguous axial images were obtained of the head. Using automated exposure control and adj ustment of the mA and/or kV according to patient size, radiation dose was kept as low as reasonably a chievable to obtain optimal diagnostic quality images. DICOM format image data is available electro nically for review and comparison. FINDINGS: CEREBRUM: The ventricles are normal for age. No evidence of midline shift, mass lesion, hemorrhage or acute in farction. No extra-axial fluid collections are seen. POSTERIOR FOSSA: The cerebellum and brainstem are intact. The 4th ventricle is midline. The cerebellopontine angle i s unremarkable. EXTRACRANIAL: The visualized portion of the orbits is intact. SKULL: The calvaria is intact. No evidence of skull fracture. CONCLUSION: 1. No acute intracranial abnormalities. Mucosal thickening left maxillary sinus and left ethmoid air cells. Esequiel Carmen MD on December 24, 2016 at 1:21 Board Certified Radiologist. This report was verified electronically.
--- NOTE | 2016-12-24 05:24 | PD ---
Physical Exam Time Seen by Provider: 05:21 Narrative Please refer to previous providers documentation for details surrounding the patient's current visit. Data Data Last Documented VS Vital Signs Date Time Temp Pulse Resp B/P (MAP) Pulse Ox O2 Delivery O2 Flow Rate FiO2 12/24/16 01:13 96 Nasal Cannula 3.00 12/24/16 00:00 94 18 12/23/16 22:47 98.5 Orders Orders Cbc No Diff, Includes Plts (12/23/16 23:39) Comprehensive Metabolic Panel (12/23/16 23:39) Troponin I (12/23/16 23:39) Creatine Kinase (Cpk) (12/23/16 23:39) ^ Insert Iv (12/23/16 23:39) Sodium Chlor 0.9% 1000 Ml Inj (Ns 1000 M (12/23/16 23:45) Electrocardiogram (12/23/16 ) Alcohol (Ethanol) (12/23/16 23:39) Drug Screen, Random Urine (12/23/16 23:39) Ct Brain W/O Iv Contrast(Rout) (12/23/16 ) Labs Laboratory Tests Test 12/23/16 23:50 White Blood Count 7.3 TH/MM3 Red Blood Count 3.70 MIL/MM3 Hemoglobin 14.2 GM/DL Hematocrit 40.4 % Mean Corpuscular Volume 109.3 FL Mean Corpuscular Hemoglobin 38.3 PG Mean Corpuscular Hemoglobin Concent 35.0 % Red Cell Distribution Width 14.0 % Platelet Count 254 TH/MM3 Mean Platelet Volume 6.9 FL Blood Urea Nitrogen 7 MG/DL Creatinine 0.84 MG/DL Random Glucose 92 MG/DL Total Protein 8.2 GM/DL Albumin 3.3 GM/DL Calcium Level 8.4 MG/DL Alkaline Phosphatase 75 U/L Aspartate Amino Transf (AST/SGOT) 75 U/L Alanine Aminotransferase (ALT/SGPT) 46 U/L Total Bilirubin 0.4 MG/DL Sodium Level 144 MEQ/L Potassium Level 3.7 MEQ/L Chloride Level 107 MEQ/L Carbon Dioxide Level 29.9 MEQ/L Anion Gap 7 MEQ/L Estimat Glomerular Filtration Rate 116 ML/MIN Total Creatine Kinase 89 U/L Troponin I LESS THAN 0.02 NG/ML Ethyl Alcohol Level 214 MG/DL [facility] Medical Record Reviewed: Yes Supervised Visit with JC: No Narrative Course Patient was signed out to me with CT imaging pending. CT imaging shows no acute intracranial abnormality. Patient is requesting to stay in the emergency department. We have explained to him that with nothing new going on and his CT being negative, but he will be able to be discharged home. He eventually agrees with this plan of care. Diagnosis Primary Impression: Minor head injury Qualified Codes: S00.90XA - Unspecified superficial injury of unspecified part of head, initial encounter Additional Impression: Chronic alcoholism Referrals: Primary Care Physician Patient Instructions: General Instructions, Head Injury (DC) Additional Instruction: Follow-up with a primary care provider Return immediately with any acute worsening of symptoms Med/Other Pt SpecificInfo: No Change to Meds Disposition: 01 DISCHARGE HOME Condition: Stable America Del Valle Dec 24, 2016 05:24
[2016-12-24 06:00] VITALS: BP 128/75; PULSE 88; RESP 16; O2SAT 95
--- NOTE | 2016-12-24 12:11 | EKG ---
Date Performed: 12/23/2016 Time Performed: 23:48:00 PTAGE: 55 years EKG: Sinus rhythm MARKED LEFT AXIS DEVIATION ABNORMAL ECG PREVIOUS TRACING : 12/23/2016 23.47 Left axis deviation new from the prior tracing DOCTOR: Fredy Zhao Interpretating Date/Time 12/24/2016 12:09:34
== END 2016-12-24 06:40 | disposition home or self-care (01) ==
LOC: NEPD 22:40
DX: S00.90XA Unspecified superficial injury of unspecified part of head, initial encounter (principal); J45.909 Unspecified asthma, uncomplicated; F10.20 Alcohol dependence, uncomplicated; R94.31 Abnormal electrocardiogram [ECG] [EKG]; I10 Essential (primary) hypertension; Z72.0 Tobacco use; Z79.01 Long term (current) use of anticoagulants; W01.10XA Fall on same level from slipping, tripping and stumbling with subsequent striking against unspecified object, initial encounter; Y92.008 Other place in unspecified non-institutional (private) residence as the place of occurrence of the external cause
CPT/HCPCS: 70450; 80053; 80307; 82550; 84484; 85027; 93005; 96360; 99285; J7030

== ENCOUNTER 2017-01-14 03:37 | Emergency (ER) | payer MEDICAID ==
[~2017-01-14] VITALS: Ht 185.4 cm; Wt 91.0 kg
[2017-01-14 03:40] VITALS: BP 137/89; PULSE 82; RESP 15; TEMP 98.5; O2SAT 94
--- NOTE | 2017-01-14 03:57 | PD ---
HPI Chief Complaint: Medical Clearance Time Seen by Provider: 03:44 Travel History International Travel<30 days: No Contact w/Intl Traveler<30days: No Traveled to known affect area: No History of Present Illness HPI PATIENT COMES IN C/O CP, SHARP, NONRAD, 07/08, WORSE WITH MOVEMENT ONGOING FOR THE PAST 2 WEEKS...DENIES ...PATIENT ALSO STATES 2 WEEKS OF BRIGHT RED BLOOD PER RECTUM EVERY TIME HE WIPES CLEAN....HOWEVER NONE ON THE ACTUAL STOOL. DENIES ABD PAIN/N/V/D/FEVER/....NO ALLEVIATING/AGGRAVATING FACTORS PFSH Past Medical History Hx Anticoagulant Therapy: Yes Arthritis: Yes Asthma: Yes Blood Disorders: Yes (HIV) Bipolar Disorder: Yes Anxiety: Yes Depression: Yes Heart Rhythm Problems: No Cancer: No Cardiac Catheterization: No Cardiovascular Problems: Yes High Cholesterol: Yes Chest Pain: Yes Congestive Heart Failure: No Diabetes: No Diminished Hearing: No Gastrointestinal Disorders: No Genitourinary: Yes (incontinence) Heparin Induced Thrombocytopen: No Hypertension: Yes Immune Disorder: Yes Implanted Vascular Access Dvce: Yes Musculoskeletal: Yes (shoulder pain ) Neurologic: No Psychiatric: Yes Reproductive: No Respiratory: Yes Immunizations Current: Yes Schizophrenia: Yes Tetanus Vaccination: Unknown Influenza Vaccination: No Past Surgical History Abdominal Surgery: Yes (APPENDECTOMY) Appendectomy: Yes Body Medical Devices: metal plate in r shoulder Coronary Artery Bypass Graft: No Pacemaker: No Other Surgery: Yes (R+Shoulder, appendix) Family History Family Myocardial Infarction: Yes (FATHER) Social History Alcohol Use: Yes (DAILY ) Tobacco Use: Yes (half a pack a day) Substance Use: No (DENIES) Allergies-Medications (Allergen,Severity, Reaction): Coded Allergies: Sulfa (Sulfonamide Antibiotics) (Unverified Allergy, Severe, HIVES, ) penicillin G (Unverified Allergy, Severe, HIVES, 01/14/17) Reported Meds & Prescriptions Reported Meds & Active Scripts Active Walker with Front Wheels (Device) 1 Mis Mis 1 Ea .ROUTE DIRECTED Pantoprazole (Pantoprazole Sodium) 40 Mg Tab 40 Mg PO DAILY Gnp Vitamin B-1 (Thiamine HCl) 100 Mg Tab 100 Mg PO DAILY Folic Acid 1 Mg Tablet 1 Mg PO DAILY Reported Vitamin C (Ascorbic Acid) 250 Mg Tab 500 Mg PO Fluticasone Nasal [place] 50 Mcg/Act Naspr 50 Mcg EACH NARE BID 50 mcg/spray Hydrochlorothiazide 25 Mg Tab 25 Mg PO DAILY Prezcobix (Darunavir-Cobicistat) 800-150 Mg Tab 1 Tab PO DAILY Lisinopril 20 Mg Tab 20 Mg PO DAILY Pravastatin 40 Mg Tab 40 Mg PO DAILY Descovy (Emtricitabine-Tenofovir Alafenamide) 200-25 mg Tab 1 Tab PO DAILY Proair Hfa 8.5 GM Inh (Albuterol Sulfate) 90 Mcg/Act Aer 2 Puff INH Q4-6H PRN 108 mcg/actuation Carvedilol 12.5 Mg Tab 12.5 Mg PO BID Review of Systems Except as stated in HPI: all other systems reviewed are Neg Cardiovascular: Positive: Chest Pain or Discomfort Physical Exam Narrative GENERAL: SKIN: Warm and dry. HEAD: Atraumatic. Normocephalic. EYES: Pupils equal and round. No scleral icterus. No injection or drainage. ENT: No nasal bleeding or discharge. Mucous membranes pink and moist. NECK: Trachea midline. No JVD. CARDIOVASCULAR: Regular rate and rhythm. RESPIRATORY: No accessory muscle use. Clear to auscultation. Breath sounds equal bilaterally. REPRODUCIBLE CHEST WALL PAIN ON PALPATION WITHOUT CREPITUS GASTROINTESTINAL: Abdomen soft, non-tender, nondistended. WITH ELADIO JETER AT BEDSIDE RECTAL EXAM SHOWED PROFUSE ANAL CONDYLOMATA, RECTAL EXAM GUAIAC NEG BUT DID NOTICE SOME OF THE CONDYLOMA WERE ABRAISED THOUGH NOT ACTIVELY BLEEDING. MUSCULOSKELETAL: Extremities without clubbing, cyanosis, or edema. No obvious deformities. NEUROLOGICAL: Awake and alert. No obvious cranial nerve deficits. Motor grossly within normal limits. Five out of 5 muscle strength in the arms and legs. Normal speech. PSYCHIATRIC: Appropriate mood and affect; insight and judgment normal. Data Data Last Documented VS Vital Signs Date Time Temp Pulse Resp B/P (MAP) Pulse Ox O2 Delivery O2 Flow Rate FiO2 01/14/17 03:49 97 Nasal Cannula 2.00 01/14/17 03:40 98.5 82 15 137/89 (105) Orders Orders Electrocardiogram (01/14/17 03:47) Ckmb (Isoenzyme) Profile (01/14/17 03:47) Complete Blood Count With Diff (01/14/17 03:47) Comprehensive Metabolic Panel (01/14/17 03:47) Prothrombin Time / Inr (Pt) (01/14/17 03:47) Act Partial Throm Time (Ptt) (01/14/17 03:47) Troponin I (01/14/17 03:47) Chest, Single Ap (01/14/17 03:47) Ecg Monitoring (01/14/17 03:47) Bilateral Bp Monitoring (01/14/17 03:47) Iv Access Insert/Monitor (01/14/17 03:47) Oximetry (01/14/17 03:47) Oxygen Administration (01/14/17 03:47) Sodium Chloride 0.9% Flush (Ns Flush) (01/14/17 04:00) Labs Laboratory Tests Test 01/14/17 03:45 White Blood Count 7.6 TH/MM3 Red Blood Count 3.51 MIL/MM3 Hemoglobin 13.2 GM/DL Hematocrit 37.6 % Mean Corpuscular Volume 107.2 FL Mean Corpuscular Hemoglobin 37.6 PG Mean Corpuscular Hemoglobin Concent 35.1 % Red Cell Distribution Width 13.0 % Platelet Count 295 TH/MM3 Mean Platelet Volume 6.2 FL Neutrophils (%) (Auto) 52.3 % Lymphocytes (%) (Auto) 37.7 % Monocytes (%) (Auto) 8.7 % Eosinophils (%) (Auto) 0.4 % Basophils (%) (Auto) 0.9 % Neutrophils # (Auto) 4.0 TH/MM3 Lymphocytes # (Auto) 2.9 TH/MM3 Monocytes # (Auto) 0.7 TH/MM3 Eosinophils # (Auto) 0.0 TH/MM3 Basophils # (Auto) 0.1 TH/MM3 CBC Comment DIFF FINAL Differential Comment Prothrombin Time 10.1 SEC Prothromb Time International Ratio 0.9 RATIO Activated Partial Thromboplast Time 27.1 SEC Blood Urea Nitrogen 16 MG/DL Creatinine 0.86 MG/DL Random Glucose 77 MG/DL Total Protein 7.7 GM/DL Albumin 3.2 GM/DL Calcium Level 8.4 MG/DL Alkaline Phosphatase 57 U/L Aspartate Amino Transf (AST/SGOT) 43 U/L Alanine Aminotransferase (ALT/SGPT) 29 U/L Total Bilirubin 0.3 MG/DL Sodium Level 144 MEQ/L Potassium Level 3.2 MEQ/L Chloride Level 108 MEQ/L Carbon Dioxide Level 27.9 MEQ/L Anion Gap 8 MEQ/L Estimat Glomerular Filtration Rate 112 ML/MIN Total Creatine Kinase 86 U/L Troponin I LESS THAN 0.02 NG/ML MDM Medical Decision Making Medical Screen Exam Complete: Yes Emergency Medical Condition: Yes Medical Record Reviewed: Yes Interpretation(s) NSR, NO STEMI Differential Diagnosis CHEST WALL PAIN V PNA V PTX Narrative Course XRAY NEG FOR PNA/PTX, ALSO EKG DID NOT SHOW E/O STEMI....ANAL CONDYLOMATA ARE THE CAUSE OF EXTERNAL BLOOD THAT HE SEES WITH WIPING AFTER BM. Diagnosis Primary Impression: Chest wall pain, chronic Additional Impression: Anal condylomata Referrals: [facility] FOR FURTHER REFERRAL Disposition: 01 DISCHARGE HOME Condition: Stable Curly Cameron MD Jan 14, 2017 03:57
[2017-01-14 03:58] LABS: BASOPHIL # 0.1 TH/MM3 (0-0.2); BASOPHIL % 0.9 % (0.0-2.0); EOSINOPHIL % 0.4 % (0.0-4.0); HEMATOCRIT 37.6 % (39.0-51.0); HEMO FLAGS DIFF FINAL; LYMPH % 37.7 % (9.0-44.0); LYMPHOCYTE # 2.9 TH/MM3 (1.0-4.8); MEAN CELL VOLUME 107.2 FL (80.0-100.0); MEAN CORPUSCULAR HEMOGLOBIN 37.6 PG (27.0-34.0); MEAN CORPUSCULAR HGB CONC 35.1 % (32.0-36.0); MONO % 8.7 % (0.0-8.0); NEUT % 52.3 % (16.0-70.0); PLATELET COUNT 295 TH/MM3 (150-450); RED BLOOD COUNT 3.51 MIL/MM3 (4.50-5.90); WHITE BLOOD COUNT 7.6 TH/MM3 (4.0-11.0)
[2017-01-14] MEDS ORDERED: SODIUM CHLORIDE 0.9% FLUSH 10 ML FLUSH IVF PRN (04:00)
[2017-01-14 04:17] LABS: APTT (PATIENT) 27.1 SEC (24.3-30.1); INTERNATIONAL NORMALIZED RATIO 0.9 RATIO; PROTHROMBIN TIME - PATIENT 10.1 SEC (9.8-11.6)
[2017-01-14 04:27] LABS: ALKALINE PHOSPHATASE 57 U/L (45-117); ALT (GPT) 29 U/L (12-78); ANION GAP 8 MEQ/L (5-15); AST (GOT) 43 U/L (15-37); BICARBONATE 27.9 MEQ/L (21.0-32.0); BLOOD UREA NITROGEN 16 MG/DL (7-18); CHLORIDE 108 MEQ/L (98-107); CREATINE KINASE 86 U/L (39-308); GLOMERULAR FILTRATION RATE 112 ML/MIN (>89); POTASSIUM 3.2 MEQ/L (3.5-5.1); SODIUM (NA) 144 MEQ/L (136-145); TOTAL BILIRUBIN ADULT 0.3 MG/DL (0.2-1.0)
--- NOTE | 2017-01-14 04:39 | RADRPT ---
EXAM DATE/TIME: 01/14/2017 03:55 [facility] COMPARISON: CHEST SINGLE AP, December 07, 2016, 1:20. INDICATIONS : Chest pain. MEDICAL HISTORY : Cardiovascular disease. HIV. Hypertension. SURGICAL HISTORY : Appendectomy. ENCOUNTER: Initial ACUITY: 3 days PAIN SCORE: 6/10 LOCATION: Bilateral chest FINDINGS: The cardiac silhouette is enlarged in transverse diameter. The lungs are free of acute parenchymal op acity. No effusions are identified. Osseous structures are intact. CONCLUSION: Cardiomegaly. No acute cardiopulmonary disease. Hi Melendez MD on January 14, 2017 at 4:38 Board Certified Radiologist. This report was verified electronically.
--- NOTE | 2017-01-14 20:19 | EKG ---
Date Performed: 01/14/2017 Time Performed: 03:51:07 PTAGE: 56 years EKG: SINUS ARRHYTHMIA WITH OCCASIONAL PVC'S LEFT AXIS DEVIATION SINCE PREVIOUS TRACING 12/23/2016 , SINUS ARRHYTHMIA AND PVC'S ARE NEW. BORDERLINE ECG PREVIOUS TRACING : 12/23/2016 23.48 DOCTOR: Amrit Hernandez Interpretating Date/Time 01/14/2017 20:18:10
== END 2017-01-14 05:05 | disposition home or self-care (01) ==
LOC: NEPE 03:37
DX: R07.89 Other chest pain (principal); A63.0 Anogenital (venereal) warts; J45.909 Unspecified asthma, uncomplicated; R94.31 Abnormal electrocardiogram [ECG] [EKG]; I10 Essential (primary) hypertension; Z72.0 Tobacco use; Z79.01 Long term (current) use of anticoagulants
CPT/HCPCS: 71010; 80053; 82550; 84484; 85025; 85610; 85730; 93005; 99285

== ENCOUNTER 2017-01-19 23:21 | Emergency (ER) | payer MEDICAID ==
[~2017-01-19] VITALS: Ht 185.4 cm; Wt 94.5 kg
[~2017-01-19 23:21] MED LIST changes: -DIFL100T PO; -ERGO1CAP30 PO
[2017-01-19 23:23] VITALS: BP 154/103; PULSE 89; RESP 16; TEMP 98.8; O2SAT 95
[2017-01-20 01:11] VITALS: RESP 14; O2SAT 97
--- NOTE | 2017-01-20 01:15 | PD ---
HPI Chief Complaint: Bleeding Time Seen by Provider: 00:50 Travel History International Travel<30 days: No Contact w/Intl Traveler<30days: No Traveled to known affect area: No History of Present Illness HPI The patient is a 56 year old male who presents to the [facility] emergency department with a history of reportedly having hemorrhoids that he was told by his primary care physician will require surgical treatment. The patient reports that the hemorrhoids at times bleed. The patient presents to the emergency department for surgical treatment of these lesions. The patient incidentally reports that he is HIV positive. He recently underwent a CD4 count and viral load. The patient presents the results to me in the emergency department on my arrival to the room. The patient's viral load is elevated. His CD4 count was in the 200s. The patient reports that he has not been taking his medication. The patient reports that he has chronic generalized weakness and dizziness. The patient has difficulty describing the character of the dizziness. The patient unfortunately is a poor historian. Otherwise, on review of systems, the patient denies any recent fevers, cough, congestion, neck pain, chest pain, shortness of breath, abdominal pain, vomiting, diarrhea, urinary symptoms, or other neurologic symptoms. PFSH Past Medical History Narrative Medical The patient has a history of hypertension, hyperlipidemia, bipolar disorder, history of HIV that has progressed AIDS-currently noncompliant with taking his retroviral medications. Hx Anticoagulant Therapy: Yes Arthritis: Yes Asthma: Yes Blood Disorders: Yes (HIV) Bipolar Disorder: Yes Anxiety: Yes Depression: Yes Heart Rhythm Problems: No Cancer: No Cardiac Catheterization: No Cardiovascular Problems: Yes High Cholesterol: Yes Chest Pain: Yes Congestive Heart Failure: No Diabetes: No Diminished Hearing: No Gastrointestinal Disorders: No Genitourinary: Yes (incontinence) Heparin Induced Thrombocytopen: No Hypertension: Yes Immune Disorder: Yes Implanted Vascular Access Dvce: Yes Musculoskeletal: Yes (shoulder pain ) Neurologic: No Psychiatric: Yes Reproductive: No Respiratory: Yes Immunizations Current: Yes Schizophrenia: Yes Past Surgical History Narrative Surgical The patient's past surgical history is significant for a right shoulder ORIF, appendectomy. Abdominal Surgery: Yes (APPENDECTOMY) Appendectomy: Yes Body Medical Devices: metal plate in r shoulder Coronary Artery Bypass Graft: No Pacemaker: No Other Surgery: Yes (R+Shoulder, appendix) Family History Family Myocardial Infarction: Yes (FATHER) Social History Alcohol Use: Yes (DAILY ) Tobacco Use: Yes (half a pack a day) Substance Use: No (DENIES) Allergies-Medications (Allergen,Severity, Reaction): Coded Allergies: Sulfa (Sulfonamide Antibiotics) (Unverified Allergy, Severe, HIVES, ) penicillin G (Unverified Allergy, Severe, HIVES, 01/19/17) Reported Meds & Prescriptions Reported Meds & Active Scripts Active Walker with Front Wheels (Device) 1 Mis Mis 1 Ea .ROUTE DIRECTED Pantoprazole (Pantoprazole Sodium) 40 Mg Tab 40 Mg PO DAILY Gnp Vitamin B-1 (Thiamine HCl) 100 Mg Tab 100 Mg PO DAILY Folic Acid 1 Mg Tablet 1 Mg PO DAILY Reported Vitamin C (Ascorbic Acid) 250 Mg Tab 500 Mg PO Fluticasone Nasal [place] 50 Mcg/Act Naspr 50 Mcg EACH NARE BID 50 mcg/spray Hydrochlorothiazide 25 Mg Tab 25 Mg PO DAILY Prezcobix (Darunavir-Cobicistat) 800-150 Mg Tab 1 Tab PO DAILY Lisinopril 20 Mg Tab 20 Mg PO DAILY Pravastatin 40 Mg Tab 40 Mg PO DAILY Descovy (Emtricitabine-Tenofovir Alafenamide) 200-25 mg Tab 1 Tab PO DAILY Proair Hfa 8.5 GM Inh (Albuterol Sulfate) 90 Mcg/Act Aer 2 Puff INH Q4-6H PRN 108 mcg/actuation Carvedilol 12.5 Mg Tab 12.5 Mg PO BID Review of Systems Except as stated in HPI: all other systems reviewed are Neg General / Constitutional: No: Fever Eyes: No: Visual changes HENT: No: Headaches Cardiovascular: No: Chest Pain or Discomfort Respiratory: No: Shortness of Breath Gastrointestinal: Positive: Other (reported bleeding hemorrhoid), No: Nausea, Vomiting, Diarrhea, Abdominal Pain Genitourinary: No: Dysuria Musculoskeletal: No: Pain Skin: No Rash Neurologic: Positive: Dizziness, No: Weakness, Focal Abnormalities, Change in Mentation, Slurred Speech, Sensory Disturbance Psychiatric: No: Depression Endocrine: No: Polydipsia Hematologic/Lymphatic: No: Easy Bruising Physical Exam Narrative General: The patient is a well-developed well-nourished male in no acute distress. Head and Neck exam: Head is normocephalic atraumatic. Eyes: EOMI, pupils are equal round and reactive to light. Nose: Midline septum with pink mucous membranes Mouth: Dentition unremarkable. Moist mucus membranes. Posterior oropharynx is not erythematous. No tonsillar hypertrophy. Uvula midline. Airway patent. Neck: No palpable lymphadenopathy. No nuchal rigidity. No thyromegaly. Cardiovascular: Regular rate and rhythm without murmurs, gallops, or rubs. Lungs: Clear to auscultation bilaterally. No wheezes, rhonchi, or rales. Abdomen: Soft, without tenderness to palpation in all 4 quadrants of the abdomen. No guarding, rebound, or rigidity. Normal bowel sounds are audible. No tenderness on palpation of McBurney's point. Extremities: No clubbing, cyanosis, or edema. 2+ pulses in all 4 extremities. No calf tenderness on palpation. Back: No costovertebral angle tenderness to palpation. Neurologic Exam: Grossly nonfocal. Skin Exam: Skin that is warm and dry. RECTAL EXAM: The patient on examination of his rectum externally is noted to have condyloma acuminata surrounding the rectal area. No bleeding is noted. No hemorrhoids are visualized. Data Data Last Documented VS Vital Signs Date Time Temp Pulse Resp B/P (MAP) Pulse Ox O2 Delivery O2 Flow Rate FiO2 01/20/17 04:25 98.3 81 18 168/77 (107) 98 01/20/17 01:11 Room Air Orders Orders Complete Blood Count With Diff (01/20/17 00:52) Comprehensive Metabolic Panel (01/20/17 00:52) Prothrombin Time / Inr (Pt) (01/20/17 00:52) Act Partial Throm Time (Ptt) (01/20/17 00:52) Iv Access Insert/Monitor (01/20/17 00:52) Ecg Monitoring (01/20/17 00:52) Oximetry (01/20/17 00:52) Type And Screen (01/20/17 00:52) Ct Brain W/O Iv Contrast(Rout) (01/20/17 02:13) Sodium Chlor 0.9% 1000 Ml Inj (Ns 1000 M (01/20/17 02:15) Potassium Chloride Eff (K-Lyte Cl Eff) (01/20/17 02:15) Ed Discharge Order (01/20/17 03:11) Labs Laboratory Tests Test 01/20/17 01:05 White Blood Count 7.6 TH/MM3 Red Blood Count 3.55 MIL/MM3 Hemoglobin 13.3 GM/DL Hematocrit 37.8 % Mean Corpuscular Volume 106.6 FL Mean Corpuscular Hemoglobin 37.4 PG Mean Corpuscular Hemoglobin Concent 35.1 % Red Cell Distribution Width 12.5 % Platelet Count 232 TH/MM3 Mean Platelet Volume 6.5 FL Neutrophils (%) (Auto) 62.8 % Lymphocytes (%) (Auto) 28.1 % Monocytes (%) (Auto) 6.1 % Eosinophils (%) (Auto) 0.1 % Basophils (%) (Auto) 2.9 % Neutrophils # (Auto) 4.8 TH/MM3 Lymphocytes # (Auto) 2.1 TH/MM3 Monocytes # (Auto) 0.5 TH/MM3 Eosinophils # (Auto) 0.0 TH/MM3 Basophils # (Auto) 0.2 TH/MM3 CBC Comment AUTO DIFF Differential Comment AUTO DIFF CONFIRMED Platelet Estimate NORMAL Platelet Morphology Comment NORMAL Red Cell Morphology Comment NORMAL Prothrombin Time 11.1 SEC Prothromb Time International Ratio 1.0 RATIO Activated Partial Thromboplast Time 31.5 SEC Blood Urea Nitrogen 5 MG/DL Creatinine 0.63 MG/DL Random Glucose 80 MG/DL Total Protein 7.6 GM/DL Albumin 3.3 GM/DL Calcium Level 8.3 MG/DL Alkaline Phosphatase 57 U/L Aspartate Amino Transf (AST/SGOT) 42 U/L Alanine Aminotransferase (ALT/SGPT) 35 U/L Total Bilirubin 0.3 MG/DL Sodium Level 142 MEQ/L Potassium Level 2.9 MEQ/L Chloride Level 106 MEQ/L Carbon Dioxide Level 27.2 MEQ/L Anion Gap 9 MEQ/L Estimat Glomerular Filtration Rate 161 ML/MIN [facility] Medical Decision Making Medical Screen Exam Complete: Yes Emergency Medical Condition: Yes Medical Record Reviewed: Yes Interpretation(s) Last Impressions Head CT 01/20/17 0213 Signed Impressions: Service Date/Time: Friday, January 20, 2017 02:48 - CONCLUSION: No acute intracranial disease. London Soto MD Differential Diagnosis Hemorrhoids, versus anal fissure, versus anal cancer, versus Condyloma acuminata. Narrative Course During the course of the patients emergency department visit, the patients history, examination, and differential diagnosis were reviewed with the patient. The patient was placed on a ink jet operator with oximetry and frequent blood pressure monitoring. The patient had IV access obtained and blood work sent for analysis. The patient was initially provided normal saline 1 L IV fluid bolus. Potassium supplementation by mouth when mild hypokalemia was noted The patients laboratory studies were reviewed and remarkable for a white count 7.6, hemoglobin 13.3, platelets 232 with 2.9 basophils. CMP is remarkable for a potassium of 2.9 which was supplemented orally, BUN 5, calcium 8.3, AST 42, albumin 3.3, PT 11.1, PTT 31.5 Radiology studies were reviewed and remarkable for a CT scan of the brain that showed no acute intracranial abnormality. The patient has significant anal genital warts on exam. The patient was instructed regarding the importance of following up with the health department or the physician that he was referred to by his primary care physician for treatment regarding this. The patient is resting comfortably and feels better, is alert and in no distress. The patients results and examination findings were discussed with the patient. The repeat examination is unremarkable and benign. The history, exam, diagnostic testing, and current condition do not suggest any significant pathology to warrant further testing, continued ED treatment, admission, or surgical evaluation at this point. The vital signs have been stable. The patient does not have uncontrollable pain, intractable vomiting, or other significant symptoms. The patient's condition is stable and appropriate for discharge. The patient will pursue further outpatient evaluation with a primary care physician or other designated or consulting physician as indicated in the discharge instructions. The patient expressed understanding and was agreeable with this plan. Diagnosis Primary Impression: Genital warts Referrals: [facility] Dept. 2 days Patient Instructions: General Instructions, Genital Warts (ED) Disposition: 01 DISCHARGE HOME Condition: Stable Hermila Zhao MD Jan 20, 2017 01:15
[2017-01-20 01:22] LABS: AUTOMATED NEUTROPHIL # 4.8 TH/MM3 (1.8-7.7); BASOPHIL # 0.2 TH/MM3 (0-0.2); BASOPHIL % 2.9 % (0.0-2.0); EOSINOPHIL % 0.1 % (0.0-4.0); HEMATOCRIT 37.8 % (39.0-51.0); LYMPH % 28.1 % (9.0-44.0); LYMPHOCYTE # 2.1 TH/MM3 (1.0-4.8); MEAN CELL VOLUME 106.6 FL (80.0-100.0); MEAN CORPUSCULAR HEMOGLOBIN 37.4 PG (27.0-34.0); MEAN CORPUSCULAR HGB CONC 35.1 % (32.0-36.0); MONO % 6.1 % (0.0-8.0); NEUT % 62.8 % (16.0-70.0); PLATELET COUNT 232 TH/MM3 (150-450); RED BLOOD COUNT 3.55 MIL/MM3 (4.50-5.90); RED CELL DISTRIBUTION WIDTH 12.5 % (11.6-17.2); WHITE BLOOD COUNT 7.6 TH/MM3 (4.0-11.0)
[2017-01-20 01:24] LABS: HEMO FLAGS AUTO DIFF
[2017-01-20 01:33] LABS: APTT (PATIENT) 31.5 SEC (24.3-30.1); PROTHROMBIN TIME - PATIENT 11.1 SEC (9.8-11.6)
[2017-01-20 01:44] LABS: ALKALINE PHOSPHATASE 57 U/L (45-117); ALT (GPT) 35 U/L (12-78); ANION GAP 9 MEQ/L (5-15); AST (GOT) 42 U/L (15-37); BICARBONATE 27.2 MEQ/L (21.0-32.0); BLOOD UREA NITROGEN 5 MG/DL (7-18); CHLORIDE 106 MEQ/L (98-107); GLOMERULAR FILTRATION RATE 161 ML/MIN (>89); SODIUM (NA) 142 MEQ/L (136-145); TOTAL BILIRUBIN ADULT 0.3 MG/DL (0.2-1.0)
[2017-01-20 01:46] LABS: POTASSIUM 2.9 MEQ/L (3.5-5.1)
[2017-01-20 02:03] LABS: PLATELET ESTIMATE SMEAR NORMAL (NORMAL); PLATELET MORPHOLOGY NORMAL (NORMAL); SCAN/DIFF AUTO DIFF CONFIRMED
[2017-01-20] MEDS ORDERED: SODIUM CHLOR 0.9% 1000 ML INJ 1,000 ML IV ONE (02:15)
[2017-01-20] MEDS ORDERED: POTASSIUM CHLORIDE 25 MEQ EFFERVESCENT TAB PO ONE (02:15)
--- NOTE | 2017-01-20 03:06 | RADRPT ---
EXAM DATE/TIME: 01/20/2017 02:48 [facility] COMPARISON: CT BRAIN W/O CONTRAST, December 24, 2016, 0:53. INDICATIONS : Dizziness. RADIATION DOSE: 40.06 CTDIvol (mGy) MEDICAL HISTORY : HIV. Cardiovascular disease Hypertension.Asthma SURGICAL HISTORY : Appendectomy. Right shoulder surgery ENCOUNTER: Initial ACUITY: 1 day PAIN SCALE: 0/10 LOCATION: cranial TECHNIQUE: Multiple contiguous axial images were obtained of the head. Using automated exposure control and adj ustment of the mA and/or kV according to patient size, radiation dose was kept as low as reasonably a chievable to obtain optimal diagnostic quality images. DICOM format image data is available electro nically for review and comparison. FINDINGS: CEREBRUM: The ventricles are normal for age. No evidence of midline shift, mass lesion, hemorrhage or acute in farction. No extra-axial fluid collections are seen. POSTERIOR FOSSA: The cerebellum and brainstem are intact. The 4th ventricle is midline. The cerebellopontine angle i s unremarkable. EXTRACRANIAL: The visualized portion of the orbits is intact. SKULL: The calvaria is intact. No evidence of skull fracture. CONCLUSION: No acute intracranial disease. London Soto MD on January 20, 2017 at 3:05 Board Certified Radiologist. This report was verified electronically.
[2017-01-20 04:25] VITALS: BP 168/77; TEMP 98.3
== END 2017-01-20 04:27 | disposition home or self-care (01) ==
LOC: NEPC 23:21
DX: A63.0 Anogenital (venereal) warts (principal); R42 Dizziness and giddiness; R53.1 Weakness; I10 Essential (primary) hypertension; E78.5 Hyperlipidemia, unspecified; F31.9 Bipolar disorder, unspecified; J45.909 Unspecified asthma, uncomplicated; F17.200 Nicotine dependence, unspecified, uncomplicated; Z21 Asymptomatic human immunodeficiency virus [HIV] infection status
CPT/HCPCS: 70450; 80053; 85025; 85610; 85730; 86850; 86900; 86901; 96360; 99285; J7030

== ENCOUNTER 2017-01-22 09:37 | Observation (INO) | payer MEDICAID ==
[~2017-01-22] VITALS: Ht 185.4 cm; Wt 127.0 kg
[2017-01-22 09:38] VITALS: BP 182/117; PULSE 102; RESP 20; TEMP 97.9; O2SAT 98
[2017-01-22 10:11] VITALS: O2SAT 96
[2017-01-22] MEDS ORDERED: NITROGLYCERIN 2% OINT 1 GM PACKET TOP ONE (10:15)
[2017-01-22] MEDS ORDERED: SODIUM CHLORIDE 0.9% FLUSH 10 ML FLUSH IVF PRN (10:15)
[2017-01-22] MEDS ORDERED: ASPIRIN 81 MG CHEW TAB PO ONE (10:15)
--- NOTE | 2017-01-22 10:17 | PD ---
HPI Chief Complaint: Chest Pain Time Seen by Provider: 10:04 Travel History International Travel<30 days: No Contact w/Intl Traveler<30days: No Traveled to known affect area: No History of Present Illness HPI C/O CP, YESTERDAY, [place], NONRAD, 08/07, MIDSTERNAL, LASTED 3HRS YESTERDAY, TODAY ONSET 2HRS AGO AND STILL ONGOING THOUGH DOWN TO 06/07....no alleviating/ aggravating factors....no associated symptoms of fever/cough/runny nose/n/v/d/ abd pain at this time. PFSH Past Medical History Hx Anticoagulant Therapy: Yes Arthritis: Yes Asthma: Yes Blood Disorders: Yes (HIV) Bipolar Disorder: Yes Anxiety: Yes Depression: Yes Heart Rhythm Problems: No Cancer: No Cardiac Catheterization: No Cardiovascular Problems: Yes High Cholesterol: Yes Chest Pain: Yes Congestive Heart Failure: No Diabetes: No Diminished Hearing: No Gastrointestinal Disorders: No Genitourinary: Yes (incontinence) Heparin Induced Thrombocytopen: No Hypertension: Yes Immune Disorder: Yes Implanted Vascular Access Dvce: Yes Musculoskeletal: Yes (shoulder pain ) Neurologic: No Psychiatric: Yes Reproductive: No Respiratory: Yes Immunizations Current: Yes Schizophrenia: Yes Past Surgical History Abdominal Surgery: Yes (APPENDECTOMY) Appendectomy: Yes Body Medical Devices: metal plate in r shoulder Coronary Artery Bypass Graft: No Pacemaker: No Other Surgery: Yes (R+Shoulder, appendix) Family History Family Myocardial Infarction: Yes (FATHER) Social History Alcohol Use: Yes (DAILY ) Tobacco Use: Yes (half a pack a day) Substance Use: No (DENIES) Allergies-Medications (Allergen,Severity, Reaction): Coded Allergies: Sulfa (Sulfonamide Antibiotics) (Unverified Allergy, Severe, HIVES, ) penicillin G (Unverified Allergy, Severe, HIVES, 01/22/17) Reported Meds & Prescriptions Reported Meds & Active Scripts Active Walker with Front Wheels (Device) 1 Mis Mis 1 Ea .ROUTE DIRECTED Pantoprazole (Pantoprazole Sodium) 40 Mg Tab 40 Mg PO DAILY Gnp Vitamin B-1 (Thiamine HCl) 100 Mg Tab 100 Mg PO DAILY Folic Acid 1 Mg Tablet 1 Mg PO DAILY Reported Vitamin C (Ascorbic Acid) 250 Mg Tab 500 Mg PO Fluticasone Nasal [place] 50 Mcg/Act Naspr 50 Mcg EACH NARE BID 50 mcg/spray Hydrochlorothiazide 25 Mg Tab 25 Mg PO DAILY Prezcobix (Darunavir-Cobicistat) 800-150 Mg Tab 1 Tab PO DAILY Lisinopril 20 Mg Tab 20 Mg PO DAILY Pravastatin 40 Mg Tab 40 Mg PO DAILY Descovy (Emtricitabine-Tenofovir Alafenamide) 200-25 mg Tab 1 Tab PO DAILY Proair Hfa 8.5 GM Inh (Albuterol Sulfate) 90 Mcg/Act Aer 2 Puff INH Q4-6H PRN 108 mcg/actuation Carvedilol 12.5 Mg Tab 12.5 Mg PO BID Review of Systems Except as stated in HPI: all other systems reviewed are Neg General / Constitutional: No: Fever Eyes: No: Visual changes HENT: No: Headaches Cardiovascular: Positive: Chest Pain or Discomfort Respiratory: No: Shortness of Breath Gastrointestinal: No: Abdominal Pain Genitourinary: No: Dysuria Musculoskeletal: No: Pain Skin: No Rash Neurologic: No: Weakness Psychiatric: No: Depression Endocrine: No: Polydipsia Hematologic/Lymphatic: No: Easy Bruising Physical Exam Narrative GENERAL: SKIN: Warm and dry. HEAD: Atraumatic. Normocephalic. EYES: Pupils equal and round. No scleral icterus. No injection or drainage. ENT: No nasal bleeding or discharge. Mucous membranes pink and moist. NECK: Trachea midline. No JVD. CARDIOVASCULAR: Regular rate and rhythm. RESPIRATORY: No accessory muscle use. Clear to auscultation. Breath sounds equal bilaterally. GASTROINTESTINAL: Abdomen soft, non-tender, nondistended RECTAL FOUND TO BE COVERED WITH CONDYLOMA, WITH SUPERFICIAL ABRASION MUSCULOSKELETAL: Extremities without clubbing, cyanosis, or edema. No obvious deformities. NEUROLOGICAL: Awake and alert. No obvious cranial nerve deficits. Motor grossly within normal limits. Five out of 5 muscle strength in the arms and legs. Normal speech. PSYCHIATRIC: Appropriate mood and affect; insight and judgment normal. Data Data Last Documented VS Orders Orders Electrocardiogram (01/22/17 10:04) B-Type Natriuretic Peptide (01/22/17 10:04) Ckmb (Isoenzyme) Profile (01/22/17 10:04) Complete Blood Count With Diff (01/22/17 10:04) Comprehensive Metabolic Panel (01/22/17 10:04) Prothrombin Time / Inr (Pt) (01/22/17 10:04) Act Partial Throm Time (Ptt) (01/22/17 10:04) Troponin I (01/22/17 10:04) Lipase (01/22/17 10:04) Chest, Single Ap (01/22/17 10:04) Ecg Monitoring (01/22/17 10:04) Bilateral Bp Monitoring (01/22/17 10:04) Iv Access Insert/Monitor (01/22/17 10:04) Oximetry (01/22/17 10:04) Oxygen Administration (01/22/17 10:04) Aspirin Chew (Aspirin Chew) (01/22/17 10:15) Nitroglycerin 2% Oint (Nitroglycerin 2% (01/22/17 10:15) Sodium Chloride 0.9% Flush (Ns Flush) (01/22/17 10:15) Admit Order (Ed Use Only) (01/22/17 11:24) Labs Laboratory Tests Test 01/22/17 10:15 White Blood Count 7.8 TH/MM3 Red Blood Count 3.74 MIL/MM3 Hemoglobin 14.1 GM/DL Hematocrit 39.9 % Mean Corpuscular Volume 106.7 FL Mean Corpuscular Hemoglobin 37.8 PG Mean Corpuscular Hemoglobin Concent 35.4 % Red Cell Distribution Width 13.0 % Platelet Count 239 TH/MM3 Mean Platelet Volume 6.6 FL Neutrophils (%) (Auto) 62.8 % Lymphocytes (%) (Auto) 25.4 % Monocytes (%) (Auto) 10.9 % Eosinophils (%) (Auto) 0.2 % Basophils (%) (Auto) 0.7 % Neutrophils # (Auto) 4.9 TH/MM3 Lymphocytes # (Auto) 2.0 TH/MM3 Monocytes # (Auto) 0.9 TH/MM3 Eosinophils # (Auto) 0.0 TH/MM3 Basophils # (Auto) 0.1 TH/MM3 CBC Comment DIFF FINAL Differential Comment Prothrombin Time 12.1 SEC Prothromb Time International Ratio 1.1 RATIO Activated Partial Thromboplast Time 36.0 SEC Blood Urea Nitrogen 8 MG/DL Creatinine 0.83 MG/DL Random Glucose 103 MG/DL Total Protein 7.9 GM/DL Albumin 3.4 GM/DL Calcium Level 9.2 MG/DL Alkaline Phosphatase 59 U/L Aspartate Amino Transf (AST/SGOT) 42 U/L Alanine Aminotransferase (ALT/SGPT) 32 U/L Total Bilirubin 0.3 MG/DL Sodium Level 142 MEQ/L Potassium Level 3.4 MEQ/L Chloride Level 109 MEQ/L Carbon Dioxide Level 27.6 MEQ/L Anion Gap 5 MEQ/L Estimat Glomerular Filtration Rate 117 ML/MIN Total Creatine Kinase 95 U/L Troponin I LESS THAN 0.02 NG/ML B-Type Natriuretic Peptide 72 PG/ML Lipase 283 U/L MDM Medical Decision Making Medical Screen Exam Complete: Yes Emergency Medical Condition: Yes Medical Record Reviewed: Yes Interpretation(s) NSR 74, NL INTERVALS, NONSPEC STT CHANGE, NO STEMI PATTERN Differential Diagnosis CHEST WALL STRAIN V RIB FX V PTX V PNA Narrative Course nl lipase, nl electrolytes, first trop neg, ekg without stemi pattern. will admit to chest pain center for further evaluation. currently patient still has soreness, worse by movment, atypical chest pain (denies trauma or heavy exertional exercise) Diagnosis Primary Impression: ATYPICAL CP R/O CA Admitting Information Admitting Physician Requests: Observation Curly Cameron MD Jan 22, 2017 10:17
[2017-01-22 10:26] LABS: AUTOMATED NEUTROPHIL # 4.9 TH/MM3 (1.8-7.7); BASOPHIL # 0.1 TH/MM3 (0-0.2); BASOPHIL % 0.7 % (0.0-2.0); EOSINOPHIL % 0.2 % (0.0-4.0); HEMATOCRIT 39.9 % (39.0-51.0); HEMO FLAGS DIFF FINAL; LYMPH % 25.4 % (9.0-44.0); MEAN CELL VOLUME 106.7 FL (80.0-100.0); MEAN CORPUSCULAR HEMOGLOBIN 37.8 PG (27.0-34.0); MEAN CORPUSCULAR HGB CONC 35.4 % (32.0-36.0); MONO % 10.9 % (0.0-8.0); NEUT % 62.8 % (16.0-70.0); PLATELET COUNT 239 TH/MM3 (150-450); RED BLOOD COUNT 3.74 MIL/MM3 (4.50-5.90); WHITE BLOOD COUNT 7.8 TH/MM3 (4.0-11.0)
--- NOTE | 2017-01-22 10:29 | RADRPT ---
EXAM DATE/TIME: 01/22/2017 10:18 [facility] COMPARISON: CHEST SINGLE AP, January 14, 2017, 3:55. INDICATIONS : Chest pain, short of breath. MEDICAL HISTORY : Congestive heart failure. SURGICAL HISTORY : None. ENCOUNTER: Initial ACUITY: 2 days PAIN SCORE: 10/10 LOCATION: Bilateral chest FINDINGS: No infiltrate, effusion or pneumothorax. Heart size stable, upper limits of normal. Tortuous thoracic aorta again noted. No perceptible pulmonary edema or vascular congestion. CONCLUSION: No evidence of acute cardiopulmonary disease. Murray Torre MD on January 22, 2017 at 10:27 Board Certified Radiologist. This report was verified electronically.
[2017-01-22 10:35] LABS: INTERNATIONAL NORMALIZED RATIO 1.1 RATIO; PROTHROMBIN TIME - PATIENT 12.1 SEC (9.8-11.6)
[2017-01-22 11:01] LABS: ALKALINE PHOSPHATASE 59 U/L (45-117); ALT (GPT) 32 U/L (12-78); ANION GAP 5 MEQ/L (5-15); AST (GOT) 42 U/L (15-37); BICARBONATE 27.6 MEQ/L (21.0-32.0); BLOOD UREA NITROGEN 8 MG/DL (7-18); CHLORIDE 109 MEQ/L (98-107); GLOMERULAR FILTRATION RATE 117 ML/MIN (>89); POTASSIUM 3.4 MEQ/L (3.5-5.1); SODIUM (NA) 142 MEQ/L (136-145); TOTAL BILIRUBIN ADULT 0.3 MG/DL (0.2-1.0)
[2017-01-22 11:06] LABS: CREATINE KINASE 95 U/L (39-308)
[2017-01-22 12:30] VITALS: O2SAT 96
[2017-01-22] MEDS ORDERED: ACETAMINOPHEN 500 MG CPLT PO PRN (12:30)
[2017-01-22] MEDS ORDERED: ONDANSETRON HCL 4 MG/2 ML VIAL IV PUSH PRN (12:30)
[2017-01-22] MEDS ORDERED: NITROGLYCERIN 0.4 MG SL 25 TABS/BTL SL PRN (12:30)
[2017-01-22] MEDS ORDERED: POTASSIUM CHLORIDE 20 MEQ CONTROLLED RELEASE TAB PO ONE (13:00)
[2017-01-22 13:32] VITALS: BP_SYST 165; BP_SYST 168; BP_DIAS 88; BP_DIAS 89; PULSE 58; RESP 18; O2SAT 97
[2017-01-22 14:40] LABS: CREATINE KINASE 74 U/L (39-308)
--- NOTE | 2017-01-22 15:10 | HHI.HP ---
HPI Primary Care Physician Jeff Hilario DO Chief Complaint Chest pain Review of Systems General: No fatigue,weakness, fever, chills, or recent illness. CV: As stated above. No current chest or pressure. RESP: No SOB GI: No nausea, vomiting, or bowel changes. Reporting rectal bleeding from his genital warts. Endorses he has an appointment in a few weeks regarding genital warts. : No dysuria EXT: No lower leg edema, no paraesthesias MS: No discomfort, or recent injury or trauma. NEURO: No difficulty with balance, LOC, motor/sensory deficits PSYCH: History of anxiety and depression. No suicidal ideation. Past Family Social History Allergies: Coded Allergies: Sulfa (Sulfonamide Antibiotics) (Unverified Allergy, Severe, HIVES, ) penicillin G (Unverified Allergy, Severe, HIVES, 01/22/17) Past Medical History Hypertension, hyperlipidemia, bipolar disorder, HIV positive Past Surgical History Right shoulder ORIF, appendectomy Reported Medications Reported Meds & Active Scripts Active Walker with Front Wheels (Device) 1 Mis Mis 1 Ea .ROUTE DIRECTED Pantoprazole (Pantoprazole Sodium) 40 Mg Tab 40 Mg PO DAILY Gnp Vitamin B-1 (Thiamine HCl) 100 Mg Tab 100 Mg PO DAILY Folic Acid 1 Mg Tablet 1 Mg PO DAILY Reported Vitamin C (Ascorbic Acid) 250 Mg Tab 500 Mg PO Fluticasone Nasal [place] 50 Mcg/Act Naspr 50 Mcg EACH NARE BID 50 mcg/spray Hydrochlorothiazide 25 Mg Tab 25 Mg PO DAILY Prezcobix (Darunavir-Cobicistat) 800-150 Mg Tab 1 Tab PO DAILY Lisinopril 20 Mg Tab 20 Mg PO DAILY Pravastatin 40 Mg Tab 40 Mg PO DAILY Descovy (Emtricitabine-Tenofovir Alafenamide) 200-25 mg Tab 1 Tab PO DAILY Proair Hfa 8.5 GM Inh (Albuterol Sulfate) 90 Mcg/Act Aer 2 Puff INH Q4-6H PRN 108 mcg/actuation Carvedilol 12.5 Mg Tab 12.5 Mg PO BID Active Ordered Medications Current Medications Medications (Trade) Dose Ordered Sig/Debi Route Start Time Stop Time Status Last Admin (NS Flush) 2 ml UNSCH PRN IVF 01/22/17 10:15 (NS Flush) 2 ml BID IV FLUSH 01/22/17 21:00 (Tylenol) 500 mg Q4H PRN PO 01/22/17 12:30 (Zofran Inj) 4 mg Q6H PRN IV PUSH 01/22/17 12:30 (Nitrostat Sl) 0.4 mg Q5M PRN SL 01/22/17 12:30 (Aspirin) 325 mg DAILY PO 01/23/17 09:00 Family History Father [place] and CVA-age unknown. Social History Known hypertension and hyperlipidemia. No known diabetes or coronary artery disease. Current smoker reporting decreased from 1 pack daily to a couple cigarettes daily. Endorses an occasional beer. Denies any substance abuse. Endorses past crack cocaine use. Reporting last used nearly 2 years ago. Past cardiac testing 12/02/2016 Lexiscan-normal examination 08/20/2011 Lexiscan-no signs of fixed or reversible defects. EF 45%. Physical Exam Vital Signs Vital Signs Date Time Temp Pulse Resp B/P (MAP) Pulse Ox O2 Delivery O2 Flow Rate FiO2 01/22/17 14:08 01/22/17 13:32 58 18 168/88 (114) 97 Room Air 01/22/17 13:32 58 168/88 (114) 165/89 (114) 01/22/17 12:30 96 21 01/22/17 10:11 96 Room Air 01/22/17 10:11 96 Room Air 01/22/17 10:06 97 Room Air 01/22/17 09:38 97.9 102 20 182/117 (138) 98 Room Air Physical Exam GENERAL: Alert WN, WD, NAD, agitated, male CV: RRR, without murmur, rub, gallop, no JVD, S1-S2 no S3-S4. No carotid bruits RESP: Clear lungs throughout bilateral, no crackles, wheeze, rhonchi, symmetrical chest rise, nonlabored, able to speak in full sentences ABD: Soft, NT, ND, no masses, positive bowel tones EXT: Pulses +24, no dependent edema MS: Normal tone 4 extremities, nontender, no obvious deformities, full range of motion NEURO: CN II through CN XII grossly intact, motor strength 5/5 PSYCH: A+O 3, flat affect, appropriate speech, appropriate mood and affect, insight and judgment SKIN: Normal turgor, normal texture Laboratory Laboratory Tests Test 01/22/17 10:15 01/22/17 13:30 White Blood Count 7.8 Red Blood Count 3.74 Hemoglobin 14.1 Hematocrit 39.9 Mean Corpuscular Volume 106.7 Mean Corpuscular Hemoglobin 37.8 Mean Corpuscular Hemoglobin Concent 35.4 Red Cell Distribution Width 13.0 Platelet Count 239 Mean Platelet Volume 6.6 Neutrophils (%) (Auto) 62.8 Lymphocytes (%) (Auto) 25.4 Monocytes (%) (Auto) 10.9 Eosinophils (%) (Auto) 0.2 Basophils (%) (Auto) 0.7 Neutrophils # (Auto) 4.9 Lymphocytes # (Auto) 2.0 Monocytes # (Auto) 0.9 Eosinophils # (Auto) 0.0 Basophils # (Auto) 0.1 CBC Comment DIFF FINAL Differential Comment Prothrombin Time 12.1 Prothromb Time International Ratio 1.1 Activated Partial Thromboplast Time 36.0 Blood Urea Nitrogen 8 Creatinine 0.83 Random Glucose 103 Total Protein 7.9 Albumin 3.4 Calcium Level 9.2 Alkaline Phosphatase 59 Aspartate Amino Transf (AST/SGOT) 42 Alanine Aminotransferase (ALT/SGPT) 32 Total Bilirubin 0.3 Sodium Level 142 Potassium Level 3.4 Chloride Level 109 Carbon Dioxide Level 27.6 Anion Gap 5 Estimat Glomerular Filtration Rate 117 Total Creatine Kinase 95 74 Troponin I LESS THAN 0.02 LESS THAN 0.02 B-Type Natriuretic Peptide 72 Lipase 283 Result Diagram: 01/22/17 1015 01/22/17 1015 Imaging Last Impressions Chest X-Ray 01/22/17 1004 Signed Impressions: Service Date/Time: Sunday, January 22, 2017 10:18 - CONCLUSION: No evidence of acute cardiopulmonary disease. Murray Torre MD Course EKG Normal sinus rhythm, normal axis, no ST or T-segment changes Caprini VTE Risk Assessment Caprini VTE Risk Assessment: No/Low Risk (score <= 1) Caprini Risk Assessment Model Point Value = 1 Point Value = 2 Point Value = 3 Point Value = 5 Age 41-60 Minor surgery BMI > 25 kg/m2 Swollen legs Varicose veins or History of unexplained or recurrent spontaneous Oral contraceptives or hormone replacement Sepsis (< 1 month) Serious lung disease, including pneumonia (< 1 month) Abnormal pulmonary function Acute myocardial infarction Congestive heart failure (< 1 month) History of inflammatory bowel disease Medical patient at bed rest Age 61-74 Arthroscopic surgery Major open surgery (> 45 min) Laparoscopic surgery (> 45 min) Malignancy Confined to bed (> 72 hours) Immobilizing plaster cast Central venous access Age >= 75 History of VTE Family history of VTE Factor V Leiden Prothrombin [id number] Lupus anticoagulant Anticardiolipin antibodies Elevated serum homocysteine Heparin-induced thrombocytopenia Other congenital or acquired thrombophilia Stroke (< 1 month) Elective arthroplasty Hip, pelvis, or leg fracture Acute spinal cord injury (< 1 month) Prophylaxis Regimen Total Risk Factor Score Risk Level Prophylaxis Regimen 0-1 Low Early ambulation 2 Moderate Order ONE of the following: *Sequential Compression Device (SCD) *Heparin 5000 units SQ BID 3-4 Higher Order ONE of the following medications: *Heparin 5000 units SQ TID *Enoxaparin/Lovenox 40 mg SQ daily (WT < 150 kg, CrCl > 30 mL/min) *Enoxaparin/Lovenox 30 mg SQ daily (WT < 150 kg, CrCl > 10-29 mL/min) *Enoxaparin/Lovenox 30 mg SQ BID (WT < 150 kg, CrCl > 30 mL/min) AND/OR *Sequential Compression Device (SCD) 5 or more Highest Order ONE of the following medications: *Heparin 5000 units SQ TID (Preferred with Epidurals) *Enoxaparin/Lovenox 40 mg SQ daily (WT < 150 kg, CrCl > 30 mL/min) *Enoxaparin/Lovenox 30 mg SQ daily (WT < 150 kg, CrCl > 10-29 mL/min) *Enoxaparin/Lovenox 30 mg SQ BID (WT < 150 kg, CrCl > 30 mL/min) AND *Sequential Compression Device (SCD) Assessment and Plan Assessment and Plan #1 Atypical chest pain-admitted chest pain center. Will rule out with 3 sets of EKGs, cardiac enzymes, and monitor on telemetry. Will be seen and evaluated by Dr. Hi Lamar. Discussed recent normal nuclear stress test, reassurance provided. Discussed most likely will discharge after being ruled out due to recent chemical stress test. Patient became agitated, I suspect he will sign out AMA. [id number] Patient signed out AMA Jammie Chase Jan 22, 2017 15:10
[2017-01-22] MEDS ORDERED: CARVEDILOL 12.5 MG TAB PO SCH (21:00)
[2017-01-22] MEDS ORDERED: SODIUM CHLORIDE 0.9% FLUSH 10 ML FLUSH IV FLUSH SCH (21:00)
--- NOTE | 2017-01-22 21:06 | EKG ---
Date Performed: 01/22/2017 Time Performed: 10:04:57 PTAGE: 56 years EKG: Sinus rhythm WITH SINUS ARRHYTHMIA LEFT AXIS DEVIATION BORDERLINE ECG Compared to prior tracing no significant ch jhoana DOCTOR: Simone Lee Interpretating Date/Time 01/22/2017 21:04:47
[2017-01-23] MEDS ORDERED: PANTOPRAZOLE SOD 40 MG DELAYED RELEASE TAB PO SCH (09:00)
[2017-01-23] MEDS ORDERED: HYDROCHLOROTHIAZIDE 25 MG TAB PO SCH (09:00)
[2017-01-23] MEDS ORDERED: LISINOPRIL 20 MG TAB PO SCH (09:00)
[2017-01-23] MEDS ORDERED: DARUNAVIR PO SCH (09:00)
[2017-01-23] MEDS ORDERED: COBICISTAT PO SCH (09:00)
[2017-01-23] MEDS ORDERED: PRAVASTATIN SOD 40 MG TAB PO SCH (09:00)
[2017-01-23] MEDS ORDERED: DESCOVY PO SCH (09:00)
[2017-01-23] MEDS ORDERED: FOLIC ACID 1 MG TAB PO SCH (09:00)
[2017-01-23] MEDS ORDERED: ASPIRIN 325 MG TAB PO SCH (09:00)
[2017-01-23] MEDS ORDERED: THIAMINE HCL 100 MG TAB PO SCH (09:00)
--- NOTE | 2017-01-25 13:01 | EKG ---
Date Performed: 01/22/2017 Time Performed: 14:10:36 PTAGE: 56 years EKG: SINUS BRADYCARDIA BORDERLINE LEFT AXIS DEVIATION BORDERLINE ECG NO SIG CHANGE PREVIOUS TRACING : 01/22/2017 10.04 DOCTOR: Prabhakar Vegas Interpretating Date/Time 01/25/2017 12:59:29
== END 2017-01-22 17:02 | disposition home or self-care (01) ==
LOC: NEPE 09:37 → NEDA 11:26 → NEPHCDU 13:55
PROVIDERS: ADMIT Internal Medicine Cardiovascular Disease; ATTEND Internal Medicine Cardiovascular Disease
DX: R07.89 Other chest pain (principal); E78.5 Hyperlipidemia, unspecified; I10 Essential (primary) hypertension; J45.909 Unspecified asthma, uncomplicated; M19.90 Unspecified osteoarthritis, unspecified site; R32 Unspecified urinary incontinence; M25.519 Pain in unspecified shoulder; Z21 Asymptomatic human immunodeficiency virus [HIV] infection status; R06.02 Shortness of breath; Z72.0 Tobacco use
CPT/HCPCS: 71010; 80053; 82550; 83690; 83880; 84484; 85025; 85610; 85730; 93005; 99285; G0378

== ENCOUNTER 2017-03-23 22:26 | Emergency (ER) | payer MEDICAID ==
[~2017-03-23] VITALS: Ht 185.4 cm; Wt 95.0 kg
[~2017-03-23 22:26] MED LIST changes: -GNP100TA3 PO; +THIA100 PO
[2017-03-23 22:34] VITALS: BP 118/68; PULSE 111; RESP 18; TEMP 98.5; O2SAT 95
--- NOTE | 2017-03-23 22:54 | PD ---
HPI Chief Complaint: Skin Problem Time Seen by Provider: 22:45 Travel History International Travel<30 days: No Contact w/Intl Traveler<30days: No Traveled to known affect area: No History of Present Illness HPI This is a 56-year-old male with a history of HIV, hyperlipidemia, bipolar disorder who presents for evaluation of chronic anal genital warts. He has had anal genital warts for several months. He reports that his physician is in the process of setting up an appointment for surgical intervention with a 911 telecommunicator however because of the current holiday this has not yet been completed. The patient is presenting tonight hoping that the warts could be removed. He reports occasional ulceration and bleeding from the warts which is worse when he is having a bowel movement. He was seen at [facility] this morning requesting the same thing and he was discharged. He has no acute complaints at this time. History Past Medical Histgory Hx Cancer: No Social History Alcohol Use: Yes (DAILY ) Tobacco Use: Yes (half a pack a day) Allergies-Medications (Allergen,Severity, Reaction): Coded Allergies: Sulfa (Sulfonamide Antibiotics) (Unverified Allergy, Severe, HIVES, ) penicillin G (Unverified Allergy, Severe, HIVES, 03/23/17) Reported Meds & Prescriptions Reported Meds & Active Scripts Active Walker with Front Wheels (Device) 1 Mis Mis 1 Ea .ROUTE DIRECTED Pantoprazole (Pantoprazole Sodium) 40 Mg Tab 40 Mg PO DAILY Gnp Vitamin B-1 (Thiamine HCl) 100 Mg Tab 100 Mg PO DAILY Folic Acid 1 Mg Tablet 1 Mg PO DAILY Reported Vitamin C (Ascorbic Acid) 250 Mg Tab 500 Mg PO Fluticasone Nasal [place] 50 Mcg/Act Naspr 50 Mcg EACH NARE BID 50 mcg/spray Hydrochlorothiazide 25 Mg Tab 25 Mg PO DAILY Prezcobix (Darunavir-Cobicistat) 800-150 Mg Tab 1 Tab PO DAILY Lisinopril 20 Mg Tab 20 Mg PO DAILY Pravastatin 40 Mg Tab 40 Mg PO DAILY Descovy (Emtricitabine-Tenofovir Alafenamide) 200-25 mg Tab 1 Tab PO DAILY Proair Hfa 8.5 GM Inh (Albuterol Sulfate) 90 Mcg/Act Aer 2 Puff INH Q4-6H PRN 108 mcg/actuation Carvedilol 12.5 Mg Tab 12.5 Mg PO BID Review of Systems General / Constitutional: No: Fever, Chills Gastrointestinal: No: Nausea, Vomiting, Diarrhea, Abdominal Pain Skin: Positive Other (positive for painful anal genital warts) Physical Exam Narrative GENERAL: This is a well-developed well-nourished male who is in no acute distress SKIN: Warm and dry. HEAD: Atraumatic. Normocephalic. EYES: Pupils equal and round. No scleral icterus. No injection or drainage. ENT: No nasal bleeding or discharge. Mucous membranes pink and moist. NECK: Trachea midline. No JVD. CARDIOVASCULAR: Regular rate and rhythm. No murmur appreciated. RESPIRATORY: No accessory muscle use. Clear to auscultation. Breath sounds equal bilaterally. GASTROINTESTINAL: Abdomen soft, non-tender, nondistended. Hepatic and splenic margins not palpable. Examination of the rectum reveals condyloma acuminata surrounding the rectal area, tender to palpation, with some excoriation and no active bleeding. Data Data Last Documented VS Vital Signs Date Time Temp Pulse Resp B/P (MAP) Pulse Ox O2 Delivery O2 Flow Rate FiO2 03/23/17 22:34 98.5 111 18 118/68 (85) 95 Room Air MDM Medical Screen Exam Complete: Yes Emergency Medical Condition: No Narrative Course 56-year-old male with chronic anal warts presents requesting at the warts be removed. His physician is in the process of setting up an appointment with a 911 telecommunicator for surgical excision however he did not want to wait until after the holidays. he has no emergent medical condition at this time. A medical screening exam was performed: At the time of evaluation the presenting medical condition was determined not to be of an emergent nature. The patient was given the option of receiving additional care, but declined. Patient was given options for additional community resources from which to obtain care. The Patient Has Been advised to seek medical attention for their presenting complaint. The patient has been advised to return to the ER at any time if an emergent condition develops. Primary Impression: Encounter for medical screening examination Isauro Carvajal Mar 23, 2017 22:54
== END 2017-03-23 23:05 | disposition left against medical advice (07) ==
LOC: NEPD 22:26
DX: A63.0 Anogenital (venereal) warts (principal)
CPT/HCPCS: 99281

== ENCOUNTER 2017-05-03 19:03 | Emergency (ER) | payer MEDICAID ==
[~2017-05-03] VITALS: Ht 182.9 cm; Wt 90.0 kg
[2017-05-03 19:21] VITALS: BP 115/70; PULSE 95; RESP 16; TEMP 98.9; O2SAT 96
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
--- NOTE | 2017-05-03 19:59 | RADRPT ---
EXAM DATE/TIME: 05/03/2017 19:40 [facility] COMPARISON: No previous studies available for comparison. INDICATIONS : Left ankle pain and swelling for the past three weeks. MEDICAL HISTORY : Hypercholesterolemia. Hypertension. HIV. SURGICAL HISTORY : Appendectomy. Right shoulder ORIF. ENCOUNTER: Initial ACUITY: 3 weeks PAIN SCORE: 5/10 LOCATION: Left ankle. FINDINGS: No definite fractures, or dislocations are identified. No definite lytic or sclerotic lesion is seen . Soft tissue swelling is identified. CONCLUSION: Soft tissue swelling and no definite fracture for tae. Misael Gillespie MD on May 03, 2017 at 19:57 Board Certified Radiologist. This report was verified electronically.
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
[2017-05-03] MEDS ORDERED: NAPR500 PO (20:20)
[2017-05-03] MEDS ORDERED: NAPROXEN 500 MG TAB PO ONE (20:30)
== END 2017-05-03 20:39 | disposition home or self-care (01) ==
LOC: NEPD 19:03
DX: S42.301A Unspecified fracture of shaft of humerus, right arm, initial encounter for closed fracture (principal); Y00.XXXA Assault by blunt object, initial encounter; S93.402A Sprain of unspecified ligament of left ankle, initial encounter; W19.XXXA Unspecified fall, initial encounter; E78.00 Pure hypercholesterolemia, unspecified; F20.9 Schizophrenia, unspecified; I10 Essential (primary) hypertension; B20 Human immunodeficiency virus [HIV] disease; F17.200 Nicotine dependence, unspecified, uncomplicated
CPT/HCPCS: 73030; 73610; 99284; E0113

== ENCOUNTER 2017-05-05 18:20 | Emergency (ER) | payer MEDICAID ==
[~2017-05-05 18:20] MED LIST changes: +NAPR500 PO
[2017-05-05 18:28] VITALS: BP 118/72; PULSE 91; RESP 18; TEMP 98.2; O2SAT 98
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
== END 2017-05-05 19:15 | disposition left against medical advice (07) ==
LOC: NEDAMB 18:20
DX: M54.9 Dorsalgia, unspecified (principal)
CPT/HCPCS: 99281

== ENCOUNTER 2017-05-07 10:11 | Emergency (ER) | payer MEDICAID ==
[~2017-05-07] VITALS: Ht 180.3 cm; Wt 75.0 kg
[2017-05-07 10:20] VITALS: BP 88/56; PULSE 80; RESP 14; TEMP 97.6; O2SAT 99
[2017-05-07] MEDS ORDERED: DARU1TAB2 PO (10:22)
[2017-05-07] MEDS ORDERED: SODIUM CHLOR 0.9% 1000 ML INJ 1,000 ML IV SCH (10:40)
[2017-05-07] MEDS ORDERED: SODIUM CHLORIDE 0.9% FLUSH 10 ML FLUSH IV FLUSH PRN (10:45)
[2017-05-07 10:57] VITALS: BP 105/88
[2017-05-07 10:58] LABS: AUTOMATED NEUTROPHIL # 6.6 TH/MM3 (1.8-7.7); BASOPHIL % 0.5 % (0.0-2.0); EOSINOPHIL # 0.1 TH/MM3 (0-0.4); EOSINOPHIL % 1.4 % (0.0-4.0); HEMATOCRIT 37.4 % (39.0-51.0); HEMOGLOBIN 13.4 GM/DL (13.0-17.0); LYMPH % 19.6 % (9.0-44.0); LYMPHOCYTE # 1.9 TH/MM3 (1.0-4.8); MEAN CELL VOLUME 102.2 FL (80.0-100.0); MEAN CORPUSCULAR HEMOGLOBIN 36.6 PG (27.0-34.0); MEAN CORPUSCULAR HGB CONC 35.8 % (32.0-36.0); MEAN PLATELET VOLUME 6.9 FL (7.0-11.0); MONO % 10.3 % (0.0-8.0); NEUT % 68.2 % (16.0-70.0); PLATELET COUNT 307 TH/MM3 (150-450); RED BLOOD COUNT 3.66 MIL/MM3 (4.50-5.90); RED CELL DISTRIBUTION WIDTH 12.9 % (11.6-17.2); WHITE BLOOD COUNT 9.7 TH/MM3 (4.0-11.0)
[2017-05-07 11:16] LABS: ALBUMIN 3.4 GM/DL (3.4-5.0); ALT (GPT) 16 U/L (12-78); AST (GOT) 30 U/L (15-37); BICARBONATE 31.2 MEQ/L (21.0-32.0); BLOOD UREA NITROGEN 51 MG/DL (7-18); CALCIUM 8.3 MG/DL (8.5-10.1); CHLORIDE 99 MEQ/L (98-107); CREATININE 3.14 MG/DL (0.60-1.30); GLOMERULAR FILTRATION RATE 25 ML/MIN (>89); GLUCOSE,RANDOM 84 MG/DL (74-106); SODIUM (NA) 138 MEQ/L (136-145)
[2017-05-07 11:20] LABS: ALKALINE PHOSPHATASE 87 U/L (45-117); TOTAL BILIRUBIN ADULT 0.7 MG/DL (0.2-1.0); TOTAL PROTEIN 7.6 GM/DL (6.4-8.2); TROPONIN I LESS THAN 0.02 NG/ML (0.02-0.05)
--- NOTE | 2017-05-07 12:08 | RADRPT ---
EXAM DATE/TIME: 05/07/2017 11:52 [facility] COMPARISON: CT BRAIN W/O CONTRAST, January 20, 2017, 2:48. INDICATIONS : Altered mental status, recent fall, dizziness. RADIATION DOSE: 56.35 CTDIvol (mGy) MEDICAL HISTORY : Hypertension. Cardiovascular disease Schizophrenia, Bipolar disorder. SURGICAL HISTORY : None. ENCOUNTER: Initial ACUITY: 1 day PAIN SCALE: 3/10 LOCATION: cranial TECHNIQUE: Multiple contiguous axial images were obtained of the head. Using automated exposure control and adj ustment of the mA and/or kV according to patient size, radiation dose was kept as low as reasonably a chievable to obtain optimal diagnostic quality images. DICOM format image data is available electro nically for review and comparison. FINDINGS: CEREBRUM: The ventricles are normal for age. No evidence of midline shift, mass lesion, hemorrhage or acute in farction. No extra-axial fluid collections are seen. POSTERIOR FOSSA: The cerebellum and brainstem are intact. The 4th ventricle is midline. The cerebellopontine angle i s unremarkable. EXTRACRANIAL: The visualized portion of the orbits is intact. SKULL: The calvaria is intact. No evidence of skull fracture. CONCLUSION: Negative for an acute process. Feng Jasso MD FACR on May 07, 2017 at 12:05 Board Certified Radiologist. This report was verified electronically.
[2017-05-07 12:18] VITALS: BP 108/64; RESP 15; O2SAT 99
--- NOTE | 2017-05-07 12:26 | RADRPT ---
EXAM DATE/TIME: 05/07/2017 11:02 [facility] COMPARISON: CHEST SINGLE AP, January 22, 2017, 10:18. INDICATIONS : Syncope. MEDICAL HISTORY : Hypercholesterolemia. Hypertension. HIV. SURGICAL HISTORY : Appendectomy. ORIF right shoulder. ENCOUNTER: Initial ACUITY: 1 day PAIN SCORE: 0/10 LOCATION: Bilateral chest FINDINGS: The heart is enlarged. The pulmonary vascular pattern is normal. The lungs are clear CONCLUSION: Cardiomegaly. No focal infiltrate or pulmonary vascular congestion. Kimo Martinez MD on May 07, 2017 at 12:23 Board Certified Radiologist. This report was verified electronically.
--- NOTE | 2017-05-07 12:48 | EKG ---
Date Performed: 05/07/2017 Time Performed: 10:20:15 PTAGE: 56 years EKG: Sinus rhythm POSSIBLE INFERIOR MYOCARDIAL INFARCTION ABNORMAL ECG PREVIOUS TRACING : 01/22/2017 14.10 DOCTOR: Alfonso Valencia Interpretating Date/Time 05/07/2017 12:46:30
--- NOTE | 2017-05-07 13:26 | RADRPT ---
EXAM DATE/TIME: 05/07/2017 12:51 [facility] COMPARISON: No previous studies available for comparison. INDICATIONS : Left leg edema. MEDICAL HISTORY : Hypercholesterolemia. Arthritis. Hypertension. Thyroid disease. HIV. Asthma. SURGICAL HISTORY : Appendectomy. Orthopedic surgery. ENCOUNTER: Initial ACUITY: 3 days PAIN SCORE: 0/10 LOCATION: Left leg TECHNIQUE: Venous ultrasound of the leg was performed from the inguinal ligament to the proximal calf. Real-bessy e, color Doppler and spectral tracing, compression and augmentation techniques were used. FINDINGS: There is normal compressibility of the deep venous system from the inguinal region to the proximal ca lf. No echogenic clot is seen in the lumen of the common femoral, femoral, popliteal, and posterior tibial veins. There is a normal response of the venous system to proximal and distal augmentation an d respiration. CONCLUSION: Normal examination. Murray Andino MD on May 07, 2017 at 13:24 Board Certified Radiologist. This report was verified electronically.
--- NOTE | 2017-05-07 14:23 | PD ---
HPI Chief Complaint: Dizziness Time Seen by Provider: 10:33 Travel History International Travel<30 days: No Contact w/Intl Traveler<30days: No Traveled to known affect area: No History of Present Illness HPI Patient is a 56-year-old male who comes in after he passed out today. He says he does not know what happened, but he fell out of his bed. He did take his 3 blood pressure medications this morning as well as 2 tramadol. He had low blood pressure when EMS arrived. He was given fluids by EMS with some improvement. He says he has pain to his left leg which has been swollen because he is walking on it a lot. He denies chest pain or shortness of breath. He denies abdominal pain. He says he has been having diarrhea since having a colonoscopy a few days ago. He says he has a follow-up appointment with them next week. He says he is already improved. Severity is mild. PFSH Past Medical History Hx Anticoagulant Therapy: Yes Arthritis: Yes Asthma: Yes Blood Disorders: Yes (HIV) Bipolar Disorder: Yes Anxiety: Yes Depression: Yes Heart Rhythm Problems: No Cancer: No Cardiac Catheterization: No Cardiovascular Problems: Yes High Cholesterol: Yes Chest Pain: Yes Congestive Heart Failure: No Diabetes: No Diminished Hearing: No Gastrointestinal Disorders: No Genitourinary: Yes (incontinence) Heparin Induced Thrombocytopen: No Hypertension: Yes Immune Disorder: Yes (HIV) Implanted Vascular Access Dvce: Yes Musculoskeletal: Yes (shoulder pain ) Neurologic: No Psychiatric: Yes Reproductive: No Respiratory: Yes Immunizations Current: Yes Schizophrenia: Yes Past Surgical History Abdominal Surgery: Yes (APPENDECTOMY) Appendectomy: Yes Body Medical Devices: metal plate in r shoulder Coronary Artery Bypass Graft: No Pacemaker: No Other Surgery: Yes (R+Shoulder, appendix) Social History Alcohol Use: Yes (DAILY ) Tobacco Use: Yes (half a pack a day) Substance Use: No (DENIES) Allergies-Medications (Allergen,Severity, Reaction): Coded Allergies: Sulfa (Sulfonamide Antibiotics) (Verified Allergy, Severe, HIVES, 05/07/17) penicillin G (Verified Allergy, Severe, HIVES, 05/07/17) Reported Meds & Prescriptions Reported Meds & Active Scripts Active Naprosyn (Naproxen) 500 Mg Tab 500 Mg PO BID Walker with Front Wheels (Device) 1 Mis Mis 1 Ea .ROUTE DIRECTED Pantoprazole (Pantoprazole Sodium) 40 Mg Tab 40 Mg PO DAILY Gnp Vitamin B-1 (Thiamine HCl) 100 Mg Tab 100 Mg PO DAILY Folic Acid 1 Mg Tablet 1 Mg PO DAILY Reported Prezcobix (Darunavir-Cobicistat) 800-150 Mg Tab 1 Tab PO DAILY Vitamin C (Ascorbic Acid) 250 Mg Tab 500 Mg PO Fluticasone Nasal [place] 50 Mcg/Act Naspr 50 Mcg EACH NARE BID 50 mcg/spray Hydrochlorothiazide 25 Mg Tab 25 Mg PO DAILY Prezcobix (Darunavir-Cobicistat) 800-150 Mg Tab 1 Tab PO DAILY Lisinopril 20 Mg Tab 20 Mg PO DAILY Pravastatin 40 Mg Tab 40 Mg PO DAILY Descovy (Emtricitabine-Tenofovir Alafenamide) 200-25 mg Tab 1 Tab PO DAILY Proair Hfa 8.5 GM Inh (Albuterol Sulfate) 90 Mcg/Act Aer 2 Puff INH Q4-6H PRN 108 mcg/actuation Carvedilol 12.5 Mg Tab 12.5 Mg PO BID Review of Systems Except as stated in HPI: all other systems reviewed are Neg General / Constitutional: No: Fever, Chills Eyes: No: Blurred Vision HENT: No: Headaches, Lightheadedness Cardiovascular: No: Chest Pain or Discomfort Respiratory: No: Shortness of Breath Gastrointestinal: No: Nausea, Vomiting Genitourinary: No: Dysuria Musculoskeletal: Positive: Edema, Pain Skin: No Rash, No Change in Pigmentation Neurologic: No: Weakness, Dizziness Physical Exam Narrative GENERAL: Awake and alert, no acute distress. SKIN: Focused skin assessment warm/dry. No wounds or signs of infection. HEAD: Atraumatic. Normocephalic. EYES: Pupils equal and round. No scleral icterus. ENT: Mucous membranes pink and moist. NECK: Trachea midline. No JVD. CARDIOVASCULAR: Regular rate and rhythm. No murmur appreciated. RESPIRATORY: No accessory muscle use. Clear to auscultation. Breath sounds equal bilaterally. GASTROINTESTINAL: Abdomen soft, non-tender, nondistended. MUSCULOSKELETAL: No obvious deformities. No clubbing. No cyanosis. Mild edema to the left leg. Pedal pulses intact. NEUROLOGICAL: Awake and alert. No obvious cranial nerve deficits. Motor grossly within normal limits. Normal speech. PSYCHIATRIC: Appropriate mood and affect; insight and judgment normal. Data Data Last Documented VS Vital Signs Date Time Temp Pulse Resp B/P (MAP) Pulse Ox O2 Delivery O2 Flow Rate FiO2 05/07/17 12:18 15 108/64 (79) 99 05/07/17 10:51 80 Room Air 05/07/17 10:20 97.6 Orders Orders Complete Blood Count With Diff (05/07/17 10:40) Comprehensive Metabolic Panel (05/07/17 10:40) Creatine Kinase (Cpk) (05/07/17 10:40) Prothrombin Time / Inr (Pt) (05/07/17 10:40) Act Partial Throm Time (Ptt) (05/07/17 10:40) Troponin I (05/07/17 10:40) Urinalysis - C+S If Indicated (05/07/17 10:40) Chest, Single Ap (05/07/17 10:40) Ct Brain W/O Iv Contrast(Rout) (05/07/17 10:40) Blood Glucose (05/07/17 10:40) Ecg Monitoring (05/07/17 10:40) Iv Access Insert/Monitor (05/07/17 10:40) Oximetry (05/07/17 10:40) Sodium Chloride 0.9% Flush (Ns Flush) (05/07/17 10:45) Sodium Chlor 0.9% 1000 Ml Inj (Ns 1000 M (05/07/17 10:40) Alcohol (Ethanol) (05/07/17 10:40) Electrocardiogram (05/07/17 10:20) Us Leg Venous Doppler (05/07/17 ) Labs Laboratory Tests Test 05/07/17 10:30 White Blood Count 9.7 TH/MM3 Red Blood Count 3.66 MIL/MM3 Hemoglobin 13.4 GM/DL Hematocrit 37.4 % Mean Corpuscular Volume 102.2 FL Mean Corpuscular Hemoglobin 36.6 PG Mean Corpuscular Hemoglobin Concent 35.8 % Red Cell Distribution Width 12.9 % Platelet Count 307 TH/MM3 Mean Platelet Volume 6.9 FL Neutrophils (%) (Auto) 68.2 % Lymphocytes (%) (Auto) 19.6 % Monocytes (%) (Auto) 10.3 % Eosinophils (%) (Auto) 1.4 % Basophils (%) (Auto) 0.5 % Neutrophils # (Auto) 6.6 TH/MM3 Lymphocytes # (Auto) 1.9 TH/MM3 Monocytes # (Auto) 1.0 TH/MM3 Eosinophils # (Auto) 0.1 TH/MM3 Basophils # (Auto) 0.0 TH/MM3 CBC Comment DIFF FINAL Differential Comment Prothrombin Time 10.0 SEC Prothromb Time International Ratio 1.0 RATIO Activated Partial Thromboplast Time 28.3 SEC Blood Urea Nitrogen 51 MG/DL Creatinine 3.14 MG/DL Random Glucose 84 MG/DL Total Protein 7.6 GM/DL Albumin 3.4 GM/DL Calcium Level 8.3 MG/DL Alkaline Phosphatase 87 U/L Aspartate Amino Transf (AST/SGOT) 30 U/L Alanine Aminotransferase (ALT/SGPT) 16 U/L Total Bilirubin 0.7 MG/DL Sodium Level 138 MEQ/L Potassium Level 3.2 MEQ/L Chloride Level 99 MEQ/L Carbon Dioxide Level 31.2 MEQ/L Anion Gap 8 MEQ/L Estimat Glomerular Filtration Rate 25 ML/MIN Total Creatine Kinase 109 U/L Troponin I LESS THAN 0.02 NG/ML Ethyl Alcohol Level 21 MG/DL [facility] Medical Decision Making Medical Screen Exam Complete: Yes Emergency Medical Condition: Yes Medical Record Reviewed: Yes Interpretation(s) ECG shows normal sinus rhythm at 76, no ST elevation or depression, artifact present. Differential Diagnosis Medication overdose versus intoxication versus dehydration versus ACS Narrative Course Patient is a 56-year-old male who comes in after he fell out of bed. His only complaint is left leg pain. IV established, labs sent. Labs concerning for a creatinine of 3.1. His creatinine was under 1 in December. Patient given IV fluids. Ultrasound of his leg performed shows no evidence of DVT. CT head performed shows no acute abnormalities. Last [address] 05/07/17 1040 Signed Impressions: Service Date/Time: Sunday, May 07, 2017 11:52 - CONCLUSION: Negative for an acute process. Feng Jasso MD FACR Chest X-Ray 05/07/17 1040 Signed Impressions: Service Date/Time: Sunday, May 07, 2017 11:02 - CONCLUSION: Cardiomegaly. No focal infiltrate or pulmonary vascular congestion. Kimo Martinez MD Lower Extremity Ultrasound 05/07/17 0000 Signed Impressions: Service Date/Time: Sunday, May 07, 2017 12:51 - CONCLUSION: Normal examination. Murray Andino MD I spoke with the patient at length, explaining that he should be admitted to the hospital for care of his kidney failure. He says he has appointments with his doctors tomorrow and he needs to go to them and he refuses to stay. Patient advised that he needs to inform his doctor of these results and return at anytime for any worsening symptoms. Diagnosis Primary Impression: NATHAN (acute kidney injury) Additional Impressions: Dehydration Fall Qualified Codes: W19.XXXA - Unspecified fall, initial encounter Patient Instructions: Acute Kidney Injury (GEN), General Instructions Additional Instructions: Tell your doctor your Creatinine was 3.1 today. You should be admitted to the hospital, but you are choosing to leave to follow up with your doctors. Return at any time for any worsening symptoms. Disposition: 01 DISCHARGE HOME Condition: Stable Kori Almeida MD May 07, 2017 14:23
[2017-05-07 14:37] VITALS: BP 110/82
== END 2017-05-07 14:51 | disposition home or self-care (01) ==
LOC: NEPE 10:11
DX: N17.9 Acute kidney failure, unspecified (principal); E86.0 Dehydration; W06.XXXA Fall from bed, initial encounter; R94.31 Abnormal electrocardiogram [ECG] [EKG]; F31.9 Bipolar disorder, unspecified; J45.909 Unspecified asthma, uncomplicated; E78.00 Pure hypercholesterolemia, unspecified; I10 Essential (primary) hypertension; F20.9 Schizophrenia, unspecified; F17.210 Nicotine dependence, cigarettes, uncomplicated; Z21 Asymptomatic human immunodeficiency virus [HIV] infection status; Z79.899 Other long term (current) drug therapy
CPT/HCPCS: 70450; 71045; 80053; 80307; 82550; 84484; 85025; 85610; 85730; 93005; 93971; 99285; J7030

== ENCOUNTER 2017-07-31 21:10 | Emergency (ER) | payer MEDICAID ==
[2017-07-31 21:18] VITALS: BP 134/90; PULSE 94; RESP 16; TEMP 99; O2SAT 96
[2017-07-31 21:27] VITALS: BP 138/88; PULSE 88; RESP 20; TEMP 98; O2SAT 98
[2017-07-31] MEDS ORDERED: TRAM50TA PO (22:26)
--- NOTE | 2017-07-31 22:28 | PD ---
HPI Chief Complaint: Bleeding Time Seen by Provider: 21:39 Travel History International Travel<30 days: No Contact w/Intl Traveler<30days: No Traveled to known affect area: No History of Present Illness HPI This patient complains of some pain and bleeding from his surgical site. 3 days ago he had what he describes as laser surgery to remove rectal warts. He is having some pain and irritation in the area. Occasionally has some bleeding after a bowel movement. He has not discussed his problems with the surgeon. He has a follow-up in 3 weeks. Symptom severity is moderate. Duration 2 days PFSH Past Medical History Hx Anticoagulant Therapy: Yes Arthritis: Yes Asthma: Yes Blood Disorders: Yes (HIV) Bipolar Disorder: Yes Anxiety: Yes Depression: Yes Heart Rhythm Problems: No Cancer: No Cardiac Catheterization: No Cardiovascular Problems: Yes High Cholesterol: Yes Chest Pain: Yes Congestive Heart Failure: No Diabetes: No Diminished Hearing: No Gastrointestinal Disorders: No Genitourinary: Yes (incontinence) Heparin Induced Thrombocytopen: No Hypertension: Yes Immune Disorder: Yes (HIV) Implanted Vascular Access Dvce: Yes Musculoskeletal: Yes (shoulder pain ) Neurologic: No Psychiatric: Yes Reproductive: No Respiratory: Yes Immunizations Current: Yes Schizophrenia: Yes Tetanus Vaccination: Unknown Influenza Vaccination: Yes Past Surgical History Abdominal Surgery: Yes (APPENDECTOMY) Appendectomy: Yes Body Medical Devices: metal plate in r shoulder Coronary Artery Bypass Graft: No Pacemaker: No Other Surgery: Yes (R+Shoulder, appendix) Family History Family Myocardial Infarction: Yes (FATHER) Social History Alcohol Use: Yes (DAILY ) Tobacco Use: Yes (half a pack a day) Substance Use: No (DENIES) Allergies-Medications (Allergen,Severity, Reaction): Coded Allergies: Sulfa (Sulfonamide Antibiotics) (Verified Allergy, Severe, HIVES, 07/31/17) penicillin G (Verified Allergy, Severe, HIVES, 07/31/17) Reported Meds & Prescriptions Reported Meds & Active Scripts Active Tramadol (Tramadol HCl) 50 Mg Tab 50 Mg PO Q6H PRN Walker with Front Wheels (Device) 1 Mis Mis 1 Ea .ROUTE DIRECTED Pantoprazole (Pantoprazole Sodium) 40 Mg Tab 40 Mg PO DAILY Gnp Vitamin B-1 (Thiamine HCl) 100 Mg Tab 100 Mg PO DAILY Folic Acid 1 Mg Tablet 1 Mg PO DAILY Reported Vitamin C (Ascorbic Acid) 250 Mg Tab 500 Mg PO Fluticasone Nasal [place] 50 Mcg/Act Naspr 50 Mcg EACH NARE BID 50 mcg/spray Hydrochlorothiazide 25 Mg Tab 25 Mg PO DAILY Lisinopril 20 Mg Tab 20 Mg PO DAILY Pravastatin 40 Mg Tab 40 Mg PO DAILY Descovy (Emtricitabine-Tenofovir Alafenamide) 200-25 mg Tab 1 Tab PO DAILY Proair Hfa 8.5 GM Inh (Albuterol Sulfate) 90 Mcg/Act Aer 2 Puff INH Q4-6H PRN 108 mcg/actuation Carvedilol 12.5 Mg Tab 12.5 Mg PO BID Review of Systems General / Constitutional: No: Fever HENT: No: Headaches Cardiovascular: No: Chest Pain or Discomfort Respiratory: No: Cough Physical Exam Narrative GASTROINTESTINAL: Abdomen soft, non-tender, nondistended. Positive bowel sounds. No hepato-splenomegaly, or palpable masses. No guarding. NECK: Symmetrical appearance, midline trachea. No mass or crepitus. Thyroid without enlargement, tenderness, or mass. Rectal: There are some open areas around the rectum where the warts were removed. There is no active bleeding. I do not see any sign of infection. Data Data Last Documented VS Vital Signs Date Time Temp Pulse Resp B/P (MAP) Pulse Ox O2 Delivery O2 Flow Rate FiO2 07/31/17 21:27 98.0 88 20 138/88 (105) 98 Room Air MDM Medical Decision Making Medical Screen Exam Complete: Yes Emergency Medical Condition: Yes Medical Record Reviewed: Yes Differential Diagnosis Postsurgical bleeding, postsurgical pain, cellulitis Narrative Course I have reviewed the patient's electronic medical record. No sign of infection here. No bleeding here at this time. I wrote him a does not tramadol for pain relief. He is advised to contact his surgeon tomorrow morning to report his symptoms and seek follow-up Diagnosis Primary Impression: Postoperative pain Additional Instructions: Follow-up with your surgeon The patient was warned about potential sedation for the medications they will receive on prescription. Med/Other Pt SpecificInfo: Prescription(s) given Scripts Tramadol (Tramadol) 50 Mg Tab 50 MG PO Q6H Y for PAIN, #12 TAB 0 Refills Prov: Brett Coleman MD 07/31/17 Disposition: 01 DISCHARGE HOME Condition: Stable Brett Coleman MD July 31, 2017 22:28
== END 2017-07-31 22:55 | disposition home or self-care (01) ==
LOC: NEPD 21:10
DX: B20 Human immunodeficiency virus [HIV] disease (principal); G89.18 Other acute postprocedural pain; F17.200 Nicotine dependence, unspecified, uncomplicated; E78.00 Pure hypercholesterolemia, unspecified; I10 Essential (primary) hypertension
CPT/HCPCS: 99283

== ENCOUNTER 2017-08-21 22:30 | Emergency (ER) | payer MEDICAID ==
[~2017-08-21] VITALS: Ht 185.4 cm; Wt 92.0 kg
[~2017-08-21 22:30] MED LIST changes: -DARU1TAB2 PO; -NAPR500 PO; +TRAM50TA PO
[2017-08-21 22:50] VITALS: BP 128/80; PULSE 78; RESP 16; TEMP 97.8; O2SAT 98
== END 2017-08-22 00:10 | disposition left against medical advice (07) ==
LOC: NED 23:59
DX: R68.89 Other general symptoms and signs (principal)
CPT/HCPCS: 99281

== ENCOUNTER 2017-08-25 22:50 | Emergency (ER) | payer MEDICAID ==
[2017-08-25 22:52] VITALS: BP 121/88; PULSE 95; RESP 18; TEMP 98.8; O2SAT 97
--- NOTE | 2017-08-25 23:36 | PD ---
HPI Chief Complaint: Pain: Acute or Chronic Time Seen by Provider: 23:08 Travel History International Travel<30 days: No Contact w/Intl Traveler<30days: No Traveled to known affect area: No History of Present Illness HPI 56-year-old male complaints of right arm pain. Patient states that he had a fracture status post right arm surgery in the past. Patient states that he has increasing right arm pain recently. Patient denies any recent injury. Patient states that the pain is sharp pain localized in right upper arm. Patient denies any pain radiation. Patient states that the pain is not worse with movement. Patient also states that he has cataract impending surgery. Patient denies any eye pain. Patient denies chest pain or shortness of breath. Patient denies abdominal pain. Patient denies any other extremity injury. PFSH Past Medical History Hx Anticoagulant Therapy: Yes Arthritis: Yes Asthma: Yes Blood Disorders: Yes (HIV) Bipolar Disorder: Yes Anxiety: Yes Depression: Yes Heart Rhythm Problems: No Cancer: No Cardiac Catheterization: No Cardiovascular Problems: Yes High Cholesterol: Yes Chest Pain: Yes Congestive Heart Failure: No Diabetes: No Diminished Hearing: No Gastrointestinal Disorders: No Genitourinary: Yes (incontinence) Heparin Induced Thrombocytopen: No Hypertension: Yes Immune Disorder: Yes (HIV) Implanted Vascular Access Dvce: Yes Musculoskeletal: Yes (shoulder pain ) Neurologic: No Psychiatric: Yes Reproductive: No Respiratory: Yes Immunizations Current: Yes Schizophrenia: Yes Past Surgical History Abdominal Surgery: Yes (APPENDECTOMY) Appendectomy: Yes Body Medical Devices: metal plate in r shoulder Coronary Artery Bypass Graft: No Pacemaker: No Other Surgery: Yes (R+Shoulder, appendix) Family History Family Myocardial Infarction: Yes (FATHER) Social History Alcohol Use: Yes (DAILY ) Tobacco Use: Yes (half a pack a day) Substance Use: No (DENIES) Allergies-Medications (Allergen,Severity, Reaction): Coded Allergies: Sulfa (Sulfonamide Antibiotics) (Verified Allergy, Severe, HIVES, 08/25/17) penicillin G (Verified Allergy, Severe, HIVES, 08/25/17) Reported Meds & Prescriptions Reported Meds & Active Scripts Active Tramadol (Tramadol HCl) 50 Mg Tab 50 Mg PO Q6H PRN Walker with Front Wheels (Device) 1 Mis Mis 1 Ea .ROUTE DIRECTED Pantoprazole (Pantoprazole Sodium) 40 Mg Tab 40 Mg PO DAILY Gnp Vitamin B-1 (Thiamine HCl) 100 Mg Tab 100 Mg PO DAILY Folic Acid 1 Mg Tablet 1 Mg PO DAILY Reported Vitamin C (Ascorbic Acid) 250 Mg Tab 500 Mg PO Fluticasone Nasal [place] 50 Mcg/Act Naspr 50 Mcg EACH NARE BID 50 mcg/spray Hydrochlorothiazide 25 Mg Tab 25 Mg PO DAILY Lisinopril 20 Mg Tab 20 Mg PO DAILY Pravastatin 40 Mg Tab 40 Mg PO DAILY Descovy (Emtricitabine-Tenofovir Alafenamide) 200-25 mg Tab 1 Tab PO DAILY Proair Hfa 8.5 GM Inh (Albuterol Sulfate) 90 Mcg/Act Aer 2 Puff INH Q4-6H PRN 108 mcg/actuation Carvedilol 12.5 Mg Tab 12.5 Mg PO BID Review of Systems General / Constitutional: No: Fever Eyes: No: Visual changes HENT: No: Headaches Cardiovascular: No: Chest Pain or Discomfort Respiratory: No: Shortness of Breath Gastrointestinal: No: Abdominal Pain Genitourinary: No: Dysuria Musculoskeletal: Positive: Pain Skin: No Rash Neurologic: No: Weakness Psychiatric: No: Depression Endocrine: No: Polydipsia Hematologic/Lymphatic: No: Easy Bruising Physical Exam Narrative GENERAL: Well-nourished, well-developed patient. SKIN: Focused skin assessment warm/dry. HEAD: Normocephalic. EYES: No scleral icterus. No injection or drainage. Pupils 1.5 mm equal reactive. NECK: Supple, trachea midline. No JVD or lymphadenopathy. CARDIOVASCULAR: Regular rate and rhythm without murmurs, gallops, or rubs. RESPIRATORY: Breath sounds equal bilaterally. No accessory muscle use. GASTROINTESTINAL: Abdomen soft, non-tender, nondistended. MUSCULOSKELETAL: No cyanosis, or edema. BACK: Nontender without obvious deformity. No CVA tenderness. Patient has mild diffuse tenderness in the right humerus. Well-healed scar anterior aspect the right shoulder and upper arm. No redness no heat. Sensory motor function distally intact. Data Data Last Documented VS Vital Signs Date Time Temp Pulse Resp B/P (MAP) Pulse Ox O2 Delivery O2 Flow Rate FiO2 08/25/17 22:52 98.8 95 18 121/88 (99) 97 Orders Orders Humerus (Min 2vws) (08/25/17 23:28) [facility] Medical Decision Making Medical Screen Exam Complete: Yes Emergency Medical Condition: Yes Differential Diagnosis Differential diagnosis including acute on chronic right arm pain, new injury, fracture, dislocation. Narrative Course 56-year-old male with right arm pain. History of fracture right humerus status post surgery. Diagnosis Primary Impression: Arthralgia of right upper arm Patient Instructions: General Instructions Additional Instructions: Advil as needed for pain. Follow-up with personal physician. Disposition: 01 DISCHARGE HOME Condition: Stable Sharan Cerrato MD August 25, 2017 23:36
--- NOTE | 2017-08-26 00:04 | RADRPT ---
EXAM DATE: 08/25/2017 11:49 PM EDT AGE/SEX: 56 years / Male INDICATIONS: Right arm pain from unknown injury. CLINICAL DATA: This is the patient's initial encounter. Patient reports that signs and symptoms have been present for 1 day and indicates a pain score of 4/10. MEDICAL/SURGICAL HISTORY: None. . Right humerus surgery. COMPARISON: [facility] [place] COMPLETE (>2VWS), 12/02/2016. . FINDINGS: Again noted are side plate and multiple screws traversing the proximal humerus with hypertrophic de santiago ges in the region of the greater tuberosity an avulsed fragments. There is more healing at the fractu re sites of the greater tuberosity since the prior study. Acute fracture or dislocation is not seen. 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 No evidence for acute fracture. Electronically signed by: Pita Gillespie MD 08/26/2017 12:03 AM EDT
== END 2017-08-26 00:45 | disposition home or self-care (01) ==
LOC: NEPD 22:50
DX: M25.50 Pain in unspecified joint (principal); M79.621 Pain in right upper arm; F31.9 Bipolar disorder, unspecified; F20.9 Schizophrenia, unspecified; F41.9 Anxiety disorder, unspecified; E78.00 Pure hypercholesterolemia, unspecified; I10 Essential (primary) hypertension; B20 Human immunodeficiency virus [HIV] disease; F17.200 Nicotine dependence, unspecified, uncomplicated
CPT/HCPCS: 73060; 99283

== ENCOUNTER 2017-09-20 11:41 | Inpatient (IN) | payer MEDICAID ==
[~2017-09-20] VITALS: Ht 185.4 cm; Wt 90.8 kg
[2017-09-20] VITALS (10 sets, daily range): BP systolic 80–133; BP diastolic 45–87; PULSE 72–97; RESP 16–18; TEMP 97.9–98.3; O2SAT 94–99
[2017-09-20] MEDS: NITROGLYCERIN 0.4 MG SL 25 TABS/BTL SL SCH ×3 (12:00→12:10)
[2017-09-20] MEDS ORDERED: ASPIRIN 81 MG CHEW TAB CHEW ONE (12:00)
[2017-09-20] MEDS ORDERED: SODIUM CHLORIDE 0.9% FLUSH 10 ML FLUSH IVF PRN (12:00)
[2017-09-20] MEDS ORDERED: SODIUM CHLOR 0.9% 1000 ML INJ 1,000 ML IV ONE (12:00)
[2017-09-20] MEDS ORDERED: SODIUM CHLORID 0.9% 500 ML INJ 500 ML IV ONE (12:00)
--- NOTE | 2017-09-20 12:03 | PD ---
HPI Chief Complaint: Dizziness Time Seen by Provider: 11:48 Travel History International Travel<30 days: No Contact w/Intl Traveler<30days: No Traveled to known affect area: No History of Present Illness HPI Patient is a 56 year old male presents to the ER for evaluation of dizziness and chest pain which has very atypical descriptors. Patient is somnolent on arrival and when asked why he declines alcohol, or substance use. patient states sharp pain, no radiation, accompanied by dizziness. EMS states they know him and states frequent alcohol intoxication. History somewhat limited by intoxication. PFSH Past Medical History Hx Anticoagulant Therapy: Yes Arthritis: Yes Asthma: Yes Blood Disorders: Yes (HIV) Bipolar Disorder: Yes Anxiety: Yes Depression: Yes Heart Rhythm Problems: No Cancer: No Cardiac Catheterization: No Cardiovascular Problems: Yes High Cholesterol: Yes Chest Pain: Yes Congestive Heart Failure: No Diabetes: No Diminished Hearing: No Gastrointestinal Disorders: No Genitourinary: Yes (incontinence) Heparin Induced Thrombocytopen: No Hypertension: Yes Immune Disorder: Yes (HIV) Implanted Vascular Access Dvce: Yes Musculoskeletal: Yes (shoulder pain ) Neurologic: No Psychiatric: Yes Reproductive: No Respiratory: Yes Immunizations Current: Yes Schizophrenia: Yes Past Surgical History Abdominal Surgery: Yes (APPENDECTOMY) Appendectomy: Yes Body Medical Devices: metal plate in r shoulder Coronary Artery Bypass Graft: No Pacemaker: No Other Surgery: Yes (R+Shoulder, appendix) Family History Family Myocardial Infarction: Yes (FATHER) Social History Alcohol Use: Yes (DAILY ) Tobacco Use: Yes (half a pack a day) Substance Use: No (HX OF COCAINE ABUSE ) Allergies-Medications (Allergen,Severity, Reaction): Coded Allergies: Sulfa (Sulfonamide Antibiotics) (Verified Allergy, Severe, HIVES, 08/25/17) penicillin G (Verified Allergy, Severe, HIVES, 08/25/17) Reported Meds & Prescriptions Reported Meds & Active Scripts Active Tramadol (Tramadol HCl) 50 Mg Tab 50 Mg PO Q6H PRN Pantoprazole (Pantoprazole Sodium) 40 Mg Tab 40 Mg PO DAILY Reported Vitamin C (Ascorbic Acid) 250 Mg Tab 500 Mg PO DAILY Fluticasone Nasal [place] 50 Mcg/Act Naspr 50 Mcg EACH NARE BID 50 mcg/spray Hydrochlorothiazide 25 Mg Tab 25 Mg PO DAILY Lisinopril 20 Mg Tab 20 Mg PO DAILY Pravastatin 40 Mg Tab 40 Mg PO DAILY Descovy (Emtricitabine-Tenofovir Alafenamide) 200-25 mg Tab 1 Tab PO DAILY Proair Hfa 8.5 GM Inh (Albuterol Sulfate) 90 Mcg/Act Aer 2 Puff INH Q4-6H PRN 108 mcg/actuation Carvedilol 12.5 Mg Tab 12.5 Mg PO BID Review of Systems Except as stated in HPI: all other systems reviewed are Neg Physical Exam Narrative GENERAL: WD/WN somnolent in NAD. SKIN: Warm and dry. HEAD: Boggy hematoma left frontal area. No raya's sign no racoon's eyes.. Normocephalic. EYES: Pupils equal and round. No scleral icterus. No injection or drainage. ENT: No nasal bleeding or discharge. Mucous membranes pink and moist. NECK: Trachea midline. No JVD. CARDIOVASCULAR: Regular rate and rhythm. RESPIRATORY: No accessory muscle use. Clear to auscultation. Breath sounds equal bilaterally. GASTROINTESTINAL: Abdomen soft, non-tender, nondistended. Hepatic and splenic margins not palpable. MUSCULOSKELETAL: Extremities without clubbing, cyanosis, or edema. No obvious deformities. NEUROLOGICAL: Awake and alert. GCS 14 (e-3). Motor grossly within normal limits. Five out of 5 muscle strength in the arms and legs. Normal speech. PSYCHIATRIC: Appropriate mood and affect; insight and judgment normal. Data Data Last Documented VS Vital Signs Date Time Temp Pulse Resp B/P (MAP) Pulse Ox O2 Delivery O2 Flow Rate FiO2 09/20/17 14:00 72 16 108/59 (75) 99 Room Air 09/20/17 13:26 2.00 09/20/17 11:49 97.9 Orders Orders Electrocardiogram (09/20/17 11:48) Ckmb (Isoenzyme) Profile (09/20/17 11:48) Complete Blood Count With Diff (09/20/17 11:48) Comprehensive Metabolic Panel (09/20/17 11:48) Magnesium (Mg) (09/20/17 11:48) Prothrombin Time / Inr (Pt) (09/20/17 11:48) Act Partial Throm Time (Ptt) (09/20/17 11:48) Troponin I (09/20/17 11:48) Chest, Single Ap (09/20/17 11:48) Ecg Monitoring (09/20/17 11:48) Iv Access Insert/Monitor (09/20/17 11:48) Oximetry (09/20/17 11:48) Oxygen Administration (09/20/17 11:48) Sodium Chloride 0.9% Flush (Ns Flush) (09/20/17 12:00) Sodium Chlorid 0.9% 500 Ml Inj (Ns 500 M (09/20/17 12:00) Sodium Chlor 0.9% 1000 Ml Inj (Ns 1000 M (09/20/17 12:00) Lactic Acid (09/20/17 11:50) Drug Screen, Random Urine (09/20/17 11:50) Aspirin Chew (Aspirin Chew) (09/20/17 12:00) Nitroglycerin Sl (Nitrostat Sl) (09/20/17 12:00) Alcohol (Ethanol) (09/20/17 11:59) CKMB (09/20/17 11:59) CKMB% (09/20/17 11:59) Potassium Chlor 20 Meq Premix (Kcl 20 Me (09/20/17 13:30) Potassium Chloride (Kcl) (09/20/17 13:30) Ct Brain W/O Iv Contrast(Rout) (09/20/17 ) Ct Cerv Spine W/O Contrast (09/20/17 ) Basic Metabolic Panel (Bmp) (09/20/17 19:00) Magnesium (Mg) (09/20/17 19:00) Lactic Acid Sepsis Protocol (09/20/17 19:00) Urinalysis - C+S If Indicated (09/20/17 15:51) Neuro Checks Q4H (09/20/17 15:52) Alcohol Withdrawal Asmt-Ciwa Q4HX18 (09/20/17 15:52) ^ Seizure Precautions (09/20/17 15:52) Fuel Operator / Telemetry ANASTASIIA.Q8H (09/20/17 15:52) Folic Acid (Folate) (09/21/17 09:00) Thiamine (Vit B1) (Vitamin B1) (09/21/17 09:00) Multivitamins-Minerals Therap (Theragran (09/21/17 09:00) Flumazenil Inj (Romazicon Inj) (09/20/17 16:00) Lorazepam (Ativan) (09/20/17 16:00) Lorazepam Inj (Ativan Inj) (09/20/17 16:00) Lorazepam (Ativan) (09/20/17 16:00) Lorazepam Inj (Ativan Inj) (09/20/17 16:00) Lorazepam Inj (Ativan Inj) (09/20/17 16:00) Lorazepam Inj (Ativan Inj) (09/20/17 16:00) Haloperidol Inj (Haldol Inj) (09/20/17 16:00) Place In Observation (09/20/17 ) Vital Signs (Adult) Q4H (09/20/17 15:53) Activity Oob With Assistance (09/20/17 15:53) Diet Heart Healthy (09/20/17 Dinner) Sodium Chlor 0.9% 1000 Ml Inj (Ns 1000 M (09/20/17 15:53) Sodium Chloride 0.9% Flush (Ns Flush) (09/20/17 16:00) Sodium Chloride 0.9% Flush (Ns Flush) (09/20/17 21:00) Acetaminophen (Tylenol) (09/20/17 16:00) Ondansetron Inj (Zofran Inj) (09/20/17 16:00) Comprehensive Metabolic Panel (09/21/17 06:00) Complete Blood Count With Diff (09/21/17 06:00) Creatine Kinase (Cpk) (09/21/17 01:00) Troponin I (09/21/17 01:00) Electrocardiogram (09/20/17 19:00) Electrocardiogram (09/21/17 01:00) Resp Oxygen Yonatan C Titrat 1-4 L (09/20/17 ) Pt Request For Service (09/20/17 15:53) Case Management Consult (09/20/17 15:53) Scd Bilateral/Knee High ANASTASIIA.BID (09/20/17 15:53) Acetaminophen (Tylenol) (09/20/17 16:00) Naloxone Inj (Narcan Inj) (09/20/17 16:00) Docusate Sodium-Senna (Peyton-Colace) (09/20/17 21:00) Sennosides (Senokot) (09/20/17 16:00) Bisacodyl Supp (Dulcolax Supp) (09/20/17 16:00) Lactulose Liq (Lactulose Liq) (09/20/17 16:00) Albuterol Hfa Inh (Proair Hfa Inh) (09/20/17 16:00) Fluticasone Yonatan Spr (Flonase Yonatan Spr) (09/20/17 21:00) Pantoprazole (Protonix) (09/21/17 09:00) Tramadol (Ultram) (09/20/17 16:00) (Nf) Emtricitabine-Tenofovir Alafenamide (09/21/17 09:00) Admit Order (Ed Use Only) (09/20/17 ) Creatine Kinase (Cpk) (09/20/17 19:00) Troponin I (09/20/17 19:00) Labs Laboratory Tests Test 09/20/17 11:59 White Blood Count 7.8 TH/MM3 Red Blood Count 3.41 MIL/MM3 Hemoglobin 12.3 GM/DL Hematocrit 34.2 % Mean Corpuscular Volume 100.5 FL Mean Corpuscular Hemoglobin 36.0 PG Mean Corpuscular Hemoglobin Concent 35.8 % Red Cell Distribution Width 13.0 % Platelet Count 298 TH/MM3 Mean Platelet Volume 6.9 FL Neutrophils (%) (Auto) 47.7 % Lymphocytes (%) (Auto) 36.9 % Monocytes (%) (Auto) 11.3 % Eosinophils (%) (Auto) 3.2 % Basophils (%) (Auto) 0.9 % Neutrophils # (Auto) 3.7 TH/MM3 Lymphocytes # (Auto) 2.9 TH/MM3 Monocytes # (Auto) 0.9 TH/MM3 Eosinophils # (Auto) 0.2 TH/MM3 Basophils # (Auto) 0.1 TH/MM3 CBC Comment DIFF FINAL Differential Comment Prothrombin Time 10.4 SEC Prothromb Time International Ratio 1.0 RATIO Activated Partial Thromboplast Time 23.6 SEC Blood Urea Nitrogen 8 MG/DL Creatinine 1.42 MG/DL Random Glucose 86 MG/DL Total Protein 6.6 GM/DL Albumin 2.9 GM/DL Calcium Level 7.5 MG/DL Magnesium Level 1.9 MG/DL Alkaline Phosphatase 66 U/L Aspartate Amino Transf (AST/SGOT) 152 U/L Alanine Aminotransferase (ALT/SGPT) 61 U/L Total Bilirubin 0.5 MG/DL Sodium Level 139 MEQ/L Potassium Level 2.2 MEQ/L Chloride Level 96 MEQ/L Carbon Dioxide Level 28.8 MEQ/L Anion Gap 14 MEQ/L Estimat Glomerular Filtration Rate 63 ML/MIN Lactic Acid Level 3.2 mmol/L Total Creatine Kinase 108 U/L Creatine Kinase MB 0.5 NG/ML Troponin I LESS THAN 0.02 NG/ML Lipase 90 U/L Ethyl Alcohol Level 175 MG/DL [facility] Medical Decision Making Medical Screen Exam Complete: Yes Emergency Medical Condition: Yes Differential Diagnosis Alcohol intoxication, acs, ami, electrolyte abnormality, head injury. Narrative Course Alcohol elevated, Potassium low. CT head negative. Potassium being replaced, patient still falling asleep. Discussed with Dr. Jackson for admission for symptomatic electrolyte abnormality and altered mental status. Diagnosis Primary Impression: Hypokalemia Additional Impressions: Atypical chest pain Alcohol intoxication Admitting Information Admitting Physician Requests: Admit Condition: Stable Kimo Riojas MD Sep 20, 2017 12:03
--- NOTE | 2017-09-20 12:23 | RADRPT ---
EXAM DATE: 09/20/2017 12:15 PM EDT AGE/SEX: 56 years / Male INDICATIONS: Chest pain. CLINICAL DATA: This is the patient's initial encounter. Patient reports that signs and symptoms have been present for 1 day and indicates a pain score of Nonresponsive. MEDICAL/SURGICAL HISTORY: . Hypercholesterolemia. Hypertension. HIV. Appendectomy. ORIF Right shoulder. COMPARISON: [facility] [place], CHEST SINGLE AP, 05/07/2017. . FINDINGS: A single AP view of the chest demonstrates the lungs to be symmetrically aerated without evidence of mass, infiltrate or effusion. The cardiomediastinal contours are unremarkable. Osseous structures a re intact. CONCLUSION: No acute cardiopulmonary disease Electronically signed by: London Soto MD 09/20/2017 12:22 PM EDT
[2017-09-20 12:25] LABS: AUTOMATED NEUTROPHIL # 3.7 TH/MM3 (1.8-7.7); BASOPHIL # 0.1 TH/MM3 (0-0.2); BASOPHIL % 0.9 % (0.0-2.0); EOSINOPHIL # 0.2 TH/MM3 (0-0.4); EOSINOPHIL % 3.2 % (0.0-4.0); HEMATOCRIT 34.2 % (39.0-51.0); HEMOGLOBIN 12.3 GM/DL (13.0-17.0); LYMPH % 36.9 % (9.0-44.0); LYMPHOCYTE # 2.9 TH/MM3 (1.0-4.8); MEAN CELL VOLUME 100.5 FL (80.0-100.0); MEAN CORPUSCULAR HGB CONC 35.8 % (32.0-36.0); MEAN PLATELET VOLUME 6.9 FL (7.0-11.0); MONO % 11.3 % (0.0-8.0); MONOCYTE # 0.9 TH/MM3 (0-0.9); NEUT % 47.7 % (16.0-70.0); PLATELET COUNT 298 TH/MM3 (150-450); RED BLOOD COUNT 3.41 MIL/MM3 (4.50-5.90); WHITE BLOOD COUNT 7.8 TH/MM3 (4.0-11.0)
[2017-09-20 12:33] LABS: PROTHROMBIN TIME - PATIENT 10.4 SEC (9.8-11.6)
[2017-09-20 12:58] LABS: ALBUMIN 2.9 GM/DL (3.4-5.0); ALKALINE PHOSPHATASE 66 U/L (45-117); ALT (GPT) 61 U/L (12-78); AST (GOT) 152 U/L (15-37); BICARBONATE 28.8 MEQ/L (21.0-32.0); BLOOD UREA NITROGEN 8 MG/DL (7-18); CALCIUM 7.5 MG/DL (8.5-10.1); CHLORIDE 96 MEQ/L (98-107); CREATININE 1.42 MG/DL (0.60-1.30); GLOMERULAR FILTRATION RATE 63 ML/MIN (>89); GLUCOSE,RANDOM 86 MG/DL (74-106); MAGNESIUM 1.9 MG/DL (1.5-2.5); SODIUM (NA) 139 MEQ/L (136-145); TOTAL BILIRUBIN ADULT 0.5 MG/DL (0.2-1.0); TOTAL PROTEIN 6.6 GM/DL (6.4-8.2); TROPONIN I LESS THAN 0.02 NG/ML (0.02-0.05)
[2017-09-20] MEDS ORDERED: POTASSIUM CHLORIDE 20 MEQ CONTROLLED RELEASE TAB PO ONE (13:30)
[2017-09-20] MEDS: POTASSIUM CHLOR 20 MEQ PREMIX 100 ML IV SCH ×2 (14:07→17:40)
--- NOTE | 2017-09-20 15:06 | RADRPT ---
EXAM DATE: 09/20/2017 3:04 PM EDT AGE/SEX: 56 years / Male INDICATIONS: Dizziness, weakness, hypotension. CLINICAL DATA: This is the patient's initial encounter. Patient reports that signs and symptoms have been present for 1 day and indicates a pain score of 0/10. MEDICAL/SURGICAL HISTORY: Stroke. Cardiovascular disease. Hypertension. Schizophrenia, drug abus e. Appendectomy. RADIATION DOSE: 39.79 CTDI (mGy) COMPARISON: [facility] [place] BRAIN W/O CONTRAST, 05/07/2017. . TECHNIQUE: CT of the head without contrast. Using automated exposure control and adjustment of the mA and/or kV according to patient size, radiation dose was kept as low as reasonably achievable to ob tain optimal diagnostic quality images. DICOM format image data is available electronically for revi ew and comparison. FINDINGS: Cerebrum: The ventricles are normal for age. No evidence of midline shift, mass lesion, hemorrhage or acute infarction. No extraaxial fluid collections are seen. Posterior Fossa: The cerebellum and brainstem are intact. The 4th ventricle is midline. The cerebe llopontine angle is unremarkable. Extracranial: The visualized portion of the orbits is intact. Skull: The calvaria is intact. No evidence of skull fracture. CONCLUSION: 1. No acute intracranial abnormalities. No significant change from May 07. Electronically signed by: Esequiel Carmen MD 09/20/2017 3:05 PM EDT
--- NOTE | 2017-09-20 15:14 | RADRPT ---
EXAM DATE: 09/20/2017 3:07 PM EDT AGE/SEX: 56 years / Male INDICATIONS: Fall, neck pain. CLINICAL DATA: This is the patient's initial encounter. Patient reports that signs and symptoms have been present for 1 day and indicates a pain score of 4/10. MEDICAL/SURGICAL HISTORY: Stroke. Cardiovascular disease. Hypertension. Schizophrenia, drug abuse. Appendectomy. RADIATION DOSE: 18.85 CTDI (mGy) COMPARISON: [facility] [place] CERVICAL SPINE W/O CONTRAST, 12/02/2016. . TECHNIQUE: Contiguous axial images were obtained using helical multirow detector technique. The vol umetric data was post-processed with multiplanar reconstruction in oblique axial, sagittal, and coron al planes. Using automated exposure control and adjustment of the mA and/or kV according to patient s ize, radiation dose was kept as low as reasonably achievable to obtain optimal diagnostic quality dipesh ges. DICOM format image data is available electronically for review and comparison. FINDINGS: There is mild degenerative disc disease in the cervical spine. No fracture or spondylolisthesis. No p revertebral soft tissue swelling. No significant canal stenosis. CONCLUSION: 1. Mild degenerative change. No acute findings. No significant change since November 2016. Electronically signed by: Esequiel Carmen MD 09/20/2017 3:13 PM EDT
[2017-09-20] MEDS ORDERED: BISACODYL 10 MG SUPP RECTAL PRN (16:00)
[2017-09-20] MEDS ORDERED: LACTULOSE SYRUP 20 GM/30 ML CUP PO PRN (16:00)
[2017-09-20] MEDS ORDERED: LORazepam 2 MG TAB PO PRN (16:00)
[2017-09-20] MEDS ORDERED: SODIUM CHLORIDE 0.9% FLUSH 10 ML FLUSH IV FLUSH PRN (16:00)
[2017-09-20] MEDS ORDERED: LORazepam 1 MG TAB PO PRN (16:00)
[2017-09-20] MEDS ORDERED: ALBUTEROL SULFATE 90 MCG/ACT HFA 8 GM INHALER INH PRN (16:00)
[2017-09-20] MEDS ORDERED: SENNOSIDES 8.6 MG TAB PO PRN (16:00)
[2017-09-20] MEDS ORDERED: NALOXONE HCL 0.4 MG/ML AMP IV PUSH PRN (16:00)
[2017-09-20] MEDS ORDERED: HALOPERIDOL LACTATE 5 MG/ML AMP IM PRN (16:00)
[2017-09-20] MEDS ORDERED: LORazepam 2 MG/ML VIAL IV PUSH PRN ×4 (16:00)
[2017-09-20] MEDS ORDERED: ACETAMINOPHEN 325 MG TAB PO PRN ×2 (16:00)
[2017-09-20] MEDS ORDERED: FLUMAZENIL 0.5 MG/5 ML VIAL IV PUSH PRN (16:00)
--- NOTE | 2017-09-20 17:24 | HHI.HP ---
HPI Service [facility] Primary Care Physician Jeff Hilario, Admission Diagnosis Hypokalemia, Dizziness, Chest pain. Diagnoses: Chief Complaint: fall Travel History International Travel<30 Days: No Contact w/Intl Traveler <30 Da: No Traveled to Known Affected Are: No Sepsis Criteria Severe Sepsis (+one): Lactate >2 History of Present Illness This is a 56-year-old male who presented to the emergency room complaining of chest pain status post fall. States he was in [employer] pharmacy when he fell. Denies injury but reports dizziness especially when he is walking for the past 2 days. He also complained of intermittent left-sided severe sharp chest pain associated with nausea. There is no radiation of pain, palpitations and shortness of breath. Pain is relieved with tramadol and worse with eating. Reports of chronic intermittent vomiting usually in the morning. Denies abdominal pain, UTI symptoms, constipation and diarrhea. Stress test in November 2016 was negative for ischemia. In the emergency room, he was noted to be hypotensive and dehydrated with elevated renal indices and received a total of 3 L (1.5L EMS). He was also severely hypokalemic to 2.2. Received 40 mg p.o. 1 and currently receiving 40 mg IV. He had elevated creatinine level in May 2017 which was related to dehydration. All other systems reviewed negative Review of Systems Except as stated in HPI: all other systems reviewed are Neg Past Family Social History Past Medical History History of HIV undetectable PCR and CD4 400 3 months ago, hyperlipidemia, hypertension, asthma, urinary incontinence, arthritis chronic shoulder pain, schizophrenia, anxiety and depression Past Surgical History Appendectomy, right shoulder surgery Reported Medications Reported Meds & Active Scripts Active Tramadol (Tramadol HCl) 50 Mg Tab 50 Mg PO Q6H PRN Pantoprazole (Pantoprazole Sodium) 40 Mg Tab 40 Mg PO DAILY Reported Vitamin C (Ascorbic Acid) 250 Mg Tab 500 Mg PO DAILY Fluticasone Nasal [place] 50 Mcg/Act Naspr 50 Mcg EACH NARE BID 50 mcg/spray Hydrochlorothiazide 25 Mg Tab 25 Mg PO DAILY Lisinopril 20 Mg Tab 20 Mg PO DAILY Pravastatin 40 Mg Tab 40 Mg PO DAILY Descovy (Emtricitabine-Tenofovir Alafenamide) 200-25 mg Tab 1 Tab PO DAILY Proair Hfa 8.5 GM Inh (Albuterol Sulfate) 90 Mcg/Act Aer 2 Puff INH Q4-6H PRN 108 mcg/actuation Carvedilol 12.5 Mg Tab 12.5 Mg PO BID Allergies: Coded Allergies: Sulfa (Sulfonamide Antibiotics) (Verified Allergy, Severe, HIVES, 08/25/17) penicillin G (Verified Allergy, Severe, HIVES, 08/25/17) Family History Coronary artery disease Social History Drinks alcohol daily. Have a past smoker. History of cocaine abuse Physical Exam Vital Signs Vital Signs Date Time Temp Pulse Resp B/P (MAP) Pulse Ox O2 Delivery O2 Flow Rate FiO2 09/20/17 13:26 81 18 95/52 (66) 99 Nasal Cannula 2.00 09/20/17 11:53 80 16 97 Nasal Cannula 2.00 09/20/17 11:53 76 16 97 Nasal Cannula 2.00 09/20/17 11:53 97 Nasal Cannula 2.00 09/20/17 11:49 97.9 80 16 80/45 (57) 94 Physical Exam GENERAL: This is a well-nourished, well-developed patient, in no apparent distress. He looks dehydrated SKIN: No rashes, ecchymoses or lesions. Cool and dry. HEAD: Atraumatic. Normocephalic. No temporal or scalp tenderness. EYES: Pupils equal round and reactive. Extraocular motions intact. No scleral icterus. No injection or drainage. ENT: Nose without bleeding, purulent drainage or septal hematoma. Throat without erythema, tonsillar hypertrophy or exudate. Uvula midline. Airway patent. NECK: Trachea midline. No JVD or lymphadenopathy. Supple, nontender, no meningeal signs. CARDIOVASCULAR: Regular rate and rhythm without murmurs, gallops, or rubs. Tender left tender upper abdominal areas chest wall RESPIRATORY: Clear to auscultation. Breath sounds equal bilaterally. No wheezes , rales, or rhonchi. GASTROINTESTINAL: Abdomen soft, tender upper abdominal areas. No guarding. MUSCULOSKELETAL: Extremities without clubbing, cyanosis, or edema. No joint tenderness, effusion, or edema noted. No calf tenderness. Negative Homans sign bilaterally. NEUROLOGICAL: Awake and alert. Cranial nerves II through XII intact. Motor and sensory grossly within normal limits. Five out of 5 muscle strength in all muscle groups. Normal speech. Laboratory Laboratory Tests Test 09/20/17 11:59 White Blood Count 7.8 Red Blood Count 3.41 Hemoglobin 12.3 Hematocrit 34.2 Mean Corpuscular Volume 100.5 Mean Corpuscular Hemoglobin 36.0 Mean Corpuscular Hemoglobin Concent 35.8 Red Cell Distribution Width 13.0 Platelet Count 298 Mean Platelet Volume 6.9 Neutrophils (%) (Auto) 47.7 Lymphocytes (%) (Auto) 36.9 Monocytes (%) (Auto) 11.3 Eosinophils (%) (Auto) 3.2 Basophils (%) (Auto) 0.9 Neutrophils # (Auto) 3.7 Lymphocytes # (Auto) 2.9 Monocytes # (Auto) 0.9 Eosinophils # (Auto) 0.2 Basophils # (Auto) 0.1 CBC Comment DIFF FINAL Differential Comment Prothrombin Time 10.4 Prothromb Time International Ratio 1.0 Activated Partial Thromboplast Time 23.6 Blood Urea Nitrogen 8 Creatinine 1.42 Random Glucose 86 Total Protein 6.6 Albumin 2.9 Calcium Level 7.5 Magnesium Level 1.9 Alkaline Phosphatase 66 Aspartate Amino Transf (AST/SGOT) 152 Alanine Aminotransferase (ALT/SGPT) 61 Total Bilirubin 0.5 Sodium Level 139 Potassium Level 2.2 Chloride Level 96 Carbon Dioxide Level 28.8 Anion Gap 14 Estimat Glomerular Filtration Rate 63 Lactic Acid Level 3.2 Total Creatine Kinase 108 Creatine Kinase MB 0.5 Troponin I LESS THAN 0.02 Ethyl Alcohol Level 175 Result Diagram: 09/20/17 1159 09/20/17 1159 Imaging Last Impressions Chest X-Ray 09/20/17 1148 Signed Impressions: CONCLUSION: No acute cardiopulmonary disease Head CT 09/20/17 0000 Signed Impressions: CONCLUSION: 1. No acute intracranial abnormalities. No significant change from May 07. Cervical Spine CT 09/20/17 0000 Signed Impressions: CONCLUSION: 1. Mild degenerative change. No acute findings. No significant change since 2016. Caprini VTE Risk Assessment Caprini VTE Risk Assessment: No/Low Risk (score <= 1) Caprini Risk Assessment Model Point Value = 1 Point Value = 2 Point Value = 3 Point Value = 5 Age 41-60 Minor surgery BMI > 25 kg/m2 Swollen legs Varicose veins or History of unexplained or recurrent spontaneous Oral contraceptives or hormone replacement Sepsis (< 1 month) Serious lung disease, including pneumonia (< 1 month) Abnormal pulmonary function Acute myocardial infarction Congestive heart failure (< 1 month) History of inflammatory bowel disease Medical patient at bed rest Age 61-74 Arthroscopic surgery Major open surgery (> 45 min) Laparoscopic surgery (> 45 min) Malignancy Confined to bed (> 72 hours) Immobilizing plaster cast Central venous access Age >= 75 History of VTE Family history of VTE Factor V Leiden Prothrombin [id number] Lupus anticoagulant Anticardiolipin antibodies Elevated serum homocysteine Heparin-induced thrombocytopenia Other congenital or acquired thrombophilia Stroke (< 1 month) Elective arthroplasty Hip, pelvis, or leg fracture Acute spinal cord injury (< 1 month) Prophylaxis Regimen Total Risk Factor Score Risk Level Prophylaxis Regimen 0-1 Low Early ambulation 2 Moderate Order ONE of the following: *Sequential Compression Device (SCD) *Heparin 5000 units SQ BID 3-4 Higher Order ONE of the following medications: *Heparin 5000 units SQ TID *Enoxaparin/Lovenox 40 mg SQ daily (WT < 150 kg, CrCl > 30 mL/min) *Enoxaparin/Lovenox 30 mg SQ daily (WT < 150 kg, CrCl > 10-29 mL/min) *Enoxaparin/Lovenox 30 mg SQ BID (WT < 150 kg, CrCl > 30 mL/min) AND/OR *Sequential Compression Device (SCD) 5 or more Highest Order ONE of the following medications: *Heparin 5000 units SQ TID (Preferred with Epidurals) *Enoxaparin/Lovenox 40 mg SQ daily (WT < 150 kg, CrCl > 30 mL/min) *Enoxaparin/Lovenox 30 mg SQ daily (WT < 150 kg, CrCl > 10-29 mL/min) *Enoxaparin/Lovenox 30 mg SQ BID (WT < 150 kg, CrCl > 30 mL/min) AND *Sequential Compression Device (SCD) Assessment and Plan Assessment and Plan This is a 56-year-old male who presented to the emergency room complaining of chest pain status post fall. States he was in [employer] pharmacy when he fell. Denies injury but reports dizziness especially when he is walking for the past 2 days. He also complained of intermittent left-sided severe sharp chest pain associated with nausea. There is no radiation of pain, palpitations and shortness of breath. Pain is relieved with tramadol and worse with eating. Reports of chronic intermittent vomiting usually in the morning. Atypical chest pain. Initial cardiac enzymes unremarkable, EKG sinus rhythm Q waves in lead III with nonspecific T change. No significant change from previous. Tracing interpreted by me. Chest x-ray image reviewed by me with no acute cardiopulmonary disease. Trend cardiac enzymes. Unremarkable stress test 2016 Dizziness likely secondary to dehydration with hypotension. Patient received 3 L of IV fluids. We will continue IV hydration. Orthostatic vital signs in the morning. Fall precautions Acute versus chronic kidney disease likely secondary to dehydration. Avoid nephrotoxins. Obtain urinalysis Severe hypokalemia with history of chronic intermittent vomiting. Currently receiving potassium supplementation repeat levels at 7 PM tonight. Elevated lactic acid with no evidence of infection. This is likely secondary to dehydration. Will repeat Abdominal tenderness with elevated AST. Patient on statin with history of alcohol abuse. Obtain lipase and abdominal sonogram. Hold statin for now. [facility] protocol. Counseled regarding alcohol abuse. Multiple medical conditions of HIV, hyperlipidemia, hypertension, asthma, urinary incontinence, arthritis chronic shoulder pain, schizophrenia, anxiety and depression. Continue outpatient medications as appropriate DVT prophylaxis with SCD and early ambulation Discussed Condition With Patient Cricket Jackson MD Sep 20, 2017 17:24
--- NOTE | 2017-09-20 18:43 | RADRPT ---
EXAM DATE: 09/20/2017 5:52 PM EDT AGE/SEX: 56 years / Male INDICATIONS: Nausea/vomiting. CLINICAL DATA: This is the patient's initial encounter. Patient reports that signs and symptoms have been present for 2 days and indicates a pain score of 1/10. MEDICAL/SURGICAL HISTORY: . Hypercholesterolemia. Arthritis. Hypertension. Thyroid disease. HIV . Asthma. . Appendectomy. Orthopedic surgery. COMPARISON: No prior exams available for comparison. MEASUREMENTS: Liver:__ 19.2 cm. Common Bile Duct:__ 6mm. Right Kidney:__ cm. FINDINGS: Liver: Increased echotexture without focal lesion or ductal dilation. Portal Vein: Hepatopedal flow seen in portal vein. Common Duct: No intraluminal mass or stone visualized. Gallbladder: Demonstrates no wall thickening or pericholecystic fluid. No stones visualized. Pancreas: Not well visualized. Right Kidney: Normal echotexture and cortical thickness. No mass or hydronephrosis. Other: None. CONCLUSION: 1. Diffuse fatty liver enlarged to about 19 cm. Pancreas not well visualized. No gallstones or bilia ry ductal dilatation. No free fluid. Electronically signed by: Esequiel Carmen MD 09/20/2017 6:42 PM EDT
[2017-09-20] MEDS: SODIUM CHLOR 0.9% 1000 ML INJ 1,000 ML IV SCH (18:49)
[2017-09-20] MEDS: ONDANSETRON HCL 4 MG/2 ML VIAL IVP PRN (20:41)
[2017-09-20] MEDS: SODIUM CHLORIDE 0.9% FLUSH 10 ML FLUSH IV FLUSH SCH (21:00)
[2017-09-20 22:00] LABS: BICARBONATE 28.2 MEQ/L (21.0-32.0); BLOOD UREA NITROGEN 8 MG/DL (7-18); CALCIUM 8.6 MG/DL (8.5-10.1); CHLORIDE 96 MEQ/L (98-107); CREATININE 1.25 MG/DL (0.60-1.30); GLOMERULAR FILTRATION RATE 73 ML/MIN (>89); GLUCOSE,RANDOM 72 MG/DL (74-106); SODIUM (NA) 138 MEQ/L (136-145); TROPONIN I LESS THAN 0.02 NG/ML (0.02-0.05)
[2017-09-20] MEDS ORDERED: POTASSIUM CHLORIDE 10 MEQ CONTROLLED RELEASE TAB PO ONE (22:15)
[2017-09-20 22:47] LABS: BILIRUBIN, URINE NEG (NEG); BLOOD, URINE NEG (NEG); GLUCOSE,URINE NEG (NEG); HYALINE CAST, URINE 3 /lpf (RARE); KETONE, URINE TRACE mg/dL (NEG); MUCUS URINE FEW /lpf (OCC); NITRITE,URINE NEG (NEG); URINE COLOR YELLOW (YELLW/STRAW); URINE LEUKOCYTE ESTERASE NEG (NEG)
[2017-09-20] MEDS: FLUTICASONE PROPIONATE 50 MCG/ACT 16 GM NASAL SPRAY EACH NARE SCH (23:35)
[2017-09-20] MEDS: traMADol HCL 50 MG TAB PO PRN (23:35)
[2017-09-20] MEDS: DOCUSATE SODIUM 50 MG/SENNA 8.6 MG TAB PO SCH (23:35)
[2017-09-21] VITALS (13 sets, daily range): BP systolic 119–139; BP diastolic 71–87; PULSE 65–90; RESP 17–18; TEMP 97.7–98.8; O2SAT 94–98
[2017-09-21] MEDS: SODIUM CHLOR 0.9% 1000 ML INJ 1,000 ML IV SCH (01:53)
[2017-09-21 03:40] LABS: BASOPHIL # 0.1 TH/MM3 (0-0.2); BASOPHIL % 0.6 % (0.0-2.0); EOSINOPHIL # 0.1 TH/MM3 (0-0.4); EOSINOPHIL % 0.7 % (0.0-4.0); HEMATOCRIT 38.9 % (39.0-51.0); HEMOGLOBIN 13.8 GM/DL (13.0-17.0); LYMPH % 21.9 % (9.0-44.0); LYMPHOCYTE # 2.6 TH/MM3 (1.0-4.8); MEAN CELL VOLUME 100.4 FL (80.0-100.0); MEAN CORPUSCULAR HEMOGLOBIN 35.7 PG (27.0-34.0); MEAN CORPUSCULAR HGB CONC 35.6 % (32.0-36.0); MEAN PLATELET VOLUME 6.9 FL (7.0-11.0); MONO % 10.7 % (0.0-8.0); MONOCYTE # 1.3 TH/MM3 (0-0.9); NEUT % 66.1 % (16.0-70.0); PLATELET COUNT 268 TH/MM3 (150-450); RED BLOOD COUNT 3.87 MIL/MM3 (4.50-5.90); RED CELL DISTRIBUTION WIDTH 12.8 % (11.6-17.2); WHITE BLOOD COUNT 12.1 TH/MM3 (4.0-11.0)
[2017-09-21 04:28] LABS: ALBUMIN 3.1 GM/DL (3.4-5.0); ALKALINE PHOSPHATASE 75 U/L (45-117); ALT (GPT) 55 U/L (12-78); AST (GOT) 123 U/L (15-37); BICARBONATE 26.6 MEQ/L (21.0-32.0); BLOOD UREA NITROGEN 9 MG/DL (7-18); CALCIUM 8.2 MG/DL (8.5-10.1); CHLORIDE 100 MEQ/L (98-107); CREATININE 1.21 MG/DL (0.60-1.30); GLOMERULAR FILTRATION RATE 76 ML/MIN (>89); GLUCOSE,RANDOM 77 MG/DL (74-106); SODIUM (NA) 141 MEQ/L (136-145); TOTAL BILIRUBIN ADULT 0.7 MG/DL (0.2-1.0); TOTAL PROTEIN 7.2 GM/DL (6.4-8.2); TROPONIN I LESS THAN 0.02 NG/ML (0.02-0.05)
[2017-09-21] MEDS ORDERED: POTASSIUM CHLORIDE 20 MEQ CONTROLLED RELEASE TAB PO ONE (05:00)
[2017-09-21] MEDS: POTASSIUM CHLOR 20 MEQ PREMIX 100 ML IV SCH ×4 (05:30→11:06)
[2017-09-21 05:43] LABS: MAGNESIUM 1.8 MG/DL (1.5-2.5)
[2017-09-21] MEDS: traMADol HCL 50 MG TAB PO PRN ×2 (07:41→17:23)
[2017-09-21] MEDS: NON-FORMULARY DRUG (Emtricitabine-Tenofovir Alafenamide (Descovy) 1 TAB) PO SCH (09:00)
[2017-09-21] MEDS: DOCUSATE SODIUM 50 MG/SENNA 8.6 MG TAB PO SCH ×2 (09:00→21:00)
[2017-09-21] MEDS: FLUTICASONE PROPIONATE 50 MCG/ACT 16 GM NASAL SPRAY EACH NARE SCH ×2 (09:00→22:55)
[2017-09-21] MEDS: NS + KCL 20 MEQ INJ 1,000 ML IV SCH ×2 (09:01→17:33)
[2017-09-21] MEDS: THIAMINE HCL 100 MG TAB PO SCH (09:02)
[2017-09-21] MEDS: FOLIC ACID 1 MG TAB PO SCH (09:02)
[2017-09-21] MEDS: PANTOPRAZOLE SOD 40 MG DELAYED RELEASE TAB PO SCH (09:02)
[2017-09-21] MEDS: MULTIVITAMINS/MINERALS THERAPEUTIC TAB PO SCH (09:02)
[2017-09-21] MEDS: SODIUM CHLORIDE 0.9% FLUSH 10 ML FLUSH IV FLUSH SCH ×2 (09:03→21:00)
--- NOTE | 2017-09-21 13:34 | HHI.PR ---
Subjective Remarks Follow-up abdominal pain, chest discomfort, electrolyte abnormalities. The patient states that he feels much better. He denies abdominal pain. He denies cough, shortness of breath, chest pain, nausea, vomiting. Objective Vitals Vital Signs Date Time Temp Pulse Resp B/P (MAP) Pulse Ox O2 Delivery O2 Flow Rate FiO2 09/21/17 12:40 98.2 75 18 131/86 (101) 94 09/21/17 11:46 65 09/21/17 08:57 97.9 79 18 120/71 (87) 97 09/21/17 08:01 84 09/21/17 04:30 76 09/21/17 04:00 98.8 78 17 120/71 (87) 96 09/21/17 00:50 21 09/21/17 00:30 90 09/21/17 00:00 98.8 90 17 127/84 (98) 98 09/20/17 21:40 97 09/20/17 20:00 98.3 82 17 133/87 (102) 97 09/20/17 19:53 94 09/20/17 18:32 72 16 106/66 (79) 94 Room Air 09/20/17 16:30 80 16 94/60 (71) 98 Room Air 09/20/17 14:00 72 16 108/59 (75) 99 Room Air I/O 09/20/17 09/20/17 09/20/17 09/21/17 09/21/17 09/21/17 07:00 15:00 23:00 07:00 15:00 23:00 Intake Total 1500 ml 100 ml 450 ml Output Total 250 ml Balance 1500 ml 100 ml 200 ml Intake Oral 450 ml IV Total 1500 ml 100 ml Output Urine Total 250 ml # Voids 3 # Bowel Movements 1 Result Diagram: 09/21/17 0325 09/21/17 0325 Imaging Last Impressions Chest X-Ray 09/20/17 1148 Signed Impressions: CONCLUSION: No acute cardiopulmonary disease Liver Ultrasound 09/20/17 0000 Signed Impressions: CONCLUSION: 1. Diffuse fatty liver enlarged to about 19 cm. Pancreas not well visualized. No gallstones or biliary ductal dilatation. No free fluid. Head CT 09/20/17 0000 Signed Impressions: CONCLUSION: 1. No acute intracranial abnormalities. No significant change from May 07. Cervical Spine CT 09/20/17 0000 Signed Impressions: CONCLUSION: 1. Mild degenerative change. No acute findings. No significant change since 2016. Objective Remarks General: No acute distress. Heart: Regular rate and rhythm. No murmur. Lungs: Clear to auscultation bilaterally. No wheezes, rales, or rhonchi. Breathing is nonlabored. Abdomen: Soft, nontender, nondistended. Extremities: No lower extremity edema. Psych: Alert and oriented. Neuro: Normal speech. No focal deficits noted. Procedures None Urinary Catheter: No Vascular Central Line Catheter: No A/P Assessment and Plan 1. Atypical chest pain: Secondary to fall. Not likely to be cardiac in origin. Serial cardiac enzymes are negative. Patient had a negative stress test in 2017. 2. Dizziness: Likely secondary to dehydration, hypotension: Symptoms improved with hydration. Continue IV fluids. 3. Acute kidney injury, possibly chronic kidney disease: Monitor BUN and creatinine. Continue IV fluids. 4. Severe hypokalemia: Supplement potassium IV. 5. Elevated serum lactic acid: Likely secondary to dehydration. No evidence of infection at this time. 6. Abdominal pain, elevated AST: Patient reports that his abdominal pain has resolved. Abdomen ultrasound shows diffuse fatty liver with hepatomegaly. Statin on hold. 7. Alcohol abuse: Patient has been counseled. [facility] protocol. No signs of withdrawal at this time. Thiamine, folic acid, multivitamin. 8. HIV, chronic: Continue outpatient management. 9. Hyperlipidemia: Statin on hold secondary to elevated AST. 10. Hypertension: Blood pressure is well controlled. Not currently on antihypertensive medication 11. DVT prophylaxis: SCDs. 12. Polysubstance abuse: Urine drug screen positive for benzodiazepines, cocaine. Patient also had an alcohol level of 175. Discharge Planning Pending further clinical improvement. Brett Mary MD Sep 21, 2017 13:34
--- NOTE | 2017-09-21 13:41 | EKG ---
Date Performed: 09/21/2017 Time Performed: 00:50:22 PTAGE: 56 years EKG: Sinus rhythm Normal ECG Since PREVIOUS TRACING , no significant change noted PREVIOUS TRACIN09/20/2017 11.53 DOCTOR: Fredy Zhao Interpretating Date/Time 09/21/2017 13:39:55
--- NOTE | 2017-09-21 14:09 | EKG ---
Date Performed: 09/20/2017 Time Performed: 11:53:23 PTAGE: 56 years EKG: Sinus rhythm BORDERLINE LEFT AXIS DEVIATION NONSPECIFIC T-WAVE ABNORMALITY BORDERLINE ECG Mild baseline artifact. Doubt any major change from prior. PREVIOUS TRACING : 05/07/2017 10.20 DOCTOR: Fredy Zhao Interpretating Date/Time 09/21/2017 14:08:08
[2017-09-21] MEDS: ONDANSETRON HCL 4 MG/2 ML VIAL IVP PRN (17:22)
[2017-09-22] VITALS: BP 134/80; PULSE 62; RESP 18; TEMP 97.9; O2SAT 97
[2017-09-22] MEDS: NS + KCL 20 MEQ INJ 1,000 ML IV SCH (03:30)
[2017-09-22 04:00] VITALS: BP 142/90; PULSE 62; RESP 18; TEMP 98; O2SAT 96
[2017-09-22] MEDS ORDERED: POTA-163 PO (08:51)
[2017-09-22] MEDS ORDERED: LISI-519 PO (08:55)
--- NOTE | 2017-09-22 08:55 | HHI.DS ---
Discharge Summary Admission Date Sep 20, 2017 at 16:25 Discharge Date: Sep 22, 2017 Admitting Diagnosis Hypokalemia, Dizziness, Chest pain. (1) Atypical chest pain ICD Code: R07.89 - Other chest pain Diagnosis: Principal Status: Resolved (2) Acute alcohol intoxication ICD Code: F10.929 - Alcohol use, unspecified with intoxication, unspecified Diagnosis: Secondary Status: Acute (3) Chronic alcoholism ICD Code: F10.20 - Alcohol dependence, uncomplicated Diagnosis: Secondary Status: Chronic (4) Hypokalemia ICD Code: E87.6 - Hypokalemia Diagnosis: Secondary Status: Resolved (5) HIV disease ICD Code: B20 - Human immunodeficiency virus [HIV] disease Diagnosis: Secondary Status: Chronic (6) Dizziness ICD Code: R42 - Dizziness and giddiness Diagnosis: Secondary Status: Resolved (7) Cocaine abuse ICD Code: F14.10 - Cocaine abuse, uncomplicated Diagnosis: Secondary Status: Acute (8) Polysubstance abuse ICD Code: F19.10 - Other psychoactive substance abuse, uncomplicated Diagnosis: Secondary Status: Acute Procedures None Brief History - From Admission This is a 56-year-old male who presented to the emergency room complaining of chest pain status post fall. States he was in [facility] when he fell. Denies injury but reports dizziness especially when he is walking for the past 2 days. He also complained of intermittent left-sided severe sharp chest pain associated with nausea. There is no radiation of pain, palpitations and shortness of breath. Pain is relieved with tramadol and worse with eating. Reports of chronic intermittent vomiting usually in the morning. Denies abdominal pain, UTI symptoms, constipation and diarrhea. Stress test in November 2016 was negative for ischemia. In the emergency room, he was noted to be hypotensive and dehydrated with elevated renal indices and received a total of 3 L (1.5L EMS). He was also severely hypokalemic to 2.2. Received 40 mg p.o. 1 and currently receiving 40 mg IV. He had elevated creatinine level in May 2017 which was related to dehydration. All other systems reviewed negative CBC/BMP: 09/21/17 0325 09/21/17 4140 Significant Findings Laboratory Tests Test 09/20/17 11:59 09/20/17 21:21 09/20/17 22:00 09/21/17 03:25 Red Blood Count 3.41 MIL/MM3 (4.50-5.90) 3.87 MIL/MM3 (4.50-5.90) Hemoglobin 12.3 GM/DL (13.0-17.0) Hematocrit 34.2 % (39.0-51.0) 38.9 % (39.0-51.0) Mean Corpuscular Volume 100.5 FL (80.0-100.0) 100.4 FL (80.0-100.0) Mean Corpuscular Hemoglobin 36.0 PG (27.0-34.0) 35.7 PG (27.0-34.0) Mean Platelet Volume 6.9 FL (7.0-11.0) 6.9 FL (7.0-11.0) Monocytes (%) (Auto) 11.3 % (0.0-8.0) 10.7 % (0.0-8.0) Activated Partial Thromboplast Time 23.6 SEC (24.3-30.1) Creatinine 1.42 MG/DL (0.60-1.30) Albumin 2.9 GM/DL (3.4-5.0) 3.1 GM/DL (3.4-5.0) Calcium Level 7.5 MG/DL (8.5-10.1) 8.2 MG/DL (8.5-10.1) Aspartate Amino Transf (AST/SGOT) 152 U/L (15-37) 123 U/L (15-37) Potassium Level 2.2 MEQ/L (3.5-5.1) 3.0 MEQ/L (3.5-5.1) 2.8 MEQ/L (3.5-5.1) Chloride Level 96 MEQ/L (98-107) 96 MEQ/L (98-107) Estimat Glomerular Filtration Rate 63 ML/MIN (>89) 73 ML/MIN (>89) 76 ML/MIN (>89) Lactic Acid Level 3.2 mmol/L (0.4-2.0) Troponin I LESS THAN 0.02 NG/ML LESS THAN 0.02 NG/ML LESS THAN 0.02 NG/ML Ethyl Alcohol Level 175 MG/DL (0-5) Random Glucose 72 MG/DL (74-106) Urine Ketones TRACE mg/dL (NEG) Urine Urobilinogen 2.0 mg/dL (LESS THAN 2) Urine Mucus FEW /lpf (OCC) Urine Benzodiazepines Screen POS (NEG) Urine Cocaine Screen POS (NEG) White Blood Count 12.1 TH/MM3 (4.0-11.0) Neutrophils # (Auto) 8.0 TH/MM3 (1.8-7.7) Monocytes # (Auto) 1.3 TH/MM3 (0-0.9) Test 09/21/17 17:10 Imaging Last Impressions Chest X-Ray 09/20/17 1148 Signed Impressions: CONCLUSION: No acute cardiopulmonary disease Liver Ultrasound 09/20/17 0000 Signed Impressions: CONCLUSION: 1. Diffuse fatty liver enlarged to about 19 cm. Pancreas not well visualized. No gallstones or biliary ductal dilatation. No free fluid. Head CT 09/20/17 0000 Signed Impressions: CONCLUSION: 1. No acute intracranial abnormalities. No significant change from May 07. Cervical Spine CT 09/20/17 0000 Signed Impressions: CONCLUSION: 1. Mild degenerative change. No acute findings. No significant change since Se ptember 2016. PE at Discharge General: No acute distress. Heart: Regular rate and rhythm. No murmur. Lungs: Clear to auscultation bilaterally. No wheezes, rales, or rhonchi. Breathing is nonlabored. Abdomen: Soft, nontender, nondistended. Extremities: No lower extremity edema. Psych: Alert and oriented. Neuro: Normal speech. No focal deficits noted. Pt update on day of discharge Patient states no further chest pain. No muscle aches or cramps. Wants to go home today. Has an eye appointment at 1045 this morning. Hospital Course These are the medical issues addressed during this hospitalization: 1. Atypical chest pain: Secondary to fall and possible cocaine abuse. Not likely to be cardiac in origin. Serial cardiac enzymes are negative. Patient had a negative stress test in 2017. 2. Dizziness: Likely secondary to dehydration, hypotension: Symptoms improved with hydration. Continue IV fluids. Home antihypertensives were stopped during the hospitalization; upon discharge we will restart Coreg and decrease lisinopril dosing and stop home HCTZ 3. Acute kidney injury, possibly chronic kidney disease: Monitor BUN and creatinine. Continue IV fluids. Stop home HCTZ. 4. Severe hypokalemia: Supplement potassium IV. Oral potassium will be given at discharge for 7 days along with stopping home HCTZ 5. Elevated serum lactic acid: Likely secondary to dehydration and cocaine abuse. No evidence of infection at this time. 6. Abdominal pain, elevated AST: Patient reports that his abdominal pain has resolved. Abdomen ultrasound shows diffuse fatty liver with hepatomegaly. Statin on hold. 7. Alcohol abuse: Patient has been counseled. [facility] protocol initiated during hospitalization. No signs of withdrawal at this time. Thiamine, folic acid, multivitamin. 8. HIV, chronic: Continue outpatient management. 9. Hyperlipidemia: Statin on hold secondary to elevated AST during the hospitalization. 10. Hypertension: Blood pressure is well controlled. Restart home antihypertensive medication upon discharge with decreasing lisinopril and stopping home HCTZ 11. DVT prophylaxis: SCDs. 12. Polysubstance abuse: Urine drug screen positive for benzodiazepines, cocaine. Patient also had an alcohol level of 175. Patient was counseled on cessation of polysubstance abuse. At this time, patient has gained maximum benefit from hospitalization and is ready to be discharged to home. Pt Condition on Discharge: Good Discharge Disposition: Discharge Home Discharge Time: <= 30 minutes Discharge Instructions DIET: Follow Instructions for: As Tolerated, No Restrictions Activities you can perform: Regular-No Restrictions New Medications: Potassium Chloride ER (Potassium Chloride ER) 20 Meq Tab 20 MEQ PO DAILY for Electrolyte Replacement, #7 TAB 0 Refills Continued Medications: Albuterol 8.5 GM Inh (Proair Hfa 8.5 GM Inh) 90 Mcg/Act Aer 2 PUFF INH Q4-6H PRN for SHORTNESS OF BREATH, #1 INHALER 0 Refills 108 mcg/actuation Ascorbic Acid (Vitamin C) 250 Mg Tab 500 MG PO DAILY for Nutritional Supplement, TAB 0 Refills Carvedilol (Carvedilol) 12.5 Mg Tab 12.5 MG PO BID, #60 TAB 0 Refills Emtricitabine-Tenofovir Alafenamide (Descovy) 200-25 mg Tab 1 TAB PO DAILY for Mgmt Viral Infection, #30 TAB 0 Refills Fluticasone Nasal [place] (Fluticasone Nasal [place]) 50 Mcg/Act Naspr 50 MCG EACH NARE BID for Allergy Management, #1 BOTTLE 0 Refills 50 mcg/spray Lisinopril (Lisinopril) 20 Mg Tab 20 MG PO DAILY, #30 TAB 0 Refills Pantoprazole (Pantoprazole) 40 Mg Tab 40 MG PO DAILY for Reflux, #30 TAB Pravastatin (Pravastatin) 40 Mg Tab 40 MG PO DAILY for Cholesterol Management, #30 TAB 0 Refills Tramadol (Tramadol) 50 Mg Tab 50 MG PO Q6H PRN for PAIN, #12 TAB 0 Refills Discontinued Medications: Hydrochlorothiazide (Hydrochlorothiazide) 25 Mg Tab 25 MG PO DAILY, #30 TAB 0 Refills Jenn Rubi MD Sep 22, 2017 08:55
[2017-09-22] MEDS: NON-FORMULARY DRUG (Emtricitabine-Tenofovir Alafenamide (Descovy) 1 TAB) PO SCH (09:00)
[2017-09-22 09:05] VITALS: BP 133/93; PULSE 92; TEMP 97.5; O2SAT 96
[2017-09-22] MEDS: PANTOPRAZOLE SOD 40 MG DELAYED RELEASE TAB PO SCH (09:09)
[2017-09-22] MEDS: MULTIVITAMINS/MINERALS THERAPEUTIC TAB PO SCH (09:09)
[2017-09-22] MEDS: THIAMINE HCL 100 MG TAB PO SCH (09:09)
[2017-09-22] MEDS: DOCUSATE SODIUM 50 MG/SENNA 8.6 MG TAB PO SCH (09:09)
[2017-09-22] MEDS: SODIUM CHLORIDE 0.9% FLUSH 10 ML FLUSH IV FLUSH SCH (09:10)
[2017-09-22] MEDS: FOLIC ACID 1 MG TAB PO SCH (09:10)
[2017-09-22] MEDS: FLUTICASONE PROPIONATE 50 MCG/ACT 16 GM NASAL SPRAY EACH NARE SCH (09:11)
[2017-09-22 10:11] LABS: AUTOMATED NEUTROPHIL # 5.1 TH/MM3 (1.8-7.7); BASOPHIL % 0.5 % (0.0-2.0); EOSINOPHIL # 0.2 TH/MM3 (0-0.4); EOSINOPHIL % 1.7 % (0.0-4.0); HEMATOCRIT 39.4 % (39.0-51.0); HEMOGLOBIN 13.8 GM/DL (13.0-17.0); LYMPH % 30.1 % (9.0-44.0); LYMPHOCYTE # 2.7 TH/MM3 (1.0-4.8); MEAN CELL VOLUME 101.2 FL (80.0-100.0); MEAN CORPUSCULAR HEMOGLOBIN 35.4 PG (27.0-34.0); MEAN CORPUSCULAR HGB CONC 34.9 % (32.0-36.0); MEAN PLATELET VOLUME 7.2 FL (7.0-11.0); NEUT % 56.7 % (16.0-70.0); PLATELET COUNT 251 TH/MM3 (150-450); RED CELL DISTRIBUTION WIDTH 13.3 % (11.6-17.2)
[2017-09-22 10:59] LABS: ALBUMIN 2.9 GM/DL (3.4-5.0); AST (GOT) 86 U/L (15-37); BICARBONATE 26.2 MEQ/L (21.0-32.0); BLOOD UREA NITROGEN 6 MG/DL (7-18); CALCIUM 8.7 MG/DL (8.5-10.1); CHLORIDE 101 MEQ/L (98-107); CREATININE 0.98 MG/DL (0.60-1.30); GLOMERULAR FILTRATION RATE 97 ML/MIN (>89); GLUCOSE,RANDOM 84 MG/DL (74-106); MAGNESIUM 1.8 MG/DL (1.5-2.5); SODIUM (NA) 138 MEQ/L (136-145)
[2017-09-22 11:03] LABS: ALKALINE PHOSPHATASE 74 U/L (45-117); ALT (GPT) 43 U/L (12-78); TOTAL BILIRUBIN ADULT 0.9 MG/DL (0.2-1.0); TOTAL PROTEIN 6.9 GM/DL (6.4-8.2)
== END 2017-09-22 10:30 | disposition home or self-care (01) | DRG 313 ==
LOC: NEPE 11:41 → NEDA 16:25 → N05B 19:36
PROVIDERS: ADMIT Family Medicine; ATTEND Family Medicine
DX: R07.89 Other chest pain (principal); N17.9 Acute kidney failure, unspecified; B20 Human immunodeficiency virus [HIV] disease; I95.9 Hypotension, unspecified; K76.0 Fatty (change of) liver, not elsewhere classified; R16.0 Hepatomegaly, not elsewhere classified; R10.9 Unspecified abdominal pain; E86.0 Dehydration; Z72.0 Tobacco use; W19.XXXA Unspecified fall, initial encounter; E87.6 Hypokalemia; M19.90 Unspecified osteoarthritis, unspecified site; I10 Essential (primary) hypertension; E78.5 Hyperlipidemia, unspecified; J45.909 Unspecified asthma, uncomplicated; F10.929 Alcohol use, unspecified with intoxication, unspecified; Y90.6 Blood alcohol level of 120-199 mg/100 ml; F14.10 Cocaine abuse, uncomplicated; M25.519 Pain in unspecified shoulder
CPT/HCPCS: 70450; 71045; 72125; 76705; 80048; 80053; 80307; 81001; 82550; 82552; 83605; 83690; 83735; 84132; 84484; 85025; 85610; 85730; 93005; 96361; 96365; 96366; J2405; J3480; J7030; J7040